=== PATIENT | female | born 1970 | race Caucasian/White ===

== ENCOUNTER 2022-08-29 12:33 | Outpatient (RCR) | payer MEDICARE, MEDICAID, SELFPAY | END 2022-12-04 10:14 | disposition home or self-care (01) | LOC: HO.WCC 12:33 | PROVIDERS: PCP Internal Medicine; Visit Provider Surgery | DX: Z09 Encounter for follow-up examination after completed treatment for conditions other than malignant neoplasm (principal); Z79.4 Long term (current) use of insulin; Z79.82 Long term (current) use of aspirin; Z79.899 Other long term (current) drug therapy; Z86.31 Personal history of diabetic foot ulcer | CPT/HCPCS: 11042; 11043; 99212 ==

== ENCOUNTER 2023-01-14 12:18 | Emergency (ER) | payer MEDICARE, MEDICAID, SELFPAY ==
--- NOTE | ~2023-01-14 | US_ITS ---
EXAMINATION: US VENOUS WITH DOPPLER UPPER EXTREMITY, LEFT CLINICAL INFORMATION: Edema/swelling COMPARISON: None available. TECHNIQUE: Ultrasound of the upper extremity is performed using compression sonography and color and pulse Doppler flow with assessment of augmentation of flow. There is also imaging and Doppler assessment of the jugular and subclavian veins. Spectral analysis with color-flow imaging is performed. FINDINGS: Respiratory variation, normal compression, and augmented flow are noted throughout the upper extremity including the axillary, brachial, cephalic and radial and ulnar veins. There is normal flow in the internal jugular and subclavian veins. There is no visible deep or superficial thrombophlebitis. US/US venous duplex UE LT IMPRESSION: No DVT demonstrated in the left upper extremity.
[2023-01-14 12:26] VITALS: BP 114/82; PULSE 104; O2SAT 95
--- NOTE | 2023-01-14 12:57 | ED_ITS ---
HPI - Skin/Abscess/Foreign Bdy General Chief complaint: Extremity Injury, Upper Stated complaint: L ARM PAIN/SWELLING PER EMS Time Seen by Provider: 01/14/23 14:55 Source: patient Mode of arrival: ambulatory Limitations: no limitations History of Present Illness HPI narrative: This is a 52-year-old female with a history of diabetes, hypertension, arthritis presenting with atraumatic left upper extremity swelling worsening over the past week. Patient reports this has never happened to her before so she became concerned and wanted to come in to get seen. Was also told to come to the ED to r/o DVT by her primary care provider. No hx of DVT, PE, malignancy, hypercoagulable d/o. NOt on blood thinners. Reports slight associated discomfort. Denies redness, warmth, fevers, chills, numbness, tingling. Related Data Previous Rx's Medication Instructions Recorded ketorolac 10 mg tablet 10 mg PO TID PRN pain 5 days #15 01/14/23 tabs Allergies Allergy/AdvReac Type Severity Reaction Status Date / Time antibiotic, unk name Allergy Unknown Uncoded 01/14/23 13:01 Review of Systems 2 Review of Systems: Constitutional : No Weight loss, No Fever, No Chills, No Fatigue, No Malaise ENT/Mouth : No sore throat, No Rhinorrhea Eyes: No Eye Pain, No Swelling, No Redness Cardiovascular : No Chest Pain, No SOB, No Dyspnea on Exertion, No Orthopnea, No Edema, No Palpitations Respiratory : No Cough, No Sputum, No Wheezing Gastrointestinal : No Nausea, No Vomiting, No Diarrhea, No Constipation, No abdominal Pain, No Hematochezia, No Melena Genitourinary : No Dysuria, No Urinary Frequency, No Hematuria, Musculoskeletal : + joint pain, No Myalgias, + Joint Swelling Skin : No Skin Lesions, No rash Neuro : No Weakness, No Numbness, No Dizziness, No Headache Psych : No Anxiety/Panic, No Depression All other systems reviewed and are negative Yes all other systems are reviewed and are negative [facility] Past Medical History Attestation statement: The following information was validated with the patient. Source: old records reviewed and nursing notes reviewed Physical Exam 2 Vital Signs: Vital Signs: Last Vital Signs Temp 98.2 F 01/14/23 12:58 Pulse 92 01/14/23 12:58 Resp 20 01/14/23 12:58 BP 133/85 01/14/23 12:58 Pulse Ox 99 01/14/23 12:58 O2 Del Method Room Air 01/14/23 12:58 BMI result Body Mass Index 59.6 vss Appearance: Alert.? Oriented X3.? No acute distress.? Head: Normocephalic, atraumatic, no step-offs or deformities Neck: Normal inspection.? Neck supple.? CVS: Normal heart rate and rhythm.? Pulses normal.? Respiratory: No respiratory distress.? Breath sounds normal.? Abdomen: Soft and nontender.? Skin: Skin warm and dry.? Normal skin color.? Normal skin turgor.? Extremities: No lower extremity edema.? No calf ttp. 5/5 strength to bilateral upper and lower extremities + swelling noted to entire LUE non pitting 2+ radial pulses equal and b/l, no wrist drop, cap refil < 2 seconds to b/l UE,normal sensation distally. b/l deputreyen contracture Neuro: Oriented X 3.? No motor deficit.? No sensory deficit. CN 2-12 intact Course Course Course Narrative: This is a rapid medical exam. Deferred additional HPI, ROS, PE to primary provider. 52 yo female DM, HTN, arthritis here with complaints of left upper arm swelling x 1 week with no injury or trauma. No redness/warmth/fevers/chills. Will obtain venous US Sent in from PCP to r/o DVT-no history of same VSS Reevaluation(s) Reevaluation #1: I have discussed the history and plan with the PA and agree Time: 15:35 Reevaluation #2: CBC with no acute findings requiring acute intervention, slight normocytic anemia however no reports of bleeding at this time. Chemistry unremarkable. Patient is noted to have markedly elevated CRP 4.72 this could be secondary to rheumatologic condition causing swelling and bilateral upper extremities. As discussed by my attending. Will have patient follow-up with Rheumatology and PCP. Nothing to be done acutely. Educated patient on diagnosis and treatment plan, answered all question, patient verbalizes understanding. At this time patient will be discharged home, advised to return with new or worsening symptoms. Educated on worrisome signs and symptoms and when to return. At this time I feel comfortable discharge home. Time: 16:18 Medications Administered Discontinued Medications Generic Name Dose Route Start Last Admin Trade Name Fantasma PRN Reason Stop Dose Admin Ketorolac Tromethamine 30 mg 01/14/23 15:36 01/14/23 16:00 Ketorolac Tromethamine 30 Mg/Ml Vial IM 01/14/23 15:37 30 mg ONCE ONE Administration Medical Decision Making Medical Decision Making [facility] Narrative: 1518 52 year old female presents w/ atraumatic swelling to LUE X 1 week No lower extremity edema.? No calf ttp. 5/5 strength to bilateral upper and lower extremities + swelling noted to entire LUE non pitting 2+ radial pulses equal and b/l, no wrist drop, cap refil < 2 seconds to b/l UE,normal sensation distally. b/l deputreyen contracture Concerning for inflammatory arthritis versus DVT vs rheumatologic condition versus lymphedema. Unlikely arterial occlusion, threat to Limb. I do not appreciate cellulitis, or necrotizing infection. Unlikley fx/dislocation atruamatic Plan venous duplex Differential Diagnosis Differential Diagnoses: The differential diagnosis associated with the presentation includes Concerning for inflammatory arthritis versus DVT vs rheumatologic condition versus lymphedema. . Unlikely arterial occlusion, threat to Limb. I do not appreciate cellulitis, or necrotizing infection. Unlikley fx/dislocation atruamatic Admission/Observation Consideration of admission/observation: Escalation of care including admission/observation considered [facility] Lab Data 01/14/23 15:55 01/14/23 15:55 Labs: Lab Results 01/14/23 Range/Units 15:55 WBC 8.8 (4.8-10.8) X10*3/uL RBC 4.35 (4.20-5.50) X10*6/uL Hgb 10.8 L (12.0-16.0) g/dl Hct 35.2 L (37.0-47.0) % MCV 80.9 (80.0-98.0) fL MCH 24.8 L (27.0-33.0) pg MCHC 30.7 L (31.0-35.0) g/dl RDW 16.8 H (11.0-16.0) % Plt Count 350 (160-400) X10*3/uL MPV 9.8 (9.4-12.3) fL Immature Gran % (Auto) 0.5 H (0.0-0.4) % Neut % (Auto) 67.0 (45-73) % Lymph % (Auto) 19.8 L (20-40) % [place] % (Auto) 7.8 (2-11) % Eos % (Auto) 4.3 H (0-4) % Baso % (Auto) 0.6 (0-2) % Lymph # (Auto) 1.7 (1.2-4.9) X10*3/uL [place] # (Auto) 0.7 (0.1-1.2) X10*3/uL Eos # (Auto) 0.4 (0.0-0.4) X10*3/uL Baso # (Auto) 0.1 (0.0-0.2) X10*3/uL Abs Immat Gran (auto) 0.04 H (0.00-0.03) X10*3/uL Absolute Neuts (auto) 5.9 (2.0-8.3) x10*3/uL Absolute Nucleated RBC 0.000 (0.0-0.012) X10*3/uL Nucleated RBC % (auto) 0.0 (0.0-0.2) /100WBC Sodium 136 (135-145) mmol/L Potassium 4.9 (3.3-5.1) mmol/L Chloride 103 (96-108) mmol/L Carbon Dioxide 26 (22-29) mmol/L Anion Gap 12 (12-20) BUN 16 (9-16) mg/dL Creatinine 0.78 (0.5-1.4) mg/dL Estim Creat Clear Calc 138.0 Estimated GFR > 60 Random Glucose 182 H (60-115) mg/dL Calcium 9.5 (8.4-10.2) mg/dL Total Bilirubin 0.2 (0.0-1.0) mg/dL AST 18 (5-31) U/L ALT 17 (0-31) U/L Alkaline Phosphatase 109 (39-117) U/L C-Reactive Protein 4.72 H (< or = 0.50) mg/dL Total Protein 8.7 H (6.5-8.0) g/dL Albumin 3.7 (3.5-5.0) g/dL Independent Interpretation I performed an independent interpretation of an: Ultrasound (US/US venous duplex UE LT IMPRESSION: No DVT demonstrated in the left upper extremity. ) Radiology Impression Discussion of test interpretation with radiology: I have reviewed the radiologist's reading. Chronic Conditions Patient?s care impacted by: Other (obesity ) Critical Care Time Critical Care Time Critical Care Time: No Discharge Plan Discharge Clinical Impression: Left upper extremity swelling, Dupuytren contracture Patient Disposition: Home, Self-Care Instructions: Dupuytren's Contracture (ED) Additional Instructions: Take your medications as prescribed. If you were prescribed antibiotics today, it is important that you take your medication to their entirety, do not skip any doses, do not finish them early. Follow-up with your primary care provider this week. Return to the emergency department with new or worsening symptoms. Such as fevers, chills, chest pain, shortness of breath, nausea, vomiting, dizziness, headache, vision changes, lethargy In case of emergency call 911 Toradol has been sent to your pharmacy, you tolerated this well in the department. Please take this as prescribed do not take this with ibuprofen, or other NSAIDs, do not mix this with alcohol. Side effects of this medication including increased risk for bleeding and possible kidney injury. US/US venous duplex UE LT IMPRESSION: No DVT demonstrated in the left upper extremity. Prescriptions: New ketorolac 10 mg tablet 10 mg PO TID PRN (Reason: pain) 5 Days Qty: 15 0RF Referrals: [facility] [place] Orthopedic Surgeons [Provider Group] - 1 day [facility] [place] Rheumatology Service [Provider Group] - 1 day ED Physician,Generic [Physician] - 2 days Stand Alone Forms: Work/School Release
[2023-01-14 12:58] VITALS: BP 133/85; PULSE 92; RESP 20; TEMP 36.8; O2SAT 99; BMI 59.6
[2023-01-14 16:00] LABS: MANUAL DIFF FLAG NO
[2023-01-14] MEDS: Ketorolac Tromethamine 30 MG/ML VIAL IM (16:00)
[2023-01-14 16:03] LABS: Basophils Absolute Auto 0.1 X10*3/uL (0.0-0.2); Basophils Percent Auto 0.6 % (0-2); Eosinophils Absolute Auto 0.4 X10*3/uL (0.0-0.4); Eosinophils Percent Auto 4.3 % (0-4); Hematocrit 35.2 % (37.0-47.0); Hemoglobin 10.8 g/dl (12.0-16.0); Imm Gran Abs Auto 0.04 X10*3/uL (0.00-0.03); Imm Gran Pct Auto 0.5 % (0.0-0.4); Lymphocytes Absolute Auto 1.7 X10*3/uL (1.2-4.9); Lymphocytes Percent Auto 19.8 % (20-40); Mean Corpuscular HGB Conc 30.7 g/dl (31.0-35.0); Mean Corpuscular Hemoglobin 24.8 pg (27.0-33.0); Mean Corpuscular Volume 80.9 fL (80.0-98.0); Mean Platelet Volume 9.8 fL (9.4-12.3); Monocytes Absolute Auto 0.7 X10*3/uL (0.1-1.2); Monocytes Percent Auto 7.8 % (2-11); Neutrophils Absolute Auto 5.9 x10*3/uL (2.0-8.3); Platelet Count 350 X10*3/uL (160-400); Red Blood Count 4.35 X10*6/uL (4.20-5.50); Red Cell Distribution Width 16.8 % (11.0-16.0); White Blood Count 8.8 X10*3/uL (4.8-10.8)
[2023-01-14 16:14] LABS: Alanine Aminotransferase 17 U/L (0-31); Albumin Level 3.7 g/dL (3.5-5.0); Alkaline Phosphatase 109 U/L (39-117); Anion Gap 12 (12-20); Aspartate Amino Transferase 18 U/L (5-31); Bilirubin Total 0.2 mg/dL (0.0-1.0); Blood Urea Nitrogen 16 mg/dL (9-16); C Reactive Protein 4.72 mg/dL (< or = 0.50); Calcium 9.5 mg/dL (8.4-10.2); Carbon Dioxide 26 mmol/L (22-29); Chloride 103 mmol/L (96-108); Estimated Glomerular Filt Rate > 60; Glucose Random 182 mg/dL (60-115); Potassium 4.9 mmol/L (3.3-5.1); Sodium 136 mmol/L (135-145); Total Protein 8.7 g/dL (6.5-8.0)
[2023-01-14 16:47] LABS: Erythrocyte Sedimentation Rate 84 MM/HR (0-20)
[2023-01-16 12:53] LABS: Anti DNA DS Antibody 4 IU/mL
== END 2023-01-14 16:47 | disposition home or self-care (01) ==
PROVIDERS: Physician Assistant; Emergency Provider Emergency Medicine; PCP Internal Medicine
DX: M72.0 Palmar fascial fibromatosis [Dupuytren] (principal); M79.89 Other specified soft tissue disorders; M79.602 Pain in left arm; E11.9 Type 2 diabetes mellitus without complications; I10 Essential (primary) hypertension; D64.9 Anemia, unspecified
CPT/HCPCS: 36415; 80053; 85025; 85652; 86140; 86225; 93971; 96372; 99283; 99284; J1885

== ENCOUNTER 2023-06-01 10:14 | Emergency (ER) | payer MEDICARE, MEDICAID, SELFPAY ==
--- NOTE | ~2023-06-01 | XR_ITS ---
EXAMINATION: Bilateral knee x-ray CLINICAL INFORMATION: Pain COMPARISON: None. TECHNIQUE: 4 views of each knee FINDINGS: Right: Bone alignment is normal. There is slight increased sclerosis of the lateral tibial plateau and is difficult to exclude fracture. No displaced fracture is seen. There are small osteophytes at the lateral femoral tibial joint. There is joint space narrowing at the medial femoral tibial joint. There are osteophytes and joint space narrowing at the patellofemoral joint. There is a small joint effusion. Left: On alignment is normal. No fracture or dislocation. The femoral tibial joints are normal. Small osteophytes at the patellofemoral joint. Moderate to large joint effusion. XR/XR knee LT 4V IMPRESSION: Right: Arthritis and small joint effusion. Slight increased sclerosis of the lateral tibial plateau. It is difficult to exclude fracture. Left: Arthritis at the patellofemoral joint and moderate to large joint effusion.
--- NOTE | ~2023-06-01 | XR_ITS ---
EXAMINATION: Bilateral knee x-ray CLINICAL INFORMATION: Pain COMPARISON: None. TECHNIQUE: 4 views of each knee FINDINGS: Right: Bone alignment is normal. There is slight increased sclerosis of the lateral tibial plateau and is difficult to exclude fracture. No displaced fracture is seen. There are small osteophytes at the lateral femoral tibial joint. There is joint space narrowing at the medial femoral tibial joint. There are osteophytes and joint space narrowing at the patellofemoral joint. There is a small joint effusion. Left: On alignment is normal. No fracture or dislocation. The femoral tibial joints are normal. Small osteophytes at the patellofemoral joint. Moderate to large joint effusion. XR/XR knee RT 4V IMPRESSION: Right: Arthritis and small joint effusion. Slight increased sclerosis of the lateral tibial plateau. It is difficult to exclude fracture. Left: Arthritis at the patellofemoral joint and moderate to large joint effusion.
--- NOTE | ~2023-06-01 | XR_ITS ---
EXAMINATION: XR FOOT, LEFT CLINICAL INFORMATION: Medial heel wound COMPARISON: None available. TECHNIQUE: AP, lateral, and oblique views of the left foot. FINDINGS: No fracture or dislocation. Contractures of the toes. Calcaneal spurs. Degenerative changes of the midfoot. Soft tissue arterial calcification. Diffuse soft tissue swelling of the foot and ankle and visualized lower leg. No abnormal air collection or foreign body seen. XR/XR foot LT min 3V IMPRESSION: No fracture x-ray evidence of osteomyelitis. Diffuse soft tissue swelling of the foot. Degenerative changes and calcaneal spurs.
[2023-06-01 10:26] VITALS: BP 240/140; PULSE 98; O2SAT 98
--- NOTE | 2023-06-01 10:26 | ED_ITS ---
HPI - General Adult General Chief complaint: Skin/Abscess/Foreign Body Stated complaint: R LOWER LEG RED AND INFLAMMED Time Seen by Provider: 06/01/23 10:25 Source: patient, EMS and RN notes reviewed Mode of arrival: EMS Limitations: no limitations History of Present Illness HPI narrative: Patient is a 52-year-old female with history of DM, HTN, arthritis presenting to the emergency department with complaint of wound to left foot for the past 2 weeks as well as bilateral knee pain for the past 3-4 months. Patient reports that she contacted her primary care provider requesting wound care for her left foot but was told [facility] was not able to come to her home. Patient states that she and her aide have been applying bacitracin and wrapping the foot. She denies fevers/chills/body aches. Also states that she has been having ongoing bilateral knee pain for the past 3-4 months which is interfering with ambulation, states she feels as though both knees are weak. Was seen here in December and prescribe short course of Toradol which she states was helpful for this pain but she was told she was unable to stay on this medication long-term. She denies falls or other trauma. She was noted to be hypertensive by EMS, but states did not take her lisinopril this morning. She did take her pain medication as well as 19units of Lantus for a blood glucose level of 268. complaint: left foot wound Onset (ago): week(s) Associated symptoms: denies other symptoms Treatments prior to arrival: other (bandage) Related Data Previous Rx's ?Medication ?Instructions ?Recorded ketorolac 10 mg tablet 10 mg PO TID PRN pain 5 days #15 01/14/23 tabs Allergies Allergy/AdvReac Type Severity Reaction Status Date / Time antibiotic, unk name Allergy Vomiting Uncoded 06/01/23 10:31 Review of Systems 2 Review of Systems: As per HPI. Yes all other systems are reviewed and are negative PMFSH Social History Social History Advance Directives: No Advance Directives Information Provided: No Physical Exam ED Vital Signs: Vital Signs - 24 hr 06/01/23 10:28 06/01/23 14:36 Temperature 97.1 F Pulse Rate 99 99 Respiratory Rate 18 Blood Pressure 192/93 H 192/93 H Pulse Oximetry 96 96 Oxygen Delivery Method Room Air BMI result Body Mass Index 68.3 Vital signs have been reviewed and appear to be correct. Blood pressure elevated. Heart rate normal. Respiratory rate normal. Temperature normal. Oxygen saturation normal. Const General: cooperative, no acute distress, alert and awake Nutritional Appearance: obese Orientation/consciousness: patient oriented x3 Limitations: physical limitations HENMT Head: Yes normocephalic and Yes atraumatic Ears: hearing grossly normal bilaterally and external ears normal General nose exam: Normal external nose present Face and sinus: Yes normal facial exam Mouth: Normal oral and palatal mucosa present Throat: Yes posterior oropharynx normal and Yes uvula midline Eyes Pupils: Equal, round and reactive pupils present Resp Effort & Inspection: normal respiratory effort Auscultation: clear to auscultation bilaterally Cardio Rate: regular rate Rhythm: regular rhythm Heart sounds: S1 normal heart sound present and S2 normal heart sound present Peripheral pulses: Peripheral pulses 2+ throughout GI Palpation (GI): Soft to palpation and nontender Auscultation: normoactive bowel sounds General: Yes no CVA tenderness Back/Spine/Pelvis Back: no CVA tenderness Skin Other: General skin exam: elasticity normal and turgor normal Wounds: wounds noted (See photo) left heel Neuro General: patient oriented x3 Cranial nerves: Yes Equal, round and reactive pupils present Medications Administered Generic Name Dose Route Start Last Admin Trade Name Freq PRN Reason Stop Dose Admin Cephalexin HCl 500 mg 06/01/23 17:00 06/01/23 13:50 Cephalexin 500 Mg Capsule PO 06/08/23 13:01 500 mg QID GIACOMO Administration Discontinued Medications Generic Name Dose Route Start Last Admin Trade Name Freq PRN Reason Stop Dose Admin Sodium Chloride 1,000 mls @ 999 mls/hr 06/01/23 12:00 06/01/23 13:57 Ns IV 06/01/23 13:00 Infused .Q1H1M GIACOMO Infusion Lisinopril 5 mg 06/01/23 10:38 06/01/23 10:51 Lisinopril 5 Mg Tablet PO 06/01/23 10:39 5 mg ONCE ONE Administration Protocol Medical Decision Making Medical Decision Making MDM Narrative: Patient is a 52-year-old female with history of DM, HTN, arthritis presenting to the emergency department with complaint of wound to left foot for the past 2 weeks as well as bilateral knee pain for the past 3-4 months. On exam patient is awake, A+Ox3, BP elevated, VS otherwise WNL, afebrile, normal neurological exam without focal deficits, physical exam findings as above. Given reported symptoms and physical exam findings, initial differential includes diabetic ulcer, cellulitis, osteomyelitis, osteoarthritis. Labs notable for no leukocytosis, chronically elevated ESR and CRP. X-ray foot notable for no evidence of osteomyelitis. X-ray bilateral knees show arthritis and effusions. Radiologist's notes that fracture can not be excluded on right knee x-ray to lateral tibial plateau. Given that patient denies fall or other trauma, feel this is unlikely. My interpretation is in agreement with the radiologist's interpretation. At this time given history of DM, will start patient on p.o. antibiotics, refer to Wound Clinic. Given that patient is stating she is unable to ambulate due to her knee pain, will place PT and cm evaluations. Patient placed on physician observation at 1:45 p.m. pending PT and CM. 14:29 Patient now stating that she would prefer discharge home without PT eval/CM involvement. She reports that she has been on a course of doxycycline prescribed by her PCP which she did not disclose initially. She also states that she has an aide in her home 6 days per week and two 18-year-old daughters who can assist her with dressing changes. She states she is able to ambulate to her chair and to the bathroom. Patient visualized ambulating to the bathroom in the ED unassisted with steady gait. Feel patient is stable for discharge home at this time and will discontinue cephalexin prescription as wound does not currently appear cellulitic. Instructed patient to follow-up with her primary care provider. Return precautions discussed at bedside. Patient verbalized understanding of and agreement plan. Observation care revealed that patient does not meet medical necessity for hospitalization. Final disposition discussed with patient. The patient completed observation care at 14:48, total time in observation care was 1 hour. Differential Diagnosis Differential Diagnoses: The differential diagnosis associated with the presentation includes As per [facility]. Admission/Observation Consideration of admission/observation: Escalation of care including admission/observation considered Patient would have been admitted to the hospital had their work up had any findings where hospital admission was appropriate and their clinical presentation warranted hospital admission. Lab Data [facility] Lab Attestation statement: I reviewed the patient's lab results. As per [facility] 06/01/23 11:10 06/01/23 11:10 Labs: Lab Results 06/01/23 Range/Units 11:10 WBC 8.0 (4.8-10.8) X10*3/uL RBC 4.09 L (4.20-5.50) X10*6/uL Hgb 10.5 L (12.0-16.0) g/dl Hct 33.3 L (37.0-47.0) % MCV 81.4 (80.0-98.0) fL MCH 25.7 L (27.0-33.0) pg MCHC 31.5 (31.0-35.0) g/dl RDW 17.5 H (11.0-16.0) % Plt Count 290 (160-400) X10*3/uL MPV 9.5 (9.4-12.3) fL Immature Gran % (Auto) 0.6 H (0.0-0.4) % Neut % (Auto) 70.0 (45-73) % Lymph % (Auto) 16.3 L (20-40) % [place] % (Auto) 7.1 (2-11) % Eos % (Auto) 5.6 H (0-4) % Baso % (Auto) 0.4 (0-2) % Lymph # (Auto) 1.3 (1.2-4.9) X10*3/uL [place] # (Auto) 0.6 (0.1-1.2) X10*3/uL Eos # (Auto) 0.5 H (0.0-0.4) X10*3/uL Baso # (Auto) 0.0 (0.0-0.2) X10*3/uL Abs Immat Gran (auto) 0.05 H (0.00-0.03) X10*3/uL Absolute Neuts (auto) 5.6 (2.0-8.3) x10*3/uL Absolute Nucleated RBC 0.000 (0.0-0.012) X10*3/uL Nucleated RBC % (auto) 0.0 (0.0-0.2) /100WBC ESR 87 H (0-20) MM/HR PT 11.7 (11.1-13.3) SEC INR 1.0 (0.9-1.1) Sodium 134 L (135-145) mmol/L Potassium 4.9 (3.3-5.1) mmol/L Chloride 101 (96-108) mmol/L Carbon Dioxide 27 (22-29) mmol/L Anion Gap 11 L (12-20) BUN 21 H (9-16) mg/dL Creatinine 0.93 (0.5-1.4) mg/dL Estim Creat Clear Calc 118.7 Estimated GFR > 60 Random Glucose 328 H (60-115) mg/dL Lactic Acid 1.3 (0.5-2.0) mmol/L Calcium 9.2 (8.4-10.2) mg/dL Total Bilirubin 0.3 (0.0-1.0) mg/dL AST 20 (5-31) U/L ALT 21 (0-31) U/L Alkaline Phosphatase 150 H (39-117) U/L C-Reactive Protein 6.18 H (< or = 0.50) mg/dL Total Protein 8.2 H (6.5-8.0) g/dL Albumin 3.6 (3.5-5.0) g/dL Independent Interpretation I performed an independent interpretation of an: Plain X-Ray Interpretation: No evidence of osteomyelitis to left foot on x-ray Bilateral knee x-rays show arthritis and effusions. Radiology Impression Discussion of test interpretation with radiology: I have reviewed the radiologist's reading. Radiologist Impression: XR/XR knee LT 4V IMPRESSION: Right: Arthritis and small joint effusion. Slight increased sclerosis of the lateral tibial plateau. It is difficult to exclude fracture. Left: Arthritis at the patellofemoral joint and moderate to large joint effusion. XR/XR foot LT min 3V IMPRESSION: No fracture x-ray evidence of osteomyelitis. Diffuse soft tissue swelling of the foot. Degenerative changes and calcaneal spurs. External Record Review External record reviewed: Inpatient record, Office record and Outpatient record Prescription Management I considered prescription management with: Antibiotic Chronic Conditions Patient?s care impacted by: Diabetes and Hypertension Discharge Plan Discharge Clinical Impression: Diabetic ulcer of foot associated with type 2 diabetes mellitus, limited to breakdown of skin, Bilateral knee pain Patient Disposition: Home, Self-Care Instructions: Foot Care for People with Diabetes (ED), Diabetic Foot Ulcers (ED) Additional Instructions: You were evaluated in the emergency department today for a diabetic wound to your left foot. The wound does not currently appear actively infected. Please complete the course of antibiotics previously prescribed to you by your primary care provider. Follow up with your primary care provider. Return to the emergency department if you develop increased redness or swelling, thick yellow drainage to your foot or fevers, or any other concerning symptoms. Prescriptions: No Action ketorolac 10 mg tablet 10 mg PO TID PRN (Reason: pain) 5 Days Qty: 15 0RF Referrals: [facility] [Provider Group] Print Language: Jordanian
[2023-06-01 10:28] VITALS: BP 192/93; PULSE 99; RESP 18; TEMP 36.2; O2SAT 96; BMI 68.3
--- NOTE | 2023-06-01 10:38 | ECG_ITS ---
Test Reason : HIGH BLOOD PRESSURE Blood Pressure : / mmHG Vent. Rate : 098 BPM Atrial Rate : 098 BPM P-R Int : 180 ms QRS Dur : 076 ms QT Int : 330 ms P-R-T Axes : 052 021 087 degrees QTc Int : 421 ms Normal sinus rhythm nonspecific T wave changes Abnormal ECG When compared with ECG of 11-JUL-2011 21:53, No significant changes seen Referred By: Shahrzad Renteria Electronically Signed By:Shiv Issa
[2023-06-01] MEDS: lisinopriL 5 MG TABLET PO (10:51)
--- NOTE | 2023-06-01 11:17 | PC.NURSE ---
Patient reports taking 19units of long acting insulin this morning for a bs of 268. Patient reports forgetting to take her bp meds but took her pain meds.
[2023-06-01 11:19] LABS: MANUAL DIFF FLAG NO
[2023-06-01 11:21] LABS: Basophils Percent Auto 0.4 % (0-2); Eosinophils Absolute Auto 0.5 X10*3/uL (0.0-0.4); Eosinophils Percent Auto 5.6 % (0-4); Hematocrit 33.3 % (37.0-47.0); Hemoglobin 10.5 g/dl (12.0-16.0); Imm Gran Abs Auto 0.05 X10*3/uL (0.00-0.03); Imm Gran Pct Auto 0.6 % (0.0-0.4); Lymphocytes Absolute Auto 1.3 X10*3/uL (1.2-4.9); Lymphocytes Percent Auto 16.3 % (20-40); Mean Corpuscular HGB Conc 31.5 g/dl (31.0-35.0); Mean Corpuscular Hemoglobin 25.7 pg (27.0-33.0); Mean Corpuscular Volume 81.4 fL (80.0-98.0); Mean Platelet Volume 9.5 fL (9.4-12.3); Monocytes Absolute Auto 0.6 X10*3/uL (0.1-1.2); Monocytes Percent Auto 7.1 % (2-11); Neutrophils Absolute Auto 5.6 x10*3/uL (2.0-8.3); Platelet Count 290 X10*3/uL (160-400); Red Blood Count 4.09 X10*6/uL (4.20-5.50); Red Cell Distribution Width 17.5 % (11.0-16.0)
[2023-06-01 11:26] LABS: Prothrombin Time 11.7 SEC (11.1-13.3)
[2023-06-01 11:31] LABS: Lactic Acid 1.3 mmol/L (0.5-2.0)
[2023-06-01 11:41] LABS: Alanine Aminotransferase 21 U/L (0-31); Albumin Level 3.6 g/dL (3.5-5.0); Alkaline Phosphatase 150 U/L (39-117); Anion Gap 11 (12-20); Aspartate Amino Transferase 20 U/L (5-31); Bilirubin Total 0.3 mg/dL (0.0-1.0); Blood Urea Nitrogen 21 mg/dL (9-16); C Reactive Protein 6.18 mg/dL (< or = 0.50); Calcium 9.2 mg/dL (8.4-10.2); Carbon Dioxide 27 mmol/L (22-29); Chloride 101 mmol/L (96-108); Creatinine Clr Calc Pharmacy 118.7; Estimated Glomerular Filt Rate > 60; Glucose Random 328 mg/dL (60-115); Potassium 4.9 mmol/L (3.3-5.1); Sodium 134 mmol/L (135-145); Total Protein 8.2 g/dL (6.5-8.0)
[2023-06-01 12:00] LABS: Erythrocyte Sedimentation Rate 87 MM/HR (0-20)
[2023-06-01] MEDS: 0.9 % Sodium Chloride 1,000 ML 999 ML IV (12:11)
[2023-06-01] MEDS: cephALEXin 500 MG CAPSULE PO (13:50)
[2023-06-01 14:36] VITALS: BP 192/93; PULSE 99; O2SAT 96
[2023-06-01 14:57] VITALS: BP 156/78; PULSE 93; RESP 14; TEMP 36; O2SAT 95
== END 2023-06-01 14:59 | disposition home or self-care (01) ==
PROVIDERS: Registered Nurse Emergency; Emergency Provider Emergency Medicine Emergency Medical Services; PCP Internal Medicine
DX: E11.621 Type 2 diabetes mellitus with foot ulcer (principal); M25.562 Pain in left knee; M25.561 Pain in right knee; R26.81 Unsteadiness on feet; R11.2 Nausea with vomiting, unspecified; R94.31 Abnormal electrocardiogram [ECG] [EKG]; R06.02 Shortness of breath; Z79.899 Other long term (current) drug therapy
CPT/HCPCS: 36415; 73564; 73630; 80053; 83605; 85025; 85610; 85652; 86140; 87040; 93005; 96360; 96361; 97162; 99283; 99284

== ENCOUNTER → 2023-06-01 10:38 | Outpatient (BNV) | payer MEDICARE, MEDICAID, SELFPAY | PROVIDERS: Emergency Provider Emergency Medicine Emergency Medical Services; PCP Internal Medicine; Visit Provider Internal Medicine Cardiovascular Disease | DX: R94.31 Abnormal electrocardiogram [ECG] [EKG] (principal) | CPT/HCPCS: 93010 ==

== ENCOUNTER 2023-06-11 08:00 | Outpatient (RCR) | payer MEDICARE, MEDICAID, SELFPAY | END 2023-06-25 08:00 | disposition home or self-care (01) | LOC: HO.WCC 08:00 | PROVIDERS: PCP Internal Medicine; Visit Provider Physician Assistant | DX: E11.621 Type 2 diabetes mellitus with foot ulcer (principal); L97.422 Non-pressure chronic ulcer of left heel and midfoot with fat layer exposed; E66.9 Obesity, unspecified | CPT/HCPCS: 11042; 99212 ==

== ENCOUNTER 2025-01-05 19:10 | Inpatient (IN) | payer MEDICARE, MEDICAID, SELFPAY ==
--- OUTSIDE RECORDS SUMMARY | 2024-09-10 05:00 | XMS_ITS ---
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 Name Role Phone Sanjay DYER, Emeterio Primary Care Provider Unavaila florencio Harvey Kinsey Unavailable [phone] Kevin Jansen Unavailable [phone] Encounters Encounter Location Date [facility] [address] [facility]/10/[facility]24 Kevin Jansen Plan Of Treatment No Information Progress Notes * Martha RAMSEYaDOB: 2 (54 yo F)Acc No.[id number]:09/10/2024 Progress Notes Patient: Renée LARRY Provider: Zeeshan Jansen DPM :1970 A ge:53 Y S ex:Female Date:09/10/2024 Address:[address] [place], [place] [id number] Pcp:mEeterio Grace MD Subjective: * Chief Complaints: * * Medical History: Objective: * Vitals: Assessment: Plan: * Treatment: * Images: * The named appointment provid er may or may not be the originator of this progress note, and it is not deemed complete until electronically signed by the appointment provider. Sign off status: Pending * Provider: Zeeshan Jansen DPM Date: 09/10/2024 Generated for Sinani ng/Fakierag/eTransmitting on: 03/08/2024 01:50 PM EST
--- OUTSIDE RECORDS SUMMARY | 2024-10-08 09:00 | XMS_ITS ---
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 Name Role Phone Sanjay DYER, Emeterio Primary Care Provider Kinsey Giordano [phone] Encounters Encounter Location Date Provider Diagnosis [facility] [address] [place] [address] 10/08/2024 Kinsey Harvey Plan Of Treatment No Information Progress Notes * Silvia RAMSEYB: 2 (54 yo F)Acc No.[id number]:10/08/2024 Progress Notes Patient: Renée LARRY Provider: Thai Harvey DPM :1970 A ge:54 Y S ex:Female Date:10/08/2024 Address:[address] [place], [place] [id number] Pcp:Emeterio Grace MD Subjective: * Chief Complaints: * * Medical History: Objective: * Vitals: Assessment: Plan: * Treatment: * Images: * The named appointment provid er may or may not be the originator of this progress note, and it is not deemed complete until electronically signed by the appointment provider. Sign off status: Pending * Provider: Thai Harvey DPM Date: 10/08/2024 Generated for Margaret caceres/Quang/eTransmitting on: 03/08/2024 01:49 PM EST
--- OUTSIDE RECORDS SUMMARY | 2025-01-05 19:12 | XMS_ITS | Continuity of Care Document ---
Author Organization [facility] ter Address [address] [place] [id number] Care Team Providers Care Field Care Advocate Name Role Phone Emeterio Grace MD [id number] Date(s): 01/03/25 - 01/05/[address] [address]- Encounter Diagnosis Suicidal ideation(Final) - 01/03/25 Bladder spasm(Final) - 01/03/25 Bladder spasm(Final) - 01/04/25 Suicidal ideation(Final) - 01/04/25 Discharge Disposition: Transfer to Psych Facility Attending Physician: Daja Quezada MD Admitting Physician: Daja Quezada MD Referring Physician: Not on Staff, Referring MD Encounter Type: Disch ES Allergies, Adverse Reactions, Alerts Substance Criticality Severity Reaction Reaction Severity Status Zosyn Active Immunizations Given and Recorded Vaccine Date Status Refusal Reason influenza virus vaccine, inactivated 11/28/24 Give n influenza virus vaccine, inactivated 11/22/21 Yifan rded influenza virus vaccine, inactivated 11/14/20 Yifan rded influenza virus vaccine, inactivated 10/27/19 Yifan rded influenza virus vaccine, inactivated 12/16/18 Yifan rded influenza virus vaccine, inactivated 12/23/17 Yifan rded influenza virus vaccine, inactivated 10/25/16 Yifan rded influenza virus vaccine, inactivated 12/30/15 Yifan rded pneumococcal 20-valent conjugate vaccine 01/05/22 Recorded [id number] 12y+ bivalent booster vax 11/22/21 Recorded SARS-CoV-2 mRNA ([id number]) vax 03/06/21 Recorded SARS-CoV-2 (COVID-19) mRNA BNT-162b2 vac 08/26/20 Recorded SARS-CoV-2 (COVID-19) mRNA BNT-162b2 vac 05/15/20 Recorded tetanus-diphtheria toxoids (Td) 01/12/20 Recorded Medications acetaminophen 500 mg oral tablet 2 tablet = 1,000 mg, By Mouth, 3 times a day, 0 Refills, Maintenance, 10/05/24 9:10:00 AM EDT, Tablet, Partial fill upon patient request if the prescription is for a schedule II opioid drug. Start Date: 10/05/24 Status: Ordered Medication Dispense Status: Completed Total Allowed Fills: 1 Fills Dispensed: 0 apixaban = 5 mg, By Mouth, 2 times a day, First dose 11/15 PM for at least 3 months unless otherwise directed by hematology, 0 Refills, Maintenance, 11/09/24 8:59:00 AM EDT, Tablet, Partial fill upon patient request if the prescription is for a schedule II opioid drug. Start Date: 11/09/24 Stop Date: 11/15/24 Status: Ordered Medication Dispense Status: Completed Total Allowed Fills: 1 Fills Dispensed: 0 aspirin 81 mg oral tablet, chewable 81 mg, 1, tablet, Chew, Daily, Refills 0, Maintenance, 12/10/24 10:00:00 AM EDT, Partial fill upon patient request if the prescription is for a schedule II opioid drug. Start Date: 12/10/24 Status: Ordered Medication Dispense Status: Completed Total Allowed Fills: 1 Fills Dispensed: 0 bisacodyl 10 mg rectal suppository 1 supp = 10 mg, Rectally, Daily, PRN for constipation, 0 Refills, Maintenance, 09/05/24 12:40:00 PM EDT, Suppository, Partial fill upon patient request if the prescription is for a schedule II opioid drug. Start Date: 09/05/24 Status: Ordered Medication Dispense Status: Completed Total Allowed Fills: 1 Fills Dispensed: 0 Calcium 600 +D oral tablet 1 tablet, By Mouth, 2 times a day, 0 Refills, Maintenance, 09/05/24 12:38:00 PM EDT, Tablet, Partialfill upon patient request if the prescription is for a schedule II opioid drug. Start Date: 09/05/24 Status: Ordered Medication Dispense Status: Completed Total Allowed Fills: 1 Fills Dispensed: 0 cefpodoxime 200 mg oral tablet 1 tablet = 200 mg, By Mouth, Every 12 hours, for 7 days, # 14 tablet, 0 Refills, Acute 01/12/25 6:21:00 PM EST, 01/05/25 6:21:00 PM EST, Tablet, Partial fill upon patient request if the prescription is for a schedule II opioid drug. Start Date: 01/05/25 Stop Date: 01/12/25 Status: Ordered Medication Dispense Status: Completed Quantity: 14.0 Unit: tablet Total Allowed Fills: 1 Fills Dispensed: 0 Compression Stockings See Instructions, # 2 each, Maintenance, surgical, knee length 20-30 mm Hg, 03/16/22 3:54:00 PM EST,Supply Start Date: 03/16/22 Status: Ordered Medication Dispense Status: Completed Quantity: 2.0 Unit: each Total Allowed Fills: 1 Fills Dispensed: 0 Fleet Enema 19 gm-7 gm rectal enema 1 each, Rectally, Daily, PRN as needed for constipation, # 1 each, 0 Refills, Maintenance, 11/26/24 8:21:00 AM EDT, Enema, Partial fill upon patient request if the prescription is for a schedule II opioid drug. Start Date: 11/26/24 Status: Ordered Medication Dispense Status: Completed Quantity: 1.0 Unit: each Total Allowed Fills: 1 Fills Dispensed: 0 Flomax 0.4 mg oral capsule 0.4 mg, By Mouth, Daily, Refills 0, Maintenance, 12/27/24 9:19:00 AM EST, Partial fill upon patient request if the prescription is for a schedule II opioid drug. Start Date: 12/27/24 Status: Ordered Medication Dispense Status: Completed Total Allowed Fills: 1 Fills Dispensed: 0 Gauze Pad (4 X 4) See Instructions, # 1 pack/packet, Maintenance, DSD gauge pad for alternate day dressing 2 weeks supply, 01/28/22 10:49:00 AM EST, Supply, 163, cm, 01/27/22 12:28:00 EST, Height, 149, kg, 01/18/22 2:16:00 EST, Dry Weight Start Date: 01/28/22 Status: Ordered Medication Dispense Status: Completed Quantity: 1.0 Unit: pack/packet Total Allowed Fills: 1 Fills Dispensed: 0 Insulin Lispro 2-6 units, Subcutaneous Injection, 3 times a day before meals, 150 - 199 2 units Call if less than 70, 200 - 249 3 units, 250 - 299 4 units, 300 - 349 5 units, 350 - 399 6 units Call if greater than 400, 0 Refills, Maintenance, 11/09/24 9:10:00 AM EDT, Injection, Partial fill upon patient request ifthe prescription is for a schedule II opioid drug. Start Date: 11/09/24 Status: Ordered Medication Dispense Status: Completed Total Allowed Fills: 1 Fills Dispensed: 0 Lantus Inj = 15 units, Subcutaneous Injection, Daily, 0 Refills, Maintenance, 12/27/24 9:18:00 AM EST, Injection, Partial fill upon patient request if the prescription is for a schedule II opioid drug. Start Date: 12/27/24 Status: Ordered Medication Dispense Status: Completed Total Allowed Fills: 1 Fills Dispensed: 0 melatonin 3 mg oral tablet 1 tablet = 3 mg, By Mouth, Daily at bedtime, PRN as needed for insomnia, Maintenance, 11/13/24 5:33:00 PM EDT, Partial fill upon patient request if the prescription is for a schedule II opioid drug. Start Date: 11/13/24 Status: Ordered Medication Dispense Status: Completed Total Allowed Fills: 1 Fills Dispensed: 0 Multivitamin 1 tablet, By Mouth, Daily, 0 Refills, Maintenance, 10/05/24 9:16:00 AM EDT, Partial fill upon patient request if the prescription is for a schedule II opioid drug. Start Date: 10/05/24 Status: Ordered Medication Dispense Status: Completed Total Allowed Fills: 1 Fills Dispensed: 0 One Touch Ultra Test Strips See Instructions, # 120 each, Maintenance, For glucose testing 4 times a day., 03/24/15 10:57:11 AM EST, DM2, E11.65, Compound Start Date: 03/24/15 Status: Ordered Medication Dispense Status: Completed Quantity: 120.0 Unit: each Total Allowed Fills: 1 Fills Dispensed: 0 oxybutynin 10 mg/24 hr oral tablet, extended release = 10 mg, By Mouth, Daily, 0 Refills, Maintenance, 12/27/24 9:19:00 AM EST, ER Tablet, Partial fill upon patient request if the prescription is for a schedule II opioid drug. Start Date: 12/27/24 Status: Ordered Medication Dispense Status: Completed Total Allowed Fills: 1 Fills Dispensed: 0 oxyCODONE 5 mg oral tablet 5 mg, Tablet, By Mouth, Every 4 hours, PRN for Pain , Moderate, Routine, 01/03/25 5:36:00 PM EST Start Date: 01/03/25 Stop Date: 01/10/25 Status: Ordered Medication Dispense Status: Completed Total Allowed Fills: 1 Fills Dispensed: 0 Pen [place], 31 G x 5 mm BD Ultra Fine III See Instructions, # 120 each, Maintenance, For injecting 4 times a day, 03/24/15 10:54:28 AM EST, DM2, E11.65, Compound Start Date: 03/24/15 Status: Ordered Medication Dispense Status: Completed Quantity: 120.0 Unit: each Total Allowed Fills: 1 Fills Dispensed: 0 Protonix 40 mg oral delayed release tablet = 40 mg, By Mouth, Daily, 0 Refills, Maintenance, 12/01/24 12:36:00 PM EDT, EC Tablet Start Date: 12/01/24 Status: Ordered Medication Dispense Status: Completed Total Allowed Fills: 1 Fills Dispensed: 0 Reglan 5 mg oral tablet 1 tablet = 5 mg, By Mouth, Every 6 hours, PRN Nausea & Vomiting, 0 Refills, Maintenance, 10/05/24 9:14:00 AM EDT, Tablet, Partial fill upon patient request if the prescription is for a schedule IIopioid drug. Start Date: 10/05/24 Stop Date: 10/09/24 Status: Ordered Medication Dispense Status: Completed Total Allowed Fills: 1 Fills Dispensed: 0 Senna 8.6 mg oral tablet 8.6 mg, 1, tablet, By Mouth, Daily, PRN, Refills 0, Maintenance, for constipation, 09/05/24 12:41:00PM EDT, Tablet, Partial fill upon patient request if the prescription is for a schedule II opioid drug. Start Date: 09/05/24 Status: Ordered Medication Dispense Status: Completed Total Allowed Fills: 1 Fills Dispensed: 0 spironolactone 25 mg oral tablet 25 mg, 1, tablet, By Mouth, Daily, # 30 tablet, Refills 0, Tot. Refills 0, Maintenance, 11/09/24 9:57:00 AM EDT, Do Not Route, Partial fill upon patient request if the prescription is for a schedule II opioid drug. Start Date: 11/09/24 Status: Ordered Medication Dispense Status: Completed Quantity: 30.0 Unit: tablet Total Allowed Fills: 1 Fills Dispensed: 0 traZODone 50 mg oral tablet 25 mg, By Mouth, 2 times a day, PRN, PRN insomnia, Refills 0, Maintenance, Anxiety, 12/27/24 9:19:00AM EST, Partial fill upon patient request if the prescription is for a schedule II opioid drug. Start Date: 12/27/24 Status: Ordered Medication Dispense Status: Completed Total Allowed Fills: 1 Fills Dispensed: 0 Vitamin C 500 mg oral tablet 1 tablet = 500 mg, By Mouth, Daily, 0 Refills, Maintenance, 10/05/24 9:15:00 AM EDT, Tablet, Partialfill upon patient request if the prescription is for a schedule II opioid drug. Start Date: 10/05/24 Status: Ordered Medication Dispense Status: Completed Total Allowed Fills: 1 Fills Dispensed: 0 Zoloft 25 mg oral tablet = 25 mg, By Mouth, Daily, 0 Refills, Maintenance, 12/27/24 9:19:00 AM EST, Tablet, Partial fill uponpatient request if the prescription is for a schedule II opioid drug. Start Date: 12/27/24 Status: Ordered Medication Dispense Status: Completed Total Allowed Fills: 1 Fills Dispensed: 0 Mental Status Mental Status Assessment Assessment Assessment Component Result Effecti ve Date Dejuan coma score total 15 Mental Status Assessment Assessment Assessment Component Result Effecti ve Date Dejuan coma score total 15 Problem List Condition Confirmation Course Effective Dates Status Health St atus Informant Morbid obesity with body mass index (BMI) of 50.0 to 59.9 in adult Confirmed Active C. difficile colitis Confirmed Active C. difficile diarrhea Confirmed Active History of Clostridium difficile infection Confirmed Active History of CVA with residual deficit Confirmed Active Hypertension Confirmed Active Obese build Confirmed Active Severe obesity Confirmed Active Twin Confirmed Active T2DM (type 2 diabetes mellitus) Confirmed Active Varicose vein Confirmed Active Results Radiology Reports * Exam Date Time Procedure Performing Provider Status 01/03/25 11:52 AM Chest Portable Auth (Ve rified) Notes: (Chest Portable) Reason For Exam: Shortness of Breath RESULT: Chest Portable Chest Portable Hx of Present Illness: Coming from SNF care one patient stated that she wanted to kill herself- states she is having a bad day- hx of depresion- has chronic Alvarez- refused vitals for ems; Reason: Shortness of Breath; Clinical Question(s): CHF COMPARISON: 06/01/2024 Study is limited because patient has not taken a proper inspiration. FINDINGS: LINES AND TUBES: None. LUNGS AND PLEURA: Clear lungs. Normal pulmonary vascularity. No evidence of pleural effusion. No pneumothorax. HEART, MEDIASTINUM AND JUAN: Heart size appears minimally enlarged on this poor inspiratory AP film. Normal mediastinal and hilar contour. BONES AND SOFT TISSUES: No acute abnormality. IMPRESSION: No acute abnormality. WSN: [id number] Ordering Physician: Oscar Jaime Dictated By: Nazario Mattson MD Dictated Date/Time: 01/03/25 11:56 a Reviewed By: Nazario Mattson MD Signed By: Nazario Mattson MD Signed Date/Time: 01/03/25 11:56 am Transcribed By: LETA Transcribed Date/Time: 01/03/25 11:53 am Vital Signs Most recent to oldest [Reference Range]: 1 2 3 Oxygen Saturation [94-100 %] 93 % *L* (01/05/25 10:06 AM) 99 % (01/05/25 5:00 AM) 99 % (01/04/25 11:00 PM) Pulse Rate [55-90 bpm] 92 bpm *H* (01/05/25 10:06 AM) 85 bpm (01/05/25 5:00 AM) 85 bpm (01/04/25 9:00 PM) Blood Pressure [90-138/55-84 mm Hg] 122/85mm Hg (01/05/25 10:06 AM) 130/75mm Hg (01/05/25 5:00 AM) Systolic Blood Pressure [90-138 mm Hg] 130 mm Hg (01/04/25 11:00 PM) Diastolic Blood Pressure [55-84 mm Hg] 80 mm Hg (01/04/25 11:00 PM) Respiratory Rate [16-30 br/min] 16 br/min (01/05/25 11:22 AM) 18 br/min (01/05/25 10:06 AM) 20 br/min (01/05/25 5:00 AM) Temperature [96.8-100.4 DegF] 98.1 DegF (01/05/25 10:06 AM) 97.3 DegF (01/05/25 5:00 AM) 98 DegF (01/04/25 11:00 PM) Mode of Delivery (Oxygen) Room air (01/05/25 10:06 AM) Room air (01/05/25 5:00 AM) Room air (01/04/25 11:00 PM) Blood pressure sites Arm, left (01/05/25 10:06 AM) Arm, right (01/04/25 5:00 AM) Arm, right (01/03/25 11:39 PM) Temperature Route Oral (01/05/25 10:06 AM) Oral (01/04/25 6:31 PM) Oral (01/04/25 5:00 AM) Social History Social History Type Response Smoking Status Never smoker entered on: 04/12/14 Sex Sex Representation Female (finding) Status N/A EKG study * Event Display: ECG 12-Lead Authored Date: Please click on pdf link to open report * Event Display: ECG 12-Lead Authored Date: Ventricular Rate: 89 BPM Atrial Rate: 89 BPM P-R Interval: 152 ms QRS Duration: 74 ms Q-T Interval: 348 ms QTC Calculation(Bazett): 423 ms P Huggins: 43 degrees R Huggins: 38 degrees T Huggins: 73 degrees Normal sinus rhythm Normal ECG When compared with ECG of 03-Jan-2025 11:40, No significant change was found Confirmed by Artur Lo ([id number]) on 01/05/2025 12:46:07 PM Bernice: Artur Lo * Event Display: ECG 12-Lead Authored Date: Please click on pdf link to open report * Event Display: ECG 12-Lead Authored Date: [id number] Ventricular Rate: 86 BPM Atrial Rate: 86 BPM P-R Interval: 150 ms QRS Duration: 72 ms Q-T Interval: 348 ms QTC Calculation(Bazett): 416 ms P Huggins: 61 degrees R Huggins: 17 degrees T Huggins: 69 degrees Normal sinus rhythm Normal ECG When compared with ECG of 01-Dec-2024 10:49, No significant change was found Confirmed by Artur Lo ([id number]) on 01/04/2025 11:49:06 AM Bernice: Artur Lo Consult note * Prior Laz DELGADO: PERFORM, MODIFY, MODIFY, MODIFY, MODIFY Event Display: Consultation Note Authored Date: Patient: ??ELAINA RAMSEY ? Age:??54 Years?Sex:??Female?:??1970?LOC:??[facility]?? Consult Information Referring Physician/Provider:?Nataliia Ortiz ?? Chief Complaint: Comming from [facility] patient stated that she wanted to kill herelf- states sheis having a bad day- hx of depresion- has chronic alvarez- refused vitals for ems ?? Reason for consult:?psychotropic medication evaluation/management ?? Source of information:??Per patient, [facility] records ?? Identifying information:??ELAINA RAMSEY is a 54-year-old resident of care home facility ([facility]) with history of T2DM, HFpEF, obesity, HTN, dyslipidemia, right femur fracture s/p ORIF (April 2024), PE, C. diff, urinary retention, adjustment disorder, and recent hospitalization at [facility] 12/10/2024 - 12/16/2024 for complicated UTI, who re-presented on 01/03/2025 for evaluation of suicidal ideation. ?? Is patient is known to the [facility] psychiatry service? -Yes, from prior encounter(s). This resume writer reviewed most recent note(s), including but not limited to:??Initial Psychiatry Consultation Note; Mel HOODLeo 12/11/2024 12:01 EDT ?? Excerpts from ED Provider note:?? 54-year-old female with a past medical history of bladder spasms, chronic indwelling Alvarez, adjustment disorder, diabetes, CHF, GERD, prior pulmonary embolism on Eliquis presenting to the emergency department today with suicidal ideation. ??Patient states that she fractured her leg many months ago???upon looking in the chart it looks like it was in April???and since then she has been in and out of rehab. ??Patient states that since being there this time, she has no more will to live secondary to all of her chronic conditions. ??She has plans to either jump in front of a car or jump off a bridge. ??She is complaining of shortness of breath, mild chest discomfort, abdominal pain, dysuria, right leg pain. [1] The patient has been placed into observation status for continued assessment and treatment in the emergency department. [2] A Section 12 to hold the patient in the ED ??[is indicated and has been signed] [3] The Alvarez was replaced and urine culture was sent. ??She states she was recently treated with antibiotics for UTI. [4] Interval History: Patient complaining of nausea this morning, chronic per her report. ??Has Reglan in her med list, ordered. [5] Patient pending inpatient bedsearch [6] ?? Initial vital signs: elevated systolic blood pressure??141, otherwise within normal limits Physical exam: ...Decreased range of motion bilateral lower extremity secondary to discomfort...Tenderness on palpation of the right lower extremity, unchanged, where she states she was recently diagnosed with a DVT... ??otherwise reassuring/unremarkable?? Psychotropic PRNs received in the ED: @0119 trazodone 25 mg PO ?? Available results of ED diagnostics were reviewed independently by this resume writer and are cited marginally. ?? Active/pending orders for diagnostics, referrals, and other protocols noted below. No other diagnostics were ordered or performed in the ED. Order Status Order Date/Time Psych Consult (Adult) Ordered 01/04/25 10:45 1:4 Observation Safety Monitoring (ED Only) Ordered 01/03/25 22:42 Psych Bed Search (ED Order) Ordered 01/03/25 22:42 ED Observation Status (ED Only) Ordered 01/03/25 18:27 Medically Cleared - Psych Crises [facility] (ED Order) Ordered 01/03/25 18:27 Urine Culture InProcess 01/03/25 16:09 1:4 Observation Safety Monitoring (ED Only) Ordered 01/03/25 13:29 ?? Excerpts from Crisis Initial Evaluation note: Patient was observed to be laying in bed, wrapped??in blankets, wearing hospital attire, limited movement, AOx4, willing participant in the evaluation,??thought process fixated on what is fueling hersuicidal ideation ignoring any other questions. Patient??denies HI/assault ideation/paranoia no indication of internal preoccupation or perceptual disturbances. Patient did endorse suicidal ideation with multiple plans to jump out of windows, jump off a bridge, walk into traffic, and/or overdose onpills. She reports the only reason why she is alive is because she has limited mobility and has been at a SNF without access to her medication. When asked if??she had access would she try to kill herself Oh absolutely . Patient explored with clinician multiple losses of family members,??recent stressor of her daughter moving out, chronic medical conditions as??the catalyst. Patient would ignored questions asked by clinician that did not pertain to her suicidal ideation such as education history, financial stress, she would continue to speak towards her suicidal ideation. Patient was unable to safety plan, endorsing increased hopelessness, decreased appetite and sleep, feels alone, feels unsupported. Patient is advocating for help. [7] Given the above information it is this writers clinical opinion that??at this time the patient presents as HIGH risk of intentional/unintentional harm to self/others and??would??benefit from INVOLUNTARY PSYCHIATRIC HOSPITALIZATION [8] Unspecified Depressive Disorder [9] History of Present Illness On??initial interview, patient is alert and oriented. ??Describes mood?? okay except that she is still experiencing suicidal ideation. Corroborated foregoing account of precipitating events. Identifies multiple ongoing stressors as??reasons for wanting to : not being in touch with her daughter,ongoing medical/mobility problems.??Advocates for receipt of her nausea medication??so she finish her breakfast.??Patient denies any additional symptoms concerning for anxiety, depression, izzy, psychosis or PTSD. Patient currently denies any homicidal ideation. ? Current Psychotropic Medications:?? Sertraline mg PO QD Outpatient Providers:??Sees a therapist at [facility]. Denies having a psychiatrist in the outpatient setting. Consult Histories Due to patient's currently limited reliability as historian, report of past histories noted below was??supplemented??from aforementioned collateral sources. ?? Past Psychiatric History:?? Diagnoses:??Adjustment disorder.?? Hospitalizations:??Denies any inpatient??or partial hospitalizations as well as intensive outpatient treatments. Unsafe behaviors: No history of suicide attempts. No history of non-suicidal self-injurious behavior (NSSIB). Denies any history of aggression. SALESPERSON FURNITURE Trauma/Pathology:??No history of traumatic brain injury, seizures, stroke, or??SALESPERSON FURNITURE neoplasm/malformation. Past Treatment Trials:??Bupropion XL.??No history of ECT treatments. ?? Substance Use Patient denies any current use of??tobacco, alcohol, cannabis, heroin, cocaine, LSD, PCP, methamphetamine or prescription medication abuse. ?? Social History Living Situation:?? [facility] Facility ([facility]) Friends/Family/Support: Patient is local to [facility]; grew up in [place]. 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 Collects SS and SSI. Access to firearms or lethal weapons: Denies Legal:??No history of arrests, incarcerations, or probation. ?? Family History:?? Patient??reports??family history of son with austism spectrum disroder. No other family history of psychiatric illness/treatment, substance use disorders, or suicidality. Review of Systems Pertinent positives as listed above in HPI.??Otherwise, remainder of review of systems negative. Mental Status Vitals & Measurements T:??98.1?F?? TMIN:??97.6?F?? TMAX:??98.5?F?? HR:??92??(Peripheral)?? RR:??18?? BP:??117/71?? SpO2:??97%?? Mental Status Exam Appearance: Hospital attire, supine in B pod bed,??severely obese Eye contact: Minimal Attitude: Cooperative Motor Activity: Calm; absent of tics, tremors, psychomotor agitation, psychomotor slowing Mood: Okay Affect: Restricted Speech: Nonspontaneous, normal rate, low tone and??normal prosody Perception: No reported AVH;??no internal preoccupation or responding to internal stimuli Orientation: Intact to all spheres Memory: Grossly intact Thought Process: Coherent, goal-directed Thought Content: Themes of hopelessness and??helplessness. Reliability: Limited historian Insight: Impaired Judgment: Impaired Impulse control: Limited Suicidality/Self-destructive Behavior: Ideation Homicidality/Violence: None ?? Musculoskeletal Antigravity. No rigidity noted. Moving all four extremities spontaneously. Not observed ambulating. [place] Suicide Score Dod[place]idge Suicide Assessment Ca (12/11/24) [place] Suicide Score Last Asked Ca (01/04/25) Suicidal Intent No Plan Last Asked-CSSRS: Yes (01/04/25) Suicidal Thoughts Method Lst Asked-CSSRS: Yes (01/04/25) Suicidal Thoughts Past Month - CSSRS: No (12/11/24) Suicidal Thoughts Since Last Asked-CSSRS: Yes (01/04/25) Suicide Behavior Lifetime - CSSRS: No (12/11/24) Suicide Behavior Since Last Asked-CSSRS: No (01/04/25) Suicide Intent w/Plan Last Asked-CSSRS: No (01/04/25) Wish to be Past Month - CSSRS: No (12/11/24) Assessment/Recommendations Assessment:?In brief, this is a 54-year-old resident of care home facility ([facility]) with history of T2DM, HFpEF, obesity, HTN, dyslipidemia, right femur fracture s/p ORIF (April 2024), PE, C. diff, urinary retention, adjustment disorder, and recent hospitalization at [facility] 12/10/2024 - 12/16/2024 for complicated UTI, who re-presented on 01/03/2025 for evaluation of suicidal ideation.??At this point in time, the patient has been medically cleared and referred to??[facility] for evaluation and assistance with disposition,??albeit currently pending bed search for inpatient psychiatric hospitalization. The emergency psychiatry service was consulted for assistance with medication management. There is concern for primary depressive vs. trauma- and stressor-related illness as evident by??new onset suicidal ideation in response to multiple psychosocial stressors including acute as well as chronic medical problems and interpersonal conflict with her daughter. Diagnostic clarification is deferred to the next/longitudinal level of care. Given multiple,significant potential??barriers to placement (presence of indwelling Alvarez catheter, impaired mobility and ADLs??(uses walker), patient request for local placement), would reconsider candidacy for??inpatient level of care after 48-72 hours with consistent dential of??SI/HI/AVH and absence of any acute behavioral safety events necessitating involuntary restraint or seclusion.??Explained to the patient the differential diagnoses, treatment options, risks of untreated illness, and risks/benefits of treatment. See below for??detailed evaluation and??treatment recommendations. ?? Diagnoses Depressive disorder, unspecified Suicidal ideation Bladder spasm Abnormal urinalysis Impaired mobility and ADLs Uses walker Indwelling Alvarez catheter present At risk for delirium ?? Recommendations: -Disposition as per Crisis Services, albeit currently a bed search for inpatient psychiatric hospitalization. *Would reconsider candidacy for inpatient level of care after 48-72 hours with consistentdential of??SI/HI/AVH and absence of any acute behavioral safety events necessitating involuntary restraint or seclusion.* -Potential barriers to placement: indwelling Alvarez catheter, impaired mobility and ADLs??(uses walker), patient request for local placement. 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 Patient may NOT leave AMA without Crisis/Psychiatry clearance. -Increase??sertraline to 50 mg p.o. daily for depression. -PRN orders and recommendations??for [facility] ED or medical floor only, not currently anticipating need for continuation upon discharge/transfer: ?Trazodone 25-50 mg PO QID PRN anxiety, insomnia, or mild agitation. ?Olanzapine 2.5-FDL??5 mg and diphenhydramine 50 mg PO/IM Q6H PRN agitation/psychosis, reserving IM for severe agitation with acute safety concern and refusal of PO. The preference is for PO medications when more conservative measures (e.g. verbal redirection) are ineffective.?? -Would note that these medications are only being utilized in the ER while the patient awaits finaldisposition. Long-term need for these medications will need to be assessed by the patient's future treating psychiatrist. -Seclusion or restraint may only be used as interventions of last resort in the management of severe agitation in patient. If they are used, seclusion and restraint episodes should be as short as possible, dignified, and as safe as possible for all involved. Patient preference should always be considered when feasible. -Follow-up baseline labs and other diagnostics to rule out organic etiology of presenting symptoms,establish prescribing parameters, and enable transfer to external??facility, including but not limited to the following: ?Urine culture (in process). ?? Examples of interventions designed to mitigate risk factors for delirium include: -Orientation protocols??- Provision of clocks, calendars, windows with outside views, and verbally re-orienting patients may mitigate confusion that results from disorientation in unfamiliar environments. -Cognitive stimulation??- Patients with cognitive impairment, in particular, may benefit from activity such as regular visits from family and friends. At the same time, sensory overstimulation shouldbe avoided, particularly at night. -Facilitation of physiologic sleep?Nursing and medical procedures, including the administration of medications, should be avoided during sleeping hours when possible. Night-time noise should bereduced. -Early mobilization and minimized use of physical restraints for patients with limited mobility. -Visual and hearing aids for patients with these impairments. -Avoiding and/or monitoring the use of problematic medications such as opioids, benzodiazepines, dihydropyridines, anticholinergics and antihistamines. -Avoiding and treating medical complications. -Managing pain?Pain may be a significant risk factor for delirium. The use of nonopioid medications should be used where possible, as these are less likely to aggravate delirium. ?? Thank you for allowing us to participate in this patient's care. We will continue to follow the patient as needed by the primary team. Please feel free to contact the Psychiatry consult service via [employer] to Psych Adult Consults ??with any questions or concerns.? Recommendations messaged via??[employer] to DANNY Love ?? Laz Arzola PA-C (he/him) Emergency Psychiatry Services Division of Consultation-Liaison Psychiatry Department of Psychiatry [facility]?? Total Time Spent Total Visit Time: I personally spent a total of??84 minutes, including both [id number] and shp-pjkf-go-face time onthe date of the encounter, addressing the above diagnoses. Activities performed in this time include chart review, obtaining / reviewing history, performing a medically necessary evaluation, documentation and??counseling,??care coordination,??ordering of appropriate tests,?ordering of medications,??review of tests performed by other providers,??communication with other health care providers??equivalent to medical decision making that is of very high complexity. Medications Inpatient Acetaminophen(Acetaminophen Tablet), 975 mg, By Mouth, Every 6 hours, PRN apixaban(Apixaban Tablet), 5 mg, By Mouth, 2 times a day Aspirin(aspirin 81 mg oral delayed release tablet), 81 mg, By Mouth, Daily Insulin Glargine(Insulin Glargine Inj), 15 units= 0.15 mL, Subcutaneous Injection, Daily at bedtime Insulin Lispro(Insulin LISPRO Sliding Scale), 2-6 units, Subcutaneous Injection, 3 times a day before meals Melatonin(melatonin 3 mg oral tablet), 3 mg, By Mouth, Daily at bedtime Metoclopramide(Reglan 10 mg oral tablet), 5 mg, By Mouth, Every 6 hours, PRN Olanzapine(olanzapine 2.5 mg oral tablet), 2.5 mg, By Mouth, 2 times a day, PRN Olanzapine(Olanzapine Inj), 2.5 mg, Intramuscular, Once, PRN Oxybutynin(oxybutynin 5 mg/24 hours oral tablet, extended release), 10 mg, By Mouth, Daily Oxycodone(oxyCODONE 5 mg oral tablet), 5 mg, By Mouth, Every 4 hours, PRN Pantoprazole(pantoprazole 40 mg oral delayed release tablet), 40 mg, By Mouth, Daily Sertraline(sertraline 25 mg oral tablet), 25 mg, By Mouth, Once Sertraline(Zoloft 25 mg oral tablet), 50 mg, By Mouth, Daily Spironolactone(spironolactone 25 mg oral tablet), 25 mg, By Mouth, Daily Tamsulosin(tamsulosin 0.4 mg oral capsule), 0.4 mg, By Mouth, Daily Trazodone(Trazodone Tablet), 25 mg, By Mouth, 2 times a day, PRN Allergies Zosyn Lab Results Test Name Test Result Date/Time AST (SGOT) 24 units/L 12/09/2024 20:50 EDT ALT (SGPT) 27 units/L 12/09/2024 20:50 EDT Event Name?? Event Result?? Normal Range?? Date/Time?? WBC 8.8 k/mm3 4 k/mm3 - 11 k/mm3 01/03/25 12:01:00 RBC 4.46 m/mm3 4.2 m/mm3 - 5.4 m/mm3 01/03/25 12:01:00 Hgb 11.9 Gm/dL 11.7 Gm/dL - 15.5 Gm/dL 01/03/25 12:01:00 Hct 38.6 % 35.7 % - 45.8 % 01/03/25 12:01:00 MCV 86.5 femtoliters 80 femtoliters - 100 femtoliters 01/03/25 12:01:00 MCH 26.7 pg??Low 27 pg - 34 pg 01/03/25 12:01:00 MCHC 30.8 Gm/dL??Low 33 Gm/dL - 37 Gm/dL 01/03/25 12:01:00 Platelet Count 337 k/mm3 150 k/mm3 - 460 k/mm3 01/03/25 12:01:00 RDW-SD 51.5 femtoliters??High ?? 01/03/25 12:01:00 MPV 9.7 femtoliters 9.4 femtoliters - 12.4 femtoliters 01/03/25 12:01:00 Nucleated RBC (Automated) 0 #/100 WBC'S ?? 01/03/25 12:01:00 Abs. NRBC 0 k/mm3 ?? 01/03/25 12:01:00 Abs. Neut 6.5 k/mm3 1.3 k/mm3 - 7 k/mm3 01/03/25 12:01:00 Abs. Lymph 1.3 k/mm3 0.8 k/mm3 - 3.1 k/mm3 01/03/25 12:01:00 Abs. Dawson 0.5 k/mm3 0.4 k/mm3 - 0.9 k/mm3 01/03/25 12:01:00 Abs. Eo 0.4 k/mm3 0 k/mm3 - 0.4 k/mm3 01/03/25 12:01:00 Abs. Baso 0.1 k/mm3 0 k/mm3 - 0.1 k/mm3 01/03/25 12:01:00 Neut % 73.9 % 44 % - 76 % 01/03/25 12:01:00 Lymph % 14.7 %??Low 15 % - 43 % 01/03/25 12:01:00 Dawson % 5.5 % 4.5 % - 10.5 % 01/03/25 12:01:00 Eos % 4.7 % 0 % - 6 % 01/03/25 12:01:00 Baso % 0.6 % 0 % - 2 % 01/03/25 12:01:00 Imm Gran 0.6 % ?? 01/03/25 12:01:00 Abs. Imm Gran 0.1 k/mm3 ?? 01/03/25 12:01:00 Sodium 135 mmol/L 133 mmol/L - 145 mmol/L 01/03/25 12:01:00 Potassium 5 mmol/L 3.6 mmol/L - 5.2 mmol/L 01/03/25 12:01:00 Chloride 98 mmol/L 98 mmol/L - 107 mmol/L 01/03/25 12:01:00 Bicarbonate Level 24 mmol/L 22 mmol/L - 29 mmol/L 01/03/25 12:01:00 Anion Gap 13 mmol/L 4 mmol/L - 17 mmol/L 01/03/25 12:01:00 Glucose Level 142 mg/dL??High 70 mg/dL - 99 mg/dL 01/03/25 12:01:00 BUN 14 mg/dL 6 mg/dL - 20 mg/dL 01/03/25 12:01:00 Creatinine-Blood 0.88 mg/dL 0.5 mg/dL - 1 mg/dL 01/03/25 12:01:00 Estimated GFR Creatinine 79 ML/MIN/1.73 M2 ?? 01/03/25 12:01:00 Calcium 10.5 mg/dL 8.6 mg/dL - 10.5 mg/dL 01/03/25 12:01:00 Nt-Probnp 189 pg/mL??High 1 pg/mL - 125 pg/mL 01/03/25 12:01:00 High Sensitivity Troponin (HSTnT) 46 ng/L??High ?? 01/03/25 16:19:00 High Sensitivity Troponin (HSTnT) 49 ng/L??High ?? 01/03/25 12:01:00 TSH 0.64 uIU/mL 0.4 uIU/mL - 4.2 uIU/mL 01/03/25 12:01:00 Ethanol, Serum or Plasma NONE DETECTED ?? 01/03/25 12:01:00 Barbiturate Screen, Urine NONE DETECTED ?? 01/03/25 12:05:00 Cannabinoid Screen, Urine NONE DETECTED ?? 01/03/25 12:05:00 Cocaine Metabolite Screen, Urine NONE DETECTED ?? 01/03/25 12:05:00 Benzodiazepine Screen, Urine NONE DETECTED ?? 01/03/25 12:05:00 Amphetamine Screen, Urine NONE DETECTED ?? 01/03/25 12:05:00 Opiate Screen, Urine NONE DETECTED ?? 01/03/25 12:05:00 Influenza A PCR NEGATIVE ?? 01/03/25 11:40:00 Influenza B PCR NEGATIVE ?? 01/03/25 11:40:00 RSV PCR NEGATIVE ?? 01/03/25 11:40:00 COVID-19 PCR Specimen Source NASAL ?? 01/03/25 11:40:00 COVID-19 PCR Result NEGATIVE ?? 01/03/25 11:40:00 Appear/Color, Urine LIGHT YELLOW ?? 01/03/25 12:32:00 Specific [place], Urine 1.017 1.002 ??- 1.03 01/03/25 12:32:00 pH, Urine 7 5 ??- 8 01/03/25 12:32:00 Albumin, Urine 1+ Abnormal ?? 01/03/25 12:32:00 Glucose, Urine NEGATIVE ?? 01/03/25 12:32:00 Ketones, Urine NEGATIVE ?? 01/03/25 12:32:00 Bilirubin, Urine NEGATIVE ?? 01/03/25 12:32:00 Hemoglobin, Urine NEGATIVE ?? 01/03/25 12:32:00 Nitrite, Urine NEGATIVE ?? 01/03/25 12:32:00 Leukocyte, Urine 3+ Abnormal ?? 01/03/25 12:32:00 Urobilinogen NORMAL ?? 01/03/25 12:32:00 WBC's, Urine 66 /HPF??High 0 /HPF - 5 /HPF 01/03/25 12:32:00 RBC's, Urine 2 /HPF 0 /HPF - 3 /HPF 01/03/25 12:32:00 Bacteria SLIGHT Abnormal ?? 01/03/25 12:32:00 Squamous Epith 2 /HPF 0 /HPF - 8 /HPF 01/03/25 12:32:00 Hold Urine Culture Testing available 48 hours from time of collection. ?? 01/03/25 12:32:00 ? Diagnostic Results Chest Portable ?? 01/03/25 11:53:18 ... IMPRESSION: ?? No acute abnormality. ... Ordering Physician: Oscar Jaime ?? Signed By: Srinivasan DYER, Nazario Alvarado ?? ECG 12-Lead * Preliminary * ?? 11:40:21 Ventricular Rate: 86 BPM Atrial Rate: 86 BPM P-R Interval: 150 ms QRS Duration: 72 ms Q-T Interval: 348 ms QTC Calculation(Bazett): 416 ms P Huggins: 61 degrees R Huggins: 17 degrees T Huggins: 69 degrees Normal sinus rhythm Normal ECG When compared with ECG of 01-Dec-2024 10:49, No significant change was found [1]??General Medical; Jaime DO, Oscar 01/03/2025 11:27 EST [2]??General Medical; Jaime DO, Oscar 01/03/2025 11:27 EST [3]??General Medical; Jaime DO, Oscar 01/03/2025 11:27 EST [4]??General Medical; Jaime DO, Oscar 01/03/2025 11:27 EST [5]??ED Observation Note; Nataliia Ortiz 01/04/2025 10:26 EST [6]??ED Observation Note; Nataliia Ortiz 01/04/2025 10:26 EST [7]??Crisis Initial Evaluation; Sultana Heredia 01/03/2025 21:40 EST [8]??Crisis Initial Evaluation; Sultana Heredia 01/03/2025 21:40 EST [9]??Crisis Initial Evaluation; Claudio [facility] 01/03/2025 21:40 EST Electronically Signed on 01/04/25 11:47 AM Prior Laz DELGADO Electronically Signed on 01/04/25 01:58 PM Prior Laz DELGADO Electronically Signed on 01/04/25 02:37 PM Prior Laz DELGADO Patient Care team information Care Team Personnel Name: Nikolas Lizarraga RN Position: S RN Member Role: Primary Care Nurse Name: Andria West RN Position: S RN Member Role: Primary Care Nurse Name: Mehnaz Suarez RN Position: S RN Member Role: Primary Care Nurse Name: Lindsey Suarez RN Position: S RN Member Role: Primary Care Nurse Name: Isabel Springer RN Position: [facility] RN Member Role: Primary Care Nurse Name: Emmanuelle Torres RN Position: [facility] RN Member Role: Primary Care Nurse Name: Emeterio Grace MD Position: [facility] Outreach Member Role: PCP Address: [address] [place] [address] Internal Medicine [address] Telecom: Name: Malika Calderon LPN Position: [facility] RN Member Role: Primary Care Nurse Name: Margie Botello RN Position: [facility] RN Member Role: Primary Care Nurse Name: Kassandra Connell RN Position: [facility] RN Member Role: Primary Care Nurse Name: Lorena Peña RN Position: [facility] RN Member Role: Primary Care Nurse Name: Luigi Norris RN Position: S RN Member Role: Primary Care Nurse Name: Jacinto Tijerina RN Position: [facility] RN Member Role: Primary Care Nurse Name: Jose Boone RN Position: [facility] RN Member Role: Primary Care Nurse Name: Lydia Gonzalez RN Position: S RN Member Role: Primary Care Nurse Name: Ignacia Alfred RN Position: [facility] RN Member Role: Primary Care Nurse Name: Shadi Farfan RN Position: [facility] RN Member Role: Primary Care Nurse Name: Tana Richardson RN Position: [facility] RN Member Role: Primary Care Nurse Name: Elva Eli Position: [facility] Outreach Member Role: Lifetime Consulting Physician Name: Rae Mendoza RN Position: [facility] RN Member Role: Primary Care Nurse Name: Kinjal Ha RN Position: [facility] RN Member Role: Primary Care Nurse Name: Linn Pastor RN Position: [facility] RN Member Role: Primary Care Nurse Name: Shy Art RN Position: [facility] RN Supv Member Role: Primary Care Nurse Name: Rosita Shields RN Position: [facility] RN Member Role: Primary Care Nurse Name: Yony Healy RN Position: [facility] RN Member Role: Primary Care Nurse Name: Emerald Hurd RN Position: [facility] RN Member Role: Primary Care Nurse Name: Dinora Staley RN Position: [facility] RN Member Role: Primary Care Nurse Name: Iris Escalona RN Position: [facility] RN Member Role: Primary Care Nurse Name: Iris Alarcon RN Position: [facility] RN Member Role: Primary Care Nurse Name: Amadeo Mcdermott RN Position: [facility] RN Member Role: Primary Care Nurse Name: Jovita Zamora RN Position: [facility] RN Member Role: Primary Care Nurse Name: Miguel Angel Matthews RN Position: [facility] RN Member Role: Primary Care Nurse Name: Jewel Martínez MD Position: [facility] Outreach Member Role: Lifetime Consulting Physician Address: [address] [facility] [address] Telecom: Name: Adams Galvan MD Position: [facility] Renal MD Member Role: Lifetime Consulting Physician Address: [address] [facility] [address] Telecom: Name: Juanita Capellan RN Position: [facility] RN Member Role: Primary Care Nurse Name: Lisbet Silverio RN Position: [facility] RN Member Role: Primary Care Nurse Name: Emily Larios RN Position: [facility] RN Member Role: Primary Care Nurse Name: Sen Bates LPN Position: [facility] RN Member Role: Primary Care Nurse Name: Gomez Nova RN Position: [facility] RN Member Role: Primary Care Nurse Name: Jana Oleary RN Position: [facility] RN Member Role: Primary Care Nurse Name: Letty Brooks RN Position: [facility] RN Member Role: Primary Care Nurse Name: Bebo RNSandro Position: [facility] RN Member Role: Primary Care Nurse Name: Meenakshi William Position: [facility] RN Member Role: Primary Care Nurse Name: Annalisa Ceron RN Position: [facility] RN Member Role: Primary Care Nurse Name: Saturnino Contreras RN Position: [facility] RN Member Role: Primary Care Nurse Care Team Related Persons Name: NIKHIL PARNELL Name: KRISTOFER NEGRETE Name: PENELOPE MINER Insurance Providers Guarantor name: DEISY Health Plan Information #: 1 Payer: MEDICARE B Payer Identifier: Member Number: [id number] Group Number: Subscriber Identifier: [id number] Relationship to Subscriber: self Coverage Type: NA Coverage Verification Date: Telecom: NA Address: Health Plan Information #: 2 Payer: [facility] [employer] Payer Identifier: Member Number: [id number] Group Number: Subscriber Identifier: [id number] Relationship to Subscriber: self Coverage Type: MEDICAID Coverage Verification Date: Telecom: Address:
[2025-01-05 19:37] VITALS: BP 112/67; PULSE 90; RESP 16; TEMP 36.4; O2SAT 97
[2025-01-05 19:38] VITALS: BMI 48.8
[2025-01-05 19:45] VITALS: BMI 49.5
[2025-01-05 19:49] VITALS: BMI 48.8
[2025-01-05 20:01] LABS: Glucose, Whole Blood 136 mg/dL (60-115)
[2025-01-05] MEDS: Insulin Glargine,Hum.rec.anlog 100 UNIT/ML 10 ML VIAL 15 UNIT SUBCUT (21:33)
[2025-01-05] MEDS: oxyCODONE HCl Immed Release 5 MG TABLET 2.5 MG PO (21:45)
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
[2025-01-06 02:22] LABS: Appearance Urine Turbid; Glucose Urine UA Negative (Negative); PH >= 9.0 (5.0-9.0); Specific Gravity - Urine 1.015 (1.005-1.025); UMIC TRIGGER UACC YES
[2025-01-06 02:35] LABS: Other Crystals Urine Present; UACC Culture Trigger YES
--- NOTE | 2025-01-06 05:38 | PC.NURSE ---
Patient is 54 y/o female admitted on a CV with dxs of SI, Unspecified Depressive Disorder. Patient arrived on the unit via stretcher from [facility] at 19:35. Patient visited [facility] ED on 01/04/2025 with suicidal ideation with plan to either jump in front of a car or jump off a bridge. Patient is alert and oriented x 4 upon arrival, calm and cooperative with admission assessment. Patient denies any current SI/HI, reports multiple recent stressors including ongoing medical/mobility issues, not being in touch with her daughter, increased hopelessness. Patient sustained a R femur fracture in April and was undergoing rehab in a local , [facility]. Medical problems includes DMII, HFpEF, Obesity, HTN, R femur Fx with ORIF in April 2024, Arthritis, Bladder spasms, chronic indwelling catheter, hx of UTIs, prior PE on Eliquis. Contraband done upon arrival, skin check is significant rash under breasts and abdominal folds. Patient is currently chairfast and dependent for ADLs. Patient signed all admission paperwork, contracts for safety. Patient placed on 5minutes checks for safety.
[2025-01-06 06:53] LABS: Glucose, Whole Blood 114 mg/dL (60-115)
[2025-01-06 08:00] VITALS: BP 135/74; PULSE 94; RESP 16; TEMP 36.9; O2SAT 96
[2025-01-06 08:08] LABS: Alanine Aminotransferase 9 U/L (0-31); Albumin Level 3.5 g/dL (3.5-5.0); Alkaline Phosphatase 95 U/L (39-117); Anion Gap 11 (12-20); Aspartate Amino Transferase 16 U/L (5-31); Blood Urea Nitrogen 22 mg/dL (9-16); Calcium 9.1 mg/dL (8.4-10.2); Carbon Dioxide 27 mmol/L (22-29); Chloride 100 mmol/L (96-108); Cholesterol 152 mg/dL (<200); Creatinine Clr Calc Pharmacy 85.8; Estimated Glomerular Filt Rate 57; HDL Cholesterol 32 mg/dL (>40); Potassium 4.2 mmol/L (3.3-5.1); Sodium 134 mmol/L (135-145); Total Protein 7.1 g/dL (6.5-8.0); Triglycerides 151 mg/dL (<150)
[2025-01-06 08:23] LABS: Free T4 (Free Thyroxine) 1.35 ng/dL (0.71-1.85); Thyroid Stimulating Hormone 0.63 uIU/mL (0.32-4.0)
[2025-01-06] MEDS: oxyBUTYnin chloride ER 5 MG TAB.ER.24 10 MG PO (08:31)
[2025-01-06 08:32] VITALS: BP 135/74
[2025-01-06] MEDS: oxyCODONE HCl Immed Release 5 MG TABLET 2.5 MG PO ×3 (08:47→20:52)
--- NOTE | 2025-01-06 08:54 | HO.PM.IMCN ---
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 Patient has had several admissions in and out of rehab and SNF's. Tox screen negative, urinalysis initially without evidence of infection. No leukocytosis or anemia, no evidence of renal or liver dysfunction. Recent TSH 0.64. Viral panel negative. EKG with normal sinus rhythm. On exam she had denies any medical concerns, she wants to be discharged before Thanksgiving. She was recently hospitalized at [facility] from December 10 to for complicated UTI. Patient has been in and out of rehab in hospital since April. She is currently Ludmila lifted, at her previous facility she was also Ludmila lifted. Has been unable to stand or pivot since her femur fracture. Review of Systems Review of Systems: Denies any shortness of breath, chest pain, headaches, dysuria, abdominal pain or discomfort, nausea, vomiting or diarrhea. Denies fever or chills. PMFSH Social History Household Members: Children Housing: Apartment Do you presently have visiting nurse or other home services: No Patient Tobacco Use Status: Never used Tobacco Currently Displaying Signs/Symptoms of Drug Intoxication Withdrawal: No Have you been hit, kicked, punched, or otherwise hurt by someone within the past year? If so, by whom?: No Do you feel safe in your current relationship?: No Current Relationship Is there a partner from a previous relationship who is making you feel unsafe now?: No Are you made to feel afraid or neglected: No Advance Directives: No Advance Directives Information Provided: No Do you have thoughts of harming others: None Do you have a plan to hurt others: No Plan Recently lost weight without trying: Yes How much weight loss: 34pounds or more Eating poorly because of decreased appetite: Yes Nutrition screen score: 7 Nutrition Risks: Acute nausea or vomiting x1 week and Recent weight gain Patient : No : No Poor oral hygiene: No Meds Allergies Allergy/AdvReac Type Severity Reaction Status Date / Time piperacillin (From Zosyn) AdvReac Severe Rash Verified 01/05/25 19:15 tazobactam (From Zosyn) AdvReac Severe Rash Verified 01/05/25 19:15 antibiotic, unk name Allergy Vomiting Uncoded 06/01/23 10:31 Active Medications: Current Medications Acetaminophen (Acetaminophen 325 Mg Tablet) 650 mg PO Q6H PRN PRN Reason: Headache/Pain, Scale 1-10 Last Admin: 01/05/25 21:34 Dose: 650 mg Al Hydroxide/Mg Hydroxide (Magnesium Hydrox/Alum Hydrox 30 Ml Oral.Susp) 30 ml PO Q6H PRN PRN Reason: Heartburn/Nausea Apixaban (Apixaban 5 Mg Tablet) 5 mg PO BID [facility] Last Admin: 01/06/25 08:31 Dose: 5 mg Aspirin (Aspirin 81 Mg Tab.Chew) 81 mg PO DAILY [facility] Last Admin: 01/06/25 08:32 Dose: 81 mg Dextrose (Dextrose 50 % 25 Gm/50 Ml Syringe) 25 gm IVPUSH Q15M PRN; Protocol PRN Reason: per Hypoglycemia Standing Ord. Glucose (Glucose Gel 15 Gm Gel..Gram.) 15 gm PO Q15M PRN; Protocol PRN Reason: per Hypoglycemia Standing Ord. Hydroxyzine HCl (Hydroxyzine Hcl 25 Mg Tablet) 25 mg PO Q6H PRN PRN Reason: mild anxiety Insulin Glargine (Insulin Glargine,Hum.Rec.Anlog 100 Unit/Ml 10 Ml Vial) 15 unit SUBCUT BEDTIME [facility] Last Admin: 01/05/25 21:33 Dose: 15 unit Insulin Human Lispro (Insulin Lispro 100 Unit/Ml 3 Ml Vial) 0 unit SUBCUT QIDACHS [facility]; Protocol Last Admin: 01/06/25 07:30 Dose: Not Given Magnesium Hydroxide (Milk Of Magnesia 30 Ml Oral.Susp) 30 ml PO DAILY PRN PRN Reason: Constipation Melatonin (Melatonin 3 Mg Tablet) 3 mg PO BEDTIME PRN PRN Reason: Insomnia Metoclopramide HCl (Metoclopramide Hcl 10 Mg Tablet) 10 mg PO Q6H PRN PRN Reason: Nausea and Vomiting Last Admin: 01/06/25 08:47 Dose: 10 mg Nicotine (Nicotine 21 Mg Patch.Td24) 21 mg TRANSDERMA DAILY PRN PRN Reason: nicotine craving Nicotine Polacrilex (Nicotine Polacrilex 2 Mg Gum) 2 mg BUCCAL Q2H PRN PRN Reason: Nicotine Cravings Olanzapine (Olanzapine 5 Mg Tablet) 5 mg PO BID PRN PRN Reason: agitation Omeprazole (Omeprazole 20 Mg Capsule.Dr) 20 mg PO DAILY@0630 [facility] Last Admin: 01/06/25 06:15 Dose: 20 mg Oxybutynin Chloride (Oxybutynin Chloride Er 5 Mg Tab.Er.24) 10 mg PO DAILY [facility] Last Admin: 01/06/25 08:31 Dose: 10 mg Oxycodone HCl (Oxycodone Hcl Immed Release 5 Mg Tablet) 2.5 mg PO Q4H PRN PRN Reason: Pain (Scale Score 7-10) Last Admin: 01/06/25 08:47 Dose: 2.5 mg Sertraline HCl (Sertraline Hcl 25 Mg Tablet) 25 mg PO DAILY [facility] Spironolactone (Spironolactone 25 Mg Tablet) 25 mg PO DAILY [facility]; Protocol Last Admin: 01/06/25 08:32 Dose: 25 mg Tamsulosin HCl (Tamsulosin Hcl 0.4 Mg Capsule) 0.4 mg PO DAILY [facility] Last Admin: 01/06/25 08:32 Dose: 0.4 mg Trazodone HCl (Trazodone Hcl 50 Mg Tablet) 50 mg PO BEDTIME MRX1 PRN PRN Reason: Insomnia Trazodone HCl (Trazodone Hcl 50 Mg Tablet) 50 mg PO BEDTIME [facility] Last Admin: 01/05/25 21:34 Dose: 50 mg Home Medications ?Medication ?Instructions ?Recorded ?Confirmed ?Last Taken ?Type acetaminophen 500 mg tablet 500 mg PO Q6H PRN Pain (Scale 10/30/23 01/05/25 Unknown History Score 1-3) aspirin 81 mg tablet 81 mg PO DAILY 10/30/23 01/05/25 Unknown History apixaban 5 mg tablet (Eliquis) 5 mg PO BID 01/05/25 01/05/25 Unknown History insulin glargine 100 unit/mL 15 unit subcut BEDTIME 01/05/25 01/05/25 Unknown History subcutaneous solution (Lantus U-100 Insulin) insulin lispro 100 unit/mL See Protocol subcut TIDWMEAL 01/05/25 01/05/25 Unknown History subcutaneous solution (Admelog U-100 Insulin lispro) melatonin 3 mg tablet 3 mg PO BEDTIME PRN Insomnia 01/05/25 01/05/25 Unknown History metoclopramide HCl 5 mg tablet 10 mg PO Q6H PRN Nausea And 01/05/25 01/05/25 Unknown History Vomiting olanzapine 2.5 mg tablet 2.5 mg PO BID PRN Agitation 01/05/25 01/05/25 Unknown History oxybutynin chloride 10 mg 10 mg PO DAILY 01/05/25 01/05/25 Unknown History tablet,extended release 24 hr oxycodone 5 mg tablet 2.5 mg PO Q4H PRN Pain (Scale 01/05/25 01/05/25 Unknown History Score 7-10) pantoprazole 40 mg tablet,delayed 40 mg PO DAILY 01/05/25 01/05/25 Unknown History release sertraline 25 mg tablet 25 mg PO DAILY 01/05/25 01/05/25 Unknown History spironolactone 25 mg tablet 25 mg PO DAILY 01/05/25 01/05/25 Unknown History tamsulosin 0.4 mg capsule 0.4 mg PO DAILY 01/05/25 01/05/25 Unknown History trazodone 50 mg tablet 50 mg PO BEDTIME 01/05/25 01/05/25 Unknown History Physical Exam Vital Signs and Narrative: Vital Signs: Last Vital Signs Temp 97.5 F 01/05/25 19:37 Pulse 90 01/05/25 19:37 Resp 16 01/05/25 19:37 BP 135/74 01/06/25 08:32 Pulse Ox 97 01/05/25 19:37 O2 Del Method Room Air 01/05/25 19:37 BMI result Body Mass Index 48.8 Alert and oriented X3, calm and cooperative. Answers questions. Morbidly Neuro: CN II-X11 intact, no deficits, visual acuity intact Cardiac: S1 S2 RRR, No ectopy Pulmonary: lungs clear to auscultation, No increased WOB. Abdominal: BS active in all 4 quadrants, no guarding or tenderness. Obese abdomen MSK: Strength 5/5 upper, lower extremities weak : Deferred Extremities: No edema in lower extremities Psych: Mood stable, Quiet and cooperative. Skin: Warm and dry, Intact Results Labs 01/06/25 07:08 Labs: Laboratory Results - last 24 hr 01/05/25 01/06/25 01/06/25 19:40 01:45 06:18 Anion Gap Estim Creat Clear Calc Estimated GFR POC Glucose 136 H 114 Random Glucose Estimat Average Glucose Hemoglobin A1c % Calcium Total Bilirubin AST ALT Alkaline Phosphatase Total Protein Albumin Triglycerides Cholesterol LDL Cholesterol, Calc HDL Cholesterol TSH Free T4 Urine Color Yellow Urine Appearance Turbid Urine pH >= 9.0 Ur Specific [place] 1.015 Urine Protein 100 (2+) H Urine Glucose (UA) Negative Urine Ketones Negative Urine Blood Trace H Urine Nitrite Positive H Ur Leukocyte Esterase Large (3+) H Urine RBC 0-2 Urine WBC 11-20 Ur Squamous Epith Cells 6-10 Other Crystals Present Urine Bacteria 4+ Hyaline Casts 6-10 01/06/25 07:08 Anion Gap 11 L Estim Creat Clear Calc 85.8 Estimated GFR 57 POC Glucose Random Glucose 112 Estimat Average Glucose 108 Hemoglobin A1c % 5.4 Calcium 9.1 Total Bilirubin 0.3 AST 16 ALT 9 Alkaline Phosphatase 95 Total Protein 7.1 Albumin 3.5 Triglycerides 151 H Cholesterol 152 LDL Cholesterol, Calc 90 HDL Cholesterol 32 L TSH 0.63 Free T4 1.35 Urine Color Urine Appearance Urine pH Ur Specific [place] Urine Protein Urine Glucose (UA) Urine Ketones Urine Blood Urine Nitrite Ur Leukocyte Esterase Urine RBC Urine WBC Ur Squamous Epith Cells Other Crystals Urine Bacteria Hyaline Casts Assessment and Plan (1) Pulmonary embolism: Status: Acute (2) HTN (hypertension): Status: Acute Plan 54-year-old female with past medical listed below presented from SNF to ED for evaluation of suicidal ideation. 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 Deconditioned Type 2 diabetes Continue Lantus 15 units at bedtime as well as a insulin sliding scale Heart failure with preserved EF Continue Aldactone Held in the past due to hyperkalemia, continue to monitor. Patient last seen by Cardiology March 2024, previously on torsemide, likely held due to multiple recent hospitalizations and sepsis. Appears euvolemic on exam Hypertension Continue aspirin daily, not on any medications for hypertension Blood pressure within acceptable range Chronic indwelling Marshall catheter/history of ESBL UTI/bladder spasms Continue Ditropan and Flomax and vitamin-C Avoid collecting urine specimen unless symptoms specifically localized to urinary system GERD Continue omeprazole History of PE on Eliquis CTA in October/2024 acute PE in the right lower lobar artery as well as segmental branches of the right lower lobar pulmonary artery US LE significant for non-occlusive thrombi from right common femoral through common peroneal veins and left occlusive left greater saphenous vein thrombus, more than 5 cm in length. Continue apixaban Morbid obesity with a BMI of 48.8 For malnutrition due to multiple recent hospitalizations Nutritional consult as needed Thank you for allowing me to participate in the care of this patient. Will follow with you, please notify medical provider with any changes in condition or concerns.
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
[2025-01-06 11:06] LABS: Glucose, Whole Blood 172 mg/dL (60-115)
--- OUTSIDE RECORDS SUMMARY | 2025-01-06 13:50 | XMS_ITS | Encounter Summary ---
Author Organization [facility] Address [address] [place] [id number] Phone Care Team Providers Care Social Organization Professor Name Role Phone Emeterio Grace MD Unavailable [phone] Ricarda Olivier GRAVEL ROOFER Unavailable [phone] Emeterio Grace MD Primary Care Provider [phone] Janiya Jack PA Unavailable [phone] Rosemarie Hannah RN Unavailable Portillo Mosquera Unavailable Encounter Details Date Type Department Care Team (Late st Contact Info) Description 12/01/2024 Orders Only [facility] Internal Medicine [address] [place] [address] Provider, MD Ruchi [address] [place] [id number] Social History Tobacco Use Types Packs/Day Years Used Date Smoking Tobacco: Never Smokeless Tobacco: Never Alcohol Use Standard Drinks/Week Comments Not Currently 0 (1 standard drink = 0.6 oz pur e alcohol) last drink 2019 Education Answer Date Recorded Are you interested in more education? Not on renzo e 06/15/2022 Are you concerned about learning? Not on file 06/15/2022 No 06/15/2022 No 06/15/2022 Digital Access Answer Date Recorded No 07/11/2022 No 07/11/2022 Reliable internet access at home? Not on file 07/11/2022 Device with a working camera? Not on file Intimate Partner Violence Answer Date R ecorded Denied Basic Needs Not on file 05/24/2023 In the past 12 months have y ou been in a relationship with a person who hurts, threatens, or tries to control you? No 05/24/2023 Worried food would run out Not on file 05/23 In the past 12 months have y ou been in a relationship with a person who hurts, threatens, or tries to control you? No 05/24/2023 Comments No Sex and Gender Information Value Date Recorded Sex Assigned at Not on file Legal Sex Female 9:32 PM EDT Gender Identity Not on file Sexual Orientation Not on file documented as of this encounter Plan of Treatment Not on file documented as of this encounter Procedures Procedure Name Priority Date/Time Associated Diagnosis Comments OUTSIDE IMAGING Routine 12/01/2024 6:59 AM EDT documented in this encounter Results * Outside Imaging Report Only (12/01/2024 6:59 AM EDT) us Historical Provider IMSpencer XR CHEST Final Res ult documented in this encounter Visit Diagnoses Not on filedocumented in this encounter Additional Health Concerns Assessment Noted Time PHQ-9 Depression Total Score: 8 02/15/20 18 9:02 AM EST PHQ-2 Depression Total Score: 0 05/24/19 24 3:13 PM EDT documented as of this encounter Care Teams Social Organization Professor Relationship Specialty Start Date End Date Emeterio Grace MD [address] [place] [address] PCP - General 02/21/17 Emeterio Grace MD [address] [place] [address] Historical LMR Provider 12/08/16 Ricarda Olivier NP [address] [place] [address] Historical LMR Provider 12/08/16 Janiya Jack PA [address] [place] [address] Cloth Stretcher 03/27/19 Rosemarie Hannah, RN [address] [place] [id number] PHCM Fence Installer 12/07/22 12/23/24 Portillo Mosquera [address] [place] [id number] Student Accounts Manager 12/23/24 12/23/24 documented as of this encounter Additional Source Comments The information contained in this document represents components of the legal health record. It is not the complete legal health record.[facility]
--- OUTSIDE RECORDS SUMMARY | 2025-01-06 13:50 | XMS_ITS | Encounter Summary ---
Author Organization [facility] Address [address] [place] [address] Phone Care Team Providers Care Paver Installer Name Role Phone Emeterio Grace MD Unavailable [phone] Ricarda Olivier MODERATE NEEDS TEACHER Unavailable [phone] Emeterio Grace MD Primary Care Provider [phone] Janiya Jack Unavailable [phone] Rosemarie Hannah RN Unavailable [phone] Portillo Mosquera Unavailable Reason for Visit * Reason Onset Date Comments Finger pain/swelling 07/02/2022 Knee Pain 07/02/2022 Encounter Details Date Type Department Care Team (Late st Contact Info) Description 07/02/2022 Nurse Triage [facility] Internal Medicine [address] [place], [place] [id number] Emeterio Grace MD [address] [place], [place] [id number] [email or web address] Finger pain/swelling ; Knee Pain Social History Tobacco Use Types Packs/Day Years Used Date Smoking Tobacco: Never Smokeless Tobacco: Never Alcohol Use Standard Drinks/Week Comments Yes 0 (1 standard drink = 0.6 oz pur e alcohol) 1 x year Education Answer Date Recorded Are you interested in more education? Not on renzo e 06/15/2022 Are you concerned about learning? Not on file 06/15/2022 No 06/15/2022 No 06/15/2022 Comments No Sex and Gender Information Value Date Recorded Sex Assigned at Not on file Legal Sex Female 9:32 PM EDT Gender Identity Not on file Sexual Orientation Not on file documented as of this encounter Progress Notes * Emeterio Grace MD - 07/03/2022 1:23 PM EDT If available * Mel Daniels RN - 07/02/2022 10:28 AM EDT Spoke with pt. Right knee is hurting her. Hurts to get in and out of car. Pt hurt her knee a few months ago. States her last appointment with Dr. Grace she mentioned it, but it has gotten worse. Pt states her fingers hurt on both hands. Right hand index finger is swollen for a few weeks. Feelslike someone grabbed her finger and it is very painful. Pt went to a few weeks ago and they toldher it wasn't infected and was sent home. Pt denies redness. Swelling has not gotten better or worse. No available appointments this week. Pt understanding to watch for signs and symptoms of infection and went to seek medical care. Nurse Triage Encounter Note Reason for Triage Renée Damon contacted office for Other,Knee Pain Call Disposition Schedule Visit With 3 Business Days Patient/caregiver understands and will follow disposition: Patient/caregiver understands and will follow care advice: Yes, Plans To Follow Advice Disposition Comments: Protocols used: Finger Caim-Orovl-Hz Initial Symptom Screening and Assessment IA None Care Advice Given Care Advice Patient/Caregiver understands and will follow care advice?: Yes, plans to follow advice SEE IN OFFICE WITHIN 3 DAYS: * You need to be examined. * Let me give you an appointment. USE A COLD PACK FOR PAIN: * Put a cold pack or an ice bag (wrapped in a moist towel) on the area for 20 minutes. * Repeat in 1 hour, then every 4 hours while awake. * Continue this for the first 48 hours (2 days). * This will help decrease pain. * Caution: avoid frostbite. PAIN MEDICINES: * For pain relief, you can take either acetaminophen, ibuprofen, or naproxen. * They are kbmj-mgt-upokcpk (OTC) pain drugs. You can buy them at the drugstore. * ACETAMINOPHEN - REGULAR STRENGTH TYLENOL: Take 650 mg (two 325 mg pills) by mouth every 4 to 6 hours as needed. Each Regular Strength Tylenol pill has 325 mg of acetaminophen. The most you should take each day is 3,250 mg (10 pills a day). * ACETAMINOPHEN - EXTRA STRENGTH TYLENOL: Take 1,000 mg (two 500 mg pills) every 8 hours as needed.Each Extra Strength Tylenol pill has 500 mg of acetaminophen. The most you should take each day is 3,000 mg (6 pills a day). * IBUPROFEN (E.G., MOTRIN, ADVIL): Take 400 mg (two 200 mg pills) by mouth every 6 hours. The most you should take each day is 1,200 mg (six 200 mg pills), unless your doctor has told you to take more. * NAPROXEN (E.G., ALEVE): Take 220 mg (one 220 mg pill) by mouth every 8 to 12 hours as needed. Youmay take 440 mg (two 220 mg pills) for your first dose. The most you should take each day is 660 mg(three 220 mg pills a day), unless your doctor has told you to take more. CALL BACK IF: * You become worse Patient will call back with additional questions or if symptoms change or worsen Mel Daniels RN Reason for Disposition and Assessment Reason for Disposition MODERATE pain (e.g., interferes with normal activities) and present > 3 days Protocols used: FINGER [id number] * Anayeli Strong - 07/02/2022 9:09 AM EDT Pt LVM on triage line requesting medical advice regarding finger and knee pain. Per pt she cant bend her right knee, and she needs assistance getting in and out of the car. She also states her fingers feel like someone is pulling them off , she cant excelsior picker her coffee cup, and one finger is very swollen. Please contact and advise, thank you. documented in this encounter Plan of Treatment Not on file documented as of this encounter Visit Diagnoses Not on filedocumented in this encounter Additional Health Concerns Assessment Noted Time PHQ-9 Depression Total Score: 8 02/15/20 9:02 AM EST PHQ-2 Depression Total Score: 0 05/11/19 9:56 AM EDT documented as of this encounter Care Teams Paver Installer Relationship Specialty Start Date End Date Emeterio Grace MD [address] [place] [address] PCP - General 02/21/17 Emeterio Grace MD [address] [place] [address] Historical LMR Provider 12/08/16 Ricarda Olivier NP [address] [place] [address] Historical LMR Provider 12/08/16 Janiya Jack PA [address] [place] [address] Cold Roll Inspector 03/27/19 Rosemarie Hannah, RN [address] [place] [id number] PHCM Thermal Surfacing Machine Operator 12/07/22 12/23/24 Portillo Mosquera [address] [place] [address] Ultrasonic Tester 12/23/24 12/23/24 documented as of this encounter Additional Source Comments The information contained in this document represents components of the legal health record. It is not the complete legal health record.[facility]
--- OUTSIDE RECORDS SUMMARY | 2025-01-06 13:50 | XMS_ITS | Patient Health Record ---
Author Organization [facility] Address [address] [place] [address] Care Team Providers Care Field Administrative Assistant Name Role Phone Emeterio Grace MD Primary Care Provider Kinsey Giordano Unavailable [phone] Kevin Jansen Unavailable [phone] Reason For Referral No Information Encounters Encounter Location Date Provider Diagnosis [facility] [address] [place] [address] 09/29/2024 Kinsey Harvey Plan Of Treatment No Information Insurance Providers Payer Name Payer Address Payer Phone Subscriber Number Group Number Insured Name Patient Relationship to Insured Coverage Start Date Coverage End Date Medicare [employer] [address] [place] [address] [id number] Renée Huang Self - patient is the insured
--- OUTSIDE RECORDS SUMMARY | 2025-01-06 13:50 | XMS_ITS | Clinical Summary ---
Author Organization [facility] Address [address] [place] [address] Phone Care Team Providers Care Cad Designer Drafter Name Role Phone Emeterio Grace MD Unavailable [phone] Ricarda Olivier DRILLING ASSISTANT Unavailable [phone] Emeterio Grace MD Primary Care Provider [phone] Janiya Jack PA Unavailable [phone] Allergies Active Allergy Reactions Criticality Noted Date Comments Cephalexin Rash,Throat Tightness Medium 01/15/2022 Ciprofloxacin Other (See Comments) 11/16/2019 Severe yeast vaginitis Meloxicam Pain High 01/08/2023 Severe migraines, stiffness in neck and back pain Metformin Other (See Comments) Severe pain in varicose veins, muscle cramps Piperacillin-Tazobactam Nausea and/or Vomiting 05/10/2022 Medications ACCU-CHEK MAAME PLUS Misc meterIndications :Uncontrolled type 2 diabetes mellitus USE TO TEST BLOOD SUGAR DIRECTED 1 each 1 Active acetaminophen (TYLENOL) 500 MG tablet Take 1,000 mg by mouth every 6 (six) hours as needed for pain (specific location in comments). Active BD INSULIN PEN NEEDLE UF SHORT 31 gauge x 07/03 NdleIndications: Type 2 diabetes mellitus with hyperglycemia, with long-term current use of insulin USE DIRECTED FOUR TIMES DAILY 400 each 3 4 Active alcohol (ALCOHOL PREP PADS) PadMIndications: Type 2 diabetes mellitus with hyperglycemia, with long-term current use of insulin USE DIRECTED FOUR TIMES DAILY 100 each 12 4 Active ketoconazole 2 % creamIndications :Intertrigo Apply topically 2 (two) times a day. TO RASH UNDER BREAST 30 g 2 4 Active ibuprofen (ADVIL,MOTRIN) 400 MG tablet Take 800 mg by mouth 2 (two) times a day. Active amLODIPine (NORVASC) 10 MG tablet Take 1 tablet (10 mg total) by mouth daily. 90 tablet 3 4 Active cholecalciferol (VITAMIN D3) 2,000 unit capsuleIndicatio ns:Vitamin D deficiency TAKE 1 CAPSULE BY MOUTH ONCE DAILY 30 capsule 3 4 Active spironolactone (ALDACTONE) 50 MG tabletIndication s:Essential hypertension Take 1 tablet (50 mg total) by mouth daily. 90 tablet 3 4 Active HUMALOG KWIKPEN INSULIN 100 unit/mL kwikpen 4-12 units Subcutaneous Injection 3 times a day before meals << Sliding Scale Comments >>150 - 199 4 units Call if less than [phone] - 249 6 units 250 - 299 8 units 300 - 349 10 units 350 - 399 12 units Call if greater than 400, Indications: type 2 diabetes mellitus 15 mL 1 4 Active Additional Information Patient taking differently: 10-30 units Subcutaneous Injection 3 times a day before meals << Sliding Scale Comments >>150 - 199 4 units Call if less than [address] - 249 6 units 250 - 299 8 units 300 - 349 10 units 350 - 399 12 units Call if greater than 400, Indications: type 2 diabetes mellitus, Reported on 03/23/2024 diclofenac sodium (VOLTAREN) 1 % Gel Apply 2 g topically 4 (four) times a day. 100 g 2 4 Active dapagliflozin propanediol (FARXIGA) 10 mg tabletIndication s:Type 2 diabetes mellitus with hyperglycemia, with long-term current use of insulin TAKE 1 TABLET(10 MG) BY MOUTH DAILY 90 tablet 2 5 Active blood sugar diagnostic (ACCU-CHEK MAAME PLUS) Strp stripsIndication s:Type 2 diabetes mellitus with hyperglycemia, with long-term current use of insulin USE TO TEST BLOOD SUGAR FOUR TIMES DAILY DIRECTED 300 strip 3 5 Active insulin aspart U-100 (NOVOLOG FLEXPEN U-100 INSULIN) 100 unit/mL (3 mL) injection penIndications:T ype 2 diabetes mellitus with hyperglycemia, with long-term current use of insulin 4-20 units subcutaneous three times a day with meals Sliding Scale 150 - 199 4 units, 200 - 249 6 units, 250 - 299 8 units, 300 - 349 10 units, 350 - 399 12 units Call if greater than 400 15 mL 5 5 Active torsemide (DEMADEX) 20 MG tablet TAKE 2 TABLETS(40 MG) BY MOUTH DAILY 180 tablet 3 5 Active celecoxib (CELEBREX) 200 MG capsule Take 1 capsule (200 mg total) by mouth 2 (two) times a day. 60 capsule 1 5 Active TOUJEO MAX U-300 SOLOSTAR 300 unit/mL (3 mL) InPnIndications: Type 2 diabetes mellitus with hyperglycemia, with long-term current use of insulin Inject 80 Units under the skin nightly at bedtime. 30 mL 3 5 Active Active Problems Problem Noted Date Diagnosed Date Heart failure with preserved ejection fraction 1 Assessment & Plan (12/19/2023 12:49 PM EDT): She is here today for a TCM visit post hospital stay where she was dx with heart failure with preserved ejection fraction. This is a New dx for her. Reviewed heart failure and her dx. Given Handout and other info sheets for her review on this as well as medications used to [place]. Reviewed Heart failure action plan. She does not have a scale in the home- She will need this to monitor her symptoms/ disease. Reviewed the importance of daily weight and S/S monitoring. I will send nsg a message to see if this can be ordered as a DME She will check a BMP her today. Info given on her f/u appt 01/06 with Ruby Mercado NP [facility] cardiology, [place] office. Onychomycosis 12/19/2023 Assessment & Plan (12/19/2023 12:54 PM EDT): Extensive pervasive toe nail fungus. Need urgent pod referral for diabetic foot and nail care. Fd to help book Transportation insecurity 12/19/2023 Assessment & Plan (12/19/2023 12:48 PM EDT): Pt requests PT-1 For up coming cardiology appt for post hospital follow up. Will send to nursing to assist setting this up Anemia, unspecified 12/03/2023 Elevated serum globulin level 12/03/2023 Left knee pain 10/05/2023 Overview (10/05/2023): 08/16 pres to ED for left knee pain- admitted required IV opiates for pain- xray, duplex negative. CT showed moderate pre suprapatellar complex effusion , ref as OP to [facility] Assessment & Plan (12/19/2023 12:44 PM EDT): She re refill on her ibuprofen. Reports using ibuprofen 800 mg po bid EVERYDAY for MSK pain. I advised her that this is bad for her heart/ B/P and kidney/ stomach also affected by this. I discouraged her over use of this medication secondary to this. She states pain is bad- and inflammation present. Will send this req to PCP for his review COVID-19 04/11/2023 Assessment & Plan (04/11/2023 11:48 AM EST): Symptom onset was 4 days ago, She tested positive for covid 1 days ago with at home test. She is at high risk for severe disease, with T2DM/morbid obesity/HTN. Also with a hx of in patient stay with coivd in 2020. We discussed paxlovid and that it is available with EUA. Mechanism of action was reviewed. Adverse side effects of diarrhea and metallic taste should be expected. Uncommon side effects also were reviewed . If she develops SOB, or difficulty breathing she should call 911 and get to the hospital for evaluation. I reviewed her medications, she confirms this is a complete list and she is not taking any other medication or supplement. Additionally allergies were reviewed and no interaction was identified. She has normal kidney function. She agrees to begin Paxlovid today. All questions were answered Morbid obesity 08/05/2018 Uncontrolled type 2 diabetes mellitus 08/05/2018 Encounters Date Type Department Care Team Description 12/24/2024 Episode Documentatio n Update [facility] - Primary Care [address] [place] [id number] 12/24/2024 Patient Outreach [facility] - Primary Care [address] [place] [address] Rosemarie Hannah RN Care Coordination ([facility]) 12/17/2024 Telephone [facility] Internal Medicine [address] [place] [address] Emeterio Grace MD PT1 12/01/2024 Orders Only [facility] Internal Medicine [address] [place] [address] Ruchi Morales MD 11/25/2024 Patient Outreach [facility] Primary [facility] [address] [place] [address] Rosemarie Hannah RN Care Coordination 11/24/2024 Telephone [facility] Internal Medicine [address] [place] [address] Emeterio Grace MD PT1 11/16/2024 Enrollment [facility] Primary [facility] [address] [place] [address] 10/22/2024 Telephone [facility] Internal [facility] [address] [place] [address] Emeterio Grace MD Paperwork for wheelchair from Last 3 Months Immunizations Immunization Administration Dates Next Due COVID-19 (Pre-12/10) Pfizer Vaccine, mRNA, PF 08/26/2020,05/15/2020 INFLUENZA, SPLIT VIRUS, TRIVALENT PF 11/19/2023 INFLUENZA, SPLIT VIRUS, TRIV ALENT W/ PRESERVATIVE IM 11/14/2020,12/21/2013 Influenza Quadrivalent MDCK Preservative Free IM 11/22/2021,10/27/2019,12/23/2017,10/25 Influenza Quadrivalent Prese rvative Free IM 01/08/2023,11/14/2020,12/16/2018,12/29,12/16/2014 Influenza trivalent preserva tive free intradermal 11/24/2012 Influenza, Unspecified Formulation 11/24/2009, Pneumococcal conjugate PCV20 01/05/2022 Pneumococcal polysaccharide PPSV23 12/08/2012 Td (adult) 5 Lf Tetanus Toxo id, PF, Adsorbed 01/12/2020 Tdap 08/18/2008 Family History Medical History Relation Comments Diabetes mellitus Father Heart disease Father Hyperlipidemia Father Arthritis Maternal Grandmother Breast cancer Maternal Grandmother Lung cancer Maternal Grandmother Breast cancer Mother Diabetes mellitus Mother Hyperlipidemia Mother Hypertension Mother Multiple sclerosis Mother Colon cancer Paternal Grandfather Relation Status Comments Father Alive Maternal Grandmother Mother Alive Paternal Grandfather Social History Tobacco Use Types Packs/Day Years Used Date Smoking Tobacco: Never Smokeless Tobacco: Never Tobacco Cessation:Counseling Given: Not Answered Alcohol Use Standard Drinks/Week Comments Not Currently 0 (1 standard drink = 0.6 oz pur e alcohol) last drink 2018 Education Answer Date Recorded Are you interested [...] on file Sexual Orientation Not on file Last Filed Vital Signs Vital Sign Reading Time Taken Comments Blood Pressure 116/64 03/23/2024 1:02 PM EST Pt reports Caretender JONGA took vitals today at 11AM Pulse 90 12/19/2023 11:56 AM EDT Temperature 36.1 C (97 F) 03/23/2024 1:02 PM EST Pt reports Dora SUNSHINEA took vitals today at 11AM Respiratory Rate 12 12/19/2023 11:5 6 AM EDT Oxygen Saturation 96% 02/21/2024 11: 23 AM EST Pt reports VNA took vitals on 02/20/24 Inhaled Oxygen Concentration - - Weight 167.9 kg (370 lb 3.2 oz) 03/23/2024 1:02 PM EST Pt reports Dora VNA took vitals today at 11AM Height 163.3 cm (5' 4.29 ) 12/19/2023 1 1:56 AM EDT Body Mass Index 62.97 12/19/2023 11:56 AM EDT Plan of Treatment Health Maintenance Due Date Last Done Comments COLOGUARD 09/21/2016 COLONOSCOPY 09/21/2016 COLORECTAL CANCER SCREENING 09/21/2016 FIT TEST 09/21/2016 FOBT 09/21/2016 SIGMOIDOSCOPY 09/21/2016 VIRTUAL COLONOSCOPY 09/21/2016 PAP SMEAR 06/13/2020 06/14/2015, 06/14/2015 DIABETIC EYE EXAM 12/02/2020 12/03/2019, 12/03/2019 URINE MICROALBUMIN/CREATININE RATIO 07/08/2021 07/08/2020, 01/12/2020, 04/07/2019, Additional history exists RSV VACCINE (1 - Risk 50-74 years 1-dose series) 09/21/2021 ZOSTER VACCINES (1 of 2) 09/21/2021 MAMMOGRAM 05/10/2024 05/10/2022, 12/19, 07/26/2018 DEPRESSION SCREENING 05/23/2024 05/24/2023, 02/15/20 18 HEMOGLOBIN A1C 06/08/2024 12/09/2023, 02/2023, 01/08/2023, Additional history exists INFLUENZA VACCINE (#1) 2024 , 01/08/2023, 11/22/2021, Additional history exists BLOOD PRESSURE 09/20/2024 03/23/2024 COVID-19 VACCINE ( season) 2024 11/22/2021, 03/06/2021, 08/26/2020, Additional history exists LIPID PANEL 11/18/2024 11/19/2023, 12/20, 05/10/2022, Additional history exists POTASSIUM LEVEL 12/09/2024 12/10/2023, 1002/2023, 06/01/2023, Additional history exists Adult Td,Tdap Booster 01/11/2030 01/12/2020, 009 HEPATITIS C SCREENING Completed 04/07/2019 HIV ONE-TIME SCREENING (18-65 YEARS) Completed 04/07/2019 PNEUMOCOCCAL VACCINES (50+ years) Completed 01/05/2022, 12/08/2012 SMOKING STATUS SCREENING (Once After 26 Yrs) Completed 03/23/2024 HEPATITIS A VACCINES Aged Out No long er eligible based on patient's age to complete this topic HIB VACCINES Aged Out No longer eligi ble based on patient's age to complete this topic IPV VACCINES Aged Out No longer eligi ble based on patient's age to complete this topic MENINGOCOCCAL VACCINES (ACWY) Aged Out No longer eligible based on patient's age to complete this topic MENINGOCOCCAL VACCINES (B) Aged Out N o longer eligible based on patient's age to complete this topic Medical Devices Not on file Procedures Procedure Name Priority Date/Time Associated Diagnosis Comments OUTSIDE IMAGING Routine 12/01/2024 6:59 AM EDT OUTSIDE POTASSIUM LEVEL Routine 12/10/2023 OUTSIDE HEMOGLOBIN A1C Routine 12/09/2023 LIPID PANEL Routine 11/19/2023 2:28 PM EDT Type 2 diabetes mellitus with hyperglycemia, with long-term current use of insulin BI MAMMOGRAM SCREENING (BILATERAL) Routine 05/10/2022 11:03 AM EDT Screening mammogram for breast cancer MICROALBUMIN/CREATIN INE RATIO, RANDOM URINE Routine 07/08/2020 9:08 AM EDT Uncontrolled type 2 diabetes mellitus with hyperglycemia DIABETES EYE EXAM FOR RESULT ENTRY ONLY Routine 12/03/2019 HEPATITIS C ANTIBODY, QUALITATIVE Routine 04/07/2019 11:34 AM EST Encounter for hepatitis C screening test for low risk patient PAP SMEAR FOR RESULT ENTRY ONLY Routine 06/14/2015 from Last 3 Months or Most Recently Relevant to Health Maintenance Results * Outside Imaging Report Only (12/01/2024 6:59 AM EDT) Historical Provider IMG XR CHEST Final Res ult * Outside Potassium Level (12/10/2023) Potassium level - External 3.9 3.4 - 5.0 mmol/L Historical Provider LAB BLOOD ORDERABLES Celia l Result * Outside HbA1c (12/09/2023) Hemoglobin A1c - External 7.9 % Result [facility] Provider LAB BLOOD ORDERABLES Celia l Result * Lipid panel (11/19/2023 2:28 PM EDT) HDL 42 mg/dL [facility] Comment: Interpretation <40 mg/dL: Low HDL cholesterol (major risk factor for CHD) Greater than or equal to 60 mg/dL: High HDL cholesterol ( negative risk factor for CHD) HDL - cholesterol is affected by a number of factors, e.g. smoking, excerise, hormones, sex and age. CHOLESTEROL 145 0 - 240 mg/dL [facility] TRIGLYCERIDES 116 30 - 160 mg/dL [facility] LDL 80 50 - 129 mg/dL [facility] Comment: LDL levels in terms of risk for coronary heart disease: <100 mg/dL: Optimal 100-129 mg/dL: Near or above optimal 130-159 mg/dL: Borderline high 160-189 mg/dL: High >190 mg/dL: Very High CARDIAC RISK RATIO 3.5 3.3 - 4.4 C [facility] Blood 11/19/2023 2:28 PM EDT 11/19/2023 2:35 PM EDT Result [facility] Emeterio Grace MD LAB BLOOD BKR ORDERABLES Celia l Result [address] [address] * Microalbumin/creatinine ratio, random urine (07/08/2020 9:08 AM EDT) URINE MICROALBUMIN <1.2 0 - 2.3 mg/dL [facility] URINE CREATININE 33 mg/dL [facility]ST CONTROL SPECIALIST [facility] MICROALB/CRE RATIO NOT CALCULATED 0 - 20 mg/g Cre [facility] Comment:due to Microalbumin <1.2 Urine (Urine) 07/08/2020 9:0 8 AM EDT 07/08/2020 9:12 AM EDT us Emeterio Grace MD LAB URINE ORDERABLES Final Re sult Performing Organization Address City/[facility] Co de Phone Number [address] [address] * DIABETES EYE EXAM FOR RESULT ENTRY ONLY (12/03/2019) [facility]ologist [facility] EYE EXAM normal Historical Provider HEALTH MAINTENANCE Final Result * Hepatitis C antibody, qualitative (04/07/2019 11:34 AM EST) Pathologist [facility] HCV NON-REACTIV E NON-REACTI VE [facility] Blood 04/07/2019 11:3 4 AM EST 04/07/2019 11:37 AM EST us Emeterio Grace MD LAB BLOOD BKR ORDERABLES Celia l Result [address] [address] * MAMMOGRAPHY FOR RESULT ENTRY ONLY (07/26/2018) us Emeterio Grace MD HEALTH MAINTENANCE Edited Res ult - Final * PAP SMEAR FOR RESULT ENTRY ONLY (06/14/2015) [facility]ologist [facility] Pap smear NILM, HPV negative us Historical Provider HEALTH MAINTENANCE Final Result from Last 3 Months or Most Recently Relevant to Health Maintenance Insurance MEDIC[facility] PART A & [facility] PART [facility] & B [employer] MEDICARE PART A & [facility] [place] [address] MEDICARE PART A & [place] [facility] [place] [address] Care Teams Cad Designer Drafter Relationship Specialty Start Date End Date Emeterio Grace MD [address] [place] [address] [email or web address] PCP - General 02/21/17 Emeterio Grace MD [address] [place] [address] Historical LMR Provider 12/08/16 Ricarda Olivier NP [address] [place] [address] [email or web address] Historical LMR Provider 12/08/16 Janiya Jack PA [address] [place] [address] Government Affairs Specialist 03/27/19 Additional Source Comments The information contained in this document represents components of the legal health record. It is not the complete legal health record.[facility]
--- OUTSIDE RECORDS SUMMARY | 2025-01-06 13:51 | XMS_ITS | Encounter Summary ---
Author Organization [facility] Address [address] [place] [address] Care Team Providers Care Soft Sugar Operator Head Name Role Phone Emeterio Grace MD Primary Care Provider [phone] Encounter Details Date Type Department Care Team (Late st Contact Info) Description 06/02/2024 Lab Requisition [facility] - Main Lab [address] [facility] [place] [address] Brittny Zimmerman MD [address] [place] [address] Encounter for other general examination Social History Tobacco Use Types Packs/Day Years Used Date Smoking Tobacco: Never Assessed Comments Unknown Sex and Gender Information Value Date Recorded Sex Assigned at Female 05/21/2024 8:34 AM EDT Legal Sex Female 8:32 AM EDT Gender Identity Female 05/21/2024 8:34 AM EDT Sexual Orientation Straight 05/21/2024 8: 34 AM EDT documented as of this encounter Plan of Treatment Not on file documented as of this encounter Procedures Procedure Name Priority Date/Time Associated Diagnosis Comments OSMOLALITY Routine 06/02/2024 5:18 AM EDT Encounter for other general examination documented in this encounter Results * Osmolality (06/02/2024 5:18 AM EDT) Osmolality Angela 292 280 - 300 mOsm/kg LAB CHEMISTRY METHOD 06/02/2024 11:37 AM EDT [facility] Blood Venous blood specimen / Unknown Venipuncture / Unknown 06/02/2024 5:18 AM EDT 06/02/2024 10:22 AM EDT us Brittny Zimmerman MD LAB BLOOD ORDERABLES Final Res ult [facility] ([facility]) [facility] [address] [place] [address], documented in this encounter Visit Diagnoses Diagnosis Encounter for other general examination documented in this encounter Additional Health Concerns Infection Onset Date Last Indicated Resolved Time ESBL 09/30/2024 09/30/2024 documented as of this encounter Care Teams Soft Sugar Operator Head Relationship Specialty Start Date End Date Emeterio Grace MD [address] [place] [address] PCP - General Internal Medicine 05/21/24 documented as of this encounter
--- OUTSIDE RECORDS SUMMARY | 2025-01-06 13:51 | XMS_ITS | Encounter Summary ---
Author Organization [facility] Address [address] [place] [address] Care Team Providers Care Embedded Software Manager Name Role Phone Emeterio Grace MD Primary Care Provider [phone] Encounter Details Date Type Department Care Team (Late st Contact Info) Description 05/30/2024 Lab Requisition [facility] - Main Lab 299 [facility] [place] [address] Brittny Zimmerman MD [address] [place] [address] Encounter for other general examination Social History [...] Procedure Name Priority Date/Time Associated Diagnosis Comments MAGNESIUM STAT 05/30/2024 3:11 PM EDT Encounter for other general examination COMPREHENSIVE METABOLIC PANEL STAT 05/30/2024 3:11 PM EDT Encounter for other general examination documented in this encounter Results * Magnesium (05/30/2024 3:11 PM EDT) Magnesium 2.3 1.9 - 2.6 mg/dL LAB CHEMISTRY METHOD 05/30/2024 5:45 PM T [facility] Blood Venous blood specimen / Unknown Venipuncture / Unknown 05/30/2024 3:11 PM EDT 05/30/2024 4:52 PM EDT us Brittny Zimmerman MD LAB BLOOD ORDERABLES Final Res ult [facility] [address] [place] [address], [place] [phone] * (ABNORMAL) Comprehensive metabolic panel (05/30/2024 3:11 PM EDT) Sodium 131(L) 133 - 145 mmol/L LAB CHEMISTRY METHOD 05/30/2024 5:45 PM [facility] Potassium 4.8 3.5 - 5.5 mmol/L LAB CHEMISTRY METHOD 05/30/2024 5:45 PM [facility] Chloride 93(L) 96 - 110 mmol/L LAB CHEMISTRY METHOD 05/30/2024 5:45 PM [facility] CO2 31 21 - 32 mmol/L LAB CHEMISTRY METHOD 05/30/2024 5:45 PM [facility] Anion Gap 7 3 - 11 LAB CHEMISTRY METHOD 05/30/2024 5:45 PM [facility] Glucose 205(H) 70 - 100 mg/dL LAB CHEMISTRY METHOD 05/30/2024 5:45 PM [facility] BUN 24 5 - 25 mg/dL LAB CHEMISTRY METHOD 05/30/2024 5:45 PM [facility] Creatinine 1.05 0.50 - 1.10 mg/dL LAB CHEMISTRY METHOD 05/30/2024 5:45 PM [facility] eGFR 64 >=60 mL/min/1. 73m2 LAB CHEMISTRY METHOD 05/30/2024 5:45 PM EDT [facility] Comment:Calculation based on the Chronic Kidney Disease Epidemiology Collaboration (CKD-EPI) equation refit without adjustment for race. BUN/Creatinine Ratio 22.9 LAB CHEMISTRY METHOD 05/30/2024 5:45 PM EDT [facility] Calcium 9.2 8.5 - 10.5 mg/dL LAB CHEMISTRY METHOD 05/30/2024 5:45 PM EDT [facility] AST (SGOT) 35 10 - 42 unit/L LAB CHEMISTRY METHOD 05/30/2024 5:45 PM [facility] ALT (SGPT) 23 10 - 60 unit/L LAB CHEMISTRY METHOD 05/30/2024 5:45 PM EDT [facility] Alkaline Phosphatase 198(H) 42 - 121 unit/L LAB CHEMISTRY METHOD 05/30/2024 5:45 PM EDT [facility] Total Protein 7.4 6.0 - 8.0 g/dL LAB CHEMISTRY METHOD 05/30/2024 5:45 PM EDT [facility] Albumin 3.0(L) 3.2 - 5.0 g/dL LAB CHEMISTRY METHOD 05/30/2024 5[facility] Total Bilirubin 0.5 0.0 - 1.4 mg/dL LAB CHEMISTRY METHOD 05/30/2024 5:45 PM EDT [facility] Blood Venous blood specimen / Unknown Venipuncture / Unknown 05/30/2024 3:11 PM EDT 05/30/2024 4:52 PM EDT us Brittny Zimmerman MD LAB BLOOD ORDERABLES Final Res ult [facility] [address] [place] [address], [place] [phone] documented in this encounter Visit Diagnoses Diagnosis Encounter for other general examination documented in this encounter Additional Health Concerns Infection Onset Date Last Indicated Resolved Time ESBL 09/30/2024 09/30/2024 documented as of this encounter Care Teams Embedded Software Manager Relationship Specialty Start Date End Date Emeterio Grace MD [address] [place] [address] PCP - General Internal Medicine 05/21/24 documented as of this encounter
--- OUTSIDE RECORDS SUMMARY | 2025-01-06 13:51 | XMS_ITS | Encounter Summary ---
Author Organization Address [address] [place] [address] Care Team Providers Care Christmas Tree Farm Manager Name Role Phone Emeterio Grace MD Primary Care Provider [phone] Encounter Details Date Type Department Care Team (Late st Contact Info) Description 05/24/[address] [facility] - Main Lab [address] [facility] [place] [address] Brittny Zimmemran MD [address] [place] [address] Encounter for other general examination Social History [...] Name Priority Date/Time Associated Diagnosis Comments MAGNESIUM Routine 05/24/2024 6:30 AM EDT Encounter for other general examination COMPREHENSIVE METABOLIC PANEL Routine 05/24/2024 6:30 AM EDT Encounter for other general examination documented in this encounter Results * Magnesium (05/24/2024 6:30 AM EDT) Magnesium 2.1 1.9 - 2.6 mg/dL LAB CHEMISTRY METHOD 05/24/2024 11:11 AM [facility] Blood Venous blood specimen / Unknown Venipuncture / Unknown 05/24/2024 6:30 AM EDT 05/24/2024 9:43 AM EDT us Brittny Zimmerman MD LAB BLOOD ORDERABLES Final Res ult [facility] [address] [place] [address], [place] [phone] * (ABNORMAL) Comprehensive metabolic panel (05/24/2024 6:30 AM EDT) Sodium 131(L) 133 - 145 mmol/L LAB CHEMISTRY METHOD 05/24/2024 11:11 AM [facility] Potassium 3.4(L) 3.5 - 5.5 mmol/L LAB CHEMISTRY METHOD 05/24/2024 11:11 AM [facility] Chloride 90(L) 96 - 110 mmol/L LAB CHEMISTRY METHOD 05/24/2024 11:11 AM [facility] CO2 32 21 - 32 mmol/L LAB CHEMISTRY METHOD 05/24/2024 11:11 AM [facility] Anion Gap 9 3 - 11 LAB CHEMISTRY METHOD 05/24/2024 11:11 AM [facility] Glucose 124(H) 70 - 100 mg/dL LAB CHEMISTRY METHOD 05/24/2024 11:11 AM [facility] BUN 35(H) 5 - 25 mg/dL LAB CHEMISTRY METHOD 05/24/2024 11:11 AM [facility] Creatinine 0.90 0.50 - 1.10 mg/dL LAB CHEMISTRY METHOD 05/24/2024 11:11 AM [facility] eGFR 77 >=60 mL/min/1. 73m2 LAB CHEMISTRY METHOD 05/24/2024 11:11 AM [facility] Comment:Calculation based on the Chronic Kidney Disease Epidemiology Collaboration (CKD-EPI) equation refit without adjustment for race. BUN/Creatinine Ratio 38.9 LAB CHEMISTRY METHOD 05/24/2024 11:11 AM [facility] Calcium 8.8 8.5 - 10.5 mg/dL LAB CHEMISTRY METHOD 05/24/2024 11:11 AM [facility] AST (SGOT) 20 10 - 42 unit/L LAB CHEMISTRY METHOD 05/24/2024 11:11 AM [facility] ALT (SGPT) 19 10 - 60 unit/L LAB CHEMISTRY METHOD 05/24/2024 11:11 AM [facility] Alkaline Phosphatase 134(H) 42 - 121 unit/L LAB CHEMISTRY METHOD 05/24/2024 11:11 AM [facility] Total Protein 6.9 6.0 - 8.0 g/dL LAB CHEMISTRY METHOD 05/24/2024 11:11 AM [facility] Albumin 2.6(L) 3.2 - 5.0 g/dL LAB CHEMISTRY METHOD 05/24/2024 11:11 AM [facility] Total Bilirubin 0.5 0.0 - 1.4 mg/dL LAB CHEMISTRY METHOD 05/24/2024 11:11 AM [facility] Blood Venous blood specimen / Unknown Venipuncture / Unknown 05/24/2024 6:30 AM EDT 05/24/2024 9:43 AM EDT us Brittny Zimmerman MD LAB BLOOD ORDERABLES Final Res ult [facility] [address] [place] [address], documented in this encounter Visit Diagnoses Diagnosis Encounter for other general examination documented in this encounter Additional Health Concerns Infection Onset Date Last Indicated Resolved Time ESBL 09/30/2024 09/30/2024 documented as of this encounter Care Teams Christmas Tree Farm Manager Relationship Specialty Start Date End Date Emeterio Grace MD [address] [place] [address] PCP - General Internal Medicine 05/21/24 documented as of this encounter
--- OUTSIDE RECORDS SUMMARY | 2025-01-06 13:51 | XMS_ITS | Encounter Summary ---
Author Organization [facility] Address [address] [place] [address] Care Team Providers Care Dealer Account Manager Name Role Phone Emeterio Grace MD Primary Care Provider [phone] Encounter Details Date Type Department Care Team (Late st Contact Info) Description 05/23/2024 Lab Requisition [facility] - Main Lab 299 [facility] [place] [address] Brittny Zimmerman MD [address] [place] [address] Encounter for other general examination Social History [...] Procedure Name Priority Date/Time Associated Diagnosis Comments CBC WITH AUTO DIFFERENTIAL Routine 05/23/2024 5:59 AM EDT Encounter for other general examination CBC AND DIFFERENTIAL Routine 05/23/2024 5:59 AM EDT Encounter for other general examination MAGNESIUM Routine 05/23/2024 5:59 AM EDT Encounter for other general examination COMPREHENSIVE METABOLIC PANEL Routine 05/23/2024 5:59 AM EDT Encounter for other general examination documented in this encounter Results * (ABNORMAL) CBC auto differential (05/23/2024 5:59 AM EDT) WBC 11.4(H) 4.8 - 10.8 K/mcL LAB HEMETOLOGY METHOD 05/23/2024 10:35 AM [facility] RBC 4.20 3.80 - 4.80 M/mcL LAB HEMETOLOGY METHOD 05/23/2024 10:35 AM [facility] Hemoglobin 10.5(L) 11.5 - 16.0 g/dL LAB HEMETOLOGY METHOD 05/23/2024 10:35 AM [facility] Hematocrit 34.0(L) 35.0 - 47.0 % LAB HEMETOLOGY METHOD 05/23/2024 10:35 AM [facility] MCV 80.8 79.0 - 98.0 FL LAB HEMETOLOGY METHOD 05/23/2024 10:35 AM [facility] MCH 24.9(L) 27.0 - 32.0 pcg LAB HEMETOLOGY METHOD 05/23/2024 10:35 AM [facility] MCHC 30.9(L) 32.0 - 37.0 g/dL LAB HEMETOLOGY METHOD 05/23/2024 10:35 AM [facility] RDW 17.1(H) 11.0 - 15.0 % LAB HEMETOLOGY METHOD 05/23/2024 10:35 AM [facility] Platelets 354 130 - 400 K/mcL LAB HEMETOLOGY METHOD 05/23/2024 10:35 AM [facility] MPV 10.2 7.0 - 11.0 FL LAB HEMETOLOGY METHOD 05/23/2024 10:35 AM [facility] NRBC 0.0 <1.0 % LAB HEMETOLOGY METHOD 05/23/2024 10:35 AM [facility] NRBC Absolute 0.00 <0.10 K/mcL LAB HEMETOLOGY METHOD 05/23/2024 10:35 AM [facility] Neutrophils Relative 75.8 % LAB HEMETOLOGY METHOD 05/23/2024 10:35 AM [facility] Lymphocytes Relative 11.7 % LAB HEMETOLOGY METHOD 05/23/2024 10:35 AM [facility] Monocytes Relative 7.0 % LAB HEMETOLOGY METHOD 05/23/2024 10:35 AM [facility] Eosinophils Relative 3.9 % LAB HEMETOLOGY METHOD 05/23/2024 10:35 AM [facility] Basophils Relative 0.5 % LAB HEMETOLOGY METHOD 05/23/2024 10:35 AM [facility] Immature Granulocytes Relative 1.1 % LAB HEMETOLOGY METHOD 05/23/2024 10:35 AM [facility] Neutrophils Absolute 8.65(H) 1.50 - 7.00 K/mcL LAB HEMETOLOGY METHOD 05/23/2024 10:35 AM [facility] Lymphocytes Absolute 1.34 1.00 - 5.00 K/mcL LAB HEMETOLOGY METHOD 05/23/2024 10:35 AM [facility] Monocytes Absolute 0.80 0.20 - 1.00 K/mcL LAB HEMETOLOGY METHOD 05/23/2024 10:35 AM [facility] Eosinophils Absolute 0.44 0.00 - 0.50 K/mcL LAB HEMETOLOGY METHOD 05/23/2024 10:35 AM [facility] Basophils Absolute 0.06 0.00 - 0.20 K/mcL LAB HEMETOLOGY METHOD 05/23/2024 10:35 AM EDT [facility] Immature Granulocytes Absolute 0.12(H) 0.00 - 0.03 K/mcL LAB HEMETOLOGY METHOD 05/23/2024 10:35 AM EDT [facility] Blood Venous blood specimen / Unknown Venipuncture / Unknown 05/23/2024 5:59 AM EDT 05/23/2024 9:05 AM EDT Brittny Zimmerman MD LAB BLOOD ORDERABLES Final Res ult Performing Organization Address [facility]/ZIP Co de Phone Number [facility] [address] [place] [address], [place] [phone] * Magnesium (05/23/2024 5:59 AM EDT) Magnesium 1.9 1.9 - 2.6 mg/dL LAB CHEMISTRY METHOD 05/23/2024 11:18 AM EDT [facility] Blood Venous blood specimen / Unknown Venipuncture / Unknown 05/23/2024 5:59 AM EDT 05/23/2024 9:05 AM EDT Brittny Zimmerman MD LAB BLOOD ORDERABLES Final Res ult Performing Organization Address [facility]/ZIP Co de Phone Number [facility] [address] [place] [address], [place] [phone] * (ABNORMAL) Comprehensive metabolic panel (05/23/2024 5:59 AM EDT) Sodium 129(L) 133 - 145 mmol/L LAB CHEMISTRY METHOD 05/23/2024 11:18 AM EDT [facility] Potassium 3.4(L) 3.5 - 5.5 mmol/L LAB CHEMISTRY METHOD 05/23/2024 11:18 AM EDT [facility] Chloride 87(L) 96 - 110 mmol/L LAB CHEMISTRY METHOD 05/23/2024 11:18 AM [facility] CO2 30 21 - 32 mmol/L LAB CHEMISTRY METHOD 05/23/2024 11:18 AM [facility] Anion Gap 12(H) 3 - 11 LAB CHEMISTRY METHOD 05/23/2024 11:18 AM [facility] Glucose 121(H) 70 - 100 mg/dL LAB CHEMISTRY METHOD 05/23/2024 11:18 AM [facility] BUN 33(H) 5 - 25 mg/dL LAB CHEMISTRY METHOD 05/23/2024 11:18 AM [facility] Creatinine 0.82 0.50 - 1.10 mg/dL LAB CHEMISTRY METHOD 05/23/2024 11:18 AM [facility] eGFR 86 >=60 mL/min/1. 73m2 LAB CHEMISTRY METHOD 05/23/2024 11:18 AM [facility] Comment:Calculation based on the Chronic Kidney Disease Epidemiology Collaboration (CKD-EPI) equation refit without adjustment for race. BUN/Creatinine Ratio 40.2 LAB CHEMISTRY METHOD 05/23/2024 11:18 AM [facility] Calcium 8.6 8.5 - 10.5 mg/dL LAB CHEMISTRY METHOD 05/23/2024 11:18 AM [facility] AST (SGOT) 19 10 - 42 unit/L LAB CHEMISTRY METHOD 05/23/2024 11:18 AM [facility] ALT (SGPT) 18 10 - 60 unit/L LAB CHEMISTRY METHOD 05/23/2024 11:18 AM [facility] Alkaline Phosphatase 137(H) 42 - 121 unit/L LAB CHEMISTRY METHOD 05/23/2024 11:18 AM [facility] Total Protein 6.9 6.0 - 8.0 g/dL LAB CHEMISTRY METHOD 05/23/2024 11:18 AM [facility] Albumin 2.6(L) 3.2 - 5.0 g/dL LAB CHEMISTRY METHOD 05/23/2024 11:18 AM EDT [facility] Total Bilirubin 0.4 0.0 - 1.4 mg/dL LAB CHEMISTRY METHOD 05/23/2024 11:18 AM EDT [facility] Blood Venous blood specimen / Unknown Venipuncture / Unknown 05/23/2024 5:59 AM EDT 05/23/2024 9:05 AM EDT us Brittny Zimmerman MD LAB BLOOD ORDERABLES Final Res ult [facility] [address] [place] [address], documented in this encounter Visit Diagnoses Diagnosis Encounter for other general examination documented in this encounter Additional Health Concerns Infection Onset Date Last Indicated Resolved Time ESBL 09/30/2024 09/30/2024 documented as of this encounter Care Teams Dealer Account Manager Relationship Specialty Start Date End Date Emeterio Grace MD [address] [place] [address] PCP - General Internal Medicine 05/21/24 documented as of this encounter
--- OUTSIDE RECORDS SUMMARY | 2025-01-06 13:51 | XMS_ITS | Encounter Summary ---
Author Organization [facility] Address [address] [place] [address] Care Team Providers Care Aircraft Charter Dispatcher Name Role Phone Emeterio Grace MD Primary Care Provider [phone] Encounter Details Date Type Department Care Team (Late st Contact Info) Description 07/13/2024 Lab Requisition [facility] - Main Lab [address] [facility] [place] [address] Eddie Gottlieb MD [address] [place] [address] Type 2 diabetes mellitus without complications (CMS/HCC V24, CMS/HCC V28); Obesity, unspecified Social History Tobacco Use Types Packs/Day Years [...] Procedure Name Priority Date/Time Associated Diagnosis Comments COMPLETE BLOOD COUNT Routine 07/14/2024 5:22 AM EDT Type 2 diabetes mellitus without complications (CMS/HCC V24, CMS/HCC V28) Obesity, unspecified BASIC METABOLIC PANEL Routine 07/14/2024 5:22 AM EDT Type 2 diabetes mellitus without complications (CMS/HCC V24, CMS/HCC V28) Obesity, unspecified documented in this encounter Results * (ABNORMAL) Basic metabolic panel (07/14/2024 5:22 AM EDT) Sodium 134 133 - 145 mmol/L LAB CHEMISTRY METHOD 07/14/2024 7:11 AM [facility] Potassium 4.7 3.5 - 5.5 mmol/L LAB CHEMISTRY METHOD 07/14/2024 7:11 AM [facility] Chloride 97 96 - 110 mmol/L LAB CHEMISTRY METHOD 07/14/2024 7:11 AM [facility] CO2 29 21 - 32 mmol/L LAB CHEMISTRY METHOD 07/14/2024 7:11 AM [facility] Anion Gap 8 3 - 11 LAB CHEMISTRY METHOD 07/14/2024 7:11 AM [facility] Glucose 212(H) 70 - 100 mg/dL LAB CHEMISTRY METHOD 07/14/2024 7:11 AM [facility] BUN 27(H) 5 - 25 mg/dL LAB CHEMISTRY METHOD 07/14/2024 7:11 AM [facility] Creatinine 1.10 0.50 - 1.10 mg/dL LAB CHEMISTRY METHOD 07/14/2024 7:11 AM [facility] eGFR 61 >=60 mL/min/1. 73m2 LAB CHEMISTRY METHOD 07/14/2024 7:11 AM [facility] Comment:Calculation based on the Chronic Kidney Disease Epidemiology Collaboration (CKD-EPI) equation refit without adjustment for race. BUN/Creatinine Ratio 24.5 LAB CHEMISTRY METHOD 07/14/2024 7:11 AM [facility] Calcium 9.1 8.5 - 10.5 mg/dL LAB CHEMISTRY METHOD 07/14/2024 7:11 AM [facility] Blood Venous blood specimen / Unknown Venipuncture / Unknown 07/14/2024 5:22 AM EDT 07/14/2024 6:25 AM EDT Eddie Gottlieb MD LAB BLOOD ORDERABLES Final Result [facility] [address] [place] [address], * (ABNORMAL) Complete blood count (07/14/2024 5:22 AM EDT) [facility] WBC 8.4 4.8 - 10.8 K/mcL LAB HEMETOLOGY METHOD 07/14/2024 6:51 AM EDT [facility] RBC 4.20 3.80 - 4.80 M/mcL LAB HEMETOLOGY METHOD 07/14/2024 6:51 AM EDT [facility] Hemoglobin 10.7(L) 11.5 - 16.0 g/dL LAB HEMETOLOGY METHOD 07/14/2024 6:51 AM EDT [facility] Hematocrit 34.7(L) 35.0 - 47.0 % LAB HEMETOLOGY METHOD 07/14/2024 6:51 AM EDT [facility] MCV 82.2 79.0 - 98.0 FL LAB HEMETOLOGY METHOD [facility]24 [facility] MCH 25.4(L) 27.0 - 32.0 pcg LAB HEMETOLOGY METHOD 07/14/2024 6:51 AM EDT [facility] MCHC 30.8(L) 32.0 - 37.0 g/dL LAB HEMETOLOGY METHOD 07/14/2024 6:51 AM EDT [facility] RDW 19.7(H) 11.0 - 15.0 % LAB HEMETOLOGY METHOD 07/14[facility]2024 [facility] Platelets 296 130 - 400 K/mcL LAB HEMETOLOGY METHOD 07/14/2024 6:51 AM EDT [facility] MPV 9.7 7.0 - 11.0 FL LAB HEMETOLOGY METHOD 07/14/2024 6:51 AM EDT [facility] NRBC 0.0 <1.0 % LAB [facility] METHOD 07/14/2024 6:51 AM EDT [facility] NRBC Absolute 0.00 <0.10 K/mcL LAB HEMETOLOGY METHOD 07/14/2024 6:51 AM EDT [facility] Blood Venous blood specimen / Unknown Venipuncture / Unknown 07/14/2024 5:22 AM EDT 07/14/2024 6:32 AM EDT us Eddie Gottlieb MD LAB BLOOD ORDERABLES Final Result [facility] [address] [place] [address], documented in this encounter Visit Diagnoses Diagnosis Type 2 diabetes mellitus without complications (CMS/HCC V24, CMS/HCC V28) Obesity, unspecified documented in this encounter Additional Health Concerns Infection Onset Date Last Indicated Resolved Time ESBL 09/30/2024 09/30/2024 documented as of this encounter Care Teams Aircraft Charter Dispatcher Relationship Specialty Start Date End Date Emeterio Grace MD [address] [place] [address] PCP - General Internal Medicine 05/21/24 documented as of this encounter
--- OUTSIDE RECORDS SUMMARY | 2025-01-06 13:51 | XMS_ITS | Encounter Summary ---
Author Organization [facility] Address [address] [place] [address] Care Team Providers Care Abstract Searcher Name Role Phone Emeterio Grace MD Primary Care Provider [phone] Encounter Details Date Type Department Care Team (Late st Contact Info) Description 06/22/[address] [facility] - Main Lab [address] [facility] [place] [address] Eddie Gottlieb MD [address] [place] [id number] Heart failure, unspecified (CMS/HCC V24, CMS/HCC V28); Anemia, unspecified Social History Tobacco Use Types Packs/Day [...] Associated Diagnosis Comments COMPLETE BLOOD COUNT Routine 06/23/2024 7:33 AM EDT Heart failure, unspecified (CMS/HCC V24, CMS/HCC V28) Anemia, unspecified BASIC METABOLIC PANEL Routine 06/23/2024 7:33 AM EDT Heart failure, unspecified (CMS/HCC V24, CMS/HCC V28) Anemia, unspecified documented in this encounter Results * (ABNORMAL) Basic metabolic panel (06/23/2024 7:33 AM EDT) Sodium 133 133 - 145 mmol/L LAB CHEMISTRY METHOD 06/23/2024 11:33 AM [facility] Potassium 4.5 3.5 - 5.5 mmol/L LAB CHEMISTRY METHOD 06/23/2024 11:33 AM [facility] Chloride 97 96 - 110 mmol/L LAB CHEMISTRY METHOD 06/23/2024 11:33 AM [facility] CO2 29 21 - 32 mmol/L LAB CHEMISTRY METHOD 06/23/2024 11:33 AM [facility] Anion Gap 7 3 - 11 LAB CHEMISTRY METHOD 06/23/2024 11:33 AM [facility] Glucose 118(H) 70 - 100 mg/dL LAB CHEMISTRY METHOD 06/23/2024 11:33 AM [facility] BUN 24 5 - 25 mg/dL LAB CHEMISTRY METHOD 06/23/2024 11:33 AM [facility] Creatinine 0.99 0.50 - 1.10 mg/dL LAB CHEMISTRY METHOD 06/23/2024 11:33 AM [facility] eGFR 69 >=60 mL/min/1. 73m2 LAB CHEMISTRY METHOD 06/23/2024 11:33 AM [facility] Comment:Calculation based on the Chronic Kidney Disease Epidemiology Collaboration (CKD-EPI) equation refit without adjustment for race. BUN/Creatinine Ratio 24.2 LAB CHEMISTRY METHOD 06/23/2024 11:33 AM [facility] Calcium 9.1 8.5 - 10.5 mg/dL LAB CHEMISTRY METHOD 06/23/2024 11:33 AM [facility] Blood Venous blood specimen / Unknown Venipuncture / Unknown 06/23/2024 7:33 AM EDT 06/23/2024 10:22 AM EDT us Eddie Gottlieb MD LAB BLOOD ORDERABLES Final Result [facility] [address] [place] [address], [place] [phone] * (ABNORMAL) Complete blood count (06/23/2024 7:33 AM EDT) WBC 9.4 4.8 - 10.8 K/mcL LAB HEMETOLOGY METHOD 06/23/2024 11:05 AM EDT [facility] RBC 4.30 3.80 - 4.80 M/mcL LAB HEMETOLOGY METHOD 06/23/2024 11:05 AM [facility] Hemoglobin 10.6(L) 11.5 - 16.0 g/dL LAB HEMETOLOGY METHOD 06/23/2024 11:05 AM [facility] Hematocrit 35.4 35.0 - 47.0 % LAB HEMETOLOGY METHOD 06/23/2024 11:05 AM [facility] MCV 82.5 79.0 - 98.0 FL LAB HEMETOLOGY METHOD 06/23/2024 11:05 AM [facility] MCH 24.7(L) 27.0 - 32.0 pcg LAB HEMETOLOGY METHOD 06/23/2024 11:05 AM [facility] MCHC 29.9(L) 32.0 - 37.0 g/dL LAB HEMETOLOGY METHOD 06/23/2024 11:05 AM [facility] RDW 18.1(H) 11.0 - 15.0 % LAB HEMETOLOGY METHOD 06/23/2024 11:05 AM [facility] Platelets 362 130 - 400 K/mcL LAB HEMETOLOGY METHOD 06/23/2024 11:05 AM EDT [facility] MPV 9.6 7.0 - 11.0 FL LAB HEMETOLOGY METHOD 06/23/2024 11:05 AM EDT [facility] NRBC 0.0 <1.0 % LAB HEMETOLOG METHOD 06/23/2024 11:05 AM EDT [facility] NRBC Absolute 0.00 <0.10 K/mcL LAB HEMETOLOGY METHOD 06/23/2024 11:05 AM EDT [facility] Blood Venous blood specimen / Unknown Venipuncture / Unknown 06/23/2024 7:33 AM EDT 06/23/2024 10:24 AM EDT us Eddie Gottlieb MD LAB BLOOD ORDERABLES Final Result [facility] [address] [place] [address], documented in this encounter Visit Diagnoses Diagnosis Heart failure, unspecified (CMS/HCC V24, CMS/HCC V28) Heart failure, unspecified Anemia, unspecified documented in this encounter Additional Health Concerns Infection Onset Date Last Indicated Resolved Time ESBL 09/30/2024 09/30/2024 documented as of this encounter Care Teams Abstract Searcher Relationship Specialty Start Date End Date Emeterio Grace MD [address] [place] [address] PCP - General Internal Medicine 05/21/24 documented as of this encounter
--- OUTSIDE RECORDS SUMMARY | 2025-01-06 13:51 | XMS_ITS | Encounter Summary ---
Author Organization [facility] Address [address] [place] [address] Care Team Providers Care Ultrasound Spec Name Role Phone Emeterio Grace MD Primary Care Provider [phone] Encounter Details Date Type Department Care Team (Late st Contact Info) Description 05/26/2024 Lab Requisition [facility] - Main Lab 299 [facility] [place] [address] Brittny Zimmerman MD [address] [place] [address] Encounter for other general examination Social History [...] Diagnosis Comments CBC WITH AUTO DIFFERENTIAL Routine 05/26/2024 6:48 AM EDT Encounter for other general examination CBC AND DIFFERENTIAL Routine 05/26/2024 6:48 AM EDT Encounter for other general examination COMPREHENSIVE METABOLIC PANEL Routine 05/26/2024 6:48 AM EDT Encounter for other general examination documented in this encounter Results * (ABNORMAL) CBC auto differential (05/26/2024 6:48 AM EDT) [facility] WBC 9.0 4.8 - 10.8 K/mcL LAB HEMETOLOGY METHOD 05/26/2024 11:33 AM [facility] RBC 4.30 3.80 - 4.80 M/mcL LAB HEMETOLOGY METHOD 05/26/2024 11:33 AM [facility] Hemoglobin 10.8(L) 11.5 - 16.0 g/dL LAB HEMETOLOGY METHOD 05/26/2024 11:33 AM [facility] Hematocrit 36.3 35.0 - 47.0 % LAB HEMETOLOGY METHOD 05/26/2024 11:33 AM [facility] MCV 84.2 79.0 - 98.0 FL LAB HEMETOLOGY METHOD 05/26/2024 11:33 AM [facility] MCH 25.1(L) 27.0 - 32.0 pcg LAB HEMETOLOGY METHOD 05/26/2024 11:33 AM [facility] MCHC 29.8(L) 32.0 - 37.0 g/dL LAB HEMETOLOGY METHOD 05/26/2024 11:33 AM [facility] RDW 18.0(H) 11.0 - 15.0 % LAB HEMETOLOGY METHOD 05/26/2024 11:33 AM [facility] Platelets 444(H) 130 - 400 K/mcL LAB HEMETOLOGY METHOD 05/26/2024 11:33 AM [facility] MPV 10.6 7.0 - 11.0 FL LAB HEMETOLOGY METHOD 05/26/2024 11:33 AM [facility] NRBC 0.0 <1.0 % LAB HEMETOLOGY METHOD 05/26/2024 11:33 AM [facility] NRBC Absolute 0.00 <0.10 K/mcL LAB HEMETOLOGY METHOD 05/26/2024 11:33 AM [facility] Neutrophils Relative 64.8 % LAB HEMETOLOGY METHOD 05/26/2024 11:33 AM [facility] Lymphocytes Relative 16.7 % LAB HEMETOLOGY METHOD 05/26/2024 11:33 AM [facility] Monocytes Relative 10.3 % LAB HEMETOLOGY METHOD 05/26/2024 11:33 AM [facility] Eosinophils Relative 5.6 % LAB HEMETOLOGY METHOD 05/26/2024 11:33 AM [facility] Basophils Relative 0.8 % LAB HEMETOLOGY METHOD 05/26/2024 11:33 AM [facility] Immature Granulocytes Relative 1.8 % LAB HEMETOLOGY METHOD 05/26/2024 11:33 AM [facility] Neutrophils Absolute 5.83 1.50 - 7.00 K/mcL LAB HEMETOLOGY METHOD 05/26/2024 11:33 AM [facility] Lymphocytes Absolute 1.50 1.00 - 5.00 K/mcL LAB HEMETOLOGY METHOD 05/26/2024 11:33 AM [facility] Monocytes Absolute 0.93 0.20 - 1.00 K/mcL LAB HEMETOLOGY METHOD 05/26/2024 11:33 AM [facility] Eosinophils Absolute 0.50 0.00 - 0.50 K/mcL LAB HEMETOLOGY METHOD 05/26/2024 11:33 AM [facility] Basophils Absolute 0.07 0.00 - 0.20 K/mcL LAB HEMETOLOGY METHOD 05/26/2024 11:33 AM [facility] Immature Granulocytes Absolute 0.16(H) 0.00 - 0.03 K/mcL LAB HEMETOLOGY METHOD 05/26/2024 11:33 AM [facility] Blood Venous blood specimen / Unknown Venipuncture / Unknown 05/26/2024 6:48 AM EDT 05/26/2024 10:20 AM EDT us Brittny Zimmerman MD LAB BLOOD ORDERABLES Final Res ult [facility] [address] [place] [address], [place] [phone] * (ABNORMAL) Comprehensive metabolic panel (05/26/2024 6:48 AM EDT) Sodium 133 133 - 145 mmol/L LAB CHEMISTRY METHOD 05/26/2024 11:37 AM [facility] Potassium 4.3 3.5 - 5.5 mmol/L LAB CHEMISTRY METHOD 05/26/2024 11:37 AM [facility] Chloride 94(L) 96 - 110 mmol/L LAB CHEMISTRY METHOD 05/26/2024 11:37 AM [facility] CO2 31 21 - 32 mmol/L LAB CHEMISTRY METHOD 05/26/2024 11:37 AM [facility] Anion Gap 8 3 - 11 LAB CHEMISTRY METHOD 05/26/2024 11:37 AM [facility] Glucose 144(H) 70 - 100 mg/dL LAB CHEMISTRY METHOD 05/26/2024 11:37 AM [facility] BUN 33(H) 5 - 25 mg/dL LAB CHEMISTRY METHOD 05/26/2024 11:37 AM [facility] Creatinine 0.94 0.50 - 1.10 mg/dL LAB CHEMISTRY METHOD 05/26/2024 11:37 AM [facility] eGFR 73 >=60 mL/min/1. 73m2 LAB CHEMISTRY METHOD 05/26/2024 11:37 AM [facility] Comment:Calculation based on the Chronic Kidney Disease Epidemiology Collaboration (CKD-EPI) equation refit without adjustment for race. BUN/Creatinine Ratio 35.1 LAB CHEMISTRY METHOD 05/26/2024 11:37 AM [facility] Calcium 8.8 8.5 - 10.5 mg/dL LAB CHEMISTRY METHOD 05/26/2024 11:37 AM [facility] AST (SGOT) 26 10 - 42 unit/L LAB CHEMISTRY METHOD 05/26/2024 11:37 AM [facility] ALT (SGPT) 20 10 - 60 unit/L LAB CHEMISTRY METHOD 05/26/2024 11:37 AM [facility] Alkaline Phosphatase 167(H) 42 - 121 unit/L LAB CHEMISTRY METHOD 05/26/2024 11:37 AM [facility] Total Protein 6.9 6.0 - 8.0 g/dL LAB CHEMISTRY METHOD 05/26/2024 11:37 AM [facility] Albumin 2.8(L) 3.2 - 5.0 g/dL LAB CHEMISTRY METHOD 05/26/2024 11:37 AM [facility] Total Bilirubin 0.5 0.0 - 1.4 mg/dL LAB CHEMISTRY METHOD 05/26/2024 11:37 AM [facility] Blood Venous blood specimen / Unknown Venipuncture / Unknown 05/26/2024 6:48 AM EDT 05/26/2024 10:20 AM EDT us Brittny Zimmerman MD LAB BLOOD ORDERABLES Final Res ult [facility] [address] [place] [address], documented in this encounter Visit Diagnoses Diagnosis Encounter for other general examination documented in this encounter Additional Health Concerns Infection Onset Date Last Indicated Resolved Time ESBL 09/30/2024 09/30/2024 documented as of this encounter Care Teams Ultrasound Spec Relationship Specialty Start Date End Date Emeterio Grace MD [address] [place] [address] PCP - General Internal Medicine 05/21/24 documented as of this encounter
--- OUTSIDE RECORDS SUMMARY | 2025-01-06 13:51 | XMS_ITS | Encounter Summary ---
Author Organization [facility] Address [address] [place] [address] Care Team Providers Care Fire And Explosion Investigator Name Role Phone Emeterio Grace MD Primary Care Provider [phone] Encounter Details Date Type Department Care Team (Late st Contact Info) Description 06/09/2024 Lab Requisition [facility] - Main Lab 299 [facility] [place] [address] Eddie Gottlieb MD [address] [place] [id number] Anemia, unspecified; Heart failure, unspecified (CMS/HCC V24, CMS/HCC V28); Type 2 diabetes mellitus without complications (CMS/HCC V24, CMS/HCC V28) Social History Tobacco Use Types Packs/Day Years [...] Associated Diagnosis Comments COMPLETE BLOOD COUNT Routine 06/09/2024 8:12 AM EDT Anemia, unspecified Heart failure, unspecified (CMS/HCC V24, CMS/HCC V28) Type 2 diabetes mellitus without complications (CMS/HCC V24, CMS/HCC V28) HEMOGLOBIN A1C Routine 06/09/2024 8:12 AM EDT Anemia, unspecified Heart failure, unspecified ([facility] V24, [facility] V28) Type 2 diabetes mellitus without complications ([facility] V24, [facility] V28) COMPREHENSIVE METABOLIC PANEL Routine 06/09/2024 8:12 AM EDT Anemia, unspecified Heart failure, unspecified ([facility] V24, [facility] V28) Type 2 diabetes mellitus without complications ([facility] V24, [facility] V28) documented in this encounter Results * (ABNORMAL) Hemoglobin A1c (06/09/2024 8:12 AM EDT) Pathologist [facility] Hemoglobin A1C 7.6(H) <6.5 % LAB CHEMISTRY METHOD 06/09/2024 1:03 PM EDT [facility] Mean Bld Glu Estim. 171 mg/dL LAB CHEMISTRY METHOD 06/09/2024 1:03 PM EDT [facility] Blood Venous blood specimen / Unknown Venipuncture / Unknown 06/09/2024 8:12 AM EDT 06/09/2024 9:50 AM EDT us Eddie Gottlieb MD LAB BLOOD ORDERABLES Final Result [facility] [address] [place] [address], * (ABNORMAL) Comprehensive metabolic panel (06/09/2024 8:12 AM EDT) Pathologist [facility] Sodium 136 133 - 145 mmol/L LAB CHEMISTRY METHOD 06/09/2024 11:47 AM EDT [facility] Potassium 4.5 3.5 - 5.5 mmol/L LAB CHEMISTRY METHOD 06/09/2024 11:47 AM EDT [facility] Chloride 96 96 - 110 mmol/L LAB CHEMISTRY METHOD 06/09/2024 11:47 AM [facility] CO2 31 21 - 32 mmol/L LAB CHEMISTRY METHOD 06/09/2024 11:47 AM [facility] Anion Gap 9 3 - 11 LAB CHEMISTRY METHOD 06/09/2024 11:47 AM [facility] Glucose 145(H) 70 - 100 mg/dL LAB CHEMISTRY METHOD 06/09/2024 11:47 AM [facility] BUN 24 5 - 25 mg/dL LAB CHEMISTRY METHOD 06/09/2024 11:47 AM [facility] Creatinine 0.98 0.50 - 1.10 mg/dL LAB CHEMISTRY METHOD 06/09/2024 11:47 AM [facility] eGFR 70 >=60 mL/min/1. 73m2 LAB CHEMISTRY METHOD 06/09/2024 11:47 AM [facility] Comment:Calculation based on the Chronic Kidney Disease Epidemiology Collaboration (CKD-EPI) equation refit without adjustment for race. BUN/Creatinine Ratio 24.5 LAB CHEMISTRY METHOD 06/09/2024 11:47 AM [facility] Calcium 8.9 8.5 - 10.5 mg/dL LAB CHEMISTRY METHOD 06/09/2024 11:47 AM [facility] AST (SGOT) 15 10 - 42 unit/L LAB CHEMISTRY METHOD 06/09/2024 11:47 AM [facility] ALT (SGPT) 18 10 - 60 unit/L LAB CHEMISTRY METHOD 06/09/2024 11:47 AM [facility] Alkaline Phosphatase 150(H) 42 - 121 unit/L LAB CHEMISTRY METHOD 06/09/2024 11:47 AM [facility] Total Protein 6.8 6.0 - 8.0 g/dL LAB CHEMISTRY METHOD 06/09/2024 11:47 AM [facility] Albumin 2.5(L) 3.2 - 5.0 g/dL LAB CHEMISTRY METHOD 06/09/2024 11:47 AM [facility] Total Bilirubin 0.4 0.0 - 1.4 mg/dL LAB CHEMISTRY METHOD 06/09/2024 11:47 AM [facility] Blood Venous blood specimen / Unknown Venipuncture / Unknown 06/09/2024 8:12 AM EDT 06/09/2024 9:50 AM EDT Eddie Gottlieb MD LAB BLOOD ORDERABLES Final Result [facility] [address] [place] [address], * (ABNORMAL) Complete blood count (06/09/2024 8:12 AM EDT) WBC 8.6 4.8 - 10.8 K/mcL LAB HEMETOLOGY METHOD 06/09/2024 10:29 AM [facility] RBC 4.00 3.80 - 4.80 M/[facility] LAB HEMETOLOGY METHOD 06/09/2024 10:29 AM [facility] Hemoglobin 10.0(L) 11.5 - 16.0 g/dL LAB HEMETOLOGY METHOD 06/09/2024 10:29 AM [facility] Hematocrit 33.2(L) 35.0 - 47.0 % LAB HEMETOLOGY METHOD 06/09/2024 10:29 AM [facility] MCV 82.2 79.0 - 98.0 FL LAB HEMETOLOGY METHOD 06/09/2024 10:29 AM [facility] MCH 24.8(L) 27.0 - 32.0 pcg LAB HEMETOLOGY METHOD 06/09/2024 10:29 AM [facility] MCHC 30.1(L) 32.0 - 37.0 g/dL LAB HEMETOLOGY METHOD 06/09/2024 10:29 AM EDT [facility] RDW 18.4(H) 11.0 - 15.0 % LAB HEMETOLOGY METHOD 06/09/2024 10:29 AM EDT [facility] Platelets 308 130 - 400 K/mcL LAB HEMETOLOGY METHOD 06/09/2024 10:29 AM EDT [facility] MPV 10.0 7.0 - 11.0 FL LAB HEMETOLOGY METHOD 06/09/2024 10:29 AM EDT [facility] NRBC 0.0 <1.0 % LAB HEMETOLOGY METHOD 06/09/2024 10:29 AM EDT [facility] NRBC Absolute 0.00 <0.10 K/mcL LAB HEMETOLOGY METHOD 06/09/2024 10:29 AM EDT [facility] Blood Venous blood specimen / Unknown Venipuncture / Unknown 06/09/2024 8:12 AM EDT 06/09/2024 9:50 AM EDT Eddie Gottlieb MD LAB BLOOD ORDERABLES Final Result [facility] [address] [place] [address], documented in this encounter Visit Diagnoses Diagnosis Anemia, unspecified Heart failure, unspecified (CMS/HCC V24, CMS/HCC V28) Heart failure, unspecified Type 2 diabetes mellitus without complications (CMS/HCC V24, CMS/HCC V28) documented in this encounter Additional Health Concerns Infection Onset Date Last Indicated Resolved Time ESBL 09/30/2024 09/30/2024 documented as of this encounter Care Teams Fire And Explosion Investigator Relationship Specialty Start Date End Date Emeterio Grace MD [address] [place] [phone] PCP - General Internal Medicine 05/21/24 documented as of this encounter
--- OUTSIDE RECORDS SUMMARY | 2025-01-06 13:51 | XMS_ITS | Encounter Summary ---
Author Organization [facility] Address [address] [place] [address] Care Team Providers Care Bead Forming Machine Operator Name Role Phone Emeterio Grace MD Primary Care Provider [phone] Encounter Details Date Type Department Care Team (Late st Contact Info) Description 05/28/2024 Lab Requisition [facility] - Main Lab [address] [facility] [place] [address] Brittny Zimmerman MD [address] [place] [id number] Encounter for other general examination Social History [...] Procedure Name Priority Date/Time Associated Diagnosis Comments BASIC METABOLIC PANEL Routine 05/28/2024 6:00 AM EDT Encounter for other general examination documented in this encounter Results * (ABNORMAL) Basic metabolic panel (05/28/2024 6:00 AM EDT) Sodium 132(L) 133 - 145 mmol/L LAB CHEMISTRY METHOD 05/28/2024 10:06 AM EDT [facility] Potassium 4.2 3.5 - 5.5 mmol/L LAB CHEMISTRY METHOD 05/28/2024 10:06 AM [facility] Chloride 94(L) 96 - 110 mmol/L LAB CHEMISTRY METHOD 05/28/2024 10:06 AM [facility] CO2 30 21 - 32 mmol/L LAB CHEMISTRY METHOD 05/28/2024 10:06 AM [facility] Anion Gap 8 3 - 11 LAB CHEMISTRY METHOD 05/28/2024 10:06 AM [facility] Glucose 140(H) 70 - 100 mg/dL LAB CHEMISTRY METHOD 05/28/2024 10:06 AM [facility] BUN 30(H) 5 - 25 mg/dL LAB CHEMISTRY METHOD 05/28/2024 10:06 AM [facility] Creatinine 0.92 0.50 - 1.10 mg/dL LAB CHEMISTRY METHOD 05/28/2024 10:06 AM [facility] eGFR 75 >=60 mL/min/1. 73m2 LAB CHEMISTRY METHOD 05/28/2024 10:06 AM [facility] Comment:Calculation based on the Chronic Kidney Disease Epidemiology Collaboration (CKD-EPI) equation refit without adjustment for race. BUN/Creatinine Ratio 32.6 LAB CHEMISTRY METHOD 05/28/2024 10:06 AM [facility] Calcium 8.9 8.5 - 10.5 mg/dL LAB CHEMISTRY METHOD 05/28/2024 10:06 AM [facility] Blood Venous blood specimen / Unknown Venipuncture / Unknown 05/28/2024 6:00 AM EDT 05/28/2024 8:55 AM EDT us Brittny Zimmerman MD LAB BLOOD ORDERABLES Final Res ult [facility] [address] [place] [address], [place] [phone] documented in this encounter Visit Diagnoses Diagnosis Encounter for other general examination documented in this encounter Additional Health Concerns Infection Onset Date Last Indicated Resolved Time ESBL 09/30/2024 09/30/2024 documented as of this encounter Care Teams Bead Forming Machine Operator Relationship Specialty Start Date End Date Emeterio Grace MD [address] [place] [address] PCP - General Internal Medicine 05/21/24 documented as of this encounter
--- OUTSIDE RECORDS SUMMARY | 2025-01-06 13:51 | XMS_ITS | Encounter Summary ---
Author Organization [facility] Address [address] [place] [address] Care Team Providers Care Technical Communicator Name Role Phone Emeterio Grace MD Primary Care Provider [phone] Encounter Details Date Type Department Care Team (Late st Contact Info) Description 06/01/2024 Lab Requisition [facility] - Main Lab [address] [facility] [place] [address] Brittny Zimmerman MD [address] [place] [address] Encounter for other general examination Social History [...] Priority Date/Time Associated Diagnosis Comments OSMOLALITY Routine 06/01/2024 6:34 AM EDT Encounter for other general examination COMPREHENSIVE METABOLIC PANEL Routine 06/01/2024 6:34 AM EDT Encounter for other general examination documented in this encounter Results * Osmolality (06/01/2024 6:34 AM EDT) Osmolality Angela 295 280 - 300 mOsm/kg LAB CHEMISTRY METHOD 06/01/2024 1:38 PM [facility] Blood Venous blood specimen / Unknown Venipuncture / Unknown 06/01/2024 6:34 AM EDT 06/01/2024 10:35 AM EDT us Brittny Zimmerman MD LAB BLOOD ORDERABLES Final Res ult [facility] [address] [place] [address], [place] [phone] * (ABNORMAL) Comprehensive metabolic panel (06/01/2024 6:34 AM EDT) Sodium 133 133 - 145 mmol/L LAB CHEMISTRY METHOD 06/01/2024 12:41 PM [facility] Potassium 4.5 3.5 - 5.5 mmol/L LAB CHEMISTRY METHOD 06/01/2024 12:41 PM [facility] Chloride 95(L) 96 - 110 mmol/L LAB CHEMISTRY METHOD 06/01/2024 12:41 PM [facility] CO2 32 21 - 32 mmol/L LAB CHEMISTRY METHOD 06/01/2024 12:41 PM [facility] Anion Gap 6 3 - 11 LAB CHEMISTRY METHOD 06/01/2024 12:41 PM [facility] Glucose 167(H) 70 - 100 mg/dL LAB CHEMISTRY METHOD 06/01/2024 12:41 PM [facility] BUN 23 5 - 25 mg/dL LAB CHEMISTRY METHOD 06/01/2024 12:41 PM [facility] Creatinine 1.00 0.50 - 1.10 mg/dL LAB CHEMISTRY METHOD 06/01/2024 12:41 PM [facility] eGFR 68 >=60 mL/min/1. 73m2 LAB CHEMISTRY METHOD 06/01/2024 12:41 PM [facility] Comment:Calculation based on the Chronic Kidney Disease Epidemiology Collaboration (CKD-EPI) equation refit without adjustment for race. BUN/Creatinine Ratio 23.0 LAB CHEMISTRY METHOD 06/01/2024 12:41 PM [facility] Calcium 9.0 8.5 - 10.5 mg/dL LAB CHEMISTRY METHOD 06/01/2024 12:41 PM [facility] AST (SGOT) 26 10 - 42 unit/L LAB CHEMISTRY METHOD 06/01/2024 12:41 PM [facility] ALT (SGPT) 19 10 - 60 unit/L LAB CHEMISTRY METHOD 06/01/2024 12:41 PM [facility] Alkaline Phosphatase 192(H) 42 - 121 unit/L LAB CHEMISTRY METHOD 06/01/2024 12:41 PM [facility] Total Protein 6.9 6.0 - 8.0 g/dL LAB CHEMISTRY METHOD 06/01/2024 12:41 PM [facility] Albumin 2.7(L) 3.2 - 5.0 g/dL LAB CHEMISTRY METHOD 06/01/2024 12:41 PM [facility] Total Bilirubin 0.4 0.0 - 1.4 mg/dL LAB CHEMISTRY METHOD 06/01/2024 12:41 PM [facility] Blood Venous blood specimen / Unknown Venipuncture / Unknown 06/01/2024 6:34 AM EDT 06/01/2024 10:35 AM EDT us Brittny Zimmerman MD LAB BLOOD ORDERABLES Final Res ult [facility] [address] [place] [address], documented in this encounter Visit Diagnoses Diagnosis Encounter for other general examination documented in this encounter Additional Health Concerns Infection Onset Date Last Indicated Resolved Time ESBL 09/30/2024 09/30/2024 documented as of this encounter Care Teams Technical Communicator Relationship Specialty Start Date End Date Emeterio Grace MD [address] [place] [address] PCP - General Internal Medicine 05/21/24 documented as of this encounter
--- OUTSIDE RECORDS SUMMARY | 2025-01-06 13:51 | XMS_ITS | Encounter Summary ---
Author Organization [facility] Address [address] [place] [address] Care Team Providers Care It Infrastructure Specialist Name Role Phone Emeterio Grace MD Primary Care Provider [phone] Encounter Details Date Type Department Care Team (Late st Contact Info) Description 06/15/2024 Lab Requisition [facility] - Main Lab 299 [facility] [place] [address] Eddie Gottlieb MD [address] [place] [address] Heart failure, unspecified (CMS/HCC V24, CMS/HCC V28); [...] Associated Diagnosis Comments COMPLETE BLOOD COUNT Routine 06/16/2024 6:45 AM EDT Heart failure, unspecified (CMS/HCC V24, CMS/HCC V28) Anemia, unspecified BASIC METABOLIC PANEL Routine 06/16/2024 6:45 AM EDT Heart failure, unspecified (CMS/HCC V24, CMS/HCC V28) Anemia, unspecified documented in this encounter Results * (ABNORMAL) Basic metabolic panel (06/16/2024 6:45 AM EDT) Sodium 134 133 - 145 mmol/L LAB CHEMISTRY METHOD 06/16/2024 11:34 AM [facility] Potassium 4.1 3.5 - 5.5 mmol/L LAB CHEMISTRY METHOD 06/16/2024 11:34 AM [facility] Chloride 96 96 - 110 mmol/L LAB CHEMISTRY METHOD 06/16/2024 11:34 AM [facility] CO2 29 21 - 32 mmol/L LAB CHEMISTRY METHOD 06/16/2024 11:34 AM [facility] Anion Gap 9 3 - 11 LAB CHEMISTRY METHOD 06/16/2024 11:34 AM [facility] Glucose 135(H) 70 - 100 mg/dL LAB CHEMISTRY METHOD 06/16/2024 11:34 AM [facility] BUN 28(H) 5 - 25 mg/dL LAB CHEMISTRY METHOD 06/16/2024 11:34 AM [facility] Creatinine 1.13(H) 0.50 - 1.10 mg/dL LAB CHEMISTRY METHOD 06/16/2024 11:34 AM [facility] eGFR 59(L) >=60 mL/min/1. 73m2 LAB CHEMISTRY METHOD 06/16/2024 11:34 AM [facility] Comment:Calculation based on the Chronic Kidney Disease Epidemiology Collaboration (CKD-EPI) equation refit without adjustment for race. BUN/Creatinine Ratio 24.8 LAB CHEMISTRY METHOD 06/16/2024 11:34 AM [facility] Calcium 9.1 8.5 - 10.5 mg/dL LAB CHEMISTRY METHOD 06/16/2024 11:34 AM [facility] Blood Venous blood specimen / Unknown Venipuncture / Unknown 06/16/2024 6:45 AM EDT 06/16/2024 10:39 AM EDT Eddie Gottlieb MD LAB BLOOD ORDERABLES Final Result [facility] [address] [place] [address], [place] [phone] * (ABNORMAL) Complete blood count (06/16/2024 6:45 AM EDT) [facility] WBC 9.1 4.8 - 10.8 K/mcL LAB HEMETOLOGY METHOD 06/16/2024 11:12 AM EDT [facility] RBC 4.40 3.80 - 4.80 M/mcL LAB HEMETOLOGY METHOD 06/16/2024 11:12 AM [facility] Hemoglobin 11.2(L) 11.5 - 16.0 g/dL LAB HEMETOLOGY METHOD 06/16/2024 11:12 AM [facility] Hematocrit 36.4 35.0 - 47.0 % LAB HEMETOLOGY METHOD 06/16/2024 11:12 AM [facility] MCV 83.1 79.0 - 98.0 FL LAB HEMETOLOGY METHOD 06/16/2024 11:12 AM [facility] MCH 25.6(L) 27.0 - 32.0 pcg LAB HEMETOLOGY METHOD 06/16/2024 11:12 AM [facility] MCHC 30.8(L) 32.0 - 37.0 g/dL LAB HEMETOLOGY METHOD 06/16/2024 11:12 AM [facility] RDW 18.3(H) 11.0 - 15.0 % LAB HEMETOLOGY METHOD 06/16/2024 11:12 AM [facility] Platelets 292 130 - 400 K/mcL LAB HEMETOLOGY METHOD 06/16/2024 11:12 AM EDT [facility] MPV 10.1 7.0 - 11.0 FL LAB HEMETOLOGY METHOD 06/16/2024 11:12 AM EDT [facility] NRBC 0.0 <1.0 % LAB HEMETOLOG METHOD 06/16/2024 11:12 AM EDT [facility] NRBC Absolute 0.00 <0.10 K/mcL LAB HEMETOLOGY METHOD 06/16/2024 11:12 AM EDT [facility] Blood Venous blood specimen / Unknown Venipuncture / Unknown 06/16/2024 6:45 AM EDT 06/16/2024 10:37 AM EDT us Eddie Gottlieb MD LAB BLOOD ORDERABLES Final Result [facility] [address] [place] [address], documented in this encounter Visit Diagnoses Diagnosis Heart failure, unspecified (CMS/HCC V24, CMS/HCC V28) Heart failure, unspecified Anemia, unspecified documented in this encounter Additional Health Concerns Infection Onset Date Last Indicated Resolved Time ESBL 09/30/2024 09/30/2024 documented as of this encounter Care Teams It Infrastructure Specialist Relationship Specialty Start Date End Date Emeterio Grace MD [address] [place] [address] PCP - General Internal Medicine 05/21/24 documented as of this encounter
--- OUTSIDE RECORDS SUMMARY | 2025-01-06 13:51 | XMS_ITS | Encounter Summary ---
Author Organization [facility] Address [address] [place] [address] Care Team Providers Care Certified Tower Climber Name Role Phone Emeterio Grace MD Primary Care Provider [phone] Encounter Details Date Type Department Care Team (Late st Contact Info) Description 06/29/2024 Lab Requisition [facility] - Main Lab [address] [facility] [place] [address] Eddie Gottlieb MD [address] [place] [address] Heart failure, unspecified (CMS/HCC V24, CMS/HCC V28); [...] Associated Diagnosis Comments COMPLETE BLOOD COUNT Routine 06/30/2024 8:17 AM EDT Heart failure, unspecified (CMS/HCC V24, CMS/HCC V28) Anemia, unspecified BASIC METABOLIC PANEL Routine 06/30/2024 8:17 AM EDT Heart failure, unspecified (CMS/HCC V24, CMS/HCC V28) Anemia, unspecified documented in this encounter Results * (ABNORMAL) Basic metabolic panel (06/30/2024 8:17 AM EDT) Sodium 132(L) 133 - 145 mmol/L LAB CHEMISTRY METHOD 06/30/2024 11:21 AM [facility] Potassium 4.3 3.5 - 5.5 mmol/L LAB CHEMISTRY METHOD 06/30/2024 11:21 AM [facility] Chloride 95(L) 96 - 110 mmol/L LAB CHEMISTRY METHOD 06/30/2024 11:21 AM [facility] CO2 27 21 - 32 mmol/L LAB CHEMISTRY METHOD 06/30/2024 11:21 AM [facility] Anion Gap 10 3 - 11 LAB CHEMISTRY METHOD 06/30/2024 11:21 AM [facility] Glucose 138(H) 70 - 100 mg/dL LAB CHEMISTRY METHOD 06/30/2024 11:21 AM [facility] BUN 29(H) 5 - 25 mg/dL LAB CHEMISTRY METHOD 06/30/2024 11:21 AM [facility] Creatinine 1.00 0.50 - 1.10 mg/dL LAB CHEMISTRY METHOD 06/30/2024 11:21 AM [facility] eGFR 68 >=60 mL/min/1. 73m2 LAB CHEMISTRY METHOD 06/30/2024 11:21 AM [facility] Comment:Calculation based on the Chronic Kidney Disease Epidemiology Collaboration (CKD-EPI) equation refit without adjustment for race. BUN/Creatinine Ratio 29.0 LAB CHEMISTRY METHOD 06/30/2024 11:21 AM [facility] Calcium 9.2 8.5 - 10.5 mg/dL LAB CHEMISTRY METHOD 06/30/2024 11:21 AM [facility] Blood Venous blood specimen / Unknown Venipuncture / Unknown 06/30/2024 8:17 AM EDT 06/30/2024 10:29 AM EDT Eddie Gottlieb MD LAB BLOOD ORDERABLES Final Result [facility] [address] [place] [address], [place] [phone] * (ABNORMAL) Complete blood count (06/30/2024 8:17 AM EDT) [facility] WBC 9.4 4.8 - 10.8 K/mcL LAB HEMETOLOGY METHOD 06/30/2024 11:06 AM EDT [facility] RBC 4.30 3.80 - 4.80 M/mcL LAB HEMETOLOGY METHOD 06/30/2024 11:06 AM [facility] Hemoglobin 10.6(L) 11.5 - 16.0 g/dL LAB HEMETOLOGY METHOD 06/30/2024 11:06 AM [facility] Hematocrit 35.3 35.0 - 47.0 % LAB HEMETOLOGY METHOD 06/30/2024 11:06 AM [facility] MCV 81.3 79.0 - 98.0 FL LAB HEMETOLOGY METHOD 06/30/2024 11:06 AM [facility] MCH 24.4(L) 27.0 - 32.0 pcg LAB HEMETOLOGY METHOD 06/30/2024 11:06 AM [facility] MCHC 30.0(L) 32.0 - 37.0 g/dL LAB HEMETOLOGY METHOD 06/30/2024 11:06 AM [facility] RDW 18.3(H) 11.0 - 15.0 % LAB HEMETOLOGY METHOD 06/30/2024 11:06 AM [facility] Platelets 375 130 - 400 K/mcL LAB HEMETOLOGY METHOD 06/30/2024 11:06 AM EDT [facility] MPV 9.8 7.0 - 11.0 FL LAB HEMETOLOGY METHOD 06/30/2024 11:06 AM EDT [facility] NRBC 0.0 <1.0 % LAB [facility] METHOD 06/30/2024 11:06 AM EDT [facility] NRBC Absolute 0.00 <0.10 K/mcL LAB HEMETOLOGY METHOD 06/30/2024 11:06 AM EDT [facility] Blood Venous blood specimen / Unknown Venipuncture / Unknown 06/30/2024 8:17 AM EDT 06/30/2024 10:29 AM EDT us Eddie Gottlieb MD LAB BLOOD ORDERABLES Final Result [facility] [address] [place] [address], documented in this encounter Visit Diagnoses Diagnosis Heart failure, unspecified (CMS/HCC V24, CMS/HCC V28) Heart failure, unspecified Anemia, unspecified documented in this encounter Additional Health Concerns Infection Onset Date Last Indicated Resolved Time ESBL 09/30/2024 09/30/2024 documented as of this encounter Care Teams Certified Tower Climber Relationship Specialty Start Date End Date Emeterio Grace MD [address] [place] [address] PCP - General Internal Medicine 05/21/24 documented as of this encounter
--- OUTSIDE RECORDS SUMMARY | 2025-01-06 13:52 | XMS_ITS | Encounter Summary ---
Author Organization [facility] Address [address] [place] [address] Care Team Providers Care Wood Router Name Role Phone Emeterio Grace MD Primary Care Provider [phone] Encounter Details Date Type Department Care Team (Late st Contact Info) Description 07/20/2024 Lab Requisition [facility] - Main Lab [address] [facility] [place] [address] Eddie Gottlieb MD [address] [place] [address] Type 2 diabetes mellitus without complications (CMS/HCC [...] Associated Diagnosis Comments COMPLETE BLOOD COUNT Routine 07/21/2024 8:06 AM EDT Type 2 diabetes mellitus without complications (CMS/HCC V24, CMS/HCC V28) Obesity, unspecified BASIC METABOLIC PANEL Routine 07/21/2024 8:06 AM EDT Type 2 diabetes mellitus without complications (CMS/HCC V24, CMS/HCC V28) Obesity, unspecified documented in this encounter Results * (ABNORMAL) Complete blood count (07/21/2024 8:06 AM EDT) [facility] WBC 9.1 4.8 - 10.8 K/mcL LAB HEMETOLOGY METHOD 07/21/2024 11:41 AM [facility] RBC 3.90 3.80 - 4.80 M/mcL LAB HEMETOLOGY METHOD 07/21/2024 11:41 AM [facility] Hemoglobin 9.7(L) 11.5 - 16.0 g/dL LAB HEMETOLOGY METHOD 07/21/2024 11:41 AM [facility] Hematocrit 31.4(L) 35.0 - 47.0 % LAB HEMETOLOGY METHOD 07/21/2024 11:41 AM [facility] MCV 80.9 79.0 - 98.0 FL LAB HEMETOLOGY METHOD 07/21/2024 11:41 AM [facility] MCH 25.0(L) 27.0 - 32.0 pcg LAB HEMETOLOGY METHOD 07/21/2024 11:41 AM [facility] MCHC 30.9(L) 32.0 - 37.0 g/dL LAB HEMETOLOGY METHOD 07/21/2024 11:41 AM [facility] RDW 20.8(H) 11.0 - 15.0 % LAB HEMETOLOGY METHOD 07/21/2024 11:41 AM [facility] Platelets 286 130 - 400 K/mcL LAB HEMETOLOGY METHOD 07/21/2024 11:41 AM [facility] MPV 9.9 7.0 - 11.0 FL LAB HEMETOLOGY METHOD 07/21/2024 11:41 AM [facility] NRBC 0.0 <1.0 % LAB HEMETOLOGY METHOD 07/21/2024 11:41 AM [facility] NRBC Absolute 0.00 <0.10 K/mcL LAB HEMETOLOGY METHOD 07/21/2024 11:41 AM [facility] Blood Venous blood specimen / Unknown Venipuncture / Unknown 07/21/2024 8:06 AM EDT 07/21/2024 9:05 AM EDT us Eddie Gottlieb MD LAB BLOOD ORDERABLES Final Result [facility] [address] [place] [address], * (ABNORMAL) Basic metabolic panel (07/21/2024 8:06 AM EDT) Sodium 133 133 - 145 mmol/L LAB CHEMISTRY METHOD 07/21/2024 11:35 AM [facility] Potassium 4.4 3.5 - 5.5 mmol/L LAB CHEMISTRY METHOD 07/21/2024 11:35 AM [facility] Chloride 96 96 - 110 mmol/L LAB CHEMISTRY METHOD 07/21/2024 11:35 AM [facility] CO2 28 21 - 32 mmol/L LAB CHEMISTRY METHOD 07/21/2024 11:35 AM [facility] Anion Gap 9 3 - 11 LAB CHEMISTRY METHOD 07/21/2024 11:35 AM [facility] Glucose 162(H) 70 - 100 mg/dL LAB CHEMISTRY METHOD 07/21/2024 11:35 AM [facility] BUN 25 5 - 25 mg/dL LAB CHEMISTRY METHOD 07/21/2024 11:35 AM [facility] Creatinine 1.29(H) 0.50 - 1.10 mg/dL LAB CHEMISTRY METHOD 07/21/2024 11:35 AM [facility] eGFR 50(L) >=60 mL/min/1. 73m2 LAB CHEMISTRY METHOD 07/21/2024 11:35 AM EDT [facility] Comment:Calculation based on the Chronic Kidney Disease Epidemiology Collaboration (CKD-EPI) equation refit without adjustment for race. BUN/Creatinine Ratio 19.4 LAB CHEMISTRY METHOD 07/21/2024 11:35 AM EDT [facility] Calcium 8.7 8.5 - 10.5 mg/dL LAB CHEMISTRY METHOD 07/21/2024 11:35 AM EDT [facility] Blood Venous blood specimen / Unknown Venipuncture / Unknown 07/21/2024 8:06 AM EDT 07/21/2024 9:05 AM EDT us Eddie Gottlieb MD LAB BLOOD ORDERABLES Final Result [facility] [address] [place] [address], documented in this encounter Visit Diagnoses Diagnosis Type 2 diabetes mellitus without complications (CMS/HCC V24, CMS/HCC V28) Obesity, unspecified documented in this encounter Additional Health Concerns Infection Onset Date Last Indicated Resolved Time ESBL 09/30/2024 09/30/2024 documented as of this encounter Care Teams Wood Router Relationship Specialty Start Date End Date Emeterio Grace MD [address] [place] [id number] PCP - General Internal Medicine 05/21/24 documented as of this encounter
--- OUTSIDE RECORDS SUMMARY | 2025-01-06 13:52 | XMS_ITS | Encounter Summary ---
Author Organization [facility] Address [address] [place] [address] Care Team Providers Care Station Captain Name Role Phone Emeterio Grace MD Primary Care Provider [phone] Encounter Details Date Type Department Care Team (Late st Contact Info) Description 07/26/2024 Lab Requisition [facility] - Main Lab [address] [facility] [place] [address] Eddie Gottlieb MD [address] [place] [address] Urinary tract infection, site not specified Social History Tobacco Use Types Packs/Day Years [...] Procedure Name Priority Date/Time Associated Diagnosis Comments URINALYSIS WITH REFLEX MICROSCOPIC Routine 07/25/2024 3:00 PM EDT Urinary tract infection, site not specified URINALYSIS WITH REFLEX MICROSCOPIC Routine 07/25/2024 3:00 PM EDT Urinary tract infection, site not specified CULTURE URINE Routine 07/25/2024 3:00 PM EDT Urinary tract infection, site not specified documented in this encounter Results * (ABNORMAL) Urinalysis with reflex microscopic (07/25/2024 3:00 PM EDT) Specific Okay Urine 1.010 1.003 - 1.030 LAB URINALYSIS - AUTOMATED METHOD 07/26/2024 10:59 AM [facility] pH, Urine 5.0 5.0 - 8.0 pH LAB URINALYSIS - AUTOMATED METHOD 07/26/2024 10:59 AM [facility] Leukocytes, Urine Large(A) Negative LAB URINALYSIS - AUTOMATED METHOD 07/26/2024 10:59 AM [facility] Nitrite, Urine Negative Negative LAB URINALYSIS - AUTOMATED METHOD 07/26/2024 10:59 AM [facility] Protein, Urine 100(A) <=Trace mg/dL LAB URINALYSIS - AUTOMATED METHOD 07/26/2024 10:59 AM [facility] Glucose, Urine 100(A) Negative mg/dL LAB URINALYSIS - AUTOMATED METHOD 07/26/2024 10:59 AM [facility] Ketones, Urine Trace(A) Negative mg/dL LAB URINALYSIS - AUTOMATED METHOD 07/26/2024 10:59 AM [facility] Urobilinogen , Urine 0.2 0.2 - 1.0 mg/dL LAB URINALYSIS - AUTOMATED METHOD 07/26/2024 10:59 AM [facility] Bilirubin, Urine Negative Negative LAB URINALYSIS - AUTOMATED METHOD 07/26/2024 10:59 AM [facility] Blood, Urine Large(A) Negative LAB URINALYSIS - AUTOMATED METHOD 07/26/2024 10:59 AM [facility] RBC, Urine 31.8(H) 0 - 4 /HPF LAB URINALYSIS - AUTOMATED METHOD 07/26/2024 10:59 AM [facility] WBC, Urine 3,699.3(H) 0 - 4 /HPF LAB URINALYSIS - AUTOMATED METHOD 07/26/2024 10:59 AM EDT [facility] Squamous Epithelial, Urine 70(H) 0 - 60 /LPF LAB URINALYSIS - AUTOMATED METHOD 07/26/2024 10:59 AM EDT [facility] Bacteria, Urine Many(A) Negative /HPF LAB URINALYSIS - AUTOMATED METHOD 07/26/2024 10:59 AM EDT [facility] Hyaline Casts, Urine 7.4(H) 0 - 3 /LPF LAB URINALYSIS - AUTOMATED METHOD 07/26/2024 10:59 AM EDT [facility] Yeast, Urine Present(A) None /HPF LAB URINALYSIS - AUTOMATED METHOD 07/26/2024 10:59 AM EDT [facility] Urine Urine specimen from urethra / Unknown 07/25/2024 3:00 PM EDT 07/26/2024 9:33 AM EDT us Eddie Gottlieb MD LAB URINE ORDERABLES Final Result [facility] [address] [place] [address], * (ABNORMAL) Culture urine (07/25/2024 3:00 PM EDT) Culture, Urine 50,000-100,000 CFU/mL Klebsiella pneumoniae ssp pneumoniae(A) ZION 07/28/2024 10:36 AM EDT [facility] Comment: This is an edited result. Previous organism was Gram negative bacilli on 07/27/2024 at 0850 EDT. Urine Urine specimen from urethra / Unknown 07/25/2024 3:00 PM EDT 07/26/2024 9:33 AM EDT Narrative Organism Antibiotic Method Susceptibility Klebsiella pneumoniae ssp pneumoniae Amoxicillin/Clavulanate ZION <=2 ug/ml: Susceptible Klebsiella pneumoniae ssp pneumoniae Ampicillin/Sulbactam ZION 4 ug/ml: Susceptible Klebsiella pneumoniae ssp pneumoniae Piperacillin/Tazobactam ZION <=4 ug/ml: Susceptible Klebsiella pneumoniae ssp pneumoniae Cefazolin (Urine) ZION 2 ug/ml: Susceptible Klebsiella pneumoniae ssp pneumoniae Cefoxitin ZION <=4 ug/ml: Susceptible Klebsiella pneumoniae ssp pneumoniae Ceftazidime ZION <=0.5 ug/ml: Susceptible Klebsiella pneumoniae ssp pneumoniae Ceftriaxone ZION <=0.25 ug/ml: Susceptible Klebsiella pneumoniae ssp pneumoniae Cefepime ZION <=0.12 ug/ml: Susceptible Klebsiella pneumoniae ssp pneumoniae Meropenem ZION <=0.25 ug/ml: Susceptible Klebsiella pneumoniae ssp pneumoniae Amikacin ZION <=1 ug/ml: Susceptible Klebsiella pneumoniae ssp pneumoniae Gentamicin ZION <=1 ug/ml: Susceptible Klebsiella pneumoniae ssp pneumoniae Ciprofloxacin ZION <=0.06 ug/ml: Susceptible Klebsiella pneumoniae ssp pneumoniae Levofloxacin ZION <=0.12 ug/ml: Susceptible Klebsiella pneumoniae ssp pneumoniae Nitrofurantoin ZION 64 ug/ml: Intermediate Klebsiella pneumoniae ssp pneumoniae Trimethoprim/Sulfamethoxazo le ZION <=20 ug/ml: Susceptible us Eddie Gottlieb MD LAB MICROBIOLOGY - GENERAL ORDERABLES Final Result [facility] [address] [place] [address], documented in this encounter Visit Diagnoses Diagnosis Urinary tract infection, site not specified documented in this encounter Additional Health Concerns Infection Onset Date Last Indicated Resolved Time ESBL 09/30/2024 09/30/2024 documented as of this encounter Care Teams Station Captain Relationship Specialty Start Date End Date Emeterio Grace MD [address] [place] [address] PCP - General Internal Medicine 05/21/24 documented as of this encounter
--- OUTSIDE RECORDS SUMMARY | 2025-01-06 13:52 | XMS_ITS | Encounter Summary ---
Author Organization [facility] Address [address] [place] [address] Care Team Providers Care Used Car Make Ready Mechanic Name Role Phone Emeterio Grace MD Primary Care Provider [phone] Encounter Details Date Type Department Care Team (Late st Contact Info) Description 08/11/[address] [facility] - Main Lab 299 [facility] [place] [address] Eddie Gottlieb MD [address] [place] [address] Hyperkalemia Social History Tobacco Use Types Packs/Day Years [...] Associated Diagnosis Comments BASIC METABOLIC PANEL Routine 08/11/2024 5:05 AM EDT Hyperkalemia documented in this encounter Results * (ABNORMAL) Basic metabolic panel (08/11/2024 5:05 AM EDT) Sodium 130(L) 133 - 145 mmol/L LAB CHEMISTRY METHOD 08/11/2024 8:47 AM EDT [facility] Potassium 4.9 3.5 - 5.5 mmol/L LAB CHEMISTRY METHOD 08/11/2024 8:47 AM [facility] Chloride 93(L) 96 - 110 mmol/L LAB CHEMISTRY METHOD 08/11/2024 8:47 AM [facility] CO2 29 21 - 32 mmol/L LAB CHEMISTRY METHOD 08/11/2024 8:47 AM [facility] Anion Gap 8 3 - 11 LAB CHEMISTRY METHOD 08/11/2024 8:47 AM [facility] Glucose 123(H) 70 - 100 mg/dL LAB CHEMISTRY METHOD 08/11/2024 8:47 AM [facility] BUN 36(H) 5 - 25 mg/dL LAB CHEMISTRY METHOD 08/11/2024 8:47 AM [facility] Creatinine 1.62(H) 0.50 - 1.10 mg/dL LAB CHEMISTRY METHOD 08/11/2024 8:47 AM [facility] eGFR 38(L) >=60 mL/min/1. 73m2 LAB CHEMISTRY METHOD 08/11/2024 8:47 AM [facility] Comment:Calculation based on the Chronic Kidney Disease Epidemiology Collaboration (CKD-EPI) equation refit without adjustment for race. BUN/Creatinine Ratio 22.2 LAB CHEMISTRY METHOD 08/11/2024 8:47 AM [facility] Calcium 8.7 8.5 - 10.5 mg/dL LAB CHEMISTRY METHOD 08/11/2024 8:47 AM [facility] Blood Venous blood specimen / Unknown Venipuncture / Unknown 08/11/2024 5:05 AM EDT 08/11/2024 6:20 AM EDT us Eddie Gottlieb MD LAB BLOOD ORDERABLES Final Result [facility] [address] [place] [address], documented in this encounter Visit Diagnoses Diagnosis Hyperkalemia Hyperpotassemia documented in this encounter Additional Health Concerns Infection Onset Date Last Indicated Resolved Time ESBL 09/30/2024 09/30/2024 documented as of this encounter Care Teams Used Car Make Ready Mechanic Relationship Specialty Start Date End Date Emeterio Grace MD [address] [place] [address] PCP - General Internal Medicine 05/21/24 documented as of this encounter
--- OUTSIDE RECORDS SUMMARY | 2025-01-06 13:52 | XMS_ITS | Encounter Summary ---
Author Organization [facility] Address [address] [place] [address] Care Team Providers Care Textile Engineer Name Role Phone Emeterio Grace MD Primary Care Provider [phone] Encounter Details Date Type Department Care Team (Late st Contact Info) Description 09/25/2024 Lab Requisition [facility] - Main Lab 299 [facility] [place] [address] Kiran Woodruff MD 38 [facility] [address] [place], [address] Essential (primary) hypertension; Abnormality of albumin Social History Tobacco Use Types Packs/Day Years [...] Associated Diagnosis Comments COMPLETE BLOOD COUNT Routine 09/28/2024 7:33 AM EDT Essential (primary) hypertension Abnormality of albumin PREALBUMIN Routine 09/28/2024 7:33 AM EDT Essential (primary) hypertension Abnormality of albumin BASIC METABOLIC PANEL Routine 09/28/2024 7:33 AM EDT Essential (primary) hypertension Abnormality of albumin documented in this encounter Results * Prealbumin (09/28/2024 7:33 AM EDT) Prealbumin 18 18 - 45 mg/dL LAB CHEMISTRY METHOD 09/28/2024 11:52 AM EDT [facility] Blood Venous blood specimen / Unknown Venipuncture / Unknown 09/28/2024 7:33 AM EDT 09/28/2024 10:27 AM EDT us Kiran Woodruff MD LAB BLOOD ORDERABLES Final Resul t [facility] [address] [place] [address], [place] [phone] * (ABNORMAL) Basic metabolic panel (09/28/2024 7:33 AM EDT) Pathologist [facility] Sodium 138 133 - 145 mmol/L LAB CHEMISTRY METHOD 09/28/2024 11:45 AM [facility] Potassium 4.6 3.5 - 5.5 mmol/L LAB CHEMISTRY METHOD 09/28/2024 11:45 AM [facility] Chloride 105 96 - 110 mmol/L LAB CHEMISTRY METHOD 09/28/2024 11:45 AM [facility] CO2 28 21 - 32 mmol/L LAB CHEMISTRY METHOD 09/28/2024 11:45 AM [facility] Anion Gap 5 3 - 11 LAB CHEMISTRY METHOD 09/28/2024 11:45 AM [facility] Glucose 162(H) 70 - 100 mg/dL LAB CHEMISTRY METHOD 09/28/2024 11:45 AM [facility] BUN 22 5 - 25 mg/dL LAB CHEMISTRY METHOD 09/28/2024 11:45 AM [facility] Creatinine 0.92 0.50 - 1.10 mg/dL LAB CHEMISTRY METHOD 09/28/2024 11:45 AM EDT [facility] eGFR 75 >=60 mL/min/1. 73m2 LAB CHEMISTRY METHOD 09/28/2024 11:45 AM EDT [facility] Comment:Calculation based on the Chronic Kidney Disease Epidemiology Collaboration (CKD-EPI) equation refit without adjustment for race. BUN/Creatinine Ratio 23.9 LAB CHEMISTRY METHOD 09/28/2024 11:45 AM EDT [facility] Calcium 9.0 8.5 - 10.5 mg/dL LAB CHEMISTRY METHOD 09/28/2024 11:45 AM EDT [facility] Blood Venous blood specimen / Unknown Venipuncture / Unknown 09/28/2024 7:33 AM EDT 09/28/2024 10:27 AM EDT us Kiran Woodruff MD LAB BLOOD ORDERABLES Final Resul t [facility] [address] [place] [address], * (ABNORMAL) Complete blood count (09/28/2024 7:33 AM EDT) WBC 7.8 4.8 - 10.8 K/mcL LAB HEMETOLOGY METHOD 09/28/2024 11:27 AM EDT [facility] RBC 3.80 3.80 - 4.80 M/mcL LAB HEMETOLOGY METHOD 09/28/2024 11:27 AM EDT [facility] Hemoglobin 9.8(L) 11.5 - 16.0 g/dL LAB HEMETOLOGY METHOD 09/28/2024 11:27 AM EDT [facility] Hematocrit 32.6(L) 35.0 - 47.0 % LAB HEMETOLOGY METHOD 09/28/2024 11:27 AM EDT [facility] MCV 85.8 79.0 - 98.0 FL LAB HEMETOLOGY METHOD 09/28/2024 11:27 AM EDT [facility] MCH 25.8(L) 27.0 - 32.0 pcg LAB HEMETOLOGY METHOD 09/28/2024 11:27 AM EDT [facility] MCHC 30.1(L) 32.0 - 37.0 g/dL LAB HEMETOLOGY METHOD 09/28/2024 11:27 AM EDT [facility] RDW 17.7(H) 11.0 - 15.0 % LAB HEMETOLOGY METHOD 09/28/2024 11:27 AM EDT [facility] Platelets 395 130 - 400 K/mcL LAB HEMETOLOGY METHOD 09/28/2024 11:27 AM EDT [facility] MPV 9.1 7.0 - 11.0 FL LAB HEMETOLOGY METHOD 09/28/2024 11:27 AM EDT [facility] NRBC 0.0 <1.0 % LAB HEMETOLOGY METHOD 09/28/2024 11:27 AM EDT [facility] NRBC Absolute 0.00 <0.10 K/mcL LAB HEMETOLOGY METHOD 09/28/2024 11:27 AM T [facility] Blood Venous blood specimen / Unknown Venipuncture / Unknown 09/28/2024 7:33 AM EDT 09/28/2024 10:27 AM EDT us Kiran Woodruff MD LAB BLOOD ORDERABLES Final Resul t [facility] [address] [place] [address], documented in this encounter Visit Diagnoses Diagnosis Essential (primary) hypertension Unspecified essential hypertension Abnormality of albumin Other nonspecific findings on examination of blood documented in this encounter Additional Health Concerns Infection Onset Date Last Indicated Resolved Time ESBL 09/30/2024 09/30/2024 documented as of this encounter Care Teams Textile Engineer Relationship Specialty Start Date End Date Emeterio Grace MD [address] [place] [address] PCP - General Internal Medicine 05/21/24 documented as of this encounter
--- OUTSIDE RECORDS SUMMARY | 2025-01-06 13:52 | XMS_ITS | Encounter Summary ---
Author Organization [facility] Address [address] [place] [address] Care Team Providers Care Head Of Housekeeping Name Role Phone Emeterio Grace MD Primary Care Provider [phone] Encounter Details Date Type Department Care Team (Late st Contact Info) Description 08/06/2024 Lab Requisition [facility] - Main Lab 299 [facility] [place] [address] Eddie Gottlieb MD [address] [place] [address] Unspecified abdominal pain; Diarrhea, unspecified; Other obesity not elsewhere classified; Other malaise Social History Tobacco Use Types Packs/Day Years [...] Associated Diagnosis Comments COMPLETE BLOOD COUNT Routine 08/06/2024 7:14 AM EDT Unspecified abdominal pain Diarrhea, unspecified Other obesity not elsewhere classified Other malaise MAGNESIUM Routine 08/06/2024 7:14 AM EDT Unspecified abdominal pain Diarrhea, unspecified Other obesity not elsewhere classified Other malaise COMPREHENSIVE METABOLIC PANEL Routine 08/06/2024 7:14 AM EDT Unspecified abdominal pain Diarrhea, unspecified Other obesity not elsewhere classified Other malaise documented in this encounter Results * Magnesium (08/06/2024 7:14 AM EDT) Pathologist [facility] Magnesium 2.2 1.9 - 2.6 mg/dL LAB CHEMISTRY METHOD 08/06/2024 12:47 PM EDT [facility] Blood Venous blood specimen / Unknown Venipuncture / Unknown 08/06/2024 7:14 AM EDT 08/06/2024 11:01 AM EDT Eddie Gtotlieb MD LAB BLOOD ORDERABLES Final Result [facility] [address] [place] [address], * (ABNORMAL) Comprehensive metabolic panel (08/06/2024 7:14 AM EDT) [facility] Sodium 125(L) 133 - 145 mmol/L LAB CHEMISTRY METHOD 08/06/2024 12:47 PM [facility] Potassium 4.4 3.5 - 5.5 mmol/L LAB CHEMISTRY METHOD 08/06/2024 12:47 PM [facility] Chloride 90(L) 96 - 110 mmol/L LAB CHEMISTRY METHOD 08/06/2024 12:47 PM [facility] CO2 25 21 - 32 mmol/L LAB CHEMISTRY METHOD 08/06/2024 12:47 PM [facility] Anion Gap 10 3 - 11 LAB CHEMISTRY METHOD 08/06/2024 12:47 PM [facility] Glucose 101(H) 70 - 100 mg/dL LAB CHEMISTRY METHOD 08/06/2024 12:47 PM [facility] BUN 33(H) 5 - 25 mg/dL LAB CHEMISTRY METHOD 08/06/2024 12:47 PM [facility] Creatinine 1.42(H) 0.50 - 1.10 mg/dL LAB CHEMISTRY METHOD 08/06/2024 12:47 PM [facility] eGFR 45(L) >=60 mL/min/1. 73m2 LAB CHEMISTRY METHOD 08/06/2024 12:47 PM [facility] Comment:Calculation based on the Chronic Kidney Disease Epidemiology Collaboration (CKD-EPI) equation refit without adjustment for race. BUN/Creatinine Ratio 23.2 LAB CHEMISTRY METHOD 08/06/2024 12:47 PM [facility] Calcium 8.5 8.5 - 10.5 mg/dL LAB CHEMISTRY METHOD 08/06/2024 12:47 PM [facility] AST (SGOT) 11 10 - 42 unit/L LAB CHEMISTRY METHOD 08/06/2024 12:47 PM [facility] ALT (SGPT) 13 10 - 60 unit/L LAB CHEMISTRY METHOD 08/06/2024 12:47 PM [facility] Alkaline Phosphatase 154(H) 42 - 121 unit/L LAB CHEMISTRY METHOD 08/06/2024 12:47 PM [facility] Total Protein 6.7 6.0 - 8.0 g/dL LAB CHEMISTRY METHOD 08/06/2024 12:47 PM [facility] Albumin 2.4(L) 3.2 - 5.0 g/dL LAB CHEMISTRY METHOD 08/06/2024 12:47 PM [facility] Total Bilirubin 0.3 0.0 - 1.4 mg/dL LAB CHEMISTRY METHOD 08/06/2024 12:47 PM [facility] Blood Venous blood specimen / Unknown Venipuncture / Unknown 08/06/2024 7:14 AM EDT 08/06/2024 11:01 AM EDT Eddie Gottlieb MD LAB BLOOD ORDERABLES Final Result [facility] [address] [place] [address], * (ABNORMAL) Complete blood count (08/06/2024 7:14 AM EDT) WBC 13.5(H) 4.8 - 10.8 K/mcL LAB HEMETOLOGY METHOD 08/06/2024 11:26 AM EDT [facility] RBC 3.80 3.80 - 4.80 M/mcL LAB HEMETOLOGY METHOD 08/06/2024 11:26 AM EDT [facility] Hemoglobin 9.2(L) 11.5 - 16.0 g/dL LAB HEMETOLOGY METHOD 08/06[facility]24 [facility] Hematocrit 30.5(L) 35.0 - 47.0 % LAB HEMETOLOGY METHOD 08/06/2024 11:26 AM EDT [facility] MCV 80.5 79.0 - 98.0 FL LAB HEMETOLOGY METHOD 08/06/2024 11:26 AM [facility] MCH 24.3(L) 27.0 - 32.0 pcg LAB HEMETOLOGY METHOD 08/06/2024 11:[facility] MCHC 30.2(L) 32.0 - 37.0 g/dL LAB HEMETOLOGY METHOD 08/06/2024 11:26 AM EDT [facility] RDW 20.3(H) 11.0 - 15.0 % LAB HEMETOLOGY METHOD 08/06/2024 11:[facility] Platelets 383 130 - 400 K/mcL LAB HEMETOLOGY METHOD 08/06/2024 11:[facility] MPV 8.7 7.0 - 11.0 FL LAB HEMETOLOGY METHOD 08/06/2024 11:26 AM EDT [facility] NRBC 0.0 <1.0 % LAB HEMETOLOGY METHOD 08/06/2024 11:26 AM EDT [facility] NRBC Absolute 0.00 <0.10 K/mcL LAB HEMETOLOGY METHOD 08/06/2024 11:26 AM EDT [facility] Blood Venous blood specimen / Unknown Venipuncture / Unknown 08/06/2024 7:14 AM EDT 08/06/2024 11:01 AM EDT Eddie Gottlieb MD LAB BLOOD ORDERABLES Final Result [facility] [address] [place] [address], documented in this encounter Visit Diagnoses Diagnosis Unspecified abdominal pain Diarrhea, unspecified Other obesity not elsewhere classified Other malaise documented in this encounter Additional Health Concerns Infection Onset Date Last Indicated Resolved Time ESBL 09/30/2024 09/30/2024 documented as of this encounter Care Teams Head Of Housekeeping Relationship Specialty Start Date End Date Emeterio Grace MD [address] [place] [id number] PCP - General Internal Medicine 05/21/24 documented as of this encounter
--- OUTSIDE RECORDS SUMMARY | 2025-01-06 13:53 | XMS_ITS | Encounter Summary ---
Author Organization [facility] Address [address] [place] [address] Care Team Providers Care Assurance Auditor Name Role Phone Emeterio Grace MD Primary Care Provider [phone] Encounter Details Date Type Department Care Team (Late st Contact Info) Description 12/07/2024 Lab Requisition [facility] - Main Lab 299 [facility] [place] [address] Kiran Woodruff MD 38 [facility] [address] [place], [address] Other general symptoms and signs Social History Tobacco Use Types Packs/Day Years [...] Diagnosis Comments URINALYSIS WITH REFLEX MICROSCOPIC Routine 12/06/2024 9:00 PM EDT Other general symptoms and signs MANZO URINE CULTURE TUBE Routine 12/06/2024 9:00 PM EDT Other general symptoms and signs URINALYSIS WITH REFLEX MICROSCOPIC Routine 12/06/2024 9:00 PM EDT Other general symptoms and signs documented in this encounter Results * Manzo urine culture tube (12/06/2024 9:00 PM EDT) Pathologist [facility] Extra Tube Hold for add-ons. 12/07/2024 1:01 PM T [facility] Comment:Auto resulted. Urine Urine specimen obtained by clean catch procedure / Unknown 12/06/2024 9:00 PM EDT 12/07/2024 11:02 AM EDT us Kiran Woodruff MD LAB URINE ORDERABLES Final Resul t [facility] [address] [place] [address], [place] [phone] * (ABNORMAL) Urinalysis with reflex microscopic (12/06/2024 9:00 PM EDT) [facility] Specific [place] Urine 1.011 1.003 - 1.030 LAB URINALYSIS - AUTOMATED METHOD 12/07/2024 11:20 AM [facility] pH, Urine 6.5 5.0 - 8.0 pH LAB URINALYSIS - AUTOMATED METHOD 12/07/2024 11:20 AM [facility] Leukocytes, Urine Large(A) Negative LAB URINALYSIS - AUTOMATED METHOD 12/07/2024 11:20 AM [facility] Nitrite, Urine Positive(A) Negative LAB URINALYSIS - AUTOMATED METHOD 12/07/2024 11:20 AM [facility] Protein, Urine 30(A) <=Trace mg/dL LAB URINALYSIS - AUTOMATED METHOD 12/07/2024 11:20 AM [facility] Glucose, Urine Negative Negative mg/dL LAB URINALYSIS - AUTOMATED METHOD 12/07/2024 11:20 AM [facility] Ketones, Urine Negative Negative mg/dL LAB URINALYSIS - AUTOMATED METHOD 12/07/2024 11:20 AM [facility] Urobilinogen , Urine 0.2 0.2 - 1.0 mg/dL LAB URINALYSIS - AUTOMATED METHOD 12/07/2024 11:20 AM [facility] Bilirubin, Urine Negative Negative LAB URINALYSIS - AUTOMATED METHOD 12/07/2024 11:20 AM [facility] Blood, Urine Small(A) Negative LAB URINALYSIS - AUTOMATED METHOD 12/07/2024 11:20 AM [facility] RBC, Urine 5.8(H) 0 - 4 /HPF LAB URINALYSIS - AUTOMATED METHOD 12/07/2024 11:20 AM [facility] WBC, Urine 545.7(H) 0 - 4 /HPF LAB URINALYSIS - AUTOMATED METHOD 12/07/2024 11:20 AM [facility] Squamous Epithelial, Urine 16 0 - 60 /LPF LAB URINALYSIS - AUTOMATED METHOD 12/07/2024 11:20 AM [facility] Bacteria, Urine Many(A) Negative /HPF LAB URINALYSIS - AUTOMATED METHOD 12/07/2024 11:20 AM [facility] Hyaline Casts, Urine 0.9 0 - 3 /LPF LAB URINALYSIS - AUTOMATED METHOD 12/07/2024 11:20 AM [facility] Urine Urine specimen obtained by clean catch procedure / Unknown 12/06/2024 9:00 PM EDT 12/07/2024 11:02 AM EDT us Kiran Woodruff MD LAB URINE ORDERABLES Final Resul t [facility] [address] [place] [address], documented in this encounter Visit Diagnoses Diagnosis Other general symptoms and signs documented in this encounter Additional Health Concerns Infection Onset Date Last Indicated Resolved Time ESBL 09/30/2024 09/30/2024 documented as of this encounter Care Teams Assurance Auditor Relationship Specialty Start Date End Date Emeterio Grace MD [address] [place] [address] PCP - General Internal Medicine 05/21/24 documented as of this encounter
--- OUTSIDE RECORDS SUMMARY | 2025-01-06 13:53 | XMS_ITS | Encounter Summary ---
Author Organization [facility] Address [address] [place] [address] Care Team Providers Care Upper Cutter Out Name Role Phone Emeterio Grace MD Primary Care Provider [phone] Encounter Details Date Type Department Care Team (Late st Contact Info) Description 09/12/2024 Lab Requisition [facility] - Main Lab 299 [facility] [place] [address] Kiran Woodruff MD 38 [facility] [address] [place], [address] Essential (primary) hypertension Social History Tobacco Use Types Packs/Day Years [...] Associated Diagnosis Comments COMPLETE BLOOD COUNT Routine 09/14/2024 7:53 AM EDT Essential (primary) hypertension BASIC METABOLIC PANEL Routine 09/14/2024 7:53 AM EDT Essential (primary) hypertension documented in this encounter Results * (ABNORMAL) Basic metabolic panel (09/14/2024 7:53 AM EDT) Sodium 134 133 - 145 mmol/L LAB CHEMISTRY METHOD 09/14/2024 1:[address] [facility] Potassium 4.5 3.5 - 5.5 mmol/L LAB CHEMISTRY METHOD 09/14/2024 1:[address] [facility] Chloride 103 96 - 110 mmol/L LAB CHEMISTRY METHOD 09/14/2024 1:[address] [facility] CO2 24 21 - 32 mmol/L LAB CHEMISTRY METHOD 09/14/2024 1:[address] [facility] Anion Gap 7 3 - 11 LAB CHEMISTRY METHOD 09/14/2024 1:[address] [facility] Glucose 109(H) 70 - 100 mg/dL LAB CHEMISTRY METHOD 09/14/2024 1:[address] [facility] BUN 12 5 - 25 mg/dL LAB CHEMISTRY METHOD 09/14/2024 1:[address] [facility] Creatinine 0.95 0.50 - 1.10 mg/dL LAB CHEMISTRY METHOD 09/14/2024 1:[address] [facility] eGFR 72 >=60 mL/min/1. 73m2 LAB CHEMISTRY METHOD 09/14/2024 1:[address] [facility] Comment:Calculation based on the Chronic Kidney Disease Epidemiology Collaboration (CKD-EPI) equation refit without adjustment for race. BUN/Creatinine Ratio 12.6 LAB CHEMISTRY METHOD 09/14/2024 1:[address] [facility] Calcium 9.0 8.5 - 10.5 mg/dL LAB CHEMISTRY METHOD 09/14/2024 1:[address] [facility] Blood Venous blood specimen / Unknown Venipuncture / Unknown 09/14/2024 7:53 AM EDT 09/14/2024 11:50 AM EDT us Kiran Woodruff MD LAB BLOOD ORDERABLES Final Resul t [facility] [address] [place] [address], * (ABNORMAL) Complete blood count (09/14/2024 7:53 AM EDT) [facility] Signature WBC 9.9 4.8 - 10.8 K/mcL LAB HEMETOLOGY METHOD 09/14/2024 12:56 PM EDT [facility] RBC 3.90 3.80 - 4.80 M/mcL LAB HEMETOLOGY METHOD 09/14/2024 12:56 PM EDT [facility] Hemoglobin 10.0(L) 11.5 - 16.0 g/dL LAB HEMETOLOGY METHOD 09/14/2024 12:56 PM EDT [facility] Hematocrit 33.0(L) 35.0 - 47.0 % LAB HEMETOLOGY METHOD 09/14/2024 12:56 PM EDT [facility] MCV 85.1 79.0 - 98.0 FL LAB HEMETOLOGY METHOD 09/14/2024 12:56 PM EDT [facility] MCH 25.8(L) 27.0 - 32.0 pcg LAB HEMETOLOGY METHOD 09/14/2024 12:56 PM EDT [facility] MCHC 30.3(L) 32.0 - 37.0 g/dL LAB HEMETOLOGY METHOD 09/14/2024 12:56 PM EDT [facility] RDW 19.5(H) 11.0 - 15.0 % LAB HEMETOLOGY METHOD 09/14/2024 12:56 PM EDT [facility] Platelets 359 130 - 400 K/mcL LAB HEMETOLOGY METHOD 09/14/2024 12:56 PM EDT [facility] MPV 9.4 7.0 - 11.0 FL LAB HEMETOLOGY METHOD 09/14/2024 12:56 PM EDT [facility] NRBC 0.0 <1.0 % LAB HEMETOLOGY METHOD 09/14/2024 12:56 PM EDT [facility] NRBC Absolute 0.00 <0.10 K/mcL LAB HEMETOLOGY METHOD 09/14/2024 12:56 PM EDT [facility] Blood Venous blood specimen / Unknown Venipuncture / Unknown 09/14/2024 7:53 AM EDT 09/14/2024 11:50 AM EDT us Kiran Woodruff MD LAB BLOOD ORDERABLES Final Resul t [facility] [address] [place] [address], documented in this encounter Visit Diagnoses Diagnosis Essential (primary) hypertension Unspecified essential hypertension documented in this encounter Additional Health Concerns Infection Onset Date Last Indicated Resolved Time ESBL 09/30/2024 09/30/2024 documented as of this encounter Care Teams Upper Cutter Out Relationship Specialty Start Date End Date Emeterio Grace MD [address] [place] [address] PCP - General Internal Medicine 05/21/24 documented as of this encounter
--- OUTSIDE RECORDS SUMMARY | 2025-01-06 13:53 | XMS_ITS | Encounter Summary ---
Author Organization [facility] Address [address] [place] [address] Care Team Providers Care Freight Representative Name Role Phone Emeterio Grace MD Primary Care Provider [phone] Encounter Details Date Type Department Care Team (Late st Contact Info) Description 10/31/2024 Lab Requisition [facility] - Main Lab 299 [facility] [place] [address] Kiran Woodruff MD 38 [facility] [address] [place], [address] Essential (primary) hypertension Social History Tobacco [...] Associated Diagnosis Comments COMPLETE BLOOD COUNT Routine 11/02/2024 7:37 AM EDT Essential (primary) hypertension BASIC METABOLIC PANEL Routine 11/02/2024 7:37 AM EDT Essential (primary) hypertension documented in this encounter Results * Basic metabolic panel (11/02/2024 7:37 AM EDT) Sodium 135 133 - 145 mmol/L LAB CHEMISTRY METHOD 11/02/2024 12:[address] [facility] Potassium 4.7 3.5 - 5.5 mmol/L LAB CHEMISTRY METHOD 11/02/2024 12:[address] [facility] Chloride 99 96 - 110 mmol/L LAB CHEMISTRY METHOD 11/02/2024 12:[address] [facility] CO2 29 21 - 32 mmol/L LAB CHEMISTRY METHOD 11/02/2024 12:[address] [facility] Anion Gap 7 3 - 11 LAB CHEMISTRY METHOD 11/02/2024 12:[address] [facility] Glucose 75 70 - 100 mg/dL LAB CHEMISTRY METHOD 11/02/2024 12:[address] [facility] BUN 20 5 - 25 mg/dL LAB CHEMISTRY METHOD 11/02/2024 12:[address] [facility] Creatinine 0.94 0.50 - 1.10 mg/dL LAB CHEMISTRY METHOD 11/02/2024 12:[address] [facility] eGFR 73 >=60 mL/min/1. 73m2 LAB CHEMISTRY METHOD 11/02/2024 12:[address] [facility] Comment:Calculation based on the Chronic Kidney Disease Epidemiology Collaboration (CKD-EPI) equation refit without adjustment for race. BUN/Creatinine Ratio 21.3 LAB CHEMISTRY METHOD 11/02/2024 12:[address] [facility] Calcium 8.8 8.5 - 10.5 mg/dL LAB CHEMISTRY METHOD 11/02/2024 12:[address] [facility] Blood Venous blood specimen / Unknown Venipuncture / Unknown 11/02/2024 7:37 AM EDT 11/02/2024 10:55 AM EDT us Kiran Woodruff MD LAB BLOOD ORDERABLES Final Resul t [facility] [address] [place] [address], * (ABNORMAL) Complete blood count (11/02/2024 7:37 AM EDT) [facility] Signature WBC 8.3 4.8 - 10.8 K/mcL LAB HEMETOLOGY METHOD 11/02/2024 12:28 PM EDT [facility] RBC 3.10(L) 3.80 - 4.80 M/mcL LAB HEMETOLOGY METHOD 11/02/2024 12:28 PM EDT [facility] Hemoglobin 8.0(L) 11.5 - 16.0 g/dL LAB HEMETOLOGY METHOD [facility] Hematocrit 27.5(L) 35.0 - 47.0 % LAB HEMETOLOGY METHOD 11/02[facility]2024 [facility] MCV 88.7 79.0 - 98.0 FL LAB HEMETOLOGY METHOD 11/02/2024 12[facility] MCH 25.8(L) 27.0 - 32.0 pcg LAB HEMETOLOGY METHOD 11/02/2024 12:[address] [facility] MCHC 29.1(L) 32.0 - 37.0 g/dL LAB HEMETOLOGY METHOD 11/02/2024 12:28 PM EDT [facility] RDW 18.6(H) 11.0 - 15.0 % LAB HEMETOLOGY METHOD 11/02/2024 12:28 PM EDT [facility] Platelets 425(H) 130 - 400 K/mcL LAB HEMETOLOGY METHOD 11/02[facility]2024 [facility] MPV 9.4 7.0 - 11.0 FL LAB HEMETOLOGY METHOD 11/02/2024 12:28 PM EDT [facility] NRBC 0.0 <1.0 % LAB HEMETOLOGY METHOD 11/02/2024 12:28 PM EDT [facility] NRBC Absolute 0.00 <0.10 K/mcL LAB HEMETOLOGY METHOD 11/02/2024 12:28 PM EDT [facility] Blood Venous blood specimen / Unknown Venipuncture / Unknown 11/02/2024 7:37 AM EDT 11/02/2024 10:55 AM EDT us Kiran Woodruff MD LAB BLOOD ORDERABLES Final Resul t [facility] [address] [place] [address], documented in this encounter Visit Diagnoses Diagnosis Essential (primary) hypertension Unspecified essential hypertension documented in this encounter Additional Health Concerns Infection Onset Date Last Indicated Resolved Time ESBL 09/30/2024 09/30/2024 documented as of this encounter Care Teams Freight Representative Relationship Specialty Start Date End Date Emeterio Grace MD [address] [place] [address] PCP - General Internal Medicine 05/21/24 documented as of this encounter
--- OUTSIDE RECORDS SUMMARY | 2025-01-06 13:53 | XMS_ITS | Encounter Summary ---
Author Organization [facility] Address [address] [place] [address] Care Team Providers Care Epoxy Fabrication Supervisor Name Role Phone Emeterio Grace MD Primary Care Provider [phone] Encounter Details Date Type Department Care Team (Late st Contact Info) Description 09/18/2024 Lab Requisition [facility] - Main Lab 299 [facility] [place] [address] Kiran Woodruff MD 38 [facility] [address] [place], [address] Essential (primary) hypertension Social History Tobacco [...] Associated Diagnosis Comments COMPLETE BLOOD COUNT Routine 09/21/2024 7:03 AM EDT Essential (primary) hypertension BASIC METABOLIC PANEL Routine 09/21/2024 7:03 AM EDT Essential (primary) hypertension documented in this encounter Results * (ABNORMAL) Basic metabolic panel (09/21/2024 7:03 AM EDT) Sodium 136 133 - 145 mmol/L LAB CHEMISTRY METHOD 09/21/2024 11:28 AM [facility] Potassium 4.5 3.5 - 5.5 mmol/L LAB CHEMISTRY METHOD 09/21/2024 11:28 AM [facility] Chloride 105 96 - 110 mmol/L LAB CHEMISTRY METHOD 09/21/2024 11:28 AM [facility] CO2 24 21 - 32 mmol/L LAB CHEMISTRY METHOD 09/21/2024 11:28 AM [facility] Anion Gap 7 3 - 11 LAB CHEMISTRY METHOD 09/21/2024 11:28 AM [facility] Glucose 125(H) 70 - 100 mg/dL LAB CHEMISTRY METHOD 09/21/2024 11:28 AM [facility] BUN 23 5 - 25 mg/dL LAB CHEMISTRY METHOD 09/21/2024 11:28 AM [facility] Creatinine 1.17(H) 0.50 - 1.10 mg/dL LAB CHEMISTRY METHOD 09/21/2024 11:28 AM [facility] eGFR 56(L) >=60 mL/min/1. 73m2 LAB CHEMISTRY METHOD 09/21/2024 11:28 AM [facility] Comment:Calculation based on the Chronic Kidney Disease Epidemiology Collaboration (CKD-EPI) equation refit without adjustment for race. BUN/Creatinine Ratio 19.7 LAB CHEMISTRY METHOD 09/21/2024 11:28 AM [facility] Calcium 8.6 8.5 - 10.5 mg/dL LAB CHEMISTRY METHOD 09/21/2024 11:28 AM [facility] Blood Venous blood specimen / Unknown Venipuncture / Unknown 09/21/2024 7:03 AM EDT 09/21/2024 10:16 AM EDT us Kiran Woodruff MD LAB BLOOD ORDERABLES Final Resul t [facility] [address] [place] [address], * (ABNORMAL) Complete blood count (09/21/2024 7:03 AM EDT) WBC 9.8 4.8 - 10.8 K/mcL LAB HEMETOLOGY METHOD 09/21/2024 12:16 PM EDT [facility] RBC 3.60(L) 3.80 - 4.80 M/mcL LAB HEMETOLOGY METHOD 09/21/2024 12:16 PM EDT [facility] Hemoglobin 9.4(L) 11.5 - 16.0 g/dL LAB HEMETOLOGY METHOD 09/21/2024 12:16 PM EDT [facility] Hematocrit 31.8(L) 35.0 - 47.0 % LAB HEMETOLOGY METHOD 09/21/2024 12:16 PM EDT [facility] MCV 87.6 79.0 - 98.0 FL LAB HEMETOLOGY METHOD 09/21/2024 12:16 PM EDT [facility] MCH 25.9(L) 27.0 - 32.0 pcg LAB HEMETOLOGY METHOD 09/21/2024 12:16 PM EDT [facility] MCHC 29.6(L) 32.0 - 37.0 g/dL LAB HEMETOLOGY METHOD 09/21/2024 12:16 PM EDT [facility] RDW 19.1(H) 11.0 - 15.0 % LAB HEMETOLOGY METHOD 09/21/2024 12:16 PM EDT [facility] Platelets 331 130 - 400 K/mcL LAB HEMETOLOGY METHOD 09/21/2024 12:16 PM EDT [facility] MPV 9.8 7.0 - 11.0 FL LAB HEMETOLOGY METHOD 09/21/2024 12:16 PM EDT [facility] NRBC 0.0 <1.0 % LAB HEMETOLOGY METHOD 09/21/2024 12:16 PM EDT [facility] NRBC Absolute 0.00 <0.10 K/mcL LAB HEMETOLOGY METHOD 09/21/2024 12:16 PM EDT [facility] Blood Venous blood specimen / Unknown Venipuncture / Unknown 09/21/2024 7:03 AM EDT 09/21/2024 10:16 AM EDT us Kiran Woodruff MD LAB BLOOD ORDERABLES Final Resul t [facility] [address] [place] [address], documented in this encounter Visit Diagnoses Diagnosis Essential (primary) hypertension Unspecified essential hypertension documented in this encounter Additional Health Concerns Infection Onset Date Last Indicated Resolved Time ESBL 09/30/2024 09/30/2024 documented as of this encounter Care Teams Epoxy Fabrication Supervisor Relationship Specialty Start Date End Date Emeterio Grace MD [address] [place] [address] PCP - General Internal Medicine 05/21/24 documented as of this encounter
--- OUTSIDE RECORDS SUMMARY | 2025-01-06 13:53 | XMS_ITS | Encounter Summary ---
Author Organization Address [address] [place] [address] Care Team Providers Care Marine Cargo Surveyor Name Role Phone Emeterio Grace MD Primary Care Provider [phone] Encounter Details Date Type Department Care Team (Late st Contact Info) Description 08/31/2024 Lab Requisition [facility] - Main Lab 299 [facility] [place] [address] Eddie Gottlieb MD [address] [place] [address] Essential (primary) hypertension; Type 2 diabetes mellitus without complications (CMS/HCC [...] documented as of this encounter Visit Diagnoses Diagnosis Essential (primary) hypertension Unspecified essential hypertension Type 2 diabetes mellitus without complications (CMS/HCC V24, CMS/HCC V28) documented in this encounter Additional Health Concerns Infection Onset Date Last Indicated Resolved Time ESBL 09/30/2024 09/30/2024 documented as of this encounter Care Teams Marine Cargo Surveyor Relationship Specialty Start Date End Date Emeterio Grace MD [address] [place] [address] [place] [address] PCP - General Internal Medicine 05/21/24 documented as of this encounter
--- OUTSIDE RECORDS SUMMARY | 2025-01-06 13:53 | XMS_ITS | Encounter Summary ---
Author Organization [facility] Address [address] [place] [address] Care Team Providers Care Flight Security Specialist Name Role Phone Emeterio Grace MD Primary Care Provider [phone] Encounter Details Date Type Department Care Team (Late st Contact Info) Description 12/11/2024 Lab Requisition [facility] - Main Lab 299 [facility] [place] [address] Kiran Woodruff MD 38 [facility] [address] [place], [address] Essential (primary) hypertension Social History Tobacco [...] documented as of this encounter Care Teams Flight Security Specialist Relationship Specialty Start Date End Date Emeterio Grace MD [address] [place] [address] PCP - General Internal Medicine 05/21/24 documented as of this encounter
--- OUTSIDE RECORDS SUMMARY | 2025-01-06 13:53 | XMS_ITS | Encounter Summary ---
Author Organization [facility] Address [address] [place] [address] Care Team Providers Care Tire Fabric Inspector Name Role Phone Emeterio Grace MD Primary Care Provider [phone] Encounter Details Date Type Department Care Team (Late st Contact Info) Description 11/07/2024 Lab Requisition [facility] - Main Lab 299 [facility] [place] [address] Kiran Woodruff MD 38 [facility] [address] [place], [address] Essential (primary) hypertension Social History Tobacco [...] documented as of this encounter Care Teams Tire Fabric Inspector Relationship Specialty Start Date End Date Emeterio Grace MD [address] [place] [address] PCP - General Internal Medicine 05/21/24 documented as of this encounter
--- OUTSIDE RECORDS SUMMARY | 2025-01-06 13:53 | XMS_ITS | Encounter Summary ---
Author Organization [facility] Address [address] [place] [address] Care Team Providers Care Fan Runner Name Role Phone Emeterio Grace MD Primary Care Provider [phone] Encounter Details Date Type Department Care Team (Late st Contact Info) Description 10/01/2024 Lab Requisition [facility] - Main Lab 299 [facility] [place] [address] Kiran Woodruff MD 38 [facility] [address] [place], [address] Dysuria Social History Tobacco Use Types Packs/Day Years [...] Associated Diagnosis Comments URINALYSIS WITH REFLEX MICROSCOPIC AND CULTURE Routine 09/30/2024 2:00 PM EDT Dysuria MANZO URINE CULTURE TUBE Routine 09/30/2024 2:00 PM EDT Dysuria URINALYSIS WITH REFLEX MICROSCOPIC AND CULTURE Routine 09/30/2024 2:00 PM EDT Dysuria CULTURE URINE Routine 09/30/2024 2:00 PM EDT Dysuria documented in this encounter Results * (ABNORMAL) Culture urine (09/30/2024 2:00 PM EDT) Culture, Urine 50,000-100,00 0 CFU/mL Klebsiella pneumoniae ESBL(A) ZION 10/04/2024 10:44 AM EDT [facility] Comment: THIS ORGANISM IS POSITIVE FOR EXTENDED SPECTRUM BETA-LACTAMASE (ESBL). EXTENDED SPECTRUM BETA-LACTAMASE PRODUCING ORGANISMS DEMONSTRATE DECREASED ACTIVITY WITH PENICILLINS, CEPHALOSPORINS AND AZTREONAM. This is an edited result. Previous organism was Gram negative bacilli on 10/02/2024 at 0819 EDT. Edited result: Previously reported as Klebsiella pneumoniae on 10/03/2024 at 1100 EDT. Culture, Urine >=100,000 CFU/mL Janny albicans/dubl iniensis(A) ZION 10/04/2024 10:44 AM EDT [facility] Comment: Edited result: Previously reported as Yeast on 10/02/2024 at 0819 EDT. Urine Urinary bladder structure / Unknown 09/30/2024 2:00 PM EDT 10/01/2024 9:39 AM EDT Narrative Organism Antibiotic Method Susceptibility Klebsiella pneumoniae ESBL Amoxicillin/Clavulanate ZION 4 ug/ml: Susceptible Klebsiella pneumoniae ESBL Ampicillin/Sulbactam ZION 16 ug/ml: Intermediate Klebsiella pneumoniae ESBL Piperacillin/Tazobactam ZION <=4 ug/ml: Susceptible Klebsiella pneumoniae ESBL Cefazolin (Urine) ZION >=32 ug/ml: Resistant Klebsiella pneumoniae ESBL Cefoxitin ZION <=4 ug/ml: Susceptible Klebsiella pneumoniae ESBL Ceftazidime ZION >=32 ug/ml: Resistant Klebsiella pneumoniae ESBL Ceftriaxone ZION >=64 ug/ml: Resistant Klebsiella pneumoniae ESBL Cefepime ZION 2 ug/ml: Susceptible Klebsiella pneumoniae ESBL Meropenem ZION <=0.25 ug/ml: Susceptible Klebsiella pneumoniae ESBL Amikacin ZION <=1 ug/ml: Susceptible Klebsiella pneumoniae ESBL Gentamicin ZION <=1 ug/ml: Susceptible Klebsiella pneumoniae ESBL Ciprofloxacin ZION >=4 ug/ml: Resistant Klebsiella pneumoniae ESBL Levofloxacin ZION 4 ug/ml: Resistant Klebsiella pneumoniae ESBL Nitrofurantoin ZION 32 ug/ml: Susceptible Klebsiella pneumoniae ESBL Trimethoprim/Sulfamethoxazo le ZION >=320 ug/ml: Resistant us Kiran Woodruff MD LAB MICROBIOLOGY - GENERAL ORDER JOCELIN Final Result [facility] [address] [place] [address], [place] [phone] * (ABNORMAL) Urinalysis with reflex microscopic and culture (09/30/2024 2:00 PM EDT) Pathologist [facility] [place] Urine >=1.030 1.003 - 1.030 LAB URINALYSIS - AUTOMATED METHOD 10/01/2024 9:40 AM [facility] pH, Urine 5.0 5.0 - 8.0 pH LAB URINALYSIS - AUTOMATED METHOD 10/01/2024 9:40 AM [facility] Leukocytes, Urine Moderate(A) Negative LAB URINALYSIS - AUTOMATED METHOD 10/01/2024 9:40 AM [facility] Nitrite, Urine Negative Negative LAB URINALYSIS - AUTOMATED METHOD 10/01/2024 9:40 AM [facility] Protein, Urine 100(A) <=Trace mg/dL LAB URINALYSIS - AUTOMATED METHOD 10/01/2024 9:40 AM [facility] Glucose, Urine Negative Negative mg/dL LAB URINALYSIS - AUTOMATED METHOD 10/01/2024 9:40 AM [facility] Ketones, Urine Trace(A) Negative mg/dL LAB URINALYSIS - AUTOMATED METHOD 10/01/2024 9:40 AM [facility] Urobilinogen , Urine 0.2 0.2 - 1.0 mg/dL LAB URINALYSIS - AUTOMATED METHOD 10/01/2024 9:40 AM [facility] Bilirubin, Urine Small(A) Negative LAB URINALYSIS - AUTOMATED METHOD 10/01/2024 9:40 AM EDT [facility] Blood, Urine Large(A) Negative LAB URINALYSIS - AUTOMATED METHOD 10/01/2024 9:40 AM EDT [facility] RBC, Urine 10.0(H) 0 - 4 /HPF 10/01/2024 9:40 AM [facility] WBC, Urine >100.0(H) 0 - 4 /HPF 10/01/2024 9:40 AM EDT [facility] Squamous Epithelial, Urine 20 0 - 60 /LPF 10/01/2024 9:40 AM EDT [facility] Bacteria, Urine Many(A) Negative /HPF 10/01/2024 9:40 AM [facility] Hyaline Casts, Urine 3.0 0 - 3 /LPF 10/01/2024 9:40 AM [facility] Yeast, Urine Present(A) None /HPF 10/01/2024 9:40 AM EDT [facility] Urine Urinary bladder structure / Unknown 09/30/2024 2:00 PM EDT 10/01/2024 9:01 AM EDT us Kiran Woodruff MD LAB URINE ORDERABLES Final Resul t [facility] [address] [place] [address], * Manzo urine culture tube (09/30/2024 2:00 PM EDT) Extra Tube Hold for add-ons. 10/01/2024 11:01 AM EDT [facility] Comment:Auto resulted. Urine Urinary bladder structure / Unknown 09/30/2024 2:00 PM EDT 10/01/2024 9:01 AM EDT us Kiran Woodruff MD LAB URINE ORDERABLES Final Resul t [facility] [address] [place] [address], documented in this encounter Visit Diagnoses Diagnosis Dysuria documented in this encounter Additional Health Concerns Infection Onset Date Last Indicated Resolved Time ESBL 09/30/2024 09/30/2024 documented as of this encounter Care Teams Fan Runner Relationship Specialty Start Date End Date Emeterio Grace MD [address] [place] [address] PCP - General Internal Medicine 05/21/24 documented as of this encounter
--- OUTSIDE RECORDS SUMMARY | 2025-01-06 13:53 | XMS_ITS | Encounter Summary ---
Author Organization [facility] Address [address] [place] [address] Care Team Providers Care Financial Legal Assistant Name Role Phone Emeterio Grace MD Primary Care Provider [phone] Encounter Details Date Type Department Care Team (Late st Contact Info) Description 11/21/[address] [facility] - Main Lab 299 [facility] [place] [address] Kiran Woodruff MD 38 [facility] [address] [place], [address] Essential (primary) hypertension Social History Tobacco [...] Associated Diagnosis Comments COMPLETE BLOOD COUNT Routine 11/23/2024 8:35 AM EDT Essential (primary) hypertension BASIC METABOLIC PANEL Routine 11/23/2024 8:35 AM EDT Essential (primary) hypertension documented in this encounter Results * (ABNORMAL) Basic metabolic panel (11/23/2024 8:35 AM EDT) Sodium 134 133 - 145 mmol/L LAB CHEMISTRY METHOD 11/23/2024 1:00 PM [facility] Potassium 4.7 3.5 - 5.5 mmol/L LAB CHEMISTRY METHOD 11/23/2024 1:00 PM [facility] Chloride 99 96 - 110 mmol/L LAB CHEMISTRY METHOD 11/23/2024 1:00 PM [facility] CO2 25 21 - 32 mmol/L LAB CHEMISTRY METHOD 11/23/2024 1:00 PM [facility] Anion Gap 10 3 - 11 LAB CHEMISTRY METHOD 11/23/2024 1:00 PM [facility] Glucose 89 70 - 100 mg/dL LAB CHEMISTRY METHOD 11/23/2024 1:00 PM [facility] BUN 15 5 - 25 mg/dL LAB CHEMISTRY METHOD 11/23/2024 1:00 PM [facility] Creatinine 1.26(H) 0.50 - 1.10 mg/dL LAB CHEMISTRY METHOD 11/23/2024 1:00 PM [facility] eGFR 51(L) >=60 mL/min/1. 73m2 LAB CHEMISTRY METHOD 11/23/2024 1:00 PM [facility] Comment:Calculation based on the Chronic Kidney Disease Epidemiology Collaboration (CKD-EPI) equation refit without adjustment for race. BUN/Creatinine Ratio 11.9 LAB CHEMISTRY METHOD 11/23/2024 1:00 PM [facility] Calcium 9.5 8.5 - 10.5 mg/dL LAB CHEMISTRY METHOD 11/23/2024 1:00 PM [facility] Blood Venous blood specimen / Unknown Venipuncture / Unknown 11/23/2024 8:35 AM EDT 11/23/2024 11:22 AM EDT us Kiran Woodruff MD LAB BLOOD ORDERABLES Final Resul t [facility] [address] [place] [address], * (ABNORMAL) Complete blood count (11/23/2024 8:35 AM EDT) WBC 7.7 4.8 - 10.8 K/mcL LAB HEMETOLOGY METHOD 11/23/2024 12:07 PM EDT [facility] RBC 3.60(L) 3.80 - 4.80 M/mcL LAB HEMETOLOGY METHOD [facility]24 [facility] Hemoglobin 9.5(L) 11.5 - 16.0 g/dL LAB HEMETOLOGY METHOD 11/23/2024 12:07 PM [facility] Hematocrit 31.5(L) 35.0 - 47.0 % LAB HEMETOLOGY METHOD 11/23/2024 12:07 [facility] MCV 87.5 79.0 - 98.0 FL LAB HEMETOLOGY METHOD 11/23/2024 12:07 [facility] MCH 26.4(L) 27.0 - 32.0 pcg LAB HEMETOLOGY METHOD 11/23/2024 12:07 PM [facility] MCHC 30.2(L) 32.0 - 37.0 g/dL LAB HEMETOLOGY METHOD 11/23/2024 12:07 [facility] RDW 17.6(H) 11.0 - 15.0 % LAB HEMETOLOGY METHOD 11/23/2024 12:07 [facility] Platelets 456(H) 130 - 400 K/mcL LAB HEMETOLOGY METHOD 11/23/2024 12:07 PM [facility] MPV 9.3 7.0 - 11.0 FL LAB HEMETOLOGY METHOD 11/23/2024 12:07 PM EDT [facility] NRBC 0.0 <1.0 % LAB HEMETOLOGY METHOD 11/23/2024 12:07 PM EDT [facility] NRBC Absolute 0.00 <0.10 K/mcL LAB HEMETOLOGY METHOD 11/23/2024 12:07 PM EDT [facility] Blood Venous blood specimen / Unknown Venipuncture / Unknown 11/23/2024 8:35 AM EDT 11/23/2024 11:22 AM EDT us Kiran Woodruff MD LAB BLOOD ORDERABLES Final Resul t [facility] [address] [place] [address], documented in this encounter Visit Diagnoses Diagnosis Essential (primary) hypertension Unspecified essential hypertension documented in this encounter Additional Health Concerns Infection Onset Date Last Indicated Resolved Time ESBL 09/30/2024 09/30/2024 documented as of this encounter Care Teams Financial Legal Assistant Relationship Specialty Start Date End Date Emeterio Grace MD [address] [place] [address] PCP - General Internal Medicine 05/21/24 documented as of this encounter
--- OUTSIDE RECORDS SUMMARY | 2025-01-06 13:53 | XMS_ITS | Encounter Summary ---
Author Organization [facility] Address [address] [place] [address] Care Team Providers Care Mold Shaker Name Role Phone Emeterio Grace MD Primary Care Provider [phone] Encounter Details Date Type Department Care Team (Late st Contact Info) Description 10/03/2024 Lab Requisition [facility] - Main Lab 299 [facility] [place] [address] Kiran Woodruff MD 38 [facility] [address] [place], [address] Essential (primary) hypertension Social History Tobacco [...] documented as of this encounter Care Teams Mold Shaker Relationship Specialty Start Date End Date Emeterio Grace MD [address] [place] [address] PCP - General Internal Medicine 05/21/24 documented as of this encounter
--- OUTSIDE RECORDS SUMMARY | 2025-01-06 13:53 | XMS_ITS | Encounter Summary ---
Author Organization [facility] Address [address] [place] [address] Care Team Providers Care Car Spotter Name Role Phone Emeterio Grace MD Primary Care Provider [phone] Encounter Details Date Type Department Care Team (Late st Contact Info) Description 09/10/2024 Lab Requisition [facility] - Main Lab 299 [facility] [place] [address] Kiran Woodruff MD 38 [facility] [address] [place], [address] Essential (primary) hypertension Social History Tobacco [...] Associated Diagnosis Comments COMPLETE BLOOD COUNT Routine 09/10/2024 5:26 AM EDT Essential (primary) hypertension COMPREHENSIVE METABOLIC PANEL Routine 09/10/2024 5:26 AM EDT Essential (primary) hypertension documented in this encounter Results * (ABNORMAL) Comprehensive metabolic panel (09/10/2024 5:26 AM EDT) [facility] Sodium 137 133 - 145 mmol/L LAB CHEMISTRY METHOD 09/10/2024 10:[address] [facility] Potassium 4.5 3.5 - 5.5 mmol/L LAB CHEMISTRY METHOD 09/10/2024 10:[address] [facility] Chloride 106 96 - 110 mmol/L LAB CHEMISTRY METHOD 09/10/2024 10:[address] [facility] CO2 22 21 - 32 mmol/L LAB CHEMISTRY METHOD 09/10/2024 10:[address] [facility] Anion Gap 9 3 - 11 LAB CHEMISTRY METHOD 09/10/2024 10:[address] [facility] Glucose 112(H) 70 - 100 mg/dL LAB CHEMISTRY METHOD 09/10/2024 10:[address] [facility] BUN 12 5 - 25 mg/dL LAB CHEMISTRY METHOD 09/10/2024 10:[address] [facility] Creatinine 0.82 0.50 - 1.10 mg/dL LAB CHEMISTRY METHOD 09/10/2024 10:[address] [facility] eGFR 86 >=60 mL/min/1. 73m2 LAB CHEMISTRY METHOD 09/10/2024 10:[address] [facility] Comment:Calculation based on the Chronic Kidney Disease Epidemiology Collaboration (CKD-EPI) equation refit without adjustment for race. BUN/Creatinine Ratio 14.6 LAB CHEMISTRY METHOD 09/10/2024 10:[address] [facility] Calcium 8.5 8.5 - 10.5 mg/dL LAB CHEMISTRY METHOD 09/10/2024 10:[address] [facility] AST (SGOT) 19 10 - 42 unit/L LAB CHEMISTRY METHOD 09/10/2024 10:[address] [facility] ALT (SGPT) 22 10 - 60 unit/L LAB CHEMISTRY METHOD 09/10/2024 10:[address] [facility] Alkaline Phosphatase 107 42 - 121 unit/L LAB CHEMISTRY METHOD 09/10/2024 10:34 AM EDT [facility] Total Protein 6.6 6.0 - 8.0 g/dL LAB CHEMISTRY METHOD 09/10/2024 10:34 AM T [facility] Albumin 2.6(L) 3.2 - 5.0 g/dL LAB CHEMISTRY METHOD 09/10/2024 10:34 AM EDT [facility] Total Bilirubin 0.3 0.0 - 1.4 mg/dL LAB CHEMISTRY METHOD 09/10/2024 10:34 AM T [facility] Blood Venous blood specimen / Unknown Venipuncture / Unknown 09/10/2024 5:26 AM EDT 09/10/2024 9:10 AM EDT us Kiran Woodruff MD LAB BLOOD ORDERABLES Final Resul t [facility] [address] [place] [address], [place] [phone] * (ABNORMAL) Complete blood count (09/10/2024 5:26 AM EDT) WBC 10.6 4.8 - 10.8 K/mcL LAB HEMETOLOGY METHOD 09/10/2024 10:[address] [facility] RBC 3.70(L) 3.80 - 4.80 M/mcL LAB HEMETOLOGY METHOD 09/10/2024 10:[address] [facility] Hemoglobin 9.3(L) 11.5 - 16.0 g/dL LAB HEMETOLOGY METHOD 09/10/2024 10:[address] [facility] Hematocrit 31.2(L) 35.0 - 47.0 % LAB HEMETOLOGY METHOD 09/10/2024 10:[address] [facility] MCV 85.0 79.0 - 98.0 FL LAB HEMETOLOGY METHOD 09/10/2024 10:05 AM EDT [facility] MCH 25.3(L) 27.0 - 32.0 pcg LAB HEMETOLOGY METHOD 09/10/2024 10:05 AM EDT [facility] MCHC 29.8(L) 32.0 - 37.0 g/dL LAB HEMETOLOGY METHOD 09/10/2024 10:05 AM EDT [facility] RDW 19.6(H) 11.0 - 15.0 % LAB HEMETOLOGY METHOD 09/10/2024 10:05 AM EDT [facility] Platelets 371 130 - 400 K/mcL LAB HEMETOLOGY METHOD 09/10/2024 10:05 AM EDT [facility] MPV 9.3 7.0 - 11.0 FL LAB HEMETOLOGY METHOD 09/10/2024 10:05 AM EDT [facility] NRBC 0.0 <1.0 % LAB HEMETOLOGY METHOD 09/10/2024 10:05 AM T [facility] NRBC Absolute 0.00 <0.10 K/mcL LAB HEMETOLOGY METHOD 09/10/2024 10:[address] [facility] Blood Venous blood specimen / Unknown Venipuncture / Unknown 09/10/2024 5:26 AM EDT 09/10/2024 9:10 AM EDT us Kiran Woodruff MD LAB BLOOD ORDERABLES Final Resul t [facility] [address] [place] [address], documented in this encounter Visit Diagnoses Diagnosis Essential (primary) hypertension Unspecified essential hypertension documented in this encounter Additional Health Concerns Infection Onset Date Last Indicated Resolved Time ESBL 09/30/2024 09/30/2024 documented as of this encounter Care Teams Car Spotter Relationship Specialty Start Date End Date Emeterio Grace MD [address] [place] [address] PCP - General Internal Medicine 05/21/24 documented as of this encounter
--- OUTSIDE RECORDS SUMMARY | 2025-01-06 13:53 | XMS_ITS | Encounter Summary ---
Author Organization [facility] Address [address] [place] [address] Care Team Providers Care Commercial Front Load Operator Name Role Phone Emeterio Grace MD Primary Care Provider [phone] Encounter Details Date Type Department Care Team (Late st Contact Info) Description 11/27/2024 Lab Requisition [facility] - Main Lab 299 [facility] [place] [address] Kiran Woodruff MD 38 [facility] [address] [place], [address] Essential (primary) hypertension Social History Tobacco [...] documented as of this encounter Care Teams Commercial Front Load Operator Relationship Specialty Start Date End Date Emeterio Grace MD [address] [place] [address] PCP - General Internal Medicine 05/21/24 documented as of this encounter
--- OUTSIDE RECORDS SUMMARY | 2025-01-06 13:53 | XMS_ITS | Encounter Summary ---
Author Organization [facility] Address [address] [place] [address] Care Team Providers Care Mud Jack Nozzle Worker Name Role Phone Emeterio Grace MD Primary Care Provider [phone] Encounter Details Date Type Department Care Team (Late st Contact Info) Description 10/16/2024 Lab Requisition [facility] - Main Lab 299 [facility] [place] [address] Kiran Woodruff MD 38 [facility] [address] [place], [address] Essential (primary) hypertension Social History Tobacco [...] Associated Diagnosis Comments COMPLETE BLOOD COUNT Routine 10/20/2024 8:28 AM EDT Essential (primary) hypertension BASIC METABOLIC PANEL Routine 10/20/2024 8:28 AM EDT Essential (primary) hypertension documented in this encounter Results * (ABNORMAL) Basic metabolic panel (10/20/2024 8:28 AM EDT) Sodium 136 133 - 145 mmol/L LAB CHEMISTRY METHOD 10/20/2024 3:19 PM [facility] Potassium 4.8 3.5 - 5.5 mmol/L LAB CHEMISTRY METHOD 10/20/2024 3:19 PM [facility] Chloride 102 96 - 110 mmol/L LAB CHEMISTRY METHOD 10/20/2024 3:19 PM [facility] CO2 26 21 - 32 mmol/L LAB CHEMISTRY METHOD 10/20/2024 3:19 PM [facility] Anion Gap 8 3 - 11 LAB CHEMISTRY METHOD 10/20/2024 3:19 PM [facility] Glucose 112(H) 70 - 100 mg/dL LAB CHEMISTRY METHOD 10/20/2024 3:19 PM [facility] BUN 15 5 - 25 mg/dL LAB CHEMISTRY METHOD 10/20/2024 3:19 PM [facility] Creatinine 1.14(H) 0.50 - 1.10 mg/dL LAB CHEMISTRY METHOD 10/20/2024 3:19 PM [facility] eGFR 58(L) >=60 mL/min/1. 73m2 LAB CHEMISTRY METHOD 10/20/2024 3:19 PM [facility] Comment:Calculation based on the Chronic Kidney Disease Epidemiology Collaboration (CKD-EPI) equation refit without adjustment for race. BUN/Creatinine Ratio 13.2 LAB CHEMISTRY METHOD 10/20/2024 3:19 PM [facility] Calcium 8.4(L) 8.5 - 10.5 mg/dL LAB CHEMISTRY METHOD 10/20/2024 3:19 PM [facility] Blood Venous blood specimen / Unknown Venipuncture / Unknown 10/20/2024 8:28 AM EDT 10/20/2024 11:08 AM EDT us Kiran Woodruff MD LAB BLOOD ORDERABLES Final Resul t [facility] [address] [place] [address], * (ABNORMAL) Complete blood count (10/20/2024 8:28 AM EDT) WBC 8.5 4.8 - 10.8 K/mcL LAB HEMETOLOGY METHOD 10/20/2024 1:20 PM EDT [facility] RBC 3.20(L) 3.80 - 4.80 M/mcL LAB HEMETOLOGY METHOD 10/20/2024 1:20 PM EDT [facility] Hemoglobin 8.2(L) 11.5 - 16.0 g/dL LAB HEMETOLOGY METHOD 10/20/2024 1:20 PM EDT [facility] Hematocrit 28.3(L) 35.0 - 47.0 % LAB HEMETOLOGY METHOD 10/20/2024 1:20 PM EDT [facility] MCV 88.2 79.0 - 98.0 FL LAB HEMETOLOGY METHOD 10/20/2024 1:20 PM EDT [facility] MCH 25.5(L) 27.0 - 32.0 pcg LAB HEMETOLOGY METHOD 10/20/2024 1:20 PM EDT [facility] MCHC 29.0(L) 32.0 - 37.0 g/dL LAB HEMETOLOGY METHOD 10/20/2024 1:20 PM EDT [facility] RDW 19.0(H) 11.0 - 15.0 % LAB HEMETOLOGY METHOD 10/20/2024 1:20 PM EDT [facility] Platelets 303 130 - 400 K/mcL LAB HEMETOLOGY METHOD 10/20/2024 1:20 PM EDT [facility] MPV 9.2 7.0 - 11.0 FL LAB HEMETOLOGY METHOD 10/20/2024 1:20 PM EDT [facility] NRBC 0.0 <1.0 % LAB HEMETOLOGY METHOD 10/20/2024 1:20 PM EDT [facility] NRBC Absolute 0.00 <0.10 K/mcL LAB HEMETOLOGY METHOD 10/20/2024 1:20 PM EDT [facility] Blood Venous blood specimen / Unknown Venipuncture / Unknown 10/20/2024 8:28 AM EDT 10/20/2024 11:08 AM EDT us Kiran Woodruff MD LAB BLOOD ORDERABLES Final Resul t [facility] [address] [place] [address], documented in this encounter Visit Diagnoses Diagnosis Essential (primary) hypertension Unspecified essential hypertension documented in this encounter Additional Health Concerns Infection Onset Date Last Indicated Resolved Time ESBL 09/30/2024 09/30/2024 documented as of this encounter Care Teams Mud Jack Nozzle Worker Relationship Specialty Start Date End Date Emeterio Grace MD [address] [place] [address] PCP - General Internal Medicine 05/21/24 documented as of this encounter
--- OUTSIDE RECORDS SUMMARY | 2025-01-06 13:53 | XMS_ITS | Encounter Summary ---
Author Organization [facility] Address [address] [place] [address] Care Team Providers Care Laundry Bag Punch Operator Name Role Phone Emeterio Grace MD Primary Care Provider [phone] Encounter Details Date Type Department Care Team (Late st Contact Info) Description 10/23/2024 Lab Requisition [facility] - Main Lab 299 [facility] [place] [address] Kiran Woodruff MD 38 [facility] [address] [place], [address] Essential (primary) hypertension Social History Tobacco [...] documented as of this encounter Care Teams Laundry Bag Punch Operator Relationship Specialty Start Date End Date Emeterio Grace MD [address] [place] [address] PCP - General Internal Medicine 05/21/24 documented as of this encounter
--- OUTSIDE RECORDS SUMMARY | 2025-01-06 13:53 | XMS_ITS | Encounter Summary ---
Author Organization [facility] Address [address] [place] [address] Care Team Providers Care Woodworker Name Role Phone Emeterio Grace MD Primary Care Provider [phone] Encounter Details Date Type Department Care Team (Late st Contact Info) Description 10/09/2024 Lab Requisition [facility] - Main Lab 299 [facility] [place] [address] Kiran Woodruff MD 38 [facility] [address] [place], [address] Essential (primary) hypertension Social History Tobacco [...] documented as of this encounter Care Teams Woodworker Relationship Specialty Start Date End Date Emeterio Grace MD [address] [place] [address] PCP - General Internal Medicine 05/21/24 documented as of this encounter
--- OUTSIDE RECORDS SUMMARY | 2025-01-06 13:53 | XMS_ITS | Encounter Summary ---
Author Organization [facility] Address [address] [place] [address] Care Team Providers Care Rubber Compounder Mixer Name Role Phone Emeterio Grace MD Primary Care Provider Encounter Details Date Type Department Care Team (Late st Contact Info) Description 09/29/2024 Lab Requisition [facility] - Main Lab 299 [facility] [place] [address] Kiran Woodruff MD 38 [facility] [address] [place], [address] Urinary tract infection, site not specified Social [...] URINALYSIS WITH REFLEX MICROSCOPIC AND CULTURE Routine 09/29/2024 4:30 AM EDT Urinary tract infection, site not specified MANZO URINE CULTURE TUBE Routine 09/29/2024 4:30 AM EDT Urinary tract infection, site not specified URINALYSIS WITH REFLEX MICROSCOPIC AND CULTURE Routine 09/29/2024 4:30 AM EDT Urinary tract infection, site not specified CULTURE URINE Routine 09/29/2024 4:30 AM EDT Urinary tract infection, site not specified documented in this encounter Results * Culture urine (09/29/2024 4:30 AM EDT) Pathologist [facility] Culture, Urine >100,000 CFU/mL Mixed bacterial morphotypes present suggestive of possible contamination during collection. Suggest appropriate recollection if clinically indicated. 09/30/2024 11:28 AM EDT [facility] Urine Urine specimen obtained by clean catch procedure / Unknown 09/29/2024 4:30 AM EDT 09/29/2024 9:43 AM EDT us Kiran Woodruff MD LAB MICROBIOLOGY - GENERAL ORDER JOCELIN Final Result [facility] [address] [place] [address], [place] [phone] * (ABNORMAL) Urinalysis with reflex microscopic and culture (09/29/2024 4:30 AM EDT) [facility] [place] Urine 1.025 1.003 - 1.030 LAB URINALYSIS - AUTOMATED METHOD 09/29/2024 9:43 AM [facility] pH, Urine 5.5 5.0 - 8.0 pH LAB URINALYSIS - AUTOMATED METHOD 09/29/2024 9:43 AM [facility] Leukocytes, Urine Moderate(A) Negative LAB URINALYSIS - AUTOMATED METHOD 09/29/2024 9:43 AM [facility] Nitrite, Urine Negative Negative LAB URINALYSIS - AUTOMATED METHOD 09/29/2024 9:43 AM [facility] Protein, Urine 100(A) <=Trace mg/dL LAB URINALYSIS - AUTOMATED METHOD 09/29/2024 9:43 AM [facility] Glucose, Urine 500(A) Negative mg/dL LAB URINALYSIS - AUTOMATED METHOD 09/29/2024 9:43 AM [facility] Ketones, Urine Negative Negative mg/dL LAB URINALYSIS - AUTOMATED METHOD 09/29/2024 9:43 AM [facility] Urobilinogen , Urine 0.2 0.2 - 1.0 mg/dL LAB URINALYSIS - AUTOMATED METHOD 09/29/2024 9:43 AM [facility] Bilirubin, Urine Negative Negative LAB URINALYSIS - AUTOMATED METHOD 09/29/2024 9:43 AM [facility] Blood, Urine Large(A) Negative LAB URINALYSIS - AUTOMATED METHOD 09/29/2024 9:43 AM [facility] RBC, Urine 10(H) 0 - 4 /HPF 09/29/2024 9:43 AM [facility] WBC, Urine >100(H) 0 - 4 /HPF 09/29/2024 9:43 AM [facility] Squamous Epithelial, Urine 10 0 - 60 /LPF 09/29/2024 9:43 AM [facility] Bacteria, Urine Many(A) Negative /HPF 09/29/2024 9:43 AM [facility] Hyaline Casts, Urine 0 0 - 3 /LPF 09/29/2024 9:43 AM [facility] Yeast, Urine Present(A) None /HPF 09/29/2024 9:43 AM [facility] Urine Urine specimen obtained by clean catch procedure / Unknown 09/29/2024 4:30 AM EDT 09/29/2024 8:20 AM EDT us Kiran Woodruff MD LAB URINE ORDERABLES Final Resul t [facility] [address] [place] [address], [place] [phone] * Manzo urine culture tube (09/29/2024 4:30 AM EDT) Extra Tube Hold for add-ons. 09/29/2024 10:01 AM EDT [facility] Comment:Auto resulted. Urine Urine specimen obtained by clean catch procedure / Unknown 09/29/2024 4:30 AM EDT 09/29/2024 8:20 AM EDT us Kiran Woodruff MD LAB URINE ORDERABLES Final Resul t [facility] [address] [place] [address], [place] [phone] documented in this encounter Visit Diagnoses Diagnosis Urinary tract infection, site not specified documented in this encounter Additional Health Concerns Infection Onset Date Last Indicated Resolved Time ESBL 09/30/2024 09/30/2024 documented as of this encounter Care Teams Rubber Compounder Mixer Relationship Specialty Start Date End Date Emeterio Grace MD [address] [place] [address] PCP - General Internal Medicine 05/21/24 documented as of this encounter
--- OUTSIDE RECORDS SUMMARY | 2025-01-06 13:53 | XMS_ITS | Encounter Summary ---
Author Organization [facility] Address [address] [place] [address] Care Team Providers Care Planning Intern Name Role Phone Emeterio Grace MD Primary Care Provider [phone] Encounter Details Date Type Department Care Team (Late st Contact Info) Description 11/14/2024 Lab Requisition [facility] - Main Lab 299 [facility] [place] [address] Kiran Woodruff MD 38 [facility] [address] [place], [address] Essential (primary) hypertension Social History Tobacco [...] documented as of this encounter Care Teams Planning Intern Relationship Specialty Start Date End Date Emeterio Grace MD [address] [place] [address] PCP - General Internal Medicine 05/21/24 documented as of this encounter
--- OUTSIDE RECORDS SUMMARY | 2025-01-06 13:54 | XMS_ITS | Clinical Summary ---
Author Organization [facility] Address [address] [place] [address] Phone Care Team Providers Care Marketing Operations Coordinator Name Role Phone Emeterio Grace MD Primary Care Provider [phone] Encounters Date Type Department Care Team Description 12/25/[address] [facility] [address] [place] [phone] Kiran Woodruff MD Unspecified sequelae of cerebral infarction; Body mass index (BMI) 50.0-59.9, adult (CMS/HCC V24, CMS/HCC V28); Type 2 diabetes mellitus without complications (CMS/HCC V24, CMS/HCC V28); Myocardial infarction type 2 (CMS/[facility]ER[facility] V24, CMS/HCC V28); Retention of urine, unspecified; Acute kidney failure, unspecified (CMS/[facility]ER[facility] V24); Essential (primary) hypertension; Obstructive sleep apnea (adult) (pediatric) 12/18/[address] [facility] [address] [place] [phone] Kiran Woodruff MD Essential (primary) hypertension 12/11/[address] [facility] [address] [place] [phone] Kiran Woodruff MD Essential (primary) hypertension 12/07/[address] [facility] [address] [place] [phone] Kiran Woodruff MD Other general symptoms and signs 12/05/[address] [facility] [address] [place] [address] Kiran Woodruff MD Essential (primary) hypertension 11/27/[address] [facility] [address] [place] [phone] Kiran Woodruff MD Essential (primary) hypertension 11/21/[address] [facility] [address] [place] [phone] Kiran Woodruff MD Essential (primary) hypertension 11/14/[address] [facility] [address] [place] [phone] Kiran Woodruff MD Essential (primary) hypertension 11/07/[address] [facility] [address] [place] [address] Kiran Woodruff MD Essential (primary) hypertension 10/31/[address] [facility] [address] [place] [phone] Kiran Woodruff MD Essential (primary) hypertension 10/23/[address] [facility] [address] [place] [address] Kiran Woodruff MD Essential (primary) hypertension 10/16/[address] [facility] [address] [place] [address] Kiran Woodruff MD Essential (primary) hypertension 10/09/[address] [facility] [address] [place] [phone] Kiran Woodruff MD Essential (primary) hypertension from Last 3 Months Social History Tobacco Use Types Packs/Day Years Used Date Smoking Tobacco: Never Assessed Comments Unknown Sex and Gender Information Value Date Recorded Sex Assigned at Female 05/21/2024 8:34 AM EDT Legal Sex Female 8:32 AM EDT Gender Identity Female 05/21/2024 8:34 AM EDT Sexual Orientation Straight 05/21/2024 8: 34 AM EDT Plan of Treatment Health Maintenance Due Date Last Done Comments Breast Cancer Screening 1971 Colorectal Cancer Screening: Colonoscopy 1971 Diabetes: Annual Foot Exam 09/21/1981 Diabetes: Annual Retina Eye Exam 09/21/1981 Hepatitis B Vaccines (1 of 3 - 19+ 3-dose series) 09/21/1990 Cervical Cancer Screening: Pap Smear 09/21/1992 RSV Immunization Adult Patients (1 - Risk 50-74 years 1-dose series) 09/21/2021 Zoster Vaccines (1 of 2) 09/21/2021 Depression Screening 02/19/2024 HIV Screening 05/21/2024 Medicare Annual Wellness Visit 05/21/2024 Social Influencers of Health Screening 05/21/2024 Diabetes: Annual Urine Albumin-Creatinine Ratio (uACR) 06/10/2024 07/08/2020, 01/12/2020, 04/07/2019, Additional history exists COVID-19 Vaccine ( season) 2024 08/26/2020, 05/15/2020 Influenza Vaccine (#1) 2024 , 01/08/2023, 11/22/2021, Additional history exists Diabetes: Blood Sugar Control Test (HGBA1C) 06/27/2025 12/28/2024, 06/09/2024 Diabetes: Annual GFR (Glomerular Filtration Rate) 12/28/2025 12/28/2024, 12/07/2024, 11/23/2024, Additional history exists Hypertension/CHF/CAD Annual BMP Blood Test 12/28/2025 12/28/2024, 12/07/2024, 11/23/2024, Additional history exists Cholesterol Screening (Lipid Panel) 12/28/2029 12/28/2024, 11/19/2023 DTaP,Tdap,and Td Vaccines (3 - Td or Tdap) 01/11/2030 01/12/2020, 08/18/2008 Hepatitis C Screening Completed 04/07/2019 Pneumococcal Vaccine: 50+ Years Completed 01/05/2022, 12/08/2012 HIB Vaccines Aged Out No longer eligi ble based on patient's age to complete this topic HPV Vaccines Aged Out No longer eligi ble based on patient's age to complete this topic Hepatitis A Vaccines Aged Out No long er eligible based on patient's age to complete this topic IPV Vaccines Aged Out No longer eligi ble based on patient's age to complete this topic MMR Vaccines Aged Out No longer eligi ble based on patient's age to complete this topic Meningococcal ACWY Vaccine Aged Out N o longer eligible based on patient's age to complete this topic Meningococcal B Vaccine Aged Out No l onger eligible based on patient's age to complete this topic RSV Immunization Patients Under 20 months Aged Out No longer eligible based on patient's age to complete this topic Varicella Vaccines Aged Out No longer eligible based on patient's age to complete this topic Procedures Procedure Name Priority Date/Time Associated Diagnosis Comments LIPID PANEL WITH REFLEX TO DIRECT LDL Routine 12/28/2024 7:38 AM EST Unspecified sequelae of cerebral infarction Body mass index (BMI) 50.0-59.9, adult ([facility]/HCC V24, CMS/[facility]ER[facility] V28) Type 2 diabetes mellitus without complications (CMS/HCC V24, CMS/HCC V28) Myocardial infarction type 2 (CMS/HCC V24, CMS/HCC V28) Retention of urine, unspecified Acute kidney failure, unspecified (CMS/HCC V24) Essential (primary) hypertension Obstructive sleep apnea (adult) (pediatric) HEMOGLOBIN A1C Routine 12/28/2024 7:38 AM EST Unspecified sequelae of cerebral infarction Body mass index (BMI) 50.0-59.9, adult (CMS/HCC V24, CMS/HCC V28) Type 2 diabetes mellitus without complications (CMS/HCC V24, CMS/HCC V28) Myocardial infarction type 2 (CMS/HCC V24, CMS/HCC V28) Retention of urine, unspecified Acute kidney failure, unspecified (CMS/HCC V24) Essential (primary) hypertension Obstructive sleep apnea (adult) (pediatric) BASIC METABOLIC PANEL Routine 12/28/2024 7:38 AM EST Unspecified sequelae of cerebral infarction Body mass index (BMI) 50.0-59.9, adult (CMS/HCC V24, CMS/HCC V28) Type 2 diabetes mellitus without complications (CMS/HCC V24, CMS/HCC V28) Myocardial infarction type 2 (CMS/HCC V24, CMS/HCC V28) Retention of urine, unspecified Acute kidney failure, unspecified (CMS/HCC V24) Essential (primary) hypertension Obstructive sleep apnea (adult) (pediatric) COMPLETE BLOOD COUNT Routine 12/28/2024 7:38 AM EST Unspecified sequelae of cerebral infarction Body mass index (BMI) 50.0-59.9, adult (CMS/HCC V24, CMS/HCC V28) Type 2 diabetes mellitus without complications (CMS/HCC V24, CMS/HCC V28) Myocardial infarction type 2 (CMS/HCC V24, CMS/HCC V28) Retention of urine, unspecified Acute kidney failure, unspecified (CMS/HCC V24) Essential (primary) hypertension Obstructive sleep apnea (adult) (pediatric) BASIC METABOLIC PANEL Routine 12/07/2024 8:07 AM EDT Essential (primary) hypertension COMPLETE BLOOD COUNT Routine 12/07/2024 8:07 AM EDT Essential (primary) hypertension MANZO URINE CULTURE TUBE Routine 12/06/2024 9:00 PM EDT Other general symptoms and signs URINALYSIS WITH REFLEX MICROSCOPIC Routine 12/06/2024 9:00 PM EDT Other general symptoms and signs URINALYSIS WITH REFLEX MICROSCOPIC Routine 12/06/2024 9:00 PM EDT Other general symptoms and signs BASIC METABOLIC PANEL Routine 11/23/2024 8:35 AM EDT Essential (primary) hypertension COMPLETE BLOOD COUNT Routine 11/23/2024 8:35 AM EDT Essential (primary) hypertension BASIC METABOLIC PANEL Routine 11/02/2024 7:37 AM EDT Essential (primary) hypertension COMPLETE BLOOD COUNT Routine 11/02/2024 7:37 AM EDT Essential (primary) hypertension BASIC METABOLIC PANEL Routine 10/20/2024 8:28 AM EDT Essential (primary) hypertension COMPLETE BLOOD COUNT Routine 10/20/2024 8:28 AM EDT Essential (primary) hypertension from Last 3 Months Results * (ABNORMAL) Lipid panel with reflex to direct LDL (12/28/2024 7:38 AM EST) Pathologist [facility] Cholesterol 168 0 - 200 mg/dL LAB CHEMISTRY METHOD 12/28/2024 11:37 AM [facility] Triglycerides 198(H) 0 - 150 mg/dL LAB CHEMISTRY METHOD 12/28/2024 11:37 AM [facility] LAB HDL 30(L) >=40 mg/dL LAB CHEMISTRY METHOD 12/28/2024 11:37 AM [facility] LAB LDL Calculated 98 0 - 100 mg/dL LAB CHEMISTRY METHOD 12/28/2024 11:37 AM [facility] LAB Comment:Estimated LDL Calcul ated using equation: Total cholesterol - HDL cholesterol - (Triglycerides/5) VLDL Cholesterol Moy 39.6 mg/dL LAB CHEMISTRY METHOD 12/28/2024 11:37 AM [facility] LAB Non HDL Chol. (LDL+VLDL) 138 <145 mg/dL LAB CHEMISTRY METHOD 12/28/2024 11:37 AM [facility] LAB Chol/HDL Ratio 5.6(H) 0.0 - 4.4 LAB CHEMISTRY METHOD 12/28/2024 11:37 AM [facility] LAB Blood Venous blood specimen / Unknown Venipuncture / Unknown 12/28/2024 7:38 AM EST 12/28/2024 10:13 AM EST us Kiran Woodruff MD LAB BLOOD ORDERABLES Final Resul t [facility] [address] [place] [address], * (ABNORMAL) Complete blood count (12/28/2024 7:38 AM EST) Only the most recent of5 resultswithin the time period is included. WBC 8.8 4.8 - 10.8 K/mcL LAB HEMETOLOGY METHOD 12/28/2024 11:14 AM [facility] LAB RBC 3.50(L) 3.80 - 4.80 M/mcL LAB HEMETOLOGY METHOD 12/28/2024 11:14 AM [facility] LAB Hemoglobin 9.2(L) 11.5 - 16.0 g/dL LAB HEMETOLOGY METHOD 12/28/2024 11:14 AM [facility] LAB Hematocrit 30.5(L) 35.0 - 47.0 % LAB HEMETOLOGY METHOD 12/28/2024 11:14 AM [facility] LAB MCV 87.6 79.0 - 98.0 FL LAB HEMETOLOGY METHOD 12/28/2024 11:14 AM [facility] LAB MCH 26.4(L) 27.0 - 32.0 pcg LAB HEMETOLOGY METHOD 12/28/2024 11:14 AM [facility] LAB MCHC 30.2(L) 32.0 - 37.0 g/dL LAB HEMETOLOGY METHOD 12/28/2024 11:14 AM [facility] LAB RDW 17.0(H) 11.0 - 15.0 % LAB HEMETOLOGY METHOD 12/28/2024 11:14 AM [facility] LAB Platelets 324 130 - 400 K/mcL LAB HEMETOLOGY METHOD 12/28/2024 11:14 AM [facility] LAB MPV 10.1 7.0 - 11.0 FL LAB HEMETOLOGY METHOD 12/28/2024 11:14 AM [facility] LAB NRBC 0.0 <1.0 % LAB HEMETOLOGY METHOD 12/28/2024 11:14 AM EST [facility] LAB NRBC Absolute 0.00 <0.10 K/mcL LAB HEMETOLOGY METHOD 12/28/2024 11:14 AM EST [facility] Blood Venous blood specimen / Unknown Venipuncture / Unknown 12/28/2024 7:38 AM EST 12/28/2024 10:13 AM EST Kiran Woodruff MD LAB BLOOD ORDERABLES Final Resul t [facility] [address] [place] [address], [place] [phone] * Hemoglobin A1c (12/28/2024 7:38 AM EST) Hemoglobin A1C 5.4 <6.5 % LAB CHEMISTRY METHOD 12/28/2024 2:15 PM EST [facility] Mean Bld Glu Estim. 108 mg/dL LAB CHEMISTRY METHOD 12/28/2024 2:15 PM EST [facility] Blood Venous blood specimen / Unknown Venipuncture / Unknown 12/28/2024 7:38 AM EST 12/28/2024 10:13 AM EST Kiran Woodruff MD LAB BLOOD ORDERABLES Final Resul t [facility] [address] [place] [address], [place] [phone] * (ABNORMAL) Basic metabolic panel (12/28/2024 7:38 AM EST) Only the most recent of5 resultswithin the time period is included. Sodium 138 133 - 145 mmol/L LAB CHEMISTRY METHOD 12/28/2024 11:37 AM EST [facility] Potassium 4.5 3.5 - 5.5 mmol/L LAB CHEMISTRY METHOD 12/28/2024 11:37 AM [facility] Chloride 104 96 - 110 mmol/L LAB CHEMISTRY METHOD 12/28/2024 11:37 AM [facility] CO2 27 21 - 32 mmol/L LAB CHEMISTRY METHOD 12/28/2024 11:37 AM [facility] Anion Gap 7 3 - 11 LAB CHEMISTRY METHOD 12/28/2024 11:37 AM [facility] Glucose 121(H) 70 - 100 mg/dL LAB CHEMISTRY METHOD 12/28/2024 11:37 AM [facility] BUN 23 5 - 25 mg/dL LAB CHEMISTRY METHOD 12/28/2024 11:37 AM [facility] Creatinine 1.00 0.50 - 1.10 mg/dL LAB CHEMISTRY METHOD 12/28/2024 11:37 AM [facility] LAB eGFR 68 >=60 mL/min/1. 73m2 LAB CHEMISTRY METHOD 12/28/2024 11:37 AM [facility] LAB Comment:Calculation based on the Chronic Kidney Disease Epidemiology Collaboration (CKD-EPI) equation refit without adjustment for race. BUN/Creatinine Ratio 23.0 LAB CHEMISTRY METHOD 12/28/2024 11:37 AM [facility] Calcium 9.0 8.5 - 10.5 mg/dL LAB CHEMISTRY METHOD 12/28/2024 11:37 AM [facility] Blood Venous blood specimen / Unknown Venipuncture / Unknown 12/28/2024 7:38 AM EST 12/28/2024 10:13 AM EST us Kiran Woodruff MD LAB BLOOD ORDERABLES Final Resul t [facility] [address] [place] [address], * (ABNORMAL) Urinalysis with reflex microscopic (12/06/2024 9:00 PM EDT) Specific Elizabeth Urine 1.011 1.003 - 1.030 LAB URINALYSIS [...] URINALYSIS - AUTOMATED METHOD 12/07/2024 11:20 AM EDT [facility] Squamous Epithelial, Urine 16 0 - 60 /LPF LAB URINALYSIS - AUTOMATED METHOD 12/07/2024 11:20 AM EDT [facility] Bacteria, Urine Many(A) Negative /HPF LAB URINALYSIS - AUTOMATED METHOD 12/07/2024 11:20 AM EDT [facility] Hyaline Casts, Urine 0.9 0 - 3 /LPF LAB URINALYSIS - AUTOMATED METHOD 12/07/2024 11:20 AM EDT [facility] Urine Urine specimen obtained by clean catch procedure / Unknown 12/06/2024 9:00 PM EDT 12/07/2024 11:02 AM EDT Kiran Woodruff MD LAB URINE ORDERABLES Final Resul t Performing Organization Address [facility] Co de Phone Number [facility] [address] [place] [address], [place] [phone] * Manzo urine culture tube (12/06/2024 9:00 PM EDT) Extra Tube Hold for add-ons. 12/07/2024 1:01 PM EDT [facility] Comment:Auto resulted. Urine Urine specimen obtained by clean catch procedure / Unknown 12/06/2024 9:00 PM EDT 12/07/2024 11:02 AM EDT Kiran Woodruff MD LAB URINE ORDERABLES Final Resul t Performing Organization Address [facility]/ZIP Co de Phone Number [facility] [address] [place] [address], [place] [phone] from Last 3 Months Additional Health Concerns Infection Onset Date Last Indicated ESBL 09/30/2024 09/30/2024 Insurance MEDICAID - [place] MEDICARE Care Teams Marketing Operations Coordinator Relationship Specialty Start Date End Date Emeterio Grace MD [address] [place] [id number] PCP - General Internal Medicine 05/21/24
--- OUTSIDE RECORDS SUMMARY | 2025-01-06 13:54 | XMS_ITS | Encounter Summary ---
Author Organization Address [address] [place] [phone] Care Team Providers Care Chief Procurement Officer Name Role Phone Emeterio Grace MD Primary Care Provider [phone] Encounter Details Date Type Department Care Team (Late st Contact Info) Description 12/25/2024 Lab Requisition [facility] Lab [address] [facility] [place] [address] Kiran Woodruff MD [address] [facility] [address] [place], [phone] Unspecified sequelae of cerebral infarction; Body mass index (BMI) 50.0-59.9, adult (CMS/HCC V24, CMS/HCC V28); Type 2 diabetes mellitus without complications (CMS/HCC V24, CMS/HCC V28); Myocardial infarction type 2 (CMS/HCC V24, CMS/HCC V28); Retention of urine, unspecified; Acute kidney failure, unspecified (CMS/HCC V24); Essential (primary) hypertension; Obstructive sleep apnea (adult) (pediatric) Social History Tobacco Use Types Packs/Day Years [...] (primary) hypertension Obstructive sleep apnea (adult) (pediatric) documented in this encounter Results * (ABNORMAL) Lipid panel with reflex to direct LDL (12/28/2024 7:38 AM EST) Cholesterol 168 0 - 200 mg/dL LAB CHEMISTRY METHOD 12/28/2024 11:37 AM EST [facility] Triglycerides 198(H) 0 - 150 mg/dL LAB CHEMISTRY METHOD 12/28/2024 11:37 AM EST [facility] HDL 30(L) >=40 mg/dL LAB CHEMISTRY METHOD 12/28/2024 11:37 AM [facility] LDL Calculated 98 0 - 100 mg/dL LAB CHEMISTRY METHOD 12/28/2024 11:37 AM [facility] Comment:Estimated LDL Calcul ated using equation: Total cholesterol - HDL cholesterol - (Triglycerides/5) VLDL Cholesterol Moy 39.6 mg/dL LAB CHEMISTRY METHOD 12/28/2024 11:37 AM EST [facility] Non HDL Chol. (LDL+VLDL) 138 <145 mg/dL LAB CHEMISTRY METHOD 12/28/2024 11:37 AM [facility] Chol/HDL Ratio 5.6(H) 0.0 - 4.4 LAB CHEMISTRY METHOD 12/28/2024 11:37 AM [facility] Blood Venous blood specimen / Unknown Venipuncture / Unknown 12/28/2024 7:38 AM EST 12/28/2024 10:13 AM EST us Kiran Woodruff MD LAB BLOOD ORDERABLES Final Resul t [facility] [address] [place] [address], [place] [phone] * Hemoglobin A1c (12/28/2024 7:38 AM EST) Hemoglobin A1C 5.4 <6.5 % LAB CHEMISTRY METHOD 12/28/2024 2:15 PM [facility] Mean Bld Glu Estim. 108 mg/dL LAB CHEMISTRY METHOD 12/28/2024 2:15 PM [facility] Blood Venous blood specimen / Unknown Venipuncture / Unknown 12/28/2024 7:38 AM EST 12/28/2024 10:13 AM EST us Kiran Woodruff MD LAB BLOOD ORDERABLES Final Resul t [facility] [address] [place] [address], * (ABNORMAL) Basic metabolic panel (12/28/2024 7:38 AM EST) Sodium 138 133 - 145 mmol/L LAB CHEMISTRY METHOD 12/28/2024 11:37 AM [facility] Potassium 4.5 3.5 - 5.5 mmol/L LAB CHEMISTRY METHOD 12/28/2024 11:37 AM [facility] Chloride 104 96 - 110 mmol/L LAB CHEMISTRY METHOD 12/28/2024 11:37 AM [facility] CO2 27 21 - 32 mmol/L LAB CHEMISTRY METHOD 12/28/2024 11:37 AM [facility] Anion Gap 7 3 - 11 LAB CHEMISTRY METHOD 12/28/2024 11:37 AM [facility] Glucose 121(H) 70 - 100 mg/dL LAB CHEMISTRY METHOD 12/28/2024 11:37 AM [facility] BUN 23 5 - 25 mg/dL LAB CHEMISTRY METHOD 12/28/2024 11:37 AM [facility] Creatinine 1.00 0.50 - 1.10 mg/dL LAB CHEMISTRY METHOD 12/28/2024 11:37 AM [facility] eGFR 68 >=60 mL/min/1. 73m2 LAB CHEMISTRY METHOD 12/28/2024 11:37 AM EST [facility] Comment:Calculation based on the Chronic Kidney Disease Epidemiology Collaboration (CKD-EPI) equation refit without adjustment for race. BUN/Creatinine Ratio 23.0 LAB CHEMISTRY METHOD 12/28/2024 11:37 AM [facility] Calcium 9.0 8.5 - 10.5 mg/dL LAB CHEMISTRY METHOD 12/28/2024 11:37 AM [facility] Blood Venous blood specimen / Unknown Venipuncture / Unknown 12/28/2024 7:38 AM EST 12/28/2024 10:13 AM EST us Kiran Woodruff MD LAB BLOOD ORDERABLES Final Resul t [facility] [address] [place] [address], * (ABNORMAL) Complete blood count (12/28/2024 7:38 AM EST) WBC 8.8 4.8 - 10.8 K/mcL LAB HEMETOLOGY METHOD 12/28/2024 11:14 AM [facility] RBC 3.50(L) 3.80 - 4.80 M/mcL LAB HEMETOLOGY METHOD 12/28/2024 11:14 AM [facility] Hemoglobin 9.2(L) 11.5 - 16.0 g/dL LAB HEMETOLOGY METHOD 12/28/2024 11:14 AM [facility] Hematocrit 30.5(L) 35.0 - 47.0 % LAB HEMETOLOGY METHOD 12/28/2024 11:14 AM [facility] MCV 87.6 79.0 - 98.0 FL LAB HEMETOLOGY METHOD 12/28/2024 11:14 AM [facility] MCH 26.4(L) 27.0 - 32.0 pcg LAB HEMETOLOGY METHOD 12/28/2024 11:14 AM EST [facility] MCHC 30.2(L) 32.0 - 37.0 g/dL LAB HEMETOLOGY METHOD 12/28/2024 11:14 AM [facility] RDW 17.0(H) 11.0 - 15.0 % LAB HEMETOLOGY METHOD 12/28/2024 11:14 AM [facility] Platelets 324 130 - 400 K/mcL LAB HEMETOLOGY METHOD 12/28/2024 11:14 AM [facility] MPV 10.1 7.0 - 11.0 FL LAB HEMETOLOGY METHOD 12/28/2024 11:14 AM [facility] NRBC 0.0 <1.0 % LAB HEMETOLOGY METHOD 12/28/2024 11:14 AM [facility] NRBC Absolute 0.00 <0.10 K/mcL LAB HEMETOLOGY METHOD 12/28/2024 11:14 AM [facility] Blood Venous blood specimen / Unknown Venipuncture / Unknown 12/28/2024 7:38 AM EST 12/28/2024 10:13 AM EST us Kiran Woodruff MD LAB BLOOD ORDERABLES Final Resul t [facility] [address] [place] [address], documented in this encounter Visit Diagnoses Diagnosis Unspecified sequelae of cerebral infarction Body mass index (BMI) 50.0-59.9, adult (CMS/HCC V24, CMS/HCC V28) Type 2 diabetes mellitus without complications (CMS/HCC V24, CMS/HCC V28) Myocardial infarction type 2 (CMS/HCC V24, CMS/HCC V28) Retention of urine, unspecified Acute kidney failure, unspecified ([facility] V24) Acute kidney failure, unspecified Essential (primary) hypertension Unspecified essential hypertension Obstructive sleep apnea (adult) (pediatric) documented in this encounter Additional Health Concerns Infection Onset Date Last Indicated Resolved Time ESBL 09/30/2024 09/30/2024 documented as of this encounter Care Teams Chief Procurement Officer Relationship Specialty Start Date End Date Emeterio Grace MD [address] [place] [phone] PCP - General Internal Medicine 05/21/24 documented as of this encounter
--- OUTSIDE RECORDS SUMMARY | 2025-01-06 13:54 | XMS_ITS | Encounter Summary ---
Author Organization [facility] Address [address] [place] [phone] Care Team Providers Care Public Accountant Name Role Phone Emeterio Grace MD Primary Care Provider [phone] Encounter Details Date Type Department Care Team (Late st Contact Info) Description 12/18/2024 Lab Requisition [facility] - Main Lab [address] [facility] [place] [address] Kiran Woodruff MD [address] [facility] [address] [place], [phone] Essential (primary) hypertension Social History Tobacco [...] documented as of this encounter Care Teams Public Accountant Relationship Specialty Start Date End Date Emeterio Grace MD [address] [place] [address] PCP - General Internal Medicine 05/21/24 documented as of this encounter
--- OUTSIDE RECORDS SUMMARY | 2025-01-06 13:54 | XMS_ITS | Encounter Summary ---
Author Organization [facility] Address [address] [place] [address] Care Team Providers Care Swatch Clerk Name Role Phone Emeterio rGace MD Primary Care Provider [phone] Encounter Details Date Type Department Care Team (Late st Contact Info) Description 12/05/[address] [facility] - Main Lab [address] [facility] [place] [address] Kiran Woodruff MD [address] [facility] [address] [place], [phone] Essential (primary) hypertension Social History Tobacco [...] Associated Diagnosis Comments COMPLETE BLOOD COUNT Routine 12/07/2024 8:07 AM EDT Essential (primary) hypertension BASIC METABOLIC PANEL Routine 12/07/2024 8:07 AM EDT Essential (primary) hypertension documented in this encounter Results * (ABNORMAL) Basic metabolic panel (12/07/2024 8:07 AM EDT) Sodium 140 133 - 145 mmol/L LAB CHEMISTRY METHOD 12/07/2024 2:04 PM [facility] Potassium 4.4 3.5 - 5.5 mmol/L LAB CHEMISTRY METHOD 12/07/2024 2:04 PM [facility] Chloride 104 96 - 110 mmol/L LAB CHEMISTRY METHOD 12/07/2024 2:04 PM [facility] CO2 26 21 - 32 mmol/L LAB CHEMISTRY METHOD 12/07/2024 2:04 PM [facility] Anion Gap 10 3 - 11 LAB CHEMISTRY METHOD 12/07/2024 2:04 PM [facility] Glucose 102(H) 70 - 100 mg/dL LAB CHEMISTRY METHOD 12/07/2024 2:04 PM [facility] BUN 18 5 - 25 mg/dL LAB CHEMISTRY METHOD 12/07/2024 2:04 PM [facility] Creatinine 1.36(H) 0.50 - 1.10 mg/dL LAB CHEMISTRY METHOD 12/07/2024 2:04 PM [facility] eGFR 47(L) >=60 mL/min/1. 73m2 LAB CHEMISTRY METHOD 12/07/2024 2:04 PM [facility] Comment:Calculation based on the Chronic Kidney Disease Epidemiology Collaboration (CKD-EPI) equation refit without adjustment for race. BUN/Creatinine Ratio 13.2 LAB CHEMISTRY METHOD 12/07/2024 2:04 PM [facility] Calcium 9.1 8.5 - 10.5 mg/dL LAB CHEMISTRY METHOD 12/07/2024 2:04 PM [facility] Blood Venous blood specimen / Unknown Venipuncture / Unknown 12/07/2024 8:07 AM EDT 12/07/2024 11:13 AM EDT us Kiran Woodruff MD LAB BLOOD ORDERABLES Final Resul t [facility] [address] [place] [address], * (ABNORMAL) Complete blood count (12/07/2024 8:07 AM EDT) [facility] Signature WBC 7.2 4.8 - 10.8 K/mcL LAB HEMETOLOGY METHOD 12/07/2024 2:01 PM EDT [facility] RBC 3.30(L) 3.80 - 4.80 M/mcL LAB HEMETOLOGY METHOD 12/07/2024 2:01 PM EDT [facility] Hemoglobin 8.6(L) 11.5 - 16.0 g/dL LAB HEMETOLOGY METHOD 12/07/2024 2:01 PM EDT [facility] Hematocrit 29.3(L) 35.0 - 47.0 % LAB HEMETOLOGY METHOD 12/07/2024 2:01 PM EDT [facility] MCV 88.5 79.0 - 98.0 FL LAB HEMETOLOGY METHOD 12/07/2024 2:01 PM EDT [facility] MCH 26.0(L) 27.0 - 32.0 pcg LAB HEMETOLOGY METHOD 12/07/2024 2:01 PM EDT [facility] MCHC 29.4(L) 32.0 - 37.0 g/dL LAB HEMETOLOGY METHOD 12/07/2024 2:01 PM EDT [facility] RDW 17.6(H) 11.0 - 15.0 % LAB HEMETOLOGY METHOD 12/07/2024 2:01 PM EDT [facility] Platelets 360 130 - 400 K/mcL LAB HEMETOLOGY METHOD 12/07/2024 2:01 PM EDT [facility] MPV 9.7 7.0 - 11.0 FL LAB HEMETOLOGY METHOD 12/07/2024 2:01 PM EDT [facility] NRBC 0.0 <1.0 % LAB HEMETOLOGY METHOD 12/07/2024 2:01 PM EDT [facility] NRBC Absolute 0.00 <0.10 K/mcL LAB HEMETOLOGY METHOD 12/07/2024 2:01 PM EDT [facility] Blood Venous blood specimen / Unknown Venipuncture / Unknown 12/07/2024 8:07 AM EDT 12/07/2024 11:13 AM EDT us Kiran Woodruff MD LAB BLOOD ORDERABLES Final Resul t [facility] [address] [place] [address], documented in this encounter Visit Diagnoses Diagnosis Essential (primary) hypertension Unspecified essential hypertension documented in this encounter Additional Health Concerns Infection Onset Date Last Indicated Resolved Time ESBL 09/30/2024 09/30/2024 documented as of this encounter Care Teams Swatch Clerk Relationship Specialty Start Date End Date Emeterio Grace MD [address] [place] [address] PCP - General Internal Medicine 05/21/24 documented as of this encounter
--- OUTSIDE RECORDS SUMMARY | 2025-01-06 13:54 | XMS_ITS | Clinical Summary ---
Author Organization [facility] Address [address] [place] [id number] Care Team Providers Care Insulator Tester Name Role Phone Unavailable Primary Care Provider Unavailabl e Allergies Active Allergy Reactions Criticality Noted Date Comments Piperacillin-Tazobactam In Dex 02/01 Medications aspirin (ST CAM) 81 MG EC tablet Take 81 mg by mouth in the morning. Active buPROPion XL (WELLBUTRIN XL) 150 MG 24 hr tablet Take 150 mg by mouth in the morning. 12/25/2021 Active pantoprazole (PROTONIX) 20 MG EC tablet Take 20 mg by mouth 1 (one) time each day X's 7 days 12/25/2021 Active lisinopril 2.5 MG tablet Take 2.5 mg by mouth in the morning. 12/25/2021 Active insulin glargine (Lantus SoloStar) 100 UNIT/ML injection Inject 40 Units under the skin daily 12/25/2021 Active Active Problems Problem Noted Date Diagnosed Date Hypertensive disorder 02/05/2022 Acute nontraumatic kidney injury 02/05/2022 Social History Tobacco Use Types Packs/Day Years Used Date Smoking Tobacco: Never Smokeless Tobacco: Never Tobacco Cessation:Counseling Given: Not Answered Alcohol Use Standard Drinks/Week Comments Yes 0 (1 standard drink = 0.6 oz pur e alcohol) ocassionally Comments Unknown Sex and Gender Information Value Date Recorded Sex Assigned at Not on file Legal Sex Female 9:40 AM EST Gender Identity Not on file Sexual Orientation Not on file Plan of Treatment Health Maintenance Due Date Last Done Comments Breast Cancer Screening 1970 Hepatitis B Vaccine (1 of 3 - 19+ 3-dose series) 09/21/1990 Pneumococcal Vaccine: 50+ Ye ars (2 of 2 - PCV) 12/08/2013 12/08/2012 Colorectal Cancer Screening: Annual FOBT 09/21/2020 Colorectal Cancer Screening: Colonoscopy 09/21/2020 Colorectal Cancer Screening: Sigmoidoscopy 09/21/2020 Diabetes: Hemoglobin A1C 10/08/2024 06/09/2024, 05/20 Diabetes: Ophthalmology Exam 10/08/2024 Diabetes: Pedal Pulse Checked 10/08/2024 Diabetes: Sensory Foot Exam 10/08/2024 Diabetes: Visual Foot Exam 10/08/2024 Influenza Vaccine (#1) 2024 , 01/08/2023, 11/22/2021, Additional history exists Pneumococcal Vaccine: Peds ( 0 to 5 Years) and At-Risk Patients (6 to 49 Years) Discontinued 12/08/2012 Insurance Medicare [place]
[2025-01-06 16:42] LABS: Glucose, Whole Blood 147 mg/dL (60-115)
[2025-01-06] MEDS: Calcium + Vitamin D 250 MG TABLET 500 MG PO (17:01)
--- NOTE | 2025-01-06 17:22 | PC.NURSE ---
3pm-7pm Patient A&Ox3, Patient in bed. Marshall C/D/I draining cloudy yellow urine. Pt states she uses brief to have BM's. Pt states last BM 4-5 days ago and her baseline is approx. every 2 days. Pt c/o constipation, Pt requesting Miralax-provider messaged and has ordered. Pt is sharmila x2. denies all psych sx including SI. O2 3L ordered for bedtime. Continue POC
[2025-01-06 20:00] VITALS: BP 120/70; PULSE 81; RESP 18; TEMP 36.6; O2SAT 95
[2025-01-06] MEDS: Insulin Glargine,Hum.rec.anlog 100 UNIT/ML 10 ML VIAL 15 UNIT SUBCUT (20:53)
[2025-01-07 06:48] LABS: Glucose, Whole Blood 133 mg/dL (60-115)
[2025-01-07 08:00] VITALS: BP 159/75; PULSE 91; RESP 18; TEMP 36.1; O2SAT 95
[2025-01-07] MEDS: oxyBUTYnin chloride ER 5 MG TAB.ER.24 10 MG PO (09:11)
[2025-01-07] MEDS: Calcium + Vitamin D 250 MG TABLET 500 MG PO ×2 (09:12→16:35)
[2025-01-07 11:40] LABS: Glucose, Whole Blood 168 mg/dL (60-115)
[2025-01-07] MEDS: oxyCODONE HCl Immed Release 5 MG TABLET 2.5 MG PO ×2 (11:43→18:42)
--- NOTE | 2025-01-07 14:13 | P.PNPSI_ITS ---
Subjective Subjective Reason For Visit: depression with SI Diagnostics Vital Signs (24Hr): Vital Signs - 24 hr 01/06/25 20:00 01/07/25 08:00 Temperature 97.9 F 96.9 F Pulse Rate 81 91 Respiratory Rate 18 18 Blood Pressure 120/70 159/75 H Pulse Oximetry 95 95 Oxygen Delivery Method Room Air Room Air BMI result Body Mass Index 48.8 Labs 01/06/25 07:08 Labs: Laboratory Results - last 48 hr 01/05/25 01/06/25 01/06/25 19:40 01:45 06:18 Sodium Potassium Chloride Carbon Dioxide Anion Gap BUN Creatinine Estim Creat Clear Calc Estimated GFR POC Glucose 136 H 114 Random Glucose Estimat Average Glucose Hemoglobin A1c % Calcium Total Bilirubin AST ALT Alkaline Phosphatase Total Protein Albumin Triglycerides Cholesterol LDL Cholesterol, Calc HDL Cholesterol TSH Free T4 Urine Color Yellow Urine Appearance Turbid Urine pH >= 9.0 Ur Specific Sidell 1.015 Urine Protein 100 (2+) H Urine Glucose (UA) Negative Urine Ketones Negative Urine Blood Trace H Urine Nitrite Positive H Ur Leukocyte Esterase Large (3+) H Urine RBC 0-2 Urine WBC 11-20 Ur Squamous Epith Cells 6-10 Other Crystals Present Urine Bacteria 4+ Hyaline Casts 6-10 01/06/25 01/06/25 01/06/25 07:08 11:01 16:31 Sodium 134 L Potassium 4.2 Chloride 100 Carbon Dioxide 27 Anion Gap 11 L BUN 22 H Creatinine 1.01 Estim Creat Clear Calc 85.8 Estimated GFR 57 POC Glucose 172 H 147 H Random Glucose 112 Estimat Average Glucose 108 Hemoglobin A1c % 5.4 Calcium 9.1 Total Bilirubin 0.3 AST 16 ALT 9 Alkaline Phosphatase 95 Total Protein 7.1 Albumin 3.5 Triglycerides 151 H Cholesterol 152 LDL Cholesterol, Calc 90 HDL Cholesterol 32 L TSH 0.63 Free T4 1.35 Urine Color Urine Appearance Urine pH Ur Specific Sidell Urine Protein Urine Glucose (UA) Urine Ketones Urine Blood Urine Nitrite Ur Leukocyte Esterase Urine RBC Urine WBC Ur Squamous Epith Cells Other Crystals Urine Bacteria Hyaline Casts 01/07/25 01/07/25 06:37 11:37 Sodium Potassium Chloride Carbon Dioxide Anion Gap BUN Creatinine Estim Creat Clear Calc Estimated GFR POC Glucose 133 H 168 H Random Glucose Estimat Average Glucose Hemoglobin A1c % Calcium Total Bilirubin AST ALT Alkaline Phosphatase Total Protein Albumin Triglycerides Cholesterol LDL Cholesterol, Calc HDL Cholesterol TSH Free T4 Urine Color Urine Appearance Urine pH Ur Specific Sidell Urine Protein Urine Glucose (UA) Urine Ketones Urine Blood Urine Nitrite Ur Leukocyte Esterase Urine RBC Urine WBC Ur Squamous Epith Cells Other Crystals Urine Bacteria Hyaline Casts Medications Medications Current Medications Acetaminophen (Acetaminophen 325 Mg Tablet) 650 mg PO Q6H PRN PRN Reason: Headache/Pain, Scale 1-10 Last Admin: 01/05/25 21:34 Dose: 650 mg Al Hydroxide/Mg Hydroxide (Magnesium Hydrox/Alum Hydrox 30 Ml Oral.Susp) 30 ml PO Q6H PRN PRN Reason: Heartburn/Nausea Al Hydroxide/Mg Hydroxide (Magnesium Hydrox/Alum Hydrox 30 Ml Oral.Susp) 30 ml PO Q6H PRN PRN Reason: Heartburn/Nausea Apixaban (Apixaban 5 Mg Tablet) 5 mg PO BID [facility] Last Admin: 01/07/25 09:23 Dose: 5 mg Ascorbic Acid (Ascorbic Acid 500 Mg Tablet) 500 mg PO DAILY [facility] Last Admin: 01/07/25 09:12 Dose: 500 mg Aspirin (Aspirin 81 Mg Tab.Chew) 81 mg PO DAILY [facility] Last Admin: 01/07/25 09:12 Dose: 81 mg Calcium Carbonate/Cholecalciferol (Calcium + Vitamin D 250 Mg Tablet) 500 mg PO BIDWM [facility] Last Admin: 01/07/25 09:12 Dose: 500 mg Dextrose (Dextrose 50 % 25 Gm/50 Ml Syringe) 25 gm IVPUSH Q15M PRN; Protocol PRN Reason: per Hypoglycemia Standing Ord. Glucose (Glucose Gel 15 Gm Gel..Gram.) 15 gm PO Q15M PRN; Protocol PRN Reason: per Hypoglycemia Standing Ord. Hydroxyzine HCl (Hydroxyzine Hcl 25 Mg Tablet) 25 mg PO Q6H PRN PRN Reason: mild anxiety Insulin Glargine (Insulin Glargine,Hum.Rec.Anlog 100 Unit/Ml 10 Ml Vial) 15 unit SUBCUT BEDTIME [facility] Last Admin: 01/06/25 20:53 Dose: 15 unit Insulin Human Lispro (Insulin Lispro 100 Unit/Ml 3 Ml Vial) 0 unit SUBCUT QIDACHS [facility]; Protocol Last Admin: 01/07/25 11:45 Dose: 2 unit Magnesium Hydroxide (Milk Of Magnesia 30 Ml Oral.Susp) 30 ml PO DAILY PRN PRN Reason: Constipation Magnesium Hydroxide (Milk Of Magnesia 30 Ml Oral.Susp) 30 ml PO DAILY PRN PRN Reason: Constipation Melatonin (Melatonin 3 Mg Tablet) 3 mg PO BEDTIME PRN PRN Reason: Insomnia Metoclopramide HCl (Metoclopramide Hcl 10 Mg Tablet) 10 mg PO Q6H PRN PRN Reason: Nausea and Vomiting Last Admin: 01/07/25 11:43 Dose: 10 mg Nicotine (Nicotine 21 Mg Patch.Td24) 21 mg TRANSDERMA DAILY PRN PRN Reason: nicotine craving Nicotine Polacrilex (Nicotine Polacrilex 2 Mg Gum) 2 mg BUCCAL Q2H PRN PRN Reason: Nicotine Cravings Olanzapine (Olanzapine 5 Mg Tablet) 5 mg PO BID PRN PRN Reason: agitation Omeprazole (Omeprazole 20 Mg Capsule.Dr) 20 mg PO DAILY@0630 [facility] Last Admin: 01/07/25 06:34 Dose: 20 mg Oxybutynin Chloride (Oxybutynin Chloride Er 5 Mg Tab.Er.24) 10 mg PO DAILY [facility] Last Admin: 01/07/25 09:11 Dose: 10 mg Oxycodone HCl (Oxycodone Hcl Immed Release 5 Mg Tablet) 2.5 mg PO Q4H PRN PRN Reason: Pain (Scale Score 7-10) Last Admin: 01/07/25 11:43 Dose: 2.5 mg Polyethylene Glycol (Polyethylene Glycol 3350 17 Gm Powd.Pack) 17 gm PO DAILY [facility] Last Admin: 01/07/25 09:10 Dose: 17 gm Sertraline HCl (Sertraline Hcl 25 Mg Tablet) 25 mg PO DAILY [facility] Last Admin: 01/07/25 09:11 Dose: 25 mg Spironolactone (Spironolactone 25 Mg Tablet) 25 mg PO DAILY [facility]; Protocol Last Admin: 01/07/25 09:12 Dose: 25 mg Tamsulosin HCl (Tamsulosin Hcl 0.4 Mg Capsule) 0.4 mg PO DAILY [facility] Last Admin: 01/07/25 09:12 Dose: 0.4 mg Trazodone HCl (Trazodone Hcl 50 Mg Tablet) 50 mg PO BEDTIME MRX1 PRN PRN Reason: Insomnia Trazodone HCl (Trazodone Hcl 50 Mg Tablet) 50 mg PO BEDTIME [facility] Last Admin: 01/06/25 20:53 Dose: 50 mg Allergies Allergies Allergy/AdvReac Type Severity Reaction Status Date / Time piperacillin (From Zosyn) AdvReac Severe Rash Verified 01/05/25 19:15 tazobactam (From Zosyn) AdvReac Severe Rash Verified 01/05/25 19:15 antibiotic, unk name Allergy Vomiting Uncoded 06/01/23 10:31 Assessment & Plan Assessment & Plan (1) Pulmonary embolism: Status: Acute Code(s): I26.99 - Other pulmonary embolism without acute cor pulmonale (2) HTN (hypertension): Status: Acute Code(s): I10 - Essential (primary) hypertension Plan 54-year-old female with past medical listed below presented from SNF to ED for evaluation of suicidal ideation. 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 Deconditioned Type 2 diabetes Continue Lantus 15 units at bedtime as well as a insulin sliding scale Heart failure with preserved EF Continue Aldactone Held in the past due to hyperkalemia, continue to monitor. Patient last seen by Cardiology March 2024, previously on torsemide, likely held due to multiple recent hospitalizations and sepsis. Appears euvolemic on exam Hypertension Continue aspirin daily, not on any medications for hypertension Blood pressure within acceptable range Chronic indwelling Marshall catheter/history of ESBL UTI/bladder spasms Continue Ditropan and Flomax and vitamin-C Avoid collecting urine specimen unless symptoms specifically localized to urinary system GERD Continue omeprazole History of PE on Eliquis CTA in October/2024 acute PE in the right lower lobar artery as well as segmental branches of the right lower lobar pulmonary artery US LE significant for non-occlusive thrombi from right common femoral through common peroneal veins and left occlusive left greater saphenous vein thrombus, more than 5 cm in length. Continue apixaban Morbid obesity with a BMI of 48.8 For malnutrition due to multiple recent hospitalizations Nutritional consult as needed Thank you for allowing me to participate in the care of this patient. Will follow with you, please notify medical provider with any changes in condition or concerns. Time Spent With Patient Time: Total time managing care of this patient today ____ minutes.
--- NOTE | 2025-01-07 14:33 | P.PNPSI_ITS ---
Subjective Subjective Date of Service: 01/07/25 Reason For Visit: depression with SI Subjective Notes: Muhammad Warning and Conditional Voluntary Guardianship: No Medical Problems Affecting Mental Status: Yes Interim History: No complains, calm, variable in affect but overall in good spirits and engages readily with psychiatrist. No pain or evident acute distress Medication Compliance: Yes Side effects from medications: No Review of Systems Medical Review of Systems: unchanged Review of Systems Review of Systems No changes, constipation Mental Status Exam Mental Status Exam Narrative: Appropriate attire, engageable, linear thinking, minimal lability during interaction, reports she feels better. Tends to have a passive attitude relating to physical tasks. States she would go back to rehab/snf Appropriate grooming good eye contact Slow motion, motor limitations thinking linear no delusional content Denies hallucinations No gross memory impairment I/J some limitations Diagnostics Vital Signs (24Hr): Vital Signs - 24 hr 01/06/25 20:00 01/07/25 08:00 Temperature 97.9 F 96.9 F Pulse Rate 81 91 Respiratory Rate 18 18 Blood Pressure 120/70 159/75 H Pulse Oximetry 95 95 Oxygen Delivery Method Room Air Room Air BMI result Body Mass Index 48.8 Labs 01/06/25 07:08 Labs: Laboratory Results - last 48 hr 01/05/25 01/06/25 01/06/25 19:40 01:45 06:18 Sodium Potassium Chloride Carbon Dioxide Anion Gap BUN Creatinine Estim Creat Clear Calc Estimated GFR POC Glucose 136 H 114 Random Glucose Estimat Average Glucose Hemoglobin A1c % Calcium Total Bilirubin AST ALT Alkaline Phosphatase Total Protein Albumin Triglycerides Cholesterol LDL Cholesterol, Calc HDL Cholesterol TSH Free T4 Urine Color Yellow Urine Appearance Turbid Urine pH >= 9.0 Ur Specific Yoder 1.015 Urine Protein 100 (2+) H Urine Glucose (UA) Negative Urine Ketones Negative Urine Blood Trace H Urine Nitrite Positive H Ur Leukocyte Esterase Large (3+) H Urine RBC 0-2 Urine WBC 11-20 Ur Squamous Epith Cells 6-10 Other Crystals Present Urine Bacteria 4+ Hyaline Casts 6-10 01/06/25 01/06/25 01/06/25 07:08 11:01 16:31 Sodium 134 L Potassium 4.2 Chloride 100 Carbon Dioxide 27 Anion Gap 11 L BUN 22 H Creatinine 1.01 Estim Creat Clear Calc 85.8 Estimated GFR 57 POC Glucose 172 H 147 H Random Glucose 112 Estimat Average Glucose 108 Hemoglobin A1c % 5.4 Calcium 9.1 Total Bilirubin 0.3 AST 16 ALT 9 Alkaline Phosphatase 95 Total Protein 7.1 Albumin 3.5 Triglycerides 151 H Cholesterol 152 LDL Cholesterol, Calc 90 HDL Cholesterol 32 L TSH 0.63 Free T4 1.35 Urine Color Urine Appearance Urine pH Ur Specific Yoder Urine Protein Urine Glucose (UA) Urine Ketones Urine Blood Urine Nitrite Ur Leukocyte Esterase Urine RBC Urine WBC Ur Squamous Epith Cells Other Crystals Urine Bacteria Hyaline Casts 01/07/25 01/07/25 06:37 11:37 Sodium Potassium Chloride Carbon Dioxide Anion Gap BUN Creatinine Estim Creat Clear Calc Estimated GFR POC Glucose 133 H 168 H Random Glucose Estimat Average Glucose Hemoglobin A1c % Calcium Total Bilirubin AST ALT Alkaline Phosphatase Total Protein Albumin Triglycerides Cholesterol LDL Cholesterol, Calc HDL Cholesterol TSH Free T4 Urine Color Urine Appearance Urine pH Ur Specific Yoder Urine Protein Urine Glucose (UA) Urine Ketones Urine Blood Urine Nitrite Ur Leukocyte Esterase Urine RBC Urine WBC Ur Squamous Epith Cells Other Crystals Urine Bacteria Hyaline Casts Medications Medications Current Medications Acetaminophen (Acetaminophen 325 Mg Tablet) 650 mg PO Q6H PRN PRN Reason: Headache/Pain, Scale 1-10 Last Admin: 01/05/25 21:34 Dose: 650 mg Al Hydroxide/Mg Hydroxide (Magnesium Hydrox/Alum Hydrox 30 Ml Oral.Susp) 30 ml PO Q6H PRN PRN Reason: Heartburn/Nausea Al Hydroxide/Mg Hydroxide (Magnesium Hydrox/Alum Hydrox 30 Ml Oral.Susp) 30 ml PO Q6H PRN PRN Reason: Heartburn/Nausea Apixaban (Apixaban 5 Mg Tablet) 5 mg PO BID [facility] Last Admin: 01/07/25 09:23 Dose: 5 mg Ascorbic Acid (Ascorbic Acid 500 Mg Tablet) 500 mg PO DAILY [facility] Last Admin: 01/07/25 09:12 Dose: 500 mg Aspirin (Aspirin 81 Mg Tab.Chew) 81 mg PO DAILY [facility] Last Admin: 01/07/25 09:12 Dose: 81 mg Calcium Carbonate/Cholecalciferol (Calcium + Vitamin D 250 Mg Tablet) 500 mg PO BIDWM [facility] Last Admin: 01/07/25 09:12 Dose: 500 mg Dextrose (Dextrose 50 % 25 Gm/50 Ml Syringe) 25 gm IVPUSH Q15M PRN; Protocol PRN Reason: per Hypoglycemia Standing Ord. Glucose (Glucose Gel 15 Gm Gel..Gram.) 15 gm PO Q15M PRN; Protocol PRN Reason: per Hypoglycemia Standing Ord. Hydroxyzine HCl (Hydroxyzine Hcl 25 Mg Tablet) 25 mg PO Q6H PRN PRN Reason: mild anxiety Insulin Glargine (Insulin Glargine,Hum.Rec.Anlog 100 Unit/Ml 10 Ml Vial) 15 unit SUBCUT BEDTIME [facility] Last Admin: 01/06/25 20:53 Dose: 15 unit Insulin Human Lispro (Insulin Lispro 100 Unit/Ml 3 Ml Vial) 0 unit SUBCUT QIDACHS [facility]; Protocol Last Admin: 01/07/25 11:45 Dose: 2 unit Magnesium Hydroxide (Milk Of Magnesia 30 Ml Oral.Susp) 30 ml PO DAILY PRN PRN Reason: Constipation Magnesium Hydroxide (Milk Of Magnesia 30 Ml Oral.Susp) 30 ml PO DAILY PRN PRN Reason: Constipation Melatonin (Melatonin 3 Mg Tablet) 3 mg PO BEDTIME PRN PRN Reason: Insomnia Metoclopramide HCl (Metoclopramide Hcl 10 Mg Tablet) 10 mg PO Q6H PRN PRN Reason: Nausea and Vomiting Last Admin: 01/07/25 11:43 Dose: 10 mg Nicotine (Nicotine 21 Mg Patch.Td24) 21 mg TRANSDERMA DAILY PRN PRN Reason: nicotine craving Nicotine Polacrilex (Nicotine Polacrilex 2 Mg Gum) 2 mg BUCCAL Q2H PRN PRN Reason: Nicotine Cravings Olanzapine (Olanzapine 5 Mg Tablet) 5 mg PO BID PRN PRN Reason: agitation Omeprazole (Omeprazole 20 Mg Capsule.Dr) 20 mg PO DAILY@0630 [facility] Last Admin: 01/07/25 06:34 Dose: 20 mg Oxybutynin Chloride (Oxybutynin Chloride Er 5 Mg Tab.Er.24) 10 mg PO DAILY [facility] Last Admin: 01/07/25 09:11 Dose: 10 mg Oxycodone HCl (Oxycodone Hcl Immed Release 5 Mg Tablet) 2.5 mg PO Q4H PRN PRN Reason: Pain (Scale Score 7-10) Last Admin: 01/07/25 11:43 Dose: 2.5 mg Polyethylene Glycol (Polyethylene Glycol 3350 17 Gm Powd.Pack) 17 gm PO DAILY [facility] Last Admin: 01/07/25 09:10 Dose: 17 gm Sertraline HCl (Sertraline Hcl 25 Mg Tablet) 25 mg PO DAILY [facility] Last Admin: 01/07/25 09:11 Dose: 25 mg Spironolactone (Spironolactone 25 Mg Tablet) 25 mg PO DAILY [facility]; Protocol Last Admin: 01/07/25 09:12 Dose: 25 mg Tamsulosin HCl (Tamsulosin Hcl 0.4 Mg Capsule) 0.4 mg PO DAILY [facility] Last Admin: 01/07/25 09:12 Dose: 0.4 mg Trazodone HCl (Trazodone Hcl 50 Mg Tablet) 50 mg PO BEDTIME MRX1 PRN PRN Reason: Insomnia Trazodone HCl (Trazodone Hcl 50 Mg Tablet) 50 mg PO BEDTIME [facility] Last Admin: 01/06/25 20:53 Dose: 50 mg Allergies Allergies Allergy/AdvReac Type Severity Reaction Status Date / Time piperacillin (From Zosyn) AdvReac Severe Rash Verified 01/05/25 19:15 tazobactam (From Zosyn) AdvReac Severe Rash Verified 01/05/25 19:15 antibiotic, unk name Allergy Vomiting Uncoded 06/01/23 10:31 Assessment & Plan Assessment & Plan (1) Pulmonary embolism: Status: Acute Code(s): I26.99 - Other pulmonary embolism without acute cor pulmonale (2) HTN (hypertension): Status: Acute Code(s): I10 - Essential (primary) hypertension Plan 54-year-old female with past medical listed below presented from SNF to ED for evaluation of suicidal ideation. 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 Deconditioned Type 2 diabetes Continue Lantus 15 units at bedtime as well as a insulin sliding scale Heart failure with preserved EF Continue Aldactone Held in the past due to hyperkalemia, continue to monitor. Patient last seen by Cardiology March 2024, previously on torsemide, likely held due to multiple recent hospitalizations and sepsis. Appears euvolemic on exam Hypertension Continue aspirin daily, not on any medications for hypertension Blood pressure within acceptable range Chronic indwelling Marshall catheter/history of ESBL UTI/bladder spasms Continue Ditropan and Flomax and vitamin-C Avoid collecting urine specimen unless symptoms specifically localized to urinary system GERD Continue omeprazole History of PE on Eliquis CTA in [place]/2025 acute PE in the right lower lobar artery as well as segmental branches of the right lower lobar pulmonary artery US LE significant for non-occlusive thrombi from right common femoral through common peroneal veins and left occlusive left greater saphenous vein thrombus, more than 5 cm in length. Continue apixaban Morbid obesity with a BMI of 48.8 For malnutrition due to multiple recent hospitalizations Nutritional consult as needed Thank you for allowing me to participate in the care of this patient. Will follow with you, please notify medical provider with any changes in condition or concerns. Reason for continued inpatient stay Substantial Risk for: harm to self, inability to function, rapid decompensation and med/psych decompensation Time Spent With Patient Time: Total time managing care of this patient today ____ minutes.
[2025-01-07 16:23] LABS: Glucose, Whole Blood 145 mg/dL (60-115)
[2025-01-07 20:00] VITALS: BP 129/70; PULSE 90; RESP 16; TEMP 36.7; O2SAT 94
[2025-01-07] MEDS: Insulin Glargine,Hum.rec.anlog 100 UNIT/ML 10 ML VIAL 15 UNIT SUBCUT (21:05)
[2025-01-07 22:00] VITALS: O2SAT 96
[2025-01-08] MEDS: oxyCODONE HCl Immed Release 5 MG TABLET 2.5 MG PO ×3 (06:12→21:36)
[2025-01-08 06:35] LABS: Glucose, Whole Blood 133 mg/dL (60-115)
[2025-01-08 08:00] VITALS: BP 125/71; PULSE 88; TEMP 37.1; O2SAT 96
[2025-01-08] MEDS: oxyBUTYnin chloride ER 5 MG TAB.ER.24 10 MG PO (08:46)
[2025-01-08] MEDS: Calcium + Vitamin D 250 MG TABLET 500 MG PO ×2 (08:46→17:32)
--- NOTE | 2025-01-08 10:38 | P.PNPSI_ITS ---
Subjective Subjective Date of Service: 01/08/25 Reason For Visit: depression with SI Subjective Notes: Muhammad Warning Healthcare Proxy: No Guardianship: No Attending Groups: No Review of Systems Medical Review of Systems: unchanged Mental Status Exam Mental Status Exam Patient Appearance: Appropriate Patient Orientation: Person, Place, Time and Situation Level of Consciousness: Awake and Alert Patient Behavior: Appropriate, Dependent and Anxious Mood Description: Calm and Labile Affect Description: Calm, Appropriate and Labile Ability to Follow Directions: Good Speech Pattern: Clear Delusions: Not Present Thought Process: Goal Oriented Thought Content: positive for Linear, positive for Logical, negative for Suicidal Ideation or negative for Homicidal Ideation Judgement: Fair (limited to fair) Diagnostics Vital Signs (24Hr): Vital Signs - 24 hr 01/07/25 20:00 01/07/25 22:00 01/08/25 08:00 Temperature 98.1 F 98.7 F Pulse Rate 90 88 Respiratory Rate 16 Blood Pressure 129/70 125/71 Pulse Oximetry 94 96 96 Oxygen Delivery Method Room Air Nasal Cannula Room Air BMI result Body Mass Index 48.8 Labs 01/06/25 07:08 Labs: Laboratory Results - last 48 hr 01/06/25 01/06/25 01/07/25 11:01 16:31 06:37 POC Glucose 172 H 147 H 133 H 01/07/25 01/07/25 01/08/25 11:37 16:18 06:18 POC Glucose 168 H 145 H 133 H Medications Medications Current Medications Acetaminophen (Acetaminophen 325 Mg Tablet) 650 mg PO Q6H PRN PRN Reason: Headache/Pain, Scale 1-10 Last Admin: 01/05/25 21:34 Dose: 650 mg Al Hydroxide/Mg Hydroxide (Magnesium Hydrox/Alum Hydrox 30 Ml Oral.Susp) 30 ml PO Q6H PRN PRN Reason: Heartburn/Nausea Al Hydroxide/Mg Hydroxide (Magnesium Hydrox/Alum Hydrox 30 Ml Oral.Susp) 30 ml PO Q6H PRN PRN Reason: Heartburn/Nausea Apixaban (Apixaban 5 Mg Tablet) 5 mg PO BID [facility] Last Admin: 01/08/25 08:46 Dose: 5 mg Ascorbic Acid (Ascorbic Acid 500 Mg Tablet) 500 mg PO DAILY [facility] Last Admin: 01/08/25 08:45 Dose: 500 mg Aspirin (Aspirin 81 Mg Tab.Chew) 81 mg PO DAILY [facility] Last Admin: 01/08/25 08:46 Dose: 81 mg Calcium Carbonate/Cholecalciferol (Calcium + Vitamin D 250 Mg Tablet) 500 mg PO BIDWM [facility] Last Admin: 01/08/25 08:46 Dose: 500 mg Dextrose (Dextrose 50 % 25 Gm/50 Ml Syringe) 25 gm IVPUSH Q15M PRN; Protocol PRN Reason: per Hypoglycemia Standing Ord. Glucose (Glucose Gel 15 Gm Gel..Gram.) 15 gm PO Q15M PRN; Protocol PRN Reason: per Hypoglycemia Standing Ord. Hydroxyzine HCl (Hydroxyzine Hcl 25 Mg Tablet) 25 mg PO Q6H PRN PRN Reason: mild anxiety Insulin Glargine (Insulin Glargine,Hum.Rec.Anlog 100 Unit/Ml 10 Ml Vial) 15 unit SUBCUT BEDTIME [facility] Last Admin: 01/07/25 21:05 Dose: 15 unit Insulin Human Lispro (Insulin Lispro 100 Unit/Ml 3 Ml Vial) 0 unit SUBCUT QIDACHS [facility]; Protocol Last Admin: 01/08/25 08:38 Dose: Not Given Magnesium Hydroxide (Milk Of Magnesia 30 Ml Oral.Susp) 30 ml PO DAILY PRN PRN Reason: Constipation Magnesium Hydroxide (Milk Of Magnesia 30 Ml Oral.Susp) 30 ml PO DAILY PRN PRN Reason: Constipation Melatonin (Melatonin 3 Mg Tablet) 3 mg PO BEDTIME PRN PRN Reason: Insomnia Metoclopramide HCl (Metoclopramide Hcl 10 Mg Tablet) 10 mg PO Q6H PRN PRN Reason: Nausea and Vomiting Last Admin: 01/08/25 06:12 Dose: 10 mg Nicotine (Nicotine 21 Mg Patch.Td24) 21 mg TRANSDERMA DAILY PRN PRN Reason: nicotine craving Nicotine Polacrilex (Nicotine Polacrilex 2 Mg Gum) 2 mg BUCCAL Q2H PRN PRN Reason: Nicotine Cravings Olanzapine (Olanzapine 5 Mg Tablet) 5 mg PO BID PRN PRN Reason: agitation Omeprazole (Omeprazole 20 Mg Capsule.Dr) 20 mg PO DAILY@0630 [facility] Last Admin: 01/08/25 06:14 Dose: 20 mg Oxybutynin Chloride (Oxybutynin Chloride Er 5 Mg Tab.Er.24) 10 mg PO DAILY [facility] Last Admin: 01/08/25 08:46 Dose: 10 mg Oxycodone HCl (Oxycodone Hcl Immed Release 5 Mg Tablet) 2.5 mg PO Q4H PRN PRN Reason: Pain (Scale Score 7-10) Last Admin: 01/08/25 06:12 Dose: 2.5 mg Polyethylene Glycol (Polyethylene Glycol 3350 17 Gm Powd.Pack) 17 gm PO DAILY [facility] Last Admin: 01/08/25 08:45 Dose: 17 gm Sertraline HCl (Sertraline Hcl 25 Mg Tablet) 25 mg PO DAILY [facility] Last Admin: 01/08/25 09:36 Dose: 25 mg Spironolactone (Spironolactone 25 Mg Tablet) 25 mg PO DAILY [facility]; Protocol Last Admin: 01/08/25 08:46 Dose: 25 mg Tamsulosin HCl (Tamsulosin Hcl 0.4 Mg Capsule) 0.4 mg PO DAILY [facility] Last Admin: 01/08/25 08:46 Dose: 0.4 mg Trazodone HCl (Trazodone Hcl 50 Mg Tablet) 50 mg PO BEDTIME MRX1 PRN PRN Reason: Insomnia Trazodone HCl (Trazodone Hcl 50 Mg Tablet) 50 mg PO BEDTIME [facility] Last Admin: 01/07/25 20:56 Dose: 50 mg Allergies Allergies Allergy/AdvReac Type Severity Reaction Status Date / Time piperacillin (From Zosyn) AdvReac Severe Rash Verified 01/05/25 19:15 tazobactam (From Zosyn) AdvReac Severe Rash Verified 01/05/25 19:15 antibiotic, unk name Allergy Vomiting Uncoded 06/01/23 10:31 Assessment & Plan Assessment & Plan (1) Pulmonary embolism: Status: Acute Code(s): I26.99 - Other pulmonary embolism without acute cor pulmonale (2) HTN (hypertension): Status: Acute Code(s): I10 - Essential (primary) hypertension Plan 54-year-old female with past medical listed below presented from SNF to ED for evaluation of suicidal ideation. 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 Deconditioned Type 2 diabetes Continue Lantus 15 units at bedtime as well as a insulin sliding scale Heart failure with preserved EF Continue Aldactone Held in the past due to hyperkalemia, continue to monitor. Patient last seen by Cardiology March 2024, previously on torsemide, likely held due to multiple recent hospitalizations and sepsis. Appears euvolemic on exam Hypertension Continue aspirin daily, not on any medications for hypertension Blood pressure within acceptable range Chronic indwelling Marshall catheter/history of ESBL UTI/bladder spasms Continue Ditropan and Flomax and vitamin-C Avoid collecting urine specimen unless symptoms specifically localized to urinary system GERD Continue omeprazole History of PE on Eliquis CTA in October/2024 acute PE in the right lower lobar artery as well as segmental branches of the right lower lobar pulmonary artery US LE significant for non-occlusive thrombi from right common femoral through common peroneal veins and left occlusive left greater saphenous vein thrombus, more than 5 cm in length. Continue apixaban Morbid obesity with a BMI of 48.8 For malnutrition due to multiple recent hospitalizations Nutritional consult as needed Thank you for allowing me to participate in the care of this patient. Will follow with you, please notify medical provider with any changes in condition or concerns. Reason for continued inpatient stay Substantial Risk for: inability to function, rapid decompensation and med/psych decompensation Time Spent With Patient Time: Total time managing care of this patient today __35__ minutes.
[2025-01-08 11:17] LABS: Glucose, Whole Blood 148 mg/dL (60-115)
[2025-01-08 16:03] LABS: Glucose, Whole Blood 133 mg/dL (60-115)
[2025-01-08 20:00] VITALS: BP 107/72; PULSE 81; RESP 16; TEMP 36.3; O2SAT 95
[2025-01-08] MEDS: Insulin Glargine,Hum.rec.anlog 100 UNIT/ML 10 ML VIAL 15 UNIT SUBCUT (21:19)
[2025-01-09 06:52] LABS: Glucose, Whole Blood 131 mg/dL (60-115)
[2025-01-09 07:00] VITALS: O2SAT 97
[2025-01-09 08:00] VITALS: BP 114/68; PULSE 83; RESP 18; TEMP 36.2; O2SAT 94
[2025-01-09] MEDS: Calcium + Vitamin D 250 MG TABLET 500 MG PO ×2 (08:47→16:09)
[2025-01-09] MEDS: oxyBUTYnin chloride ER 5 MG TAB.ER.24 10 MG PO (08:47)
[2025-01-09 11:26] LABS: Glucose, Whole Blood 155 mg/dL (60-115)
--- NOTE | 2025-01-09 12:09 | HO.PSYCHPN ---
Subjective Subjective Date of Service: 01/09/25 Reason For Visit: depression with SI Subjective Notes: Conditional Voluntary Interim History: Patient was seen and discussed in rounds today. Records and plans were reviewed. She continues to be mostly in bed and today we are going to attempt to use a lift to bring her out. I am also concerned with her developing bedsores. She was cooperative with the plan. No complaints. Eating and sleeping adequately. Review of Systems Review of Systems Mobility difficulties due to weight Yes all other systems are reviewed and are negative Mental Status Exam Mental Status Exam Patient Appearance: Appropriate Patient Orientation: Person, Place, Time and Situation Level of Consciousness: Awake and Alert Patient Behavior: Appropriate, Dependent and Anxious Mood Description: Calm and Labile Affect Description: Calm, Appropriate and Labile Ability to Follow Directions: Good Speech Pattern: Clear Delusions: Not Present Thought Process: Goal Oriented Thought Content: positive for Linear, positive for Logical, negative for Suicidal Ideation or negative for Homicidal Ideation Judgement: Fair (limited to fair) Diagnostics Vital Signs (24Hr): Vital Signs - 24 hr 01/08/25 20:00 01/09/25 07:00 01/09/25 08:00 Temperature 97.3 F 97.2 F Pulse Rate 81 83 Respiratory Rate 16 18 Blood Pressure 107/72 114/68 Pulse Oximetry 95 97 94 Oxygen Delivery Method Room Air Nasal Cannula Room Air BMI result Body Mass Index 48.8 Labs 01/06/25 07:08 Labs: Laboratory Results - last 48 hr 01/07/25 01/08/25 01/08/25 16:18 06:18 11:12 POC Glucose 145 H 133 H 148 H 01/08/25 01/09/25 01/09/25 15:58 06:35 11:21 POC Glucose 133 H 131 H 155 H Medications Medications Current Medications Acetaminophen (Acetaminophen 325 Mg Tablet) 650 mg PO Q6H PRN PRN Reason: Headache/Pain, Scale 1-10 Last Admin: 01/05/25 21:34 Dose: 650 mg Al Hydroxide/Mg Hydroxide (Magnesium Hydrox/Alum Hydrox 30 Ml Oral.Susp) 30 ml PO Q6H PRN PRN Reason: Heartburn/Nausea Al Hydroxide/Mg Hydroxide (Magnesium Hydrox/Alum Hydrox 30 Ml Oral.Susp) 30 ml PO Q6H PRN PRN Reason: Heartburn/Nausea Apixaban (Apixaban 5 Mg Tablet) 5 mg PO BID [facility] Last Admin: 01/09/25 08:48 Dose: 5 mg Ascorbic Acid (Ascorbic Acid 500 Mg Tablet) 500 mg PO DAILY [facility] Last Admin: 01/09/25 08:47 Dose: 500 mg Aspirin (Aspirin 81 Mg Tab.Chew) 81 mg PO DAILY [facility] Last Admin: 01/09/25 08:47 Dose: 81 mg Calcium Carbonate/Cholecalciferol (Calcium + Vitamin D 250 Mg Tablet) 500 mg PO BIDWM [facility] Last Admin: 01/09/25 08:47 Dose: 500 mg Dextrose (Dextrose 50 % 25 Gm/50 Ml Syringe) 25 gm IVPUSH Q15M PRN; Protocol PRN Reason: per Hypoglycemia Standing Ord. Glucose (Glucose Gel 15 Gm Gel..Gram.) 15 gm PO Q15M PRN; Protocol PRN Reason: per Hypoglycemia Standing Ord. Hydroxyzine HCl (Hydroxyzine Hcl 25 Mg Tablet) 25 mg PO Q6H PRN PRN Reason: mild anxiety Insulin Glargine (Insulin Glargine,Hum.Rec.Anlog 100 Unit/Ml 10 Ml Vial) 15 unit SUBCUT BEDTIME [facility] Last Admin: 01/08/25 21:19 Dose: 15 unit Insulin Human Lispro (Insulin Lispro 100 Unit/Ml 3 Ml Vial) 0 unit SUBCUT QIDACHS [facility]; Protocol Last Admin: 01/09/25 11:29 Dose: 2 unit Magnesium Hydroxide (Milk Of Magnesia 30 Ml Oral.Susp) 30 ml PO DAILY PRN PRN Reason: Constipation Magnesium Hydroxide (Milk Of Magnesia 30 Ml Oral.Susp) 30 ml PO DAILY PRN PRN Reason: Constipation Melatonin (Melatonin 3 Mg Tablet) 3 mg PO BEDTIME PRN PRN Reason: Insomnia Metoclopramide HCl (Metoclopramide Hcl 10 Mg Tablet) 10 mg PO Q6H PRN PRN Reason: Nausea and Vomiting Last Admin: 01/09/25 06:21 Dose: 10 mg Nicotine (Nicotine 21 Mg Patch.Td24) 21 mg TRANSDERMA DAILY PRN PRN Reason: nicotine craving Nicotine Polacrilex (Nicotine Polacrilex 2 Mg Gum) 2 mg BUCCAL Q2H PRN PRN Reason: Nicotine Cravings Olanzapine (Olanzapine 5 Mg Tablet) 5 mg PO BID PRN PRN Reason: agitation Omeprazole (Omeprazole 20 Mg Capsule.Dr) 20 mg PO DAILY@0630 [facility] Last Admin: 01/09/25 06:21 Dose: 20 mg Oxybutynin Chloride (Oxybutynin Chloride Er 5 Mg Tab.Er.24) 10 mg PO DAILY [facility] Last Admin: 01/09/25 08:47 Dose: 10 mg Oxycodone HCl (Oxycodone Hcl Immed Release 5 Mg Tablet) 2.5 mg PO Q4H PRN PRN Reason: Pain (Scale Score 7-10) Last Admin: 01/08/25 21:36 Dose: 2.5 mg Polyethylene Glycol (Polyethylene Glycol 3350 17 Gm Powd.Pack) 17 gm PO DAILY [facility] Last Admin: 01/09/25 08:51 Dose: 17 gm Senna/Docusate Sodium (Sennosides/Docusate Sodium Tablet) 1 tab PO DAILY PRN PRN Reason: Constipation Sertraline HCl (Sertraline Hcl 25 Mg Tablet) 25 mg PO DAILY [facility] Last Admin: 01/09/25 08:47 Dose: 25 mg Spironolactone (Spironolactone 25 Mg Tablet) 25 mg PO DAILY [facility]; Protocol Last Admin: 01/09/25 08:48 Dose: 25 mg Tamsulosin HCl (Tamsulosin Hcl 0.4 Mg Capsule) 0.4 mg PO DAILY [facility] Last Admin: 01/09/25 08:48 Dose: 0.4 mg Trazodone HCl (Trazodone Hcl 50 Mg Tablet) 50 mg PO BEDTIME [facility] Last Admin: 01/08/25 21:20 Dose: 50 mg Trazodone HCl (Trazodone Hcl 50 Mg Tablet) 50 mg PO BEDTIME PRN PRN Reason: Insomnia Allergies Allergies Allergy/AdvReac Type Severity Reaction Status Date / Time piperacillin (From Zosyn) AdvReac Severe Rash Verified 01/05/25 19:15 tazobactam (From Zosyn) AdvReac Severe Rash Verified 01/05/25 19:15 antibiotic, unk name Allergy Vomiting Uncoded 06/01/23 10:31 Assessment & Plan Assessment & Plan (1) Pulmonary embolism: Status: Acute Code(s): I26.99 - Other pulmonary embolism without acute cor pulmonale (2) HTN (hypertension): Status: Acute Code(s): I10 - Essential (primary) hypertension Plan 01/09:Continue current regimen and plans Reason for continued inpatient stay Substantial Risk for: inability to function Time Spent With Patient Time: Total time managing care of this patient today ____ minutes.
[2025-01-09 16:05] LABS: Glucose, Whole Blood 170 mg/dL (60-115)
[2025-01-09 20:00] VITALS: BP 122/66; PULSE 81; RESP 17; TEMP 36.1; O2SAT 97
[2025-01-09] MEDS: Insulin Glargine,Hum.rec.anlog 100 UNIT/ML 10 ML VIAL 15 UNIT SUBCUT (20:29)
[2025-01-09] MEDS: oxyCODONE HCl Immed Release 5 MG TABLET 2.5 MG PO (20:30)
[2025-01-10] MEDS: oxyCODONE HCl Immed Release 5 MG TABLET 2.5 MG PO ×4 (02:10→21:07)
[2025-01-10 07:00] LABS: Glucose, Whole Blood 142 mg/dL (60-115)
[2025-01-10 09:11] VITALS: BP 116/56; PULSE 80; RESP 16; TEMP 36.2; O2SAT 92
[2025-01-10] MEDS: oxyBUTYnin chloride ER 5 MG TAB.ER.24 10 MG PO (09:32)
[2025-01-10] MEDS: Calcium + Vitamin D 250 MG TABLET 500 MG PO ×2 (09:32→17:13)
[2025-01-10 11:36] LABS: Glucose, Whole Blood 207 mg/dL (60-115)
--- NOTE | 2025-01-10 12:40 | HO.PSYCHPN ---
Subjective Subjective Date of Service: 01/10/25 Reason For Visit: depression with SI Subjective Notes: Conditional Voluntary Interim History: Patient was seen and discussed in rounds today. Records and plans were reviewed. She is finally spending some time outside of her room. Eating and sleeping adequately. No behavioral issues. Nystatin powder for abdominal folds were ordered. No SI. Review of Systems Review of Systems Yes all other systems are reviewed and are negative Mental Status Exam Mental Status Exam Patient Appearance: Appropriate Patient Orientation: Person, Place, Time and Situation Level of Consciousness: Awake and Alert Patient Behavior: Appropriate, Dependent and Anxious Mood Description: Calm and Labile Affect Description: Calm, Appropriate and Labile Ability to Follow Directions: Good Speech Pattern: Clear Delusions: Not Present Thought Process: Goal Oriented Thought Content: positive for Linear, positive for Logical, negative for Suicidal Ideation or negative for Homicidal Ideation Judgement: Fair (limited to fair) Diagnostics Vital Signs (24Hr): Vital Signs - 24 hr 01/09/25 20:00 01/10/25 09:11 Temperature 97.0 F 97.1 F Pulse Rate 81 80 Respiratory Rate 17 16 Blood Pressure 122/66 116/56 L Pulse Oximetry 97 92 Oxygen Delivery Method Room Air Room Air BMI result Body Mass Index 48.8 Labs 01/06/25 07:08 Labs: Laboratory Results - last 48 hr 01/08/25 01/09/25 01/09/25 15:58 06:35 11:21 POC Glucose 133 H 131 H 155 H 01/09/25 01/10/25 01/10/25 16:01 06:54 11:32 POC Glucose 170 H 142 H 207 H Medications Medications Current Medications Acetaminophen (Acetaminophen 325 Mg Tablet) 650 mg PO Q6H PRN PRN Reason: Headache/Pain, Scale 1-10 Last Admin: 01/05/25 21:34 Dose: 650 mg Al Hydroxide/Mg Hydroxide (Magnesium Hydrox/Alum Hydrox 30 Ml Oral.Susp) 30 ml PO Q6H PRN PRN Reason: Heartburn/Nausea Al Hydroxide/Mg Hydroxide (Magnesium Hydrox/Alum Hydrox 30 Ml Oral.Susp) 30 ml PO Q6H PRN PRN Reason: Heartburn/Nausea Apixaban (Apixaban 5 Mg Tablet) 5 mg PO BID [facility] Last Admin: 01/10/25 09:32 Dose: 5 mg Ascorbic Acid (Ascorbic Acid 500 Mg Tablet) 500 mg PO DAILY [facility] Last Admin: 01/10/25 09:32 Dose: 500 mg Aspirin (Aspirin 81 Mg Tab.Chew) 81 mg PO DAILY [facility] Last Admin: 01/10/25 09:33 Dose: 81 mg Calcium Carbonate/Cholecalciferol (Calcium + Vitamin D 250 Mg Tablet) 500 mg PO BIDWM [facility] Last Admin: 01/10/25 09:32 Dose: 500 mg Dextrose (Dextrose 50 % 25 Gm/50 Ml Syringe) 25 gm IVPUSH Q15M PRN; Protocol PRN Reason: per Hypoglycemia Standing Ord. Glucose (Glucose Gel 15 Gm Gel..Gram.) 15 gm PO Q15M PRN; Protocol PRN Reason: per Hypoglycemia Standing Ord. Hydroxyzine HCl (Hydroxyzine Hcl 25 Mg Tablet) 25 mg PO Q6H PRN PRN Reason: mild anxiety Insulin Glargine (Insulin Glargine,Hum.Rec.Anlog 100 Unit/Ml 10 Ml Vial) 15 unit SUBCUT BEDTIME [facility] Last Admin: 01/09/25 20:29 Dose: 15 unit Insulin Human Lispro (Insulin Lispro 100 Unit/Ml 3 Ml Vial) 0 unit SUBCUT QIDACHS [facility]; Protocol Last Admin: 01/10/25 11:59 Dose: 1 unit Magnesium Hydroxide (Milk Of Magnesia 30 Ml Oral.Susp) 30 ml PO DAILY PRN PRN Reason: Constipation Magnesium Hydroxide (Milk Of Magnesia 30 Ml Oral.Susp) 30 ml PO DAILY PRN PRN Reason: Constipation Melatonin (Melatonin 3 Mg Tablet) 3 mg PO BEDTIME PRN PRN Reason: Insomnia Metoclopramide HCl (Metoclopramide Hcl 10 Mg Tablet) 10 mg PO Q6H PRN PRN Reason: Nausea and Vomiting Last Admin: 01/10/25 06:14 Dose: 10 mg Nicotine (Nicotine 21 Mg Patch.Td24) 21 mg TRANSDERMA DAILY PRN PRN Reason: nicotine craving Nicotine Polacrilex (Nicotine Polacrilex 2 Mg Gum) 2 mg BUCCAL Q2H PRN PRN Reason: Nicotine Cravings Olanzapine (Olanzapine 5 Mg Tablet) 5 mg PO BID PRN PRN Reason: agitation Omeprazole (Omeprazole 20 Mg Capsule.Dr) 20 mg PO DAILY@0630 [facility] Last Admin: 01/10/25 06:14 Dose: 20 mg Oxybutynin Chloride (Oxybutynin Chloride Er 5 Mg Tab.Er.24) 10 mg PO DAILY [facility] Last Admin: 01/10/25 09:32 Dose: 10 mg Oxycodone HCl (Oxycodone Hcl Immed Release 5 Mg Tablet) 2.5 mg PO Q4H PRN PRN Reason: Pain (Scale Score 7-10) Last Admin: 01/10/25 09:33 Dose: 2.5 mg Polyethylene Glycol (Polyethylene Glycol 3350 17 Gm Powd.Pack) 17 gm PO DAILY [facility] Last Admin: 01/10/25 09:33 Dose: 17 gm Senna/Docusate Sodium (Sennosides/Docusate Sodium Tablet) 1 tab PO DAILY PRN PRN Reason: Constipation Sertraline HCl (Sertraline Hcl 25 Mg Tablet) 25 mg PO DAILY [facility] Last Admin: 01/10/25 09:32 Dose: 25 mg Spironolactone (Spironolactone 25 Mg Tablet) 25 mg PO DAILY [facility]; Protocol Last Admin: 01/10/25 09:32 Dose: 25 mg Tamsulosin HCl (Tamsulosin Hcl 0.4 Mg Capsule) 0.4 mg PO DAILY [facility] Last Admin: 01/10/25 09:33 Dose: 0.4 mg Trazodone HCl (Trazodone Hcl 50 Mg Tablet) 50 mg PO BEDTIME [facility] Last Admin: 01/09/25 21:04 Dose: Not Given Trazodone HCl (Trazodone Hcl 50 Mg Tablet) 50 mg PO BEDTIME PRN PRN Reason: Insomnia Allergies Allergies Allergy/AdvReac Type Severity Reaction Status Date / Time piperacillin (From Zosyn) AdvReac Severe Rash Verified 01/05/25 19:15 tazobactam (From Zosyn) AdvReac Severe Rash Verified 01/05/25 19:15 antibiotic, unk name Allergy Vomiting Uncoded 06/01/23 10:31 Assessment & Plan Assessment & Plan (1) Pulmonary embolism: Status: Acute Code(s): I26.99 - Other pulmonary embolism without acute cor pulmonale (2) HTN (hypertension): Status: Acute Code(s): I10 - Essential (primary) hypertension Plan 01/09:Continue current regimen and plans 01/10:Continue current regimen and plans Reason for continued inpatient stay Substantial Risk for: inability to function Time Spent With Patient Time: Total time managing care of this patient today ____ minutes.
[2025-01-10 16:29] LABS: Glucose, Whole Blood 154 mg/dL (60-115)
--- NOTE | 2025-01-10 18:20 | PC.NURSE ---
Addendum entered by Tiffanie Rodriguez RN 01/10/25 18:34: Provider notified, wound consult entered, wound nurse notified via tiger text. Original Note: This morning, this nurse attempted to reposition Renée onto her side to offload pressure. Renée refused stating It hurts my back too much, I just want to lay flat . She initially requested to get up oob to recliner, but shortly after declined stating she is too tired and in too much pain. This functional tester typewriters encouraged her to get up for lunch to which she agreed. She spent much of the day oob to recliner and declined pillow placement to offload pressure, continuing to state that she is in too much pain and wants to lay flat. She was encouraged to go back to bed to change position after lunch and she declined and stated she wants to stay up and watch football. When she was brought back to bed this evening, she was noted to have a new open area about 3x2cm. The area was cleaned and foam dressing was put in place. This functional tester typewriters provided education about the importance of repositioning every 2 hours to prevent skin breakdown. She initially declined stating It hurts too much, I just want to lay flat . With much encouragement, she allowed this functional tester typewriters to place one pillow under her left side and 2 pillows under her legs. She stated I'll probably pull this pillow out later if it's uncomfortable . This functional tester typewriters reinforced the need to offload pressure and change positions to prevent further breakdown.
[2025-01-10 20:00] VITALS: BP 131/66; PULSE 86; RESP 16; TEMP 37; O2SAT 97
[2025-01-10] MEDS: Insulin Glargine,Hum.rec.anlog 100 UNIT/ML 10 ML VIAL 15 UNIT SUBCUT (21:06)
[2025-01-11 06:16] VITALS: O2SAT 98
[2025-01-11 06:36] LABS: Glucose, Whole Blood 166 mg/dL (60-115)
--- NOTE | 2025-01-11 08:48 | PC.NURSE ---
This poem writer observed pt with cloudy urine in floey. Pt denied symptoms. Reported to provider.
[2025-01-11 09:15] VITALS: BP 118/68; PULSE 79; RESP 15; TEMP 36.8; O2SAT 96
[2025-01-11 09:27] VITALS: BP 118/68
[2025-01-11] MEDS: oxyBUTYnin chloride ER 5 MG TAB.ER.24 10 MG PO (09:28)
[2025-01-11] MEDS: Calcium + Vitamin D 250 MG TABLET 500 MG PO ×2 (09:29→16:42)
[2025-01-11] MEDS: oxyCODONE HCl Immed Release 5 MG TABLET 2.5 MG PO ×2 (09:39→20:25)
--- NOTE | 2025-01-11 11:21 | P.PNPSI_ITS ---
Subjective Subjective Date of Service: 01/11/25 Reason For Visit: depression with SI Subjective Notes: Muhammad Warning and Conditional Voluntary Healthcare Proxy: No Guardianship: No Medical Problems Affecting Mental Status: Yes Interim History: Requiring assistance to mobilize. Out of her room today in area. In goods spirits. Says she doesn't have complaints/requests for me. Denies SI/HI Medication Compliance: Yes Side effects from medications: No Review of Systems Medical Review of Systems: unchanged Review of Systems Review of Systems no changes Mental Status Exam Mental Status Exam Patient Appearance: Appropriate Patient Orientation: Person, Place, Time and Situation Level of Consciousness: Awake and Alert Patient Behavior: Appropriate, Dependent and Good Eye Contact Mood Description: Labile (bright today) Affect Description: Labile (currently in good spirits) Ability to Follow Directions: Good Speech Pattern: Clear, Spontaneous Speech and Animated (today) Hallucinations: None Delusions: Not Present Thought Process: Goal Oriented and Evasive Thought Content: positive for Goal Oriented, positive for Perseveration, positive for Preoccupation, negative for Suicidal Ideation or negative for Homicidal Ideation Judgement: Fair Diagnostics Vital Signs (24Hr): Vital Signs - 24 hr 01/10/25 20:00 01/11/25 06:16 01/11/25 09:15 Temperature 98.6 F 98.2 F Pulse Rate 86 79 Respiratory Rate 16 15 Blood Pressure 131/66 118/68 Pulse Oximetry 97 98 96 Oxygen Delivery Method Room Air Nasal Cannula Room Air 01/11/25 09:27 Temperature Pulse Rate Respiratory Rate Blood Pressure 118/68 Pulse Oximetry Oxygen Delivery Method BMI result Body Mass Index 48.8 Labs 01/06/25 07:08 Labs: Laboratory Results - last 48 hr 01/09/25 01/09/25 01/10/25 11:21 16:01 06:54 POC Glucose 155 H 170 H 142 H 01/10/25 01/10/25 01/11/25 11:32 16:26 06:30 POC Glucose 207 H 154 H 166 H Medications Medications Current Medications Acetaminophen (Acetaminophen 325 Mg Tablet) 650 mg PO Q6H PRN PRN Reason: Headache/Pain, Scale 1-10 Last Admin: 01/05/25 21:34 Dose: 650 mg Al Hydroxide/Mg Hydroxide (Magnesium Hydrox/Alum Hydrox 30 Ml Oral.Susp) 30 ml PO Q6H PRN PRN Reason: Heartburn/Nausea Al Hydroxide/Mg Hydroxide (Magnesium Hydrox/Alum Hydrox 30 Ml Oral.Susp) 30 ml PO Q6H PRN PRN Reason: Heartburn/Nausea Apixaban (Apixaban 5 Mg Tablet) 5 mg PO BID [facility] Last Admin: 01/11/25 09:29 Dose: 5 mg Ascorbic Acid (Ascorbic Acid 500 Mg Tablet) 500 mg PO DAILY [facility] Last Admin: 01/11/25 09:29 Dose: 500 mg Aspirin (Aspirin 81 Mg Tab.Chew) 81 mg PO DAILY [facility] Last Admin: 01/11/25 09:29 Dose: 81 mg Calcium Carbonate/Cholecalciferol (Calcium + Vitamin D 250 Mg Tablet) 500 mg PO BIDWM [facility] Last Admin: 01/11/25 09:29 Dose: 500 mg Dextrose (Dextrose 50 % 25 Gm/50 Ml Syringe) 25 gm IVPUSH Q15M PRN; Protocol PRN Reason: per Hypoglycemia Standing Ord. Glucose (Glucose Gel 15 Gm Gel..Gram.) 15 gm PO Q15M PRN; Protocol PRN Reason: per Hypoglycemia Standing Ord. Hydroxyzine HCl (Hydroxyzine Hcl 25 Mg Tablet) 25 mg PO Q6H PRN PRN Reason: mild anxiety Insulin Glargine (Insulin Glargine,Hum.Rec.Anlog 100 Unit/Ml 10 Ml Vial) 15 unit SUBCUT BEDTIME [facility] Last Admin: 01/10/25 21:06 Dose: 15 unit Insulin Human Lispro (Insulin Lispro 100 Unit/Ml 3 Ml Vial) 0 unit SUBCUT QIDACHS [facility]; Protocol Last Admin: 01/11/25 09:26 Dose: Not Given Magnesium Hydroxide (Milk Of Magnesia 30 Ml Oral.Susp) 30 ml PO DAILY PRN PRN Reason: Constipation Magnesium Hydroxide (Milk Of Magnesia 30 Ml Oral.Susp) 30 ml PO DAILY PRN PRN Reason: Constipation Melatonin (Melatonin 3 Mg Tablet) 3 mg PO BEDTIME PRN PRN Reason: Insomnia Metoclopramide HCl (Metoclopramide Hcl 10 Mg Tablet) 10 mg PO Q6H PRN PRN Reason: Nausea and Vomiting Last Admin: 01/11/25 06:05 Dose: 10 mg Nicotine (Nicotine 21 Mg Patch.Td24) 21 mg TRANSDERMA DAILY PRN PRN Reason: nicotine craving Nicotine Polacrilex (Nicotine Polacrilex 2 Mg Gum) 2 mg BUCCAL Q2H PRN PRN Reason: Nicotine Cravings Nystatin (Nystatin Powder 15 Gm Bottle) 1 appl TOPICAL BID PRN; Protocol PRN Reason: Itching Olanzapine (Olanzapine 5 Mg Tablet) 5 mg PO BID PRN PRN Reason: agitation Omeprazole (Omeprazole 20 Mg Capsule.Dr) 20 mg PO DAILY@0630 [facility] Last Admin: 01/11/25 06:05 Dose: 20 mg Oxybutynin Chloride (Oxybutynin Chloride Er 5 Mg Tab.Er.24) 10 mg PO DAILY [facility] Last Admin: 01/11/25 09:28 Dose: 10 mg Oxycodone HCl (Oxycodone Hcl Immed Release 5 Mg Tablet) 2.5 mg PO Q4H PRN PRN Reason: Pain (Scale Score 7-10) Last Admin: 01/11/25 09:39 Dose: 2.5 mg Polyethylene Glycol (Polyethylene Glycol 3350 17 Gm Powd.Pack) 17 gm PO DAILY [facility] Last Admin: 01/11/25 09:25 Dose: Not Given Senna/Docusate Sodium (Sennosides/Docusate Sodium Tablet) 1 tab PO DAILY PRN PRN Reason: Constipation Sertraline HCl (Sertraline Hcl 25 Mg Tablet) 25 mg PO DAILY [facility] Last Admin: 01/11/25 09:29 Dose: 25 mg Spironolactone (Spironolactone 25 Mg Tablet) 25 mg PO DAILY [facility]; Protocol Last Admin: 01/11/25 09:27 Dose: 25 mg Tamsulosin HCl (Tamsulosin Hcl 0.4 Mg Capsule) 0.4 mg PO DAILY [facility] Last Admin: 01/11/25 09:29 Dose: 0.4 mg Trazodone HCl (Trazodone Hcl 50 Mg Tablet) 50 mg PO BEDTIME [facility] Last Admin: 01/10/25 21:15 Dose: Not Given Trazodone HCl (Trazodone Hcl 50 Mg Tablet) 50 mg PO BEDTIME PRN PRN Reason: Insomnia Allergies Allergies Allergy/AdvReac Type Severity Reaction Status Date / Time piperacillin (From Zosyn) AdvReac Severe Rash Verified 01/05/25 19:15 tazobactam (From Zosyn) AdvReac Severe Rash Verified 01/05/25 19:15 antibiotic, unk name Allergy Vomiting Uncoded 06/01/23 10:31 Assessment & Plan Assessment & Plan (1) Depression, unspecified: Status: Acute Code(s): F32.A - Depression, unspecified (2) Suicidal ideation: Status: Acute Code(s): R45.851 - Suicidal ideations (3) Pulmonary embolism: Status: Acute Code(s): I26.99 - Other pulmonary embolism without acute cor pulmonale (4) HTN (hypertension): Status: Acute Code(s): I10 - Essential (primary) hypertension (5) Right femoral fracture: Status: Acute Code(s): S72.91XA - Unspecified fracture of right femur, initial encounter for closed fracture (6) Bladder spasm: Status: Acute Code(s): N32.89 - Other specified disorders of bladder (7) GERD (gastroesophageal reflux disease): Status: Acute Code(s): K21.9 - Gastro-esophageal reflux disease without esophagitis (8) Diabetes: Status: Acute Code(s): E11.9 - Type 2 diabetes mellitus without complications Plan Depressive disorder/SI/plan and intent-- Refusing recommendations to adjust antipsychotic medications, continue to educate Multiple medical comorbidities and psychosocial stressors, including several admissions to SNF this year 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 Deconditioned Type 2 diabetes Continue Lantus 15 units at bedtime as well as a insulin sliding scale Heart failure with preserved EF Continue Aldactone Held in the past due to hyperkalemia, continue to monitor. Patient last seen by Cardiology March 2024, previously on torsemide, likely held due to multiple recent hospitalizations and sepsis. Appears euvolemic on exam Hypertension Continue aspirin daily, not on any medications for hypertension Blood pressure within acceptable range Chronic indwelling Marshall catheter/history of ESBL UTI/bladder spasms Continue Ditropan and Flomax and vitamin-C Avoid collecting urine specimen unless symptoms specifically localized to urinary system GERD Continue omeprazole History of PE on Eliquis CTA in October/2024 acute PE in the right lower lobar artery as well as segmental branches of the right lower lobar pulmonary artery US LE significant for non-occlusive thrombi from right common femoral through common peroneal veins and left occlusive left greater saphenous vein thrombus, more than 5 cm in length. Continue apixaban Morbid obesity with a BMI of 48.8 For malnutrition due to multiple recent hospitalizations Nutritional consult as needed Reason for continued inpatient stay Substantial Risk for: harm to self, inability to function, rapid decompensation and med/psych decompensation Time Spent With Patient Time: Total time managing care of this patient today _30___ minutes.
[2025-01-11 16:10] LABS: Glucose, Whole Blood 182 mg/dL (60-115)
[2025-01-11 16:17] LABS: Appearance Urine Turbid; Glucose Urine UA Negative (Negative); PH 8.5 (5.0-9.0); Specific Gravity - Urine 1.010 (1.005-1.025); UMIC TRIGGER UACC YES
--- NOTE | 2025-01-11 16:22 | HO.WOUND ---
Wound Consult Attempted - Patient up to chair will try for assessment of buttock at future date and or time.
[2025-01-11 16:39] LABS: UACC Culture Trigger YES
--- NOTE | 2025-01-11 18:44 | PC.NURSE ---
Pt signed a 3day notice. Reported to providers.
[2025-01-11 20:00] VITALS: BP 144/76; PULSE 88; RESP 18; TEMP 36.7; O2SAT 95
[2025-01-11] MEDS: Insulin Glargine,Hum.rec.anlog 100 UNIT/ML 10 ML VIAL 15 UNIT SUBCUT (20:33)
[2025-01-12] MEDS: oxyCODONE HCl Immed Release 5 MG TABLET 2.5 MG PO ×4 (02:15→22:40)
[2025-01-12 06:36] LABS: Glucose, Whole Blood 118 mg/dL (60-115)
[2025-01-12 08:00] VITALS: BP 112/57; PULSE 80; RESP 18; TEMP 36.3; O2SAT 95
[2025-01-12] MEDS: Calcium + Vitamin D 250 MG TABLET 500 MG PO ×2 (09:32→16:24)
[2025-01-12] MEDS: oxyBUTYnin chloride ER 5 MG TAB.ER.24 10 MG PO (09:32)
--- NOTE | 2025-01-12 10:54 | HO.PSYCHPN ---
Subjective Subjective Date of Service: 01/12/25 Reason For Visit: depression with SI Subjective Notes: Muhammad Warning and 3 Day (signed then retracted) Healthcare Proxy: No Guardianship: No Medical Problems Affecting Mental Status: Yes Interim History: No current complaints, minimal Medication Compliance: Yes Side effects from medications: No Review of Systems Medical Review of Systems: unchanged Review of Systems Review of Systems No changes Psychiatric: Reports no additional psychiatric complaints Mental Status Exam Mental Status Exam Patient Appearance: Appropriate Patient Orientation: Person, Place, Time and Situation Level of Consciousness: Awake and Alert Patient Behavior: Appropriate, Dependent and Good Eye Contact Mood Description: Labile (bright today) Affect Description: Labile (currently in good spirits) Ability to Follow Directions: Fair (at times oppositional) Speech Pattern: Clear, Spontaneous Speech and Animated (today) Hallucinations: None Delusions: Not Present Thought Process: Goal Oriented and Evasive (superficial) Thought Content: positive for Goal Oriented, positive for Preoccupation, negative for Suicidal Ideation or negative for Homicidal Ideation Judgement: Fair Diagnostics Vital Signs (24Hr): Vital Signs - 24 hr 01/11/25 20:00 01/12/25 08:00 Temperature 98.1 F 97.3 F Pulse Rate 88 80 Respiratory Rate 18 18 Blood Pressure 144/76 H 112/57 L Pulse Oximetry 95 95 Oxygen Delivery Method Room Air Room Air BMI result Body Mass Index 48.8 Labs 01/06/25 07:08 Labs: Laboratory Results - last 48 hr 01/10/25 01/10/25 01/11/25 11:32 16:26 06:30 POC Glucose 207 H 154 H 166 H Urine Color Urine Appearance Urine pH Ur Specific [place] Urine Protein Urine Glucose (UA) Urine Ketones Urine Blood Urine Nitrite Ur Leukocyte Esterase Urine RBC Urine WBC Ur Squamous Epith Cells Urine Bacteria Hyaline Casts 01/11/25 01/11/25 01/12/25 16:00 16:04 06:26 POC Glucose 182 H 118 H Urine Color Yellow Urine Appearance Turbid Urine pH 8.5 Ur Specific [place] 1.010 Urine Protein 100 (2+) H Urine Glucose (UA) Negative Urine Ketones Negative Urine Blood Moderate (2+) H Urine Nitrite Positive H Ur Leukocyte Esterase Large (3+) H Urine RBC 0-2 Urine WBC 21-50 Ur Squamous Epith Cells 0-2 Urine Bacteria 3+ Hyaline Casts 3-5 Medications Medications Current Medications Acetaminophen (Acetaminophen 325 Mg Tablet) 650 mg PO Q6H PRN PRN Reason: Headache/Pain, Scale 1-10 Last Admin: 01/12/25 02:14 Dose: 650 mg Al Hydroxide/Mg Hydroxide (Magnesium Hydrox/Alum Hydrox 30 Ml Oral.Susp) 30 ml PO Q6H PRN PRN Reason: Heartburn/Nausea Al Hydroxide/Mg Hydroxide (Magnesium Hydrox/Alum Hydrox 30 Ml Oral.Susp) 30 ml PO Q6H PRN PRN Reason: Heartburn/Nausea Apixaban (Apixaban 5 Mg Tablet) 5 mg PO BID [facility] Last Admin: 01/12/25 09:33 Dose: 5 mg Ascorbic Acid (Ascorbic Acid 500 Mg Tablet) 500 mg PO DAILY [facility] Last Admin: 01/12/25 09:33 Dose: 500 mg Aspirin (Aspirin 81 Mg Tab.Chew) 81 mg PO DAILY [facility] Last Admin: 01/12/25 09:33 Dose: 81 mg Calcium Carbonate/Cholecalciferol (Calcium + Vitamin D 250 Mg Tablet) 500 mg PO BIDWM [facility] Last Admin: 01/12/25 09:32 Dose: 500 mg Dextrose (Dextrose 50 % 25 Gm/50 Ml Syringe) 25 gm IVPUSH Q15M PRN; Protocol PRN Reason: per Hypoglycemia Standing Ord. Glucose (Glucose Gel 15 Gm Gel..Gram.) 15 gm PO Q15M PRN; Protocol PRN Reason: per Hypoglycemia Standing Ord. Hydroxyzine HCl (Hydroxyzine Hcl 25 Mg Tablet) 25 mg PO Q6H PRN PRN Reason: mild anxiety Insulin Glargine (Insulin Glargine,Hum.Rec.Anlog 100 Unit/Ml 10 Ml Vial) 15 unit SUBCUT BEDTIME [facility] Last Admin: 01/11/25 20:33 Dose: 15 unit Insulin Human Lispro (Insulin Lispro 100 Unit/Ml 3 Ml Vial) 0 unit SUBCUT QIDACHS [facility]; Protocol Last Admin: 01/12/25 07:46 Dose: Not Given Magnesium Hydroxide (Milk Of Magnesia 30 Ml Oral.Susp) 30 ml PO DAILY PRN PRN Reason: Constipation Magnesium Hydroxide (Milk Of Magnesia 30 Ml Oral.Susp) 30 ml PO DAILY PRN PRN Reason: Constipation Melatonin (Melatonin 3 Mg Tablet) 3 mg PO BEDTIME PRN PRN Reason: Insomnia Metoclopramide HCl (Metoclopramide Hcl 10 Mg Tablet) 10 mg PO Q6H PRN PRN Reason: Nausea and Vomiting Last Admin: 01/12/25 06:33 Dose: 10 mg Nicotine (Nicotine 21 Mg Patch.Td24) 21 mg TRANSDERMA DAILY PRN PRN Reason: nicotine craving Nicotine Polacrilex (Nicotine Polacrilex 2 Mg Gum) 2 mg BUCCAL Q2H PRN PRN Reason: Nicotine Cravings Nystatin (Nystatin Powder 15 Gm Bottle) 1 appl TOPICAL BID PRN; Protocol PRN Reason: Itching Olanzapine (Olanzapine 5 Mg Tablet) 5 mg PO BID PRN PRN Reason: agitation Omeprazole (Omeprazole 20 Mg Capsule.Dr) 20 mg PO DAILY@0630 [facility] Last Admin: 01/12/25 06:27 Dose: 20 mg Oxybutynin Chloride (Oxybutynin Chloride Er 5 Mg Tab.Er.24) 10 mg PO DAILY [facility] Last Admin: 01/12/25 09:32 Dose: 10 mg Oxycodone HCl (Oxycodone Hcl Immed Release 5 Mg Tablet) 2.5 mg PO Q4H PRN PRN Reason: Pain (Scale Score 7-10) Last Admin: 01/12/25 09:46 Dose: 2.5 mg Polyethylene Glycol (Polyethylene Glycol 3350 17 Gm Powd.Pack) 17 gm PO DAILY [facility] Last Admin: 01/12/25 09:33 Dose: 17 gm Senna/Docusate Sodium (Sennosides/Docusate Sodium Tablet) 1 tab PO DAILY PRN PRN Reason: Constipation Sertraline HCl (Sertraline Hcl 25 Mg Tablet) 25 mg PO DAILY [facility] Last Admin: 01/12/25 09:33 Dose: 25 mg Spironolactone (Spironolactone 25 Mg Tablet) 25 mg PO DAILY [facility]; Protocol Last Admin: 01/12/25 09:33 Dose: 25 mg Tamsulosin HCl (Tamsulosin Hcl 0.4 Mg Capsule) 0.4 mg PO DAILY [facility] Last Admin: 01/12/25 09:32 Dose: 0.4 mg Trazodone HCl (Trazodone Hcl 50 Mg Tablet) 50 mg PO BEDTIME [facility] Last Admin: 01/11/25 22:48 Dose: Not Given Trazodone HCl (Trazodone Hcl 50 Mg Tablet) 50 mg PO BEDTIME PRN PRN Reason: Insomnia Allergies Allergies Allergy/AdvReac Type Severity Reaction Status Date / Time piperacillin (From Zosyn) AdvReac Severe Rash Verified 01/05/25 19:15 tazobactam (From Zosyn) AdvReac Severe Rash Verified 01/05/25 19:15 antibiotic, unk name Allergy Vomiting Uncoded 06/01/23 10:31 Assessment & Plan Assessment & Plan (1) Depression, unspecified: Status: Acute Code(s): F32.A - Depression, unspecified (2) Suicidal ideation: Status: Acute Code(s): R45.851 - Suicidal ideations (3) Pulmonary embolism: Status: Acute Code(s): I26.99 - Other pulmonary embolism without acute cor pulmonale (4) HTN (hypertension): Status: Acute Code(s): I10 - Essential (primary) hypertension (5) Right femoral fracture: Status: Acute Code(s): S72.91XA - Unspecified fracture of right femur, initial encounter for closed fracture (6) Bladder spasm: Status: Acute Code(s): N32.89 - Other specified disorders of bladder (7) GERD (gastroesophageal reflux disease): Status: Acute Code(s): K21.9 - Gastro-esophageal reflux disease without esophagitis (8) Diabetes: Status: Acute Code(s): E11.9 - Type 2 diabetes mellitus without complications Plan Depressive disorder/SI/plan and intent-- Refusing recommendations to adjust antipsychotic medications, continue to educate Multiple medical comorbidities and psychosocial stressors, including several admissions to SNF this year Signed 3 day and later retracted toallow for placement. SW indicates no response from SNF, although facility indicated at time of referral that they would do so. 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 Deconditioned Type 2 diabetes Continue Lantus 15 units at bedtime as well as a insulin sliding scale Heart failure with preserved EF Continue Aldactone Held in the past due to hyperkalemia, continue to monitor. Patient last seen by Cardiology March 2024, previously on torsemide, likely held due to multiple recent hospitalizations and sepsis. Appears euvolemic on exam Hypertension Continue aspirin daily, not on any medications for hypertension Blood pressure within acceptable range Chronic indwelling Marshall catheter/history of ESBL UTI/bladder spasms Continue Ditropan and Flomax and vitamin-C Avoid collecting urine specimen unless symptoms specifically localized to urinary system GERD Continue omeprazole History of PE on Eliquis CTA in October/2024 acute PE in the right lower lobar artery as well as segmental branches of the right lower lobar pulmonary artery US LE significant for non-occlusive thrombi from right common femoral through common peroneal veins and left occlusive left greater saphenous vein thrombus, more than 5 cm in length. Continue apixaban Morbid obesity with a BMI of 48.8 For malnutrition due to multiple recent hospitalizations Nutritional consult as needed Reason for continued inpatient stay Substantial Risk for: harm to self, inability to function, rapid decompensation and med/psych decompensation Time Spent With Patient Time: Total time managing care of this patient today ____ minutes.
[2025-01-12 11:32] LABS: Glucose, Whole Blood 203 mg/dL (60-115)
[2025-01-12 16:17] LABS: Glucose, Whole Blood 196 mg/dL (60-115)
--- NOTE | 2025-01-12 17:11 | PC.NURSE ---
Patient pleasant and cooperative, compliant with medication, patient was able to get oob 2assist sit to stand, spent most of the day in the recliner. Continues endorsing low abdomen/bladder pain, medicated with PRN oxycodone 2.5mg, Renée is also c/o nausea and has been medicated with reglan with good effect. Nystatin powder requested from the pharmacy. Marshall catheter in place draining cloudy with sediment urine, catheter bag emptied for 850ml. UA culture pending. Patient family updated. Wound consult was requested, RN will see patient tomorrow 01/13 in early am, per wound RN patient to stay in bed for the skin assessment as they are not able to turn patient in the chair. VSS
[2025-01-12 20:00] VITALS: BP 117/69; PULSE 88; RESP 18; TEMP 36.6; O2SAT 96
[2025-01-12 20:56] LABS: Glucose, Whole Blood 158 mg/dL (60-115)
[2025-01-12] MEDS: Insulin Glargine,Hum.rec.anlog 100 UNIT/ML 10 ML VIAL 15 UNIT SUBCUT (21:03)
[2025-01-13 06:37] LABS: Glucose, Whole Blood 136 mg/dL (60-115)
--- NOTE | 2025-01-13 07:51 | HO.WOUND ---
Wound Consult: Initial 54 yr old female admitted to [facility] on 01/05/25- See progress notes and H&P for detailed history. Wound consult placed for buttock. Patient agreeable to assessment and photo documentation. Patient with alvarez catheter, fecal incontinence, deep gluteal fold. Patient with moist/macerated skin extending linearly in gluteal fold. there are two superficial areas of skin loss to left buttock area, not over bony prominence. Per notes, patient has been declining Q2h turns and repositioning, she has been choosing to sit up in chair for a greater portion of the day. Reinforced teaching that turns and repositions will aid in healing and prevent worsening. Moisture puts skin at higher risk for pressure injury development. Gluteal fold Etiology: MASD to gluteal fold/buttock Wound Bed: intact pink and blanching areas, with moist/macerated skin linearly in fold, two superficial open areas with moist pink/red bases Drainage / Odor: scant serous, no odor Nickolas wound: ? No Induration, Fluctuance or Warmth noted Pain: none Goals of Treatment: ?offloading, repositioning, triad to provide an occlusive dressing, to allow moist wound healing with absorption of mild exudate, to minimize contamination of urine/stool or bacteria, and to soothe and protect nickolas wound skin. Bilateral heels intact and blanching skin folds without redness, mild moisture- antifungal powder already in use Recommendations: 1. Turn and Reposition every 2 hours and as needed for patient comfort. Use pillows or wedges to support off loading positions. 2. Off Load all bony prominences with use of pillows and heel boots if needed. Apply Preventative foams where needed. 3. Monitor for incontinence and moisture control, use barrier creams when needed for prevention and treatment. 4. Provide adequate and supplemental nutrition. 5. Order or Continue low air loss mattress. 6. When applicable maintain blood glucose levels per Providers order. Gluteal fold/buttocks: Off Load Pressure with Q2 hr turns and use of pillows - Cleanse with PH balance spray or wipes, pat dry. ?Apply thin layer of Triad to wound bed. Do not remove all of paste between applications as this may cause further skin damage.? Cover with foam dressing to aid in off loading and protection from friction. Change every 3 days and PRN. Re-consult wound care Nurse for wound deterioration or wound changes.
--- NOTE | 2025-01-13 08:14 | HO.PSYCHPN ---
Subjective Subjective Date of Service: 01/13/25 Reason For Visit: depression with SI Subjective Notes: Muhammad Warning and Conditional Voluntary Healthcare Proxy: No Guardianship: No Medical Problems Affecting Mental Status: Yes (multiple comorbidities, limited mobility) Interim History: Admitted for depressive and anxiety symptoms, hopelessness and SI in the setting of a number of losses and anniversary of c;ose friend Patient indicated recently started on Sertraline, cannot tell when but did not want to increase In bed reports that she is tired, roommate up all night bc prepping for colonoscopy and she could not sleep Can be difficult to motivate to engage in some activities, ie, initially refused to allow RN to assess and provide skin care but reports she agreed later. No longer focused on losses or grief stricken/depressed and no SI No agitation/aggression Side effects from medications: No Attending Groups: Intermittent Review of Systems Medical Review of Systems: unchanged Review of Systems: no new medical issues reported by patient during our mtg Review of Systems Review of Systems Reviewed, no changes reported by pt Mental Status Exam Mental Status Exam Narrative: 54 yo female with a nuber of medical problems requiring NH care/rehab, admitted for depressive and anxiety symptoms, hopelessness and SI Diagnostics Vital Signs (24Hr): Vital Signs - 24 hr 01/12/25 20:00 Temperature 97.8 F Pulse Rate 88 Respiratory Rate 18 Blood Pressure 117/69 Pulse Oximetry 96 Oxygen Delivery Method Room Air BMI result Body Mass Index 48.8 Labs 01/06/25 07:08 Labs: Laboratory Results - last 48 hr 01/11/25 01/11/25 01/12/25 16:00 16:04 06:26 POC Glucose 182 H 118 H Urine Color Yellow Urine Appearance Turbid Urine pH 8.5 Ur Specific [place] 1.010 Urine Protein 100 (2+) H Urine Glucose (UA) Negative Urine Ketones Negative Urine Blood Moderate (2+) H Urine Nitrite Positive H Ur Leukocyte Esterase Large (3+) H Urine RBC 0-2 Urine WBC 21-50 Ur Squamous Epith Cells 0-2 Urine Bacteria 3+ Hyaline Casts 3-5 01/12/25 01/12/25 01/12/25 11:28 16:13 20:51 POC Glucose 203 H 196 H 158 H Urine Color Urine Appearance Urine pH Ur Specific [place] Urine Protein Urine Glucose (UA) Urine Ketones Urine Blood Urine Nitrite Ur Leukocyte Esterase Urine RBC Urine WBC Ur Squamous Epith Cells Urine Bacteria Hyaline Casts 01/13/25 06:29 POC Glucose 136 H Urine Color Urine Appearance Urine pH Ur Specific [place] Urine Protein Urine Glucose (UA) Urine Ketones Urine Blood Urine Nitrite Ur Leukocyte Esterase Urine RBC Urine WBC Ur Squamous Epith Cells Urine Bacteria Hyaline Casts UA ordered w/ reflex culture---results pending Medications Medications Current Medications Acetaminophen (Acetaminophen 325 Mg Tablet) 650 mg PO Q6H PRN PRN Reason: Headache/Pain, Scale 1-10 Last Admin: 01/12/25 02:14 Dose: 650 mg Al Hydroxide/Mg Hydroxide (Magnesium Hydrox/Alum Hydrox 30 Ml Oral.Susp) 30 ml PO Q6H PRN PRN Reason: Heartburn/Nausea Al Hydroxide/Mg Hydroxide (Magnesium Hydrox/Alum Hydrox 30 Ml Oral.Susp) 30 ml PO Q6H PRN PRN Reason: Heartburn/Nausea Apixaban (Apixaban 5 Mg Tablet) 5 mg PO BID [facility] Last Admin: 01/12/25 21:03 Dose: 5 mg Ascorbic Acid (Ascorbic Acid 500 Mg Tablet) 500 mg PO DAILY [facility] Last Admin: 01/12/25 09:33 Dose: 500 mg Aspirin (Aspirin 81 Mg Tab.Chew) 81 mg PO DAILY [facility] Last Admin: 01/12/25 09:33 Dose: 81 mg Calcium Carbonate/Cholecalciferol (Calcium + Vitamin D 250 Mg Tablet) 500 mg PO BIDWM [facility] Last Admin: 01/12/25 16:24 Dose: 500 mg Dextrose (Dextrose 50 % 25 Gm/50 Ml Syringe) 25 gm IVPUSH Q15M PRN; Protocol PRN Reason: per Hypoglycemia Standing Ord. Glucose (Glucose Gel 15 Gm Gel..Gram.) 15 gm PO Q15M PRN; Protocol PRN Reason: per Hypoglycemia Standing Ord. Hydroxyzine HCl (Hydroxyzine Hcl 25 Mg Tablet) 25 mg PO Q6H PRN PRN Reason: mild anxiety Insulin Glargine (Insulin Glargine,Hum.Rec.Anlog 100 Unit/Ml 10 Ml Vial) 15 unit SUBCUT BEDTIME [facility] Last Admin: 01/12/25 21:03 Dose: 15 unit Insulin Human Lispro (Insulin Lispro 100 Unit/Ml 3 Ml Vial) 0 unit SUBCUT QIDACHS [facility]; Protocol Last Admin: 01/13/25 07:50 Dose: Not Given Magnesium Hydroxide (Milk Of Magnesia 30 Ml Oral.Susp) 30 ml PO DAILY PRN PRN Reason: Constipation Magnesium Hydroxide (Milk Of Magnesia 30 Ml Oral.Susp) 30 ml PO DAILY PRN PRN Reason: Constipation Melatonin (Melatonin 3 Mg Tablet) 3 mg PO BEDTIME PRN PRN Reason: Insomnia Metoclopramide HCl (Metoclopramide Hcl 10 Mg Tablet) 10 mg PO Q6H PRN PRN Reason: Nausea and Vomiting Last Admin: 01/13/25 06:39 Dose: 10 mg Nicotine (Nicotine 21 Mg Patch.Td24) 21 mg TRANSDERMA DAILY PRN PRN Reason: nicotine craving Nicotine Polacrilex (Nicotine Polacrilex 2 Mg Gum) 2 mg BUCCAL Q2H PRN PRN Reason: Nicotine Cravings Nystatin (Nystatin Powder 15 Gm Bottle) 1 appl TOPICAL BID PRN; Protocol PRN Reason: Itching Olanzapine (Olanzapine 5 Mg Tablet) 5 mg PO BID PRN PRN Reason: agitation Omeprazole (Omeprazole 20 Mg Capsule.Dr) 20 mg PO DAILY@0630 [facility] Last Admin: 01/13/25 06:27 Dose: 20 mg Oxybutynin Chloride (Oxybutynin Chloride Er 5 Mg Tab.Er.24) 10 mg PO DAILY [facility] Last Admin: 01/12/25 09:32 Dose: 10 mg Oxycodone HCl (Oxycodone Hcl Immed Release 5 Mg Tablet) 2.5 mg PO Q4H PRN PRN Reason: Pain (Scale Score 7-10) Last Admin: 01/12/25 22:40 Dose: 2.5 mg Polyethylene Glycol (Polyethylene Glycol 3350 17 Gm Powd.Pack) 17 gm PO DAILY [facility] Last Admin: 01/12/25 09:33 Dose: 17 gm Senna/Docusate Sodium (Sennosides/Docusate Sodium Tablet) 1 tab PO DAILY PRN PRN Reason: Constipation Sertraline HCl (Sertraline Hcl 25 Mg Tablet) 25 mg PO DAILY [facility] Last Admin: 01/12/25 09:33 Dose: 25 mg Spironolactone (Spironolactone 25 Mg Tablet) 25 mg PO DAILY [facility]; Protocol Last Admin: 01/12/25 09:33 Dose: 25 mg Tamsulosin HCl (Tamsulosin Hcl 0.4 Mg Capsule) 0.4 mg PO DAILY [facility] Last Admin: 01/12/25 09:32 Dose: 0.4 mg Trazodone HCl (Trazodone Hcl 50 Mg Tablet) 50 mg PO BEDTIME [facility] Last Admin: 01/12/25 21:15 Dose: Not Given Trazodone HCl (Trazodone Hcl 50 Mg Tablet) 50 mg PO BEDTIME PRN PRN Reason: Insomnia Allergies Allergies Allergy/AdvReac Type Severity Reaction Status Date / Time piperacillin (From Zosyn) AdvReac Severe Rash Verified 01/05/25 19:15 tazobactam (From Zosyn) AdvReac Severe Rash Verified 01/05/25 19:15 antibiotic, unk name Allergy Vomiting Uncoded 06/01/23 10:31 Assessment & Plan Assessment & Plan (1) Depression, unspecified: Status: Acute Code(s): F32.A - Depression, unspecified (2) Suicidal ideation: Status: Acute Code(s): R45.851 - Suicidal ideations (3) Pulmonary embolism: Status: Acute Code(s): I26.99 - Other pulmonary embolism without acute cor pulmonale (4) HTN (hypertension): Status: Acute Code(s): I10 - Essential (primary) hypertension (5) Right femoral fracture: Status: Acute Code(s): S72.91XA - Unspecified fracture of right femur, initial encounter for closed fracture (6) Bladder spasm: Status: Acute Code(s): N32.89 - Other specified disorders of bladder (7) GERD (gastroesophageal reflux disease): Status: Acute Code(s): K21.9 - Gastro-esophageal reflux disease without esophagitis (8) Diabetes: Status: Acute Code(s): E11.9 - Type 2 diabetes mellitus without complications Plan Depressive disorder/SI/plan and intent in setting of loses/IP difficulties Multiple medical comorbidities and psychosocial stressors, including several admissions to SNF this year, folowing Femur fx Refusing recommendation to adjust antidepressant medications, states Sertraline recently added. In daily meetings she reiterates doesn't want changes, and seems to be brighter than upon arrival. 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 Deconditioned Type 2 diabetes Continue management per medicine recommendations Heart failure with preserved EF F/u by medicine: Continue Aldactone Held in the past due to hyperkalemia, continue to monitor. Patient last seen by Cardiology March 2024, previously on torsemide, likely held due to multiple recent hospitalizations and sepsis. Appears euvolemic on exam Hypertension Continue aspirin daily, not on any medications for hypertension Blood pressure within acceptable range Chronic indwelling Marshall catheter/history of ESBL UTI/bladder spasms Continue Ditropan and Flomax and vitamin-C Avoid collecting urine specimen unless symptoms specifically localized to urinary system GERD Continue omeprazole History of PE on Eliquis CTA in October/2024 acute PE in the right lower lobar artery as well as segmental branches of the right lower lobar pulmonary artery US LE significant for non-occlusive thrombi from right common femoral through common peroneal veins and left occlusive left greater saphenous vein thrombus, more than 5 cm in length. Continue apixaban Morbid obesity with a BMI of 48.8 For malnutrition due to multiple recent hospitalizations Nutritional consult as needed Patient educated on: diagnosis, medication risk/benefits, therapeutic strategies and medical condition Reason for continued inpatient stay Substantial Risk for: other (coordinating discharge to MD on Saturday or Saturday) Time Spent With Patient Time: Total time managing care of this patient today ____ minutes.
[2025-01-13 08:24] VITALS: BP 144/59; PULSE 86; RESP 16; TEMP 36.6; O2SAT 95
[2025-01-13] MEDS: Calcium + Vitamin D 250 MG TABLET 500 MG PO ×2 (08:36→16:08)
[2025-01-13] MEDS: oxyBUTYnin chloride ER 5 MG TAB.ER.24 10 MG PO (08:38)
[2025-01-13] MEDS: oxyCODONE HCl Immed Release 5 MG TABLET 2.5 MG PO ×2 (08:54→22:13)
[2025-01-13 11:26] LABS: Glucose, Whole Blood 178 mg/dL (60-115)
--- NOTE | 2025-01-13 11:33 | PC.NURSE ---
Patient refusing to eat, get repositioned off of her back and getting out of bed today. Dr. Horowitz updated, 1130 Lispro held, POC 178.
[2025-01-13 16:16] LABS: Glucose, Whole Blood 132 mg/dL (60-115)
--- NOTE | 2025-01-13 16:49 | PC.NURSE ---
Patient refused to eat, get out of bed or be repositioned until supper time. Her POC was 132 t 1610 and she was willing to get out of bed to eat supper and watch some TV. Skin care completed and Marshall catheter emptied of 1600cc of cloudy yellow urine, foul smelling with some sediment in bag.. Less redness in abdominal and groin folds, Nystatin powder applied. Dressing intact on buttocks, coccyx. Up to recliner with assistance of 3 to eat and social;ize. Patient less sarcastic and allowed this nurse to float her heels also. Patient drinking water all day. Took pills with vanilla yogurt and 8 ounces of cranberry juice.
--- NOTE | 2025-01-13 17:01 | PC.NURSE ---
Daughter Cheryl called and updated on patient's current condition, refusal to reposition, refusals to get out of bed, refusals to eat and skin condition. Daughter also told that patient is ready for discharge back to [facility] when they will accept her back.
[2025-01-13 20:00] VITALS: BP 125/65; PULSE 85; RESP 16; TEMP 36.3; O2SAT 93
[2025-01-13] MEDS: Insulin Glargine,Hum.rec.anlog 100 UNIT/ML 10 ML VIAL 15 UNIT SUBCUT (22:14)
[2025-01-14 06:59] LABS: Glucose, Whole Blood 129 mg/dL (60-115)
[2025-01-14 08:37] VITALS: BP 119/77; PULSE 84; RESP 14; TEMP 36.8; O2SAT 98
[2025-01-14] MEDS: Calcium + Vitamin D 250 MG TABLET 500 MG PO ×2 (08:48→17:06)
[2025-01-14] MEDS: oxyBUTYnin chloride ER 5 MG TAB.ER.24 10 MG PO (08:49)
--- NOTE | 2025-01-14 08:50 | P.PNPSI_ITS ---
Subjective Subjective Date of Service: 01/14/25 Reason For Visit: depression with SI Subjective Notes: Conditional Voluntary Interim History: Pt slept through the night. She is in bed. She denies any symptoms of depression or anxiety. She reports back pain- requesting oxy. VS stable.No behavioral concerns. Medication Compliance: Yes Mental Status Exam Mental Status Exam Narrative: Appearance: wearing hospital gown, MO, in NAD Behavior: cooperative, superficially at least Psychomotor: no agitation or retardation noted Speech: clear, normal rate/rhythm/volume, spontaneous TP: linear TC: pain management Mood: good Affect: congruent SI: none HI: none VH/AH: none Delusions: none Insight/judgment: fair x 2. Memory/cog: alert, oriented x 3. Diagnostics Vital Signs (24Hr): Vital Signs - 24 hr 01/13/25 20:00 01/14/25 08:37 Temperature 97.4 F 98.2 F Pulse Rate 85 84 Respiratory Rate 16 14 Blood Pressure 125/65 119/77 Pulse Oximetry 93 98 Oxygen Delivery Method Room Air Room Air BMI result Body Mass Index 48.8 Labs 01/06/25 07:08 Labs: Laboratory Results - last 48 hr 01/12/25 01/12/25 01/12/25 11:28 16:13 20:51 POC Glucose 203 H 196 H 158 H 01/13/25 01/13/25 01/13/25 06:29 11:18 16:07 POC Glucose 136 H 178 H 132 H 01/14/25 06:52 POC Glucose 129 H Medications Medications Current Medications Acetaminophen (Acetaminophen 325 Mg Tablet) 650 mg PO Q6H PRN PRN Reason: Headache/Pain, Scale 1-10 Last Admin: 01/12/25 02:14 Dose: 650 mg Al Hydroxide/Mg Hydroxide (Magnesium Hydrox/Alum Hydrox 30 Ml Oral.Susp) 30 ml PO Q6H PRN PRN Reason: Heartburn/Nausea Al Hydroxide/Mg Hydroxide (Magnesium Hydrox/Alum Hydrox 30 Ml Oral.Susp) 30 ml PO Q6H PRN PRN Reason: Heartburn/Nausea Apixaban (Apixaban 5 Mg Tablet) 5 mg PO BID [facility] Last Admin: 01/13/25 22:13 Dose: 5 mg Ascorbic Acid (Ascorbic Acid 500 Mg Tablet) 500 mg PO DAILY [facility] Last Admin: 01/13/25 08:36 Dose: 500 mg Aspirin (Aspirin 81 Mg Tab.Chew) 81 mg PO DAILY [facility] Last Admin: 01/13/25 08:37 Dose: 81 mg Calcium Carbonate/Cholecalciferol (Calcium + Vitamin D 250 Mg Tablet) 500 mg PO BIDWM [facility] Last Admin: 01/13/25 16:08 Dose: 500 mg Dextrose (Dextrose 50 % 25 Gm/50 Ml Syringe) 25 gm IVPUSH Q15M PRN; Protocol PRN Reason: per Hypoglycemia Standing Ord. Glucose (Glucose Gel 15 Gm Gel..Gram.) 15 gm PO Q15M PRN; Protocol PRN Reason: per Hypoglycemia Standing Ord. Hydroxyzine HCl (Hydroxyzine Hcl 25 Mg Tablet) 25 mg PO Q6H PRN PRN Reason: mild anxiety Insulin Glargine (Insulin Glargine,Hum.Rec.Anlog 100 Unit/Ml 10 Ml Vial) 15 unit SUBCUT BEDTIME [facility] Last Admin: 01/13/25 22:14 Dose: 15 unit Insulin Human Lispro (Insulin Lispro 100 Unit/Ml 3 Ml Vial) 0 unit SUBCUT QIDACHS [facility]; Protocol Last Admin: 01/13/25 22:41 Dose: Not Given Magnesium Hydroxide (Milk Of Magnesia 30 Ml Oral.Susp) 30 ml PO DAILY PRN PRN Reason: Constipation Magnesium Hydroxide (Milk Of Magnesia 30 Ml Oral.Susp) 30 ml PO DAILY PRN PRN Reason: Constipation Melatonin (Melatonin 3 Mg Tablet) 3 mg PO BEDTIME PRN PRN Reason: Insomnia Metoclopramide HCl (Metoclopramide Hcl 10 Mg Tablet) 10 mg PO Q6H PRN PRN Reason: Nausea and Vomiting Last Admin: 01/13/25 22:13 Dose: 10 mg Nicotine (Nicotine 21 Mg Patch.Td24) 21 mg TRANSDERMA DAILY PRN PRN Reason: nicotine craving Nicotine Polacrilex (Nicotine Polacrilex 2 Mg Gum) 2 mg BUCCAL Q2H PRN PRN Reason: Nicotine Cravings Nystatin (Nystatin Powder 15 Gm Bottle) 1 appl TOPICAL BID PRN; Protocol PRN Reason: Itching Olanzapine (Olanzapine 5 Mg Tablet) 5 mg PO BID PRN PRN Reason: agitation Omeprazole (Omeprazole 20 Mg Capsule.Dr) 20 mg PO DAILY@0630 [facility] Last Admin: 01/14/25 06:37 Dose: 20 mg Oxybutynin Chloride (Oxybutynin Chloride Er 5 Mg Tab.Er.24) 10 mg PO DAILY [facility] Last Admin: 01/13/25 08:38 Dose: 10 mg Oxycodone HCl (Oxycodone Hcl Immed Release 5 Mg Tablet) 2.5 mg PO Q4H PRN PRN Reason: Pain (Scale Score 7-10) Last Admin: 01/13/25 22:13 Dose: 2.5 mg Polyethylene Glycol (Polyethylene Glycol 3350 17 Gm Powd.Pack) 17 gm PO DAILY [facility] Last Admin: 01/13/25 08:40 Dose: 17 gm Senna/Docusate Sodium (Sennosides/Docusate Sodium Tablet) 1 tab PO DAILY PRN PRN Reason: Constipation Sertraline HCl (Sertraline Hcl 25 Mg Tablet) 25 mg PO DAILY [facility] Last Admin: 01/13/25 08:39 Dose: 25 mg Spironolactone (Spironolactone 25 Mg Tablet) 25 mg PO DAILY [facility]; Protocol Last Admin: 01/13/25 08:40 Dose: 25 mg Tamsulosin HCl (Tamsulosin Hcl 0.4 Mg Capsule) 0.4 mg PO DAILY [facility] Last Admin: 01/13/25 08:37 Dose: 0.4 mg Trazodone HCl (Trazodone Hcl 50 Mg Tablet) 50 mg PO BEDTIME [facility] Last Admin: 01/13/25 22:14 Dose: 50 mg Trazodone HCl (Trazodone Hcl 50 Mg Tablet) 50 mg PO BEDTIME PRN PRN Reason: Insomnia Allergies Allergies Allergy/AdvReac Type Severity Reaction Status Date / Time piperacillin (From Zosyn) AdvReac Severe Rash Verified 01/05/25 19:15 tazobactam (From Zosyn) AdvReac Severe Rash Verified 01/05/25 19:15 antibiotic, unk name Allergy Vomiting Uncoded 06/01/23 10:31 Assessment & Plan Assessment & Plan (1) Depression, unspecified: Status: Acute Code(s): F32.A - Depression, unspecified (2) Suicidal ideation: Status: Acute Code(s): R45.851 - Suicidal ideations (3) Pulmonary embolism: Status: Acute Code(s): I26.99 - Other pulmonary embolism without acute cor pulmonale (4) HTN (hypertension): Status: Acute Code(s): I10 - Essential (primary) hypertension (5) Right femoral fracture: Status: Acute Code(s): S72.91XA - Unspecified fracture of right femur, initial encounter for closed fracture (6) Bladder spasm: Status: Acute Code(s): N32.89 - Other specified disorders of bladder (7) GERD (gastroesophageal reflux disease): Status: Acute Code(s): K21.9 - Gastro-esophageal reflux disease without esophagitis (8) Diabetes: Status: Acute Code(s): E11.9 - Type 2 diabetes mellitus without complications Plan 01/14 denies SI/HI, denies symptoms of depression or anxiety. hoping to d/c soon. VS stable. taking medications as prescribed. Reason for continued inpatient stay Substantial Risk for: inability to function Time Spent With Patient Time: Total time managing care of this patient today ____ minutes.
[2025-01-14 11:20] LABS: Glucose, Whole Blood 180 mg/dL (60-115)
[2025-01-14 13:44] VITALS: BMI 47.5
[2025-01-14 16:16] LABS: Glucose, Whole Blood 150 mg/dL (60-115)
[2025-01-14 20:00] VITALS: BP 128/65; PULSE 87; RESP 16; TEMP 36.7; O2SAT 96
[2025-01-14] MEDS: Insulin Glargine,Hum.rec.anlog 100 UNIT/ML 10 ML VIAL 15 UNIT SUBCUT (21:57)
[2025-01-14] MEDS: oxyCODONE HCl Immed Release 5 MG TABLET PO (21:57)
[2025-01-15 06:37] LABS: Glucose, Whole Blood 113 mg/dL (60-115)
[2025-01-15 08:05] VITALS: BP 145/76; PULSE 84; RESP 18; TEMP 36.8; O2SAT 97
[2025-01-15] MEDS: oxyBUTYnin chloride ER 5 MG TAB.ER.24 10 MG PO (08:34)
--- NOTE | 2025-01-15 09:26 | HO.PSYCHPN ---
Subjective Subjective Date of Service: 01/15/25 Reason For Visit: depression with SI Subjective Notes: Conditional Voluntary Interim History: Pt in bed. She says she feels well and denies any symptoms of depression or anxiety. VS stable.No behavioral concerns. Medication Compliance: Yes Mental Status Exam Mental Status Exam Narrative: Appearance: wearing hospital gown, in bed, in NAD Behavior: cooperative, superficial Psychomotor: no agitation or retardation noted Speech: clear, normal rate/rhythm/volume, spontaneous TP: linear, goal oriented TC: organized no delusions future orientsd Mood: good Affect: congruent SI: none HI: none VH/AH: none Delusions: none Insight/judgment: fair x 2. Memory/cog: alert, oriented x 3. Diagnostics Vital Signs (24Hr): Vital Signs - 24 hr 01/14/25 20:00 Temperature 98.1 F Pulse Rate 87 Respiratory Rate 16 Blood Pressure 128/65 Pulse Oximetry 96 Oxygen Delivery Method Room Air BMI result Body Mass Index 47.5 Labs 01/06/25 07:08 Labs: Laboratory Results - last 48 hr 01/13/25 01/13/25 01/14/25 11:18 16:07 06:52 POC Glucose 178 H 132 H 129 H 01/14/25 01/14/25 01/15/25 11:16 16:09 06:32 POC Glucose 180 H 150 H 113 Medications Medications Current Medications Acetaminophen (Acetaminophen 325 Mg Tablet) 650 mg PO Q6H PRN PRN Reason: Headache/Pain, Scale 1-10 Last Admin: 01/12/25 02:14 Dose: 650 mg Al Hydroxide/Mg Hydroxide (Magnesium Hydrox/Alum Hydrox 30 Ml Oral.Susp) 30 ml PO Q6H PRN PRN Reason: Heartburn/Nausea Apixaban (Apixaban 5 Mg Tablet) 5 mg PO BID [facility] Last Admin: 01/15/25 08:34 Dose: 5 mg Ascorbic Acid (Ascorbic Acid 500 Mg Tablet) 500 mg PO DAILY [facility] Last Admin: 01/15/25 08:35 Dose: 500 mg Aspirin (Aspirin 81 Mg Tab.Chew) 81 mg PO DAILY [facility] Last Admin: 01/15/25 08:35 Dose: 81 mg Calcium Carbonate/Cholecalciferol (Calcium + Vitamin D 250 Mg Tablet) 500 mg PO BIDWM [facility] Last Admin: 01/15/25 08:42 Dose: Not Given Dextrose (Dextrose 50 % 25 Gm/50 Ml Syringe) 25 gm IVPUSH Q15M PRN; Protocol PRN Reason: per Hypoglycemia Standing Ord. Glucose (Glucose Gel 15 Gm Gel..Gram.) 15 gm PO Q15M PRN; Protocol PRN Reason: per Hypoglycemia Standing Ord. Hydroxyzine HCl (Hydroxyzine Hcl 25 Mg Tablet) 25 mg PO Q6H PRN PRN Reason: mild anxiety Insulin Glargine (Insulin Glargine,Hum.Rec.Anlog 100 Unit/Ml 10 Ml Vial) 15 unit SUBCUT BEDTIME [facility] Last Admin: 01/14/25 21:57 Dose: 15 unit Insulin Human Lispro (Insulin Lispro 100 Unit/Ml 3 Ml Vial) 0 unit SUBCUT QIDACHS [facility]; Protocol Last Admin: 01/15/25 08:35 Dose: Not Given Magnesium Hydroxide (Milk Of Magnesia 30 Ml Oral.Susp) 30 ml PO DAILY PRN PRN Reason: Constipation Magnesium Hydroxide (Milk Of Magnesia 30 Ml Oral.Susp) 30 ml PO DAILY PRN PRN Reason: Constipation Melatonin (Melatonin 3 Mg Tablet) 3 mg PO BEDTIME PRN PRN Reason: Insomnia Metoclopramide HCl (Metoclopramide Hcl 10 Mg Tablet) 10 mg PO Q6H PRN PRN Reason: Nausea and Vomiting Last Admin: 01/15/25 06:11 Dose: 10 mg Nicotine (Nicotine 21 Mg Patch.Td24) 21 mg TRANSDERMA DAILY PRN PRN Reason: nicotine craving Nicotine Polacrilex (Nicotine Polacrilex 2 Mg Gum) 2 mg BUCCAL Q2H PRN PRN Reason: Nicotine Cravings Nystatin (Nystatin Powder 15 Gm Bottle) 1 appl TOPICAL BID PRN; Protocol PRN Reason: Itching Last Admin: 01/15/25 06:11 Dose: 1 appl Olanzapine (Olanzapine 5 Mg Tablet) 5 mg PO BID PRN PRN Reason: agitation Omeprazole (Omeprazole 20 Mg Capsule.Dr) 20 mg PO DAILY@0630 [facility] Last Admin: 01/15/25 06:11 Dose: 20 mg Oxybutynin Chloride (Oxybutynin Chloride Er 5 Mg Tab.Er.24) 10 mg PO DAILY [facility] Last Admin: 01/15/25 08:34 Dose: 10 mg Oxycodone HCl (Oxycodone Hcl Immed Release 5 Mg Tablet) 5 mg PO BID PRN PRN Reason: severe, pain Last Admin: 01/14/25 21:57 Dose: 5 mg Polyethylene Glycol (Polyethylene Glycol 3350 17 Gm Powd.Pack) 17 gm PO DAILY [facility] Last Admin: 01/15/25 08:35 Dose: 17 gm Senna/Docusate Sodium (Sennosides/Docusate Sodium Tablet) 1 tab PO DAILY PRN PRN Reason: Constipation Sertraline HCl (Sertraline Hcl 25 Mg Tablet) 25 mg PO DAILY [facility] Last Admin: 01/15/25 08:34 Dose: 25 mg Spironolactone (Spironolactone 25 Mg Tablet) 25 mg PO DAILY [facility]; Protocol Last Admin: 01/15/25 08:35 Dose: 25 mg Tamsulosin HCl (Tamsulosin Hcl 0.4 Mg Capsule) 0.4 mg PO DAILY [facility] Last Admin: 01/15/25 08:34 Dose: 0.4 mg Trazodone HCl (Trazodone Hcl 50 Mg Tablet) 50 mg PO BEDTIME [facility] Last Admin: 01/14/25 21:57 Dose: 50 mg Trazodone HCl (Trazodone Hcl 50 Mg Tablet) 50 mg PO BEDTIME PRN PRN Reason: Insomnia Allergies Allergies Allergy/AdvReac Type Severity Reaction Status Date / Time piperacillin (From Zosyn) AdvReac Severe Rash Verified 01/05/25 19:15 tazobactam (From Zosyn) AdvReac Severe Rash Verified 01/05/25 19:15 antibiotic, unk name Allergy Vomiting Uncoded 06/01/23 10:31 Assessment & Plan Assessment & Plan (1) Depression, unspecified: Status: Acute Code(s): F32.A - Depression, unspecified (2) Suicidal ideation: Status: Acute Code(s): R45.851 - Suicidal ideations (3) Pulmonary embolism: Status: Acute Code(s): I26.99 - Other pulmonary embolism without acute cor pulmonale (4) HTN (hypertension): Status: Acute Code(s): I10 - Essential (primary) hypertension (5) Right femoral fracture: Status: Acute Code(s): S72.91XA - Unspecified fracture of right femur, initial encounter for closed fracture (6) Bladder spasm: Status: Acute Code(s): N32.89 - Other specified disorders of bladder (7) GERD (gastroesophageal reflux disease): Status: Acute Code(s): K21.9 - Gastro-esophageal reflux disease without esophagitis (8) Diabetes: Status: Acute Code(s): E11.9 - Type 2 diabetes mellitus without complications Plan 01/14 denies SI/HI, denies symptoms of depression or anxiety. hoping to d/c soon. VS stable. taking medications as prescribed. Reason for continued inpatient stay Substantial Risk for: inability to function Time Spent With Patient Time: Total time managing care of this patient today __15__ minutes.
[2025-01-15 11:33] LABS: Glucose, Whole Blood 152 mg/dL (60-115)
[2025-01-15 16:14] LABS: Glucose, Whole Blood 177 mg/dL (60-115)
[2025-01-15] MEDS: Calcium + Vitamin D 250 MG TABLET 500 MG PO (16:27)
[2025-01-15 20:00] VITALS: BP 127/66; PULSE 85; RESP 18; TEMP 36.6; O2SAT 99
[2025-01-15] MEDS: Insulin Glargine,Hum.rec.anlog 100 UNIT/ML 10 ML VIAL 15 UNIT SUBCUT (21:04)
[2025-01-15] MEDS: oxyCODONE HCl Immed Release 5 MG TABLET PO (21:05)
[2025-01-16 06:59] LABS: Glucose, Whole Blood 129 mg/dL (60-115)
[2025-01-16 08:00] VITALS: BP 121/68; PULSE 83; RESP 17; TEMP 36.3; O2SAT 95
--- NOTE | 2025-01-16 08:34 | HO.PSYCHPN ---
Subjective Subjective Date of Service: 01/16/25 Reason For Visit: depression with SI Interim History: Pt in bed. She says she feels well and denies any symptoms of depression or anxiety. VS stable.No behavioral concerns. Review of Systems Review of Systems Reviewed, no changes reported by pt Yes all other systems are reviewed and are negative Constitutional: Reports as per HPI Eyes: Reports as per HPI Reports as per HPI Cardiovascular: Reports as per HPI Respiratory: Reports as per HPI Gastrointestinal: Reports as per HPI Musculoskeletal: Reports as per HPI Skin/Breast: Reports as per HPI Reports as per HPI Psychiatric: Reports no additional psychiatric complaints, Reports as per HPI, Reports anxiety, Reports depression, Reports hopelessness, Reports irritability, Reports suicidal ideation and Reports other (grief, difficulty coping with feelings of loss/abandonment) Endocrine: Reports no additional endocrine complaints and Reports as per HPI Hematologic/Lymphatic: Reports as per HPI Allergic/Immunologic: Reports as per HPI Mental Status Exam Mental Status Exam Narrative: Appearance: wearing hospital gown, in bed, in NAD Behavior: cooperative, superficial Psychomotor: no agitation or retardation noted Speech: clear, normal rate/rhythm/volume, spontaneous TP: linear, goal oriented TC: organized no delusions future orientsd Mood: good Affect: congruent SI: none HI: none VH/AH: none Delusions: none Insight/judgment: fair x 2. Memory/cog: alert, oriented x 3. Diagnostics Vital Signs (24Hr): Vital Signs - 24 hr 01/15/25 20:00 Temperature 97.9 F Pulse Rate 85 Respiratory Rate 18 Blood Pressure 127/66 Pulse Oximetry 99 Oxygen Delivery Method Room Air BMI result Body Mass Index 47.5 Labs 01/06/25 07:08 Labs: Laboratory Results - last 48 hr 01/14/25 01/14/25 01/15/25 11:16 16:09 06:32 POC Glucose 180 H 150 H 113 01/15/25 01/15/25 01/16/25 11:28 16:10 06:49 POC Glucose 152 H 177 H 129 H Medications Medications Current Medications Acetaminophen (Acetaminophen 325 Mg Tablet) 650 mg PO Q6H PRN PRN Reason: Headache/Pain, Scale 1-10 Last Admin: 01/12/25 02:14 Dose: 650 mg Al Hydroxide/Mg Hydroxide (Magnesium Hydrox/Alum Hydrox 30 Ml Oral.Susp) 30 ml PO Q6H PRN PRN Reason: Heartburn/Nausea Apixaban (Apixaban 5 Mg Tablet) 5 mg PO BID [facility] Last Admin: 01/15/25 21:05 Dose: 5 mg Ascorbic Acid (Ascorbic Acid 500 Mg Tablet) 500 mg PO DAILY [facility] Last Admin: 01/15/25 08:35 Dose: 500 mg Aspirin (Aspirin 81 Mg Tab.Chew) 81 mg PO DAILY [facility] Last Admin: 01/15/25 08:35 Dose: 81 mg Calcium Carbonate/Cholecalciferol (Calcium + Vitamin D 250 Mg Tablet) 500 mg PO BIDWM [facility] Last Admin: 01/15/25 16:27 Dose: 500 mg Dextrose (Dextrose 50 % 25 Gm/50 Ml Syringe) 25 gm IVPUSH Q15M PRN; Protocol PRN Reason: per Hypoglycemia Standing Ord. Glucose (Glucose Gel 15 Gm Gel..Gram.) 15 gm PO Q15M PRN; Protocol PRN Reason: per Hypoglycemia Standing Ord. Hydroxyzine HCl (Hydroxyzine Hcl 25 Mg Tablet) 25 mg PO Q6H PRN PRN Reason: mild anxiety Insulin Glargine (Insulin Glargine,Hum.Rec.Anlog 100 Unit/Ml 10 Ml Vial) 15 unit SUBCUT BEDTIME [facility] Last Admin: 01/15/25 21:04 Dose: 15 unit Insulin Human Lispro (Insulin Lispro 100 Unit/Ml 3 Ml Vial) 0 unit SUBCUT QIDACHS [facility]; Protocol Last Admin: 01/15/25 21:06 Dose: Not Given Magnesium Hydroxide (Milk Of Magnesia 30 Ml Oral.Susp) 30 ml PO DAILY PRN PRN Reason: Constipation Magnesium Hydroxide (Milk Of Magnesia 30 Ml Oral.Susp) 30 ml PO DAILY PRN PRN Reason: Constipation Melatonin (Melatonin 3 Mg Tablet) 3 mg PO BEDTIME PRN PRN Reason: Insomnia Metoclopramide HCl (Metoclopramide Hcl 10 Mg Tablet) 10 mg PO Q6H PRN PRN Reason: Nausea and Vomiting Last Admin: 01/16/25 06:57 Dose: 10 mg Nicotine (Nicotine 21 Mg Patch.Td24) 21 mg TRANSDERMA DAILY PRN PRN Reason: nicotine craving Nicotine Polacrilex (Nicotine Polacrilex 2 Mg Gum) 2 mg BUCCAL Q2H PRN PRN Reason: Nicotine Cravings Nystatin (Nystatin Powder 15 Gm Bottle) 1 appl TOPICAL BID PRN; Protocol PRN Reason: Itching Last Admin: 01/15/25 06:11 Dose: 1 appl Olanzapine (Olanzapine 5 Mg Tablet) 5 mg PO BID PRN PRN Reason: agitation Omeprazole (Omeprazole 20 Mg Capsule.Dr) 20 mg PO DAILY@0630 [facility] Last Admin: 01/16/25 06:46 Dose: 20 mg Oxybutynin Chloride (Oxybutynin Chloride Er 5 Mg Tab.Er.24) 10 mg PO DAILY [facility] Last Admin: 01/15/25 08:34 Dose: 10 mg Oxycodone HCl (Oxycodone Hcl Immed Release 5 Mg Tablet) 5 mg PO BID PRN PRN Reason: severe, pain Last Admin: 01/15/25 21:05 Dose: 5 mg Polyethylene Glycol (Polyethylene Glycol 3350 17 Gm Powd.Pack) 17 gm PO DAILY [facility] Last Admin: 01/15/25 08:35 Dose: 17 gm Senna/Docusate Sodium (Sennosides/Docusate Sodium Tablet) 1 tab PO DAILY PRN PRN Reason: Constipation Sertraline HCl (Sertraline Hcl 25 Mg Tablet) 25 mg PO DAILY [facility] Last Admin: 01/15/25 08:34 Dose: 25 mg Spironolactone (Spironolactone 25 Mg Tablet) 25 mg PO DAILY [facility]; Protocol Last Admin: 01/15/25 08:35 Dose: 25 mg Tamsulosin HCl (Tamsulosin Hcl 0.4 Mg Capsule) 0.4 mg PO DAILY [facility] Last Admin: 01/15/25 08:34 Dose: 0.4 mg Trazodone HCl (Trazodone Hcl 50 Mg Tablet) 50 mg PO BEDTIME [facility] Last Admin: 01/15/25 21:06 Dose: 50 mg Trazodone HCl (Trazodone Hcl 50 Mg Tablet) 50 mg PO BEDTIME PRN PRN Reason: Insomnia Last Admin: 01/15/25 21:13 Dose: 50 mg Allergies Allergies Allergy/AdvReac Type Severity Reaction Status Date / Time piperacillin (From Zosyn) AdvReac Severe Rash Verified 01/05/25 19:15 tazobactam (From Zosyn) AdvReac Severe Rash Verified 01/05/25 19:15 antibiotic, unk name Allergy Vomiting Uncoded 06/01/23 10:31 Assessment & Plan Assessment & Plan (1) Depression, unspecified: Status: Acute Code(s): F32.A - Depression, unspecified (2) Suicidal ideation: Status: Acute Code(s): R45.851 - Suicidal ideations (3) Pulmonary embolism: Status: Acute Code(s): I26.99 - Other pulmonary embolism without acute cor pulmonale (4) HTN (hypertension): Status: Acute Code(s): I10 - Essential (primary) hypertension (5) Right femoral fracture: Status: Acute Code(s): S72.91XA - Unspecified fracture of right femur, initial encounter for closed fracture (6) Bladder spasm: Status: Acute Code(s): N32.89 - Other specified disorders of bladder (7) GERD (gastroesophageal reflux disease): Status: Acute Code(s): K21.9 - Gastro-esophageal reflux disease without esophagitis (8) Diabetes: Status: Acute Code(s): E11.9 - Type 2 diabetes mellitus without complications Plan 01/14 denies SI/HI, denies symptoms of depression or anxiety. hoping to d/c soon. VS stable. taking medications as prescribed. 01/16 continues to denied psychiatric symptoms. looking forward to return to LTC. Reason for continued inpatient stay Substantial Risk for: inability to function Time Spent With Patient Time: Total time managing care of this patient today ____ minutes.
[2025-01-16 09:38] VITALS: BP 121/68
[2025-01-16] MEDS: oxyBUTYnin chloride ER 5 MG TAB.ER.24 10 MG PO (09:39)
[2025-01-16] MEDS: oxyCODONE HCl Immed Release 5 MG TABLET PO (13:03)
[2025-01-16 16:09] LABS: Glucose, Whole Blood 161 mg/dL (60-115)
[2025-01-16 16:21] LABS: Glucose, Whole Blood 180 mg/dL (60-115)
[2025-01-16 20:00] VITALS: BP 104/59; PULSE 84; RESP 18; TEMP 36.7; O2SAT 97
[2025-01-16] MEDS: Insulin Glargine,Hum.rec.anlog 100 UNIT/ML 10 ML VIAL 15 UNIT SUBCUT (22:00)
[2025-01-17 07:16] LABS: Glucose, Whole Blood 133 mg/dL (60-115)
[2025-01-17 08:00] VITALS: BP 123/63; PULSE 78; RESP 16; O2SAT 96
[2025-01-17] MEDS: oxyBUTYnin chloride ER 5 MG TAB.ER.24 10 MG PO (10:29)
[2025-01-17 11:33] LABS: Glucose, Whole Blood 184 mg/dL (60-115)
--- NOTE | 2025-01-17 13:09 | PC.NURSE ---
PT INCONTINENT OF STOOL AT 1255. PT CLEANED, BEDDING CHANGE, BARRIER CREAM AND NEW FOAM DRESSING APPLIED TO LEFT BUTTOCKS. URINE IN BRITTON CATHETER TUBING LOOKED CLOUDY. RN MADE VANDANA SEPULVEDA AWARE.
[2025-01-17] MEDS: oxyCODONE HCl Immed Release 5 MG TABLET PO ×2 (14:33→22:06)
[2025-01-17 15:23] LABS: Appearance Urine Cloudy; Glucose Urine UA Negative (Negative); PH 8.0 (5.0-9.0); Specific Gravity - Urine <= 1.005 (1.005-1.025); UMIC TRIGGER UACC YES
[2025-01-17 16:11] LABS: UACC Culture Trigger YES
[2025-01-17 16:25] LABS: Glucose, Whole Blood 148 mg/dL (60-115)
[2025-01-17 20:00] VITALS: BP 109/60; PULSE 85; RESP 18; TEMP 36.4; O2SAT 96
--- NOTE | 2025-01-17 20:32 | P.PNPSI_ITS ---
Subjective Subjective Date of Service: 01/17/25 Reason For Visit: depression with SI Interim History: Pt in bed. She says she feels well and denies any symptoms of depression or anxiety. VS stable.No behavioral concerns. Review of Systems Review of Systems Reviewed, no changes reported by pt Yes all other systems are reviewed and are negative Constitutional: Reports as per HPI Eyes: Reports as per HPI Reports as per HPI Cardiovascular: Reports as per HPI Respiratory: Reports as per HPI Gastrointestinal: Reports as per HPI Musculoskeletal: Reports as per HPI Skin/Breast: Reports as per HPI Reports as per HPI Psychiatric: Reports no additional psychiatric complaints, Reports as per HPI, Reports anxiety, Reports depression, Reports hopelessness, Reports irritability, Reports suicidal ideation and Reports other (grief, difficulty coping with feelings of loss/abandonment) Endocrine: Reports no additional endocrine complaints and Reports as per HPI Hematologic/Lymphatic: Reports as per HPI Allergic/Immunologic: Reports as per HPI Mental Status Exam Mental Status Exam Narrative: Appearance: wearing hospital gown, in bed, in NAD Behavior: cooperative, superficial Psychomotor: no agitation or retardation noted Speech: clear, normal rate/rhythm/volume, spontaneous TP: linear, goal oriented TC: organized no delusions future orientsd Mood: good Affect: congruent SI: none HI: none VH/AH: none Delusions: none Insight/judgment: fair x 2. Memory/cog: alert, oriented x 3. Diagnostics Vital Signs (24Hr): Vital Signs - 24 hr 01/17/25 08:00 Pulse Rate 78 Respiratory Rate 16 Blood Pressure 123/63 Pulse Oximetry 96 Oxygen Delivery Method Room Air BMI result Body Mass Index 47.5 Labs 01/06/25 07:08 Labs: Laboratory Results - last 48 hr 01/16/25 01/16/25 01/16/25 06:49 11:37 16:16 POC Glucose 129 H 161 H 180 H Urine Color Urine Appearance Urine pH Ur Specific [place] Urine Protein Urine Glucose (UA) Urine Ketones Urine Blood Urine Nitrite Ur Leukocyte Esterase Urine RBC Urine WBC Ur Squamous Epith Cells Urine Bacteria Hyaline Casts 01/17/25 01/17/25 01/17/25 06:54 11:28 14:54 POC Glucose 133 H 184 H Urine Color Yellow Urine Appearance Cloudy Urine pH 8.0 Ur Specific [place] <= 1.005 Urine Protein Trace Urine Glucose (UA) Negative Urine Ketones Negative Urine Blood Small (1+) H Urine Nitrite Positive H Ur Leukocyte Esterase Large (3+) H Urine RBC 0-2 Urine WBC >50 H Ur Squamous Epith Cells 0-2 Urine Bacteria 4+ Hyaline Casts -01/17/25 16:21 POC Glucose 148 H Urine Color Urine Appearance Urine pH Ur Specific [place] Urine Protein Urine Glucose (UA) Urine Ketones Urine Blood Urine Nitrite Ur Leukocyte Esterase Urine RBC Urine WBC Ur Squamous Epith Cells Urine Bacteria Hyaline Casts Medications Medications Current Medications Acetaminophen (Acetaminophen 325 Mg Tablet) 650 mg PO Q6H PRN PRN Reason: Headache/Pain, Scale 1-10 Last Admin: 01/12/25 02:14 Dose: 650 mg Al Hydroxide/Mg Hydroxide (Magnesium Hydrox/Alum Hydrox 30 Ml Oral.Susp) 30 ml PO Q6H PRN PRN Reason: Heartburn/Nausea Apixaban (Apixaban 5 Mg Tablet) 5 mg PO BID [facility] Last Admin: 01/17/25 10:28 Dose: 5 mg Ascorbic Acid (Ascorbic Acid 500 Mg Tablet) 500 mg PO DAILY [facility] Last Admin: 01/17/25 09:55 Dose: Not Given Aspirin (Aspirin 81 Mg Tab.Chew) 81 mg PO DAILY [facility] Last Admin: 01/17/25 10:29 Dose: 81 mg Calcium Carbonate/Cholecalciferol (Calcium + Vitamin D 250 Mg Tablet) 500 mg PO BIDWM [facility] Last Admin: 01/17/25 16:05 Dose: Not Given Dextrose (Dextrose 50 % 25 Gm/50 Ml Syringe) 25 gm IVPUSH Q15M PRN; Protocol PRN Reason: per Hypoglycemia Standing Ord. Glucose (Glucose Gel 15 Gm Gel..Gram.) 15 gm PO Q15M PRN; Protocol PRN Reason: per Hypoglycemia Standing Ord. Hydroxyzine HCl (Hydroxyzine Hcl 25 Mg Tablet) 25 mg PO Q6H PRN PRN Reason: mild anxiety Insulin Glargine (Insulin Glargine,Hum.Rec.Anlog 100 Unit/Ml 10 Ml Vial) 15 unit SUBCUT BEDTIME [facility] Last Admin: 01/16/25 22:00 Dose: 15 unit Insulin Human Lispro (Insulin Lispro 100 Unit/Ml 3 Ml Vial) 0 unit SUBCUT QIDACHS [facility]; Protocol Last Admin: 01/17/25 16:22 Dose: Not Given Magnesium Hydroxide (Milk Of Magnesia 30 Ml Oral.Susp) 30 ml PO DAILY PRN PRN Reason: Constipation Magnesium Hydroxide (Milk Of Magnesia 30 Ml Oral.Susp) 30 ml PO DAILY PRN PRN Reason: Constipation Melatonin (Melatonin 3 Mg Tablet) 3 mg PO BEDTIME PRN PRN Reason: Insomnia Metoclopramide HCl (Metoclopramide Hcl 10 Mg Tablet) 10 mg PO Q6H PRN PRN Reason: Nausea and Vomiting Last Admin: 01/17/25 14:38 Dose: 10 mg Nicotine (Nicotine 21 Mg Patch.Td24) 21 mg TRANSDERMA DAILY PRN PRN Reason: nicotine craving Nicotine Polacrilex (Nicotine Polacrilex 2 Mg Gum) 2 mg BUCCAL Q2H PRN PRN Reason: Nicotine Cravings Nystatin (Nystatin Powder 15 Gm Bottle) 1 appl TOPICAL BID PRN; Protocol PRN Reason: Itching Last Admin: 01/17/25 10:31 Dose: 1 appl Olanzapine (Olanzapine 5 Mg Tablet) 5 mg PO BID PRN PRN Reason: agitation Omeprazole (Omeprazole 20 Mg Capsule.Dr) 20 mg PO DAILY@0630 [facility] Last Admin: 01/17/25 06:52 Dose: 20 mg Oxybutynin Chloride (Oxybutynin Chloride Er 5 Mg Tab.Er.24) 10 mg PO DAILY [facility] Last Admin: 01/17/25 10:29 Dose: 10 mg Oxycodone HCl (Oxycodone Hcl Immed Release 5 Mg Tablet) 5 mg PO Q4H PRN PRN Reason: severe, pain Polyethylene Glycol (Polyethylene Glycol 3350 17 Gm Powd.Pack) 17 gm PO DAILY [facility] Last Admin: 01/17/25 10:27 Dose: 17 gm Senna/Docusate Sodium (Sennosides/Docusate Sodium Tablet) 1 tab PO DAILY PRN PRN Reason: Constipation Sertraline HCl (Sertraline Hcl 25 Mg Tablet) 25 mg PO DAILY [facility] Last Admin: 01/17/25 10:29 Dose: 25 mg Spironolactone (Spironolactone 25 Mg Tablet) 25 mg PO DAILY [facility]; Protocol Last Admin: 01/17/25 10:28 Dose: 25 mg Tamsulosin HCl (Tamsulosin Hcl 0.4 Mg Capsule) 0.4 mg PO DAILY [facility] Last Admin: 01/17/25 10:29 Dose: 0.4 mg Trazodone HCl (Trazodone Hcl 50 Mg Tablet) 50 mg PO BEDTIME [facility] Last Admin: 01/16/25 21:59 Dose: 50 mg Trazodone HCl (Trazodone Hcl 50 Mg Tablet) 50 mg PO BEDTIME PRN PRN Reason: Insomnia Last Admin: 01/16/25 22:02 Dose: 50 mg Allergies Allergies Allergy/AdvReac Type Severity Reaction Status Date / Time piperacillin (From Zosyn) AdvReac Severe Rash Verified 01/05/25 19:15 tazobactam (From Zosyn) AdvReac Severe Rash Verified 01/05/25 19:15 antibiotic, unk name Allergy Vomiting Uncoded 06/01/23 10:31 Assessment & Plan Assessment & Plan (1) Depression, unspecified: Status: Acute Code(s): F32.A - Depression, unspecified (2) Suicidal ideation: Status: Acute Code(s): R45.851 - Suicidal ideations (3) Pulmonary embolism: Status: Acute Code(s): I26.99 - Other pulmonary embolism without acute cor pulmonale (4) HTN (hypertension): Status: Acute Code(s): I10 - Essential (primary) hypertension (5) Right femoral fracture: Status: Acute Code(s): S72.91XA - Unspecified fracture of right femur, initial encounter for closed fracture (6) Bladder spasm: Status: Acute Code(s): N32.89 - Other specified disorders of bladder (7) GERD (gastroesophageal reflux disease): Status: Acute Code(s): K21.9 - Gastro-esophageal reflux disease without esophagitis (8) Diabetes: Status: Acute Code(s): E11.9 - Type 2 diabetes mellitus without complications Plan 01/14 denies SI/HI, denies symptoms of depression or anxiety. hoping to d/c soon. VS stable. taking medications as prescribed. 01/16 continues to denied psychiatric symptoms. looking forward to return to LTC. 01/17 foul odor urine, UA shows +blood, +nitrites, +bacteria. will start ceftin 500mg po BID x 7 days. also adjusted oxycodone 5mg dose to q4h prn. plan to d/c tomorrow. Reason for continued inpatient stay Substantial Risk for: inability to function Time Spent With Patient Time: Total time managing care of this patient today ____ minutes.
[2025-01-17] MEDS: Insulin Glargine,Hum.rec.anlog 100 UNIT/ML 10 ML VIAL 15 UNIT SUBCUT (22:06)
[2025-01-18 06:35] LABS: Glucose, Whole Blood 122 mg/dL (60-115)
--- NOTE | 2025-01-18 08:08 | PM.PSYDC ---
DS: Providers Provider Date of Service: 01/18/25 Date of admission: 01/05/25 19:10 Date of discharge: 01/18/25 Primary care physician: Emeterio Grace MD Admitting clinician: Charlotte Horowitz Attending physician on admission: Charlotte Horowitz Consults: 01/05/25 20:07 Consult to Hospitalist Routine Comment: Consulting Provider: [facility] [place] [facility] Reason For Exam: Admission physical 01/10/25 18:35 Consult to Wound Care Routine Consulting Provider: [facility] [place] Wound Care Management Reason for consultation: new open area to L buttock/coccyx area Attending physician on discharge: Charlotte Horowitz Discharging clinician: Charlotte Horowitz DS: Diagnosis Discharge Diagnosis (1) Depression, unspecified: Status: Acute (2) Suicidal ideation: Status: Acute (3) Pulmonary embolism: Status: Acute (4) HTN (hypertension): Status: Acute (5) Right femoral fracture: Status: Acute (6) Bladder spasm: Status: Acute (7) GERD (gastroesophageal reflux disease): Status: Acute (8) Diabetes: Status: Acute DS: Medications Discharge Medications Home Medications: Home Medications ?Medication ?Instructions ?Recorded ?Confirmed acetaminophen 500 mg tablet 500 mg PO Q6H PRN Pain (Scale 10/30/23 01/05/25 Score 1-3) aspirin 81 mg tablet 81 mg PO DAILY 10/30/23 01/05/25 apixaban 5 mg tablet (Eliquis) 5 mg PO BID 01/05/25 01/05/25 insulin glargine 100 unit/mL 15 unit subcut BEDTIME 01/05/25 01/05/25 subcutaneous solution (Lantus U-100 Insulin) insulin lispro 100 unit/mL See Protocol subcut TIDWMEAL 01/05/25 01/05/25 subcutaneous solution (Admelog U-100 Insulin lispro) melatonin 3 mg tablet 3 mg PO BEDTIME PRN Insomnia 01/05/25 01/05/25 metoclopramide HCl 5 mg tablet 10 mg PO Q6H PRN Nausea And 01/05/25 01/05/25 Vomiting olanzapine 2.5 mg tablet 2.5 mg PO BID PRN Agitation 01/05/25 01/05/25 oxybutynin chloride 10 mg 10 mg PO DAILY 01/05/25 01/05/25 tablet,extended release 24 hr oxycodone 5 mg tablet 2.5 mg PO Q4H PRN Pain (Scale 01/05/25 01/05/25 Score 7-10) pantoprazole 40 mg tablet,delayed 40 mg PO DAILY 01/05/25 01/05/25 release sertraline 25 mg tablet 25 mg PO DAILY 01/05/25 01/05/25 spironolactone 25 mg tablet 25 mg PO DAILY 01/05/25 01/05/25 tamsulosin 0.4 mg capsule 0.4 mg PO DAILY 01/05/25 01/05/25 trazodone 50 mg tablet 50 mg PO BEDTIME 01/05/25 01/05/25 Mental Status Exam Mental Status Exam Patient Appearance: Appropriate Patient Orientation: Person, Place, Time and Situation Level of Consciousness: Awake and Alert Patient Behavior: Appropriate Mood Description: Appropriate Affect Description: Appropriate Patient Cognition Impaired: No Ability to Follow Directions: Good Speech Pattern: Clear and Spontaneous Speech Memory Description: Intact Hallucinations: None Delusions: Not Present Thought Process: Goal Oriented and Linear Thought Content: positive for Goal Oriented and positive for Logical Judgement: Fair Data Data Completed and Pending Completed studies during hospitalization [Text1]: 01/11/25 01/11/25 01/12/25 16:00 16:04 06:26 POC Glucose 182 H 118 H Urine Color Yellow Urine Appearance Turbid Urine pH 8.5 Ur Specific [place] 1.010 Urine Protein 100 (2+) H Urine Glucose (UA) Negative Urine Ketones Negative Urine Blood Moderate (2+) H Urine Nitrite Positive H Ur Leukocyte Esterase Large (3+) H Urine RBC 0-2 Urine WBC 21-50 Ur Squamous Epith Cells 0-2 Urine Bacteria 3+ Hyaline Casts 3-5 01/12/25 01/12/25 01/12/25 11:28 16:13 20:51 POC Glucose 203 H 196 H 158 H Urine Color Urine Appearance Urine pH Ur Specific [place] Urine Protein Urine Glucose (UA) Urine Ketones Urine Blood Urine Nitrite Ur Leukocyte Esterase Urine RBC Urine WBC Ur Squamous Epith Cells Urine Bacteria Hyaline Casts 01/13/25 01/13/25 01/13/25 06:29 11:18 16:07 POC Glucose 136 H 178 H 132 H Urine Color Urine Appearance Urine pH Ur Specific [place] Urine Protein Urine Glucose (UA) Urine Ketones Urine Blood Urine Nitrite Ur Leukocyte Esterase Urine RBC Urine WBC Ur Squamous Epith Cells Urine Bacteria Hyaline Casts 01/14/25 01/14/25 01/14/25 06:52 11:16 16:09 POC Glucose 129 H 180 H 150 H Urine Color Urine Appearance Urine pH Ur Specific [place] Urine Protein Urine Glucose (UA) Urine Ketones Urine Blood Urine Nitrite Ur Leukocyte Esterase Urine RBC Urine WBC Ur Squamous Epith Cells Urine Bacteria Hyaline Casts 01/15/25 01/15/25 01/15/25 06:32 11:28 16:10 POC Glucose 113 152 H 177 H Urine Color Urine Appearance Urine pH Ur Specific [place] Urine Protein Urine Glucose (UA) Urine Ketones Urine Blood Urine Nitrite Ur Leukocyte Esterase Urine RBC Urine WBC Ur Squamous Epith Cells Urine Bacteria Hyaline Casts 01/16/25 01/16/25 01/16/25 06:49 11:37 16:16 POC Glucose 129 H 161 H 180 H Urine Color Urine Appearance Urine pH Ur Specific [place] Urine Protein Urine Glucose (UA) Urine Ketones Urine Blood Urine Nitrite Ur Leukocyte Esterase Urine RBC Urine WBC Ur Squamous Epith Cells Urine Bacteria Hyaline Casts 01/17/25 01/17/25 01/17/25 06:54 11:28 14:54 POC Glucose 133 H 184 H Urine Color Yellow Urine Appearance Cloudy Urine pH 8.0 Ur Specific [place] <= 1.005 Urine Protein Trace Urine Glucose (UA) Negative Urine Ketones Negative Urine Blood Small (1+) H Urine Nitrite Positive H Ur Leukocyte Esterase Large (3+) H Urine RBC 0-2 Urine WBC >50 H Ur Squamous Epith Cells 0-2 Urine Bacteria 4+ Hyaline Casts 01-0701/17/25 01/18/25 16:21 06:29 POC Glucose 148 H 122 H Urine Color Urine Appearance Urine pH Ur Specific [place] Urine Protein Urine Glucose (UA) Urine Ketones Urine Blood Urine Nitrite Ur Leukocyte Esterase Urine RBC Urine WBC Ur Squamous Epith Cells Urine Bacteria Hyaline Casts 01/17/25 Unknown Urine clean catch - Clean Catch Midstream Urine Culture - Pending 01/11/25 Unknown Urine Catheterized Urine Culture - Final 01/06/25 Unknown Urine Catheterized - [place] Catheter Urine Culture - Final CULTURE PENDING--Has indwelling catheter DS: Summary Hospital Course Time spent discussing smoking cessation with patient: 3 to 10 minutes Status at Discharge Cognitive/behavioral status at discharge: Alert, awake, oriented. Reports no depressive symptoms, no SI/HI/. In good behavioral control. No manic or psychotic symptoms Functional status at discharge: uses cane/walker Overall status at discharge: patient is back to baseline Time Spent with Patient Time attestation: Total time managing care of this patient today ____ minutes. Time spent: Greater than 30 minutes Specific discharge activities: Continue PT in SNF Participate in psychiatric and medical treatment and continue medications unless otherwise advise by outpatient providers Discharge Plan Discharge Anticipated Discharge Date/Time: 01/18/25 08:17 Patient Disposition: Xfer SNF Discharge Diagnosis: Depression Referrals: Emeterio Grace MD [Primary Care Provider, Internal Medicine] - 1 Week Discharge Medications: No Action metoclopramide HCl 5 mg tablet 10 mg PO Q6H PRN (Reason: Nausea And Vomiting) trazodone 50 mg tablet 50 mg PO BEDTIME oxybutynin chloride 10 mg tablet extended release 24hr 10 mg PO DAILY tamsulosin 0.4 mg capsule 0.4 mg PO DAILY pantoprazole 40 mg tablet,delayed release (DR/EC) 40 mg PO DAILY sertraline 25 mg tablet 25 mg PO DAILY Eliquis 5 mg tablet 5 mg PO BID oxycodone 5 mg tablet 2.5 mg PO Q4H PRN (Reason: Pain (Scale Score 7-10)) spironolactone 25 mg tablet 25 mg PO DAILY insulin glargine [Lantus U-100 Insulin] 100 unit/mL solution 15 unit subcut BEDTIME insulin lispro [Admelog U-100 Insulin lispro] 100 unit/mL solution See Protocol subcut TIDWMEAL Protocol: Insulin Correction Scale Less than or equal to 110 ---- Give (units): 0 111 to 150 Give (units): 0 151 to 200 Give (units): 2 201 to 250 Give (units): 4 251 to 300 Give (units): 6 301 to 350 Give (units): 8 Greater than 350 Give (units): 10 Call MD if Blood Glucose > : 350 olanzapine 2.5 mg Tablet 2.5 mg PO BID PRN (Reason: Agitation) melatonin 3 mg Tablet 3 mg PO BEDTIME PRN (Reason: Insomnia) acetaminophen 500 mg tablet 500 mg PO Q6H PRN (Reason: Pain (Scale Score 1-3)) aspirin 81 mg tablet 81 mg PO DAILY Discharge Orders: Discharge Order (Routine); Ordered 01/18/25 Ordered By: Charlotte Horowitz Diet: Diabetic diet Activity on Discharge: WC Stand Alone Forms: Patient Portal Discharge page Print Language: [place]an Activity Restrictions/Additional Instructions: Ambulation impairment due to femur fracture-Needs PT Care Plan Goals: Maintain medical and psychiatric stability, comply with medications and tx, Report resurgence of any symptoms Health Concerns: Depressive disorder with SI resolved Plan of Treatment: Continue medications and f/u, continue PT, continue DM diet and management Assessment: Stable for dc
[2025-01-18 08:40] VITALS: BP 140/72; PULSE 85; RESP 16; TEMP 36.7; O2SAT 96
[2025-01-18] MEDS: oxyBUTYnin chloride ER 5 MG TAB.ER.24 10 MG PO (09:17)
[2025-01-18] MEDS: Calcium + Vitamin D 250 MG TABLET 500 MG PO (09:27)
--- NOTE | 2025-01-18 10:24 | PM.PSYDC ---
DS: Providers Provider Date of Service: 01/18/25 Date of admission: 01/05/25 19:10 Date of discharge: 01/18/25 Primary care physician: Emeterio Grace MD Admitting clinician: Charlotte Horowitz Attending physician on admission: Charlotte Horowitz Consults: 01/05/25 20:07 Consult to Hospitalist Routine Comment: Consulting Provider: [facility] Hospitalists Reason For Exam: Admission physical 01/10/25 18:35 Consult to Wound Care Routine Consulting Provider: [facility] Wound Care Management Reason for consultation: new open area to L buttock/coccyx area Attending physician on discharge: Charlotte Horowitz Discharging clinician: Charlotte Horowitz DS: Diagnosis Discharge Diagnosis (1) Depression, unspecified: Status: Acute (2) Suicidal ideation: Status: Acute (3) Pulmonary embolism: Status: Acute (4) HTN (hypertension): Status: Acute (5) Right femoral fracture: Status: Acute (6) Bladder spasm: Status: Acute (7) GERD (gastroesophageal reflux disease): Status: Acute (8) Diabetes: Status: Acute DS: Medications Discharge Medications Home Medications: Home Medications ?Medication ?Instructions ?Recorded ?Confirmed acetaminophen 500 mg tablet 500 mg PO Q6H PRN Pain (Scale 10/30/23 01/05/25 Score 1-3) aspirin 81 mg tablet 81 mg PO DAILY 10/30/23 01/05/25 apixaban 5 mg tablet (Eliquis) 5 mg PO BID 01/05/25 01/05/25 insulin glargine 100 unit/mL 15 unit subcut BEDTIME 01/05/25 01/05/25 subcutaneous solution (Lantus U-100 Insulin) insulin lispro 100 unit/mL See Protocol subcut TIDWMEAL 01/05/25 01/05/25 subcutaneous solution (Admelog U-100 Insulin lispro) melatonin 3 mg tablet 3 mg PO BEDTIME PRN Insomnia 01/05/25 01/05/25 metoclopramide HCl 5 mg tablet 10 mg PO Q6H PRN Nausea And 01/05/25 01/05/25 Vomiting oxybutynin chloride 10 mg 10 mg PO DAILY 01/05/25 01/05/25 tablet,extended release 24 hr pantoprazole 40 mg tablet,delayed 40 mg PO DAILY 01/05/25 01/05/25 release sertraline 25 mg tablet 25 mg PO DAILY 01/05/25 01/05/25 spironolactone 25 mg tablet 25 mg PO DAILY 01/05/25 01/05/25 tamsulosin 0.4 mg capsule 0.4 mg PO DAILY 01/05/25 01/05/25 trazodone 50 mg tablet 50 mg PO BEDTIME 01/05/25 01/05/25 Previous Rx's ?Medication ?Instructions ?Recorded ascorbic acid (vitamin C) 500 mg 500 mg PO DAILY #30 tabs 01/18/25 tablet (Vitamin C) cefuroxime axetil 500 mg tablet 500 mg PO Q12H UTI 7 days #14 tabs 01/18/25 olanzapine 5 mg tablet 5 mg PO BID PRN agitation #30 tabs 01/18/25 oxycodone 5 mg tablet 2.5 mg (1/2 x 5 mg) PO Q4H PRN 01/18/25 pain 30 days #30 tabs Mental Status Exam Mental Status Exam Narrative: Appearance: wearing hospital gown, in bed, in NAD Behavior: cooperative, superficial Psychomotor: no agitation or retardation noted Speech: clear, normal rate/rhythm/volume, spontaneous TP: linear, goal oriented TC: organized no delusions future orientsd Mood: good Affect: congruent SI: none HI: none VH/AH: none Delusions: none Insight/judgment: fair x 2. Memory/cog: alert, oriented x 3. Patient Appearance: Appropriate Patient Orientation: Person, Place, Time and Situation Level of Consciousness: Awake and Alert Patient Behavior: Appropriate Mood Description: Appropriate Affect Description: Appropriate Patient Cognition Impaired: No Ability to Follow Directions: Good Speech Pattern: Clear and Spontaneous Speech Memory Description: Intact Hallucinations: None Delusions: Not Present Thought Process: Goal Oriented and Linear Thought Content: positive for Goal Oriented and positive for Logical Judgement: Fair Data Data Completed and Pending Completed studies during hospitalization [Text1]: 01/11/25 01/11/25 01/12/25 16:00 16:04 06:26 POC Glucose 182 H 118 H Urine Color Yellow Urine Appearance Turbid Urine pH 8.5 Ur Specific [place] 1.010 Urine Protein 100 (2+) H Urine Glucose (UA) Negative Urine Ketones Negative Urine Blood Moderate (2+) H Urine Nitrite Positive H Ur Leukocyte Esterase Large (3+) H Urine RBC 0-2 Urine WBC 21-50 Ur Squamous Epith Cells 0-2 Urine Bacteria 3+ Hyaline Casts 3-5 01/12/25 01/12/25 01/12/25 11:28 16:13 20:51 POC Glucose 203 H 196 H 158 H Urine Color Urine Appearance Urine pH Ur Specific [place] Urine Protein Urine Glucose (UA) Urine Ketones Urine Blood Urine Nitrite Ur Leukocyte Esterase Urine RBC Urine WBC Ur Squamous Epith Cells Urine Bacteria Hyaline Casts 01/13/25 01/13/25 01/13/25 06:29 11:18 16:07 POC Glucose 136 H 178 H 132 H Urine Color Urine Appearance Urine pH Ur Specific [place] Urine Protein Urine Glucose (UA) Urine Ketones Urine Blood Urine Nitrite Ur Leukocyte Esterase Urine RBC Urine WBC Ur Squamous Epith Cells Urine Bacteria Hyaline Casts 01/14/25 01/14/25 01/14/25 06:52 11:16 16:09 POC Glucose 129 H 180 H 150 H Urine Color Urine Appearance Urine pH Ur Specific [place] Urine Protein Urine Glucose (UA) Urine Ketones Urine Blood Urine Nitrite Ur Leukocyte Esterase Urine RBC Urine WBC Ur Squamous Epith Cells Urine Bacteria Hyaline Casts 01/15/25 01/15/25 01/15/25 06:32 11:28 16:10 POC Glucose 113 152 H 177 H Urine Color Urine Appearance Urine pH Ur Specific [place] Urine Protein Urine Glucose (UA) Urine Ketones Urine Blood Urine Nitrite Ur Leukocyte Esterase Urine RBC Urine WBC Ur Squamous Epith Cells Urine Bacteria Hyaline Casts 01/16/25 01/16/25 01/16/25 06:49 11:37 16:16 POC Glucose 129 H 161 H 180 H Urine Color Urine Appearance Urine pH Ur Specific [place] Urine Protein Urine Glucose (UA) Urine Ketones Urine Blood Urine Nitrite Ur Leukocyte Esterase Urine RBC Urine WBC Ur Squamous Epith Cells Urine Bacteria Hyaline Casts 01/17/25 01/17/25 01/17/25 06:54 11:28 14:54 POC Glucose 133 H 184 H Urine Color Yellow Urine Appearance Cloudy Urine pH 8.0 Ur Specific [place] <= 1.005 Urine Protein Trace Urine Glucose (UA) Negative Urine Ketones Negative Urine Blood Small (1+) H Urine Nitrite Positive H Ur Leukocyte Esterase Large (3+) H Urine RBC 0-2 Urine WBC >50 H Ur Squamous Epith Cells 0-2 Urine Bacteria 4+ Hyaline Casts 01-0701/17/25 01/18/25 16:21 06:29 POC Glucose 148 H 122 H Urine Color Urine Appearance Urine pH Ur Specific [place] Urine Protein Urine Glucose (UA) Urine Ketones Urine Blood Urine Nitrite Ur Leukocyte Esterase Urine RBC Urine WBC Ur Squamous Epith Cells Urine Bacteria Hyaline Casts 01/17/25 Unknown Urine clean catch - Clean Catch Midstream Urine Culture - Pending 01/11/25 Unknown Urine Catheterized Urine Culture - Final 01/06/25 Unknown Urine Catheterized - [place] Catheter Urine Culture - Final DS: Summary Hospital Course Time spent discussing smoking cessation with patient: 3 to 10 minutes Status at Discharge Cognitive/behavioral status at discharge: Alert, awake, oriented. Reports no depressive symptoms, no SI/HI/. In good behavioral control. No manic or psychotic symptoms Functional status at discharge: uses cane/walker Overall status at discharge: patient is back to baseline Time Spent with Patient Time attestation: Total time managing care of this patient today ____ minutes. Time spent: Greater than 30 minutes Specific discharge activities: Continue PT in SNF Participate in psychiatric and medical treatment and continue medications unless otherwise advise by outpatient providers Discharge Plan Discharge Anticipated Discharge Date/Time: 01/18/25 08:17 Patient Disposition: Xfer SNF Discharge Diagnosis: Depression Referrals: Emeterio Grace MD [Primary Care Provider, Internal Medicine] - 1 Week Discharge Medications: New olanzapine 5 mg Tablet 5 mg PO BID PRN (Reason: agitation) Qty: 30 0RF cefuroxime axetil 500 mg Tablet 500 mg PO Q12H MDD 1000 7 Days Qty: 14 0RF ascorbic acid (vitamin C) [Vitamin C] 500 mg Tablet 500 mg PO DAILY Qty: 30 0RF oxycodone 5 mg tablet 2.5 mg PO Q4H PRN (Reason: pain) 30 Days Qty: 30 0RF Rx Instructions: Partial Fill upon patient request. Continued metoclopramide HCl 5 mg tablet 10 mg PO Q6H PRN (Reason: Nausea And Vomiting) trazodone 50 mg tablet 50 mg PO BEDTIME oxybutynin chloride 10 mg tablet extended release 24hr 10 mg PO DAILY tamsulosin 0.4 mg capsule 0.4 mg PO DAILY pantoprazole 40 mg tablet,delayed release (DR/EC) 40 mg PO DAILY sertraline 25 mg tablet 25 mg PO DAILY Eliquis 5 mg tablet 5 mg PO BID spironolactone 25 mg tablet 25 mg PO DAILY insulin glargine [Lantus U-100 Insulin] 100 unit/mL solution 15 unit subcut BEDTIME insulin lispro [Admelog U-100 Insulin lispro] 100 unit/mL solution See Protocol subcut TIDWMEAL Protocol: Insulin Correction Scale Less than or equal to 110 ---- Give (units): 0 111 to 150 Give (units): 0 151 to 200 Give (units): 2 201 to 250 Give (units): 4 251 to 300 Give (units): 6 301 to 350 Give (units): 8 Greater than 350 Give (units): 10 Call MD if Blood Glucose > : 350 melatonin 3 mg Tablet 3 mg PO BEDTIME PRN (Reason: Insomnia) acetaminophen 500 mg tablet 500 mg PO Q6H PRN (Reason: Pain (Scale Score 1-3)) aspirin 81 mg tablet 81 mg PO DAILY Discontinued oxycodone 5 mg tablet 2.5 mg PO Q4H PRN (Reason: Pain (Scale Score 7-10)) olanzapine 2.5 mg Tablet 2.5 mg PO BID PRN (Reason: Agitation) Discharge Orders: Discharge Order (Routine); Ordered 01/18/25 Ordered By: Charlotte Horowitz Diet: Diabetic diet Activity on Discharge: WC Stand Alone Forms: Patient Portal Discharge page, Community Support Print Language: Lao Activity Restrictions/Additional Instructions: Ambulation impairment due to femur fracture-Needs PT Care Plan Goals: Maintain medical and psychiatric stability, comply with medications and tx, Report resurgence of any symptoms Health Concerns: Depressive disorder with SI resolved Plan of Treatment: Continue medications and f/u, continue PT, continue DM diet and management Assessment: Stable for dc Discharge Date/Time: 01/18/25 10:40
== END 2025-01-18 10:40 | disposition skilled nursing facility (03) | DRG 881 ==
PROVIDERS: Nurse Practitioner Psychiatric/Mental Health; Social Worker; Admitting Provider Psychiatry & Neurology Forensic Psychiatry; PCP Internal Medicine; Visit Provider Psychiatry & Neurology Forensic Psychiatry
DX: F32.A Depression, unspecified (principal); R45.851 Suicidal ideations; I50.32 Chronic diastolic (congestive) heart failure; Z68.42 Body mass index [BMI] 45.0-49.9, adult; I11.0 Hypertensive heart disease with heart failure; Z87.440 Personal history of urinary (tract) infections; K21.9 Gastro-esophageal reflux disease without esophagitis; E66.01 Morbid (severe) obesity due to excess calories; N32.89 Other specified disorders of bladder; Z96.0 Presence of urogenital implants; Z86.711 Personal history of pulmonary embolism; Z79.4 Long term (current) use of insulin; Z79.01 Long term (current) use of anticoagulants; Z79.82 Long term (current) use of aspirin; Z79.899 Other long term (current) drug therapy
CPT/HCPCS: 36415; 80053; 80061; 81001; 81003; 82947; 83036; 84439; 84443; 87086; 97110; 97163; 97530

== ENCOUNTER → 2025-01-05 19:10 | Outpatient (BNV) | payer MEDICARE, MEDICAID, SELFPAY | PROVIDERS: Admitting Provider Psychiatry & Neurology Forensic Psychiatry; PCP Internal Medicine; Visit Provider Psychiatry & Neurology Forensic Psychiatry | DX: F32.A Depression, unspecified (principal); R45.851 Suicidal ideations; I26.99 Other pulmonary embolism without acute cor pulmonale; I10 Essential (primary) hypertension; S72.91XA Unspecified fracture of right femur, initial encounter for closed fracture; N32.89 Other specified disorders of bladder; K21.9 Gastro-esophageal reflux disease without esophagitis; E11.9 Type 2 diabetes mellitus without complications | CPT/HCPCS: 99232 ==

== ENCOUNTER → 2025-01-05 19:10 | Outpatient (BNV) | payer MEDICARE, MEDICAID, SELFPAY | PROVIDERS: Admitting Provider Psychiatry & Neurology Forensic Psychiatry; PCP Internal Medicine; Visit Provider Nurse Practitioner Family | DX: I26.99 Other pulmonary embolism without acute cor pulmonale (principal); I10 Essential (primary) hypertension | CPT/HCPCS: 99221 ==